=== PATIENT | female | born 1975 | race Caucasian/White ===

== ENCOUNTER 2021-12-07 18:21 | Inpatient (IN) | payer MEDICAID ==
[~2021-12-07] VITALS: Ht 160 cm; Wt 56.8 kg
[~2021-12-07 18:21] MED LIST: NAPR-56 PO; POLY119P2 PO
[2021-12-07] MEDS ORDERED: LORazepam 1 MG tablet PO ONE (18:40)
[2021-12-07 18:51] LABS: CLARITY,URINE CLEAR (Clear); COLOR,URINE YELLOW (Yellow); GLUCOSE, URINE NEGATIVE (Neg); KETONES,URINE TRACE mg/dl (Neg); LEUKOCYTE ESTERASE ,URINE NEGATIVE (Neg); NITRITES, URINE NEGATIVE (Neg); OCCULT BLOOD,URINE NEGATIVE (Neg); PROTEIN,URINE 30 mg/dl (Neg); UROBILINOGEN,URINE 0.2 E.U/dL (0.2-1.0)
[2021-12-07 18:55] LABS: URINE HCG NEGATIVE (NEG)
[2021-12-07 18:57] LABS: UA COLLECTION TYPE CLN CATCH MIDSTREAM
[2021-12-07 18:58] LABS: BACTERIA,URINE FEW /HPF (Neg); RBC,URINE NONE SEEN /HPF (0-2); SQUAMOUS EPITHELIAL CELL,UR FEW /LPF (FEW); WBC,URINE 0-4 /HPF (0-4)
[2021-12-07 18:59] LABS: BASOPHILS # (AUTO) 0.1 X10'3 (0-0.2); BASOPHILS % (AUTO) 0.9 % (0-1); EOSINOPHILS # (AUTO) 0.6 X10'3 (0-0.9); HEMATOCRIT 39.2 % (35.0-45.0); HEMOGLOBIN 13.2 g/dl (12.0-16.0); LYMPHOCYTES # (AUTO) 1.5 X10'3 (1.1-4.8); LYMPHOCYTES % (AUTO) 20.4 % (21-51); MEAN CORPUSCULAR HEMOGLOBIN 31.5 PG (27.0-31.0); MEAN CORPUSCULAR HGB CONC 33.7 g/dL (33.0-36.5); MEAN CORPUSCULAR VOLUME 93.3 FL (78-98); MEAN PLATELET VOLUME 7.1 FL (7.4-10.4); MONOCYTES # (AUTO) 0.5 X10'3 (0-0.9); MONOCYTES % (AUTO) 6.6 % (2-12); NEUTROPHILS # (AUTO) 4.6 X10'3 (1.8-7.7); NEUTROPHILS % (AUTO) 64.1 % (42-75); PLATELET COUNT 334 X10'3 (140-440); RED CELL DISTRIBUTION WIDTH 14.8 % (11.5-14.5); WHITE BLOOD COUNT 7.1 X10'3 (4.5-11.0)
[2021-12-07 19:06] LABS: URINE AMPHETAMINE SCREEN NEGATIVE (Neg); URINE BARBITUATE SCREEN NEGATIVE (Neg); URINE BENZODIAZEPINES SCREEN NEGATIVE (Neg); URINE CANNABINOID SCREEN POSITIVE (Neg); URINE COCAINE SCREEN NEGATIVE (Neg); URINE METHADONE SCREEN NEGATIVE (Neg); URINE OPIATE SCREEN NEGATIVE (Neg); URINE PHENCYCLIDINE SCREEN NEGATIVE (Neg)
[2021-12-07 19:10] LABS: ALANINE AMINOTRANSFERASE 24 U/L (12-78); ALBUMIN 3.7 G/DL (3.4-5.0); ALBUMIN/GLOBULIN RATIO 1.1 (1.1-1.5); ALKALINE PHOSPHATASE 70 IU/L (46-116); ANION GAP 7 (8-16); ASPARTATE AMINO TRANSFERASE 20 U/L (10-37); BILIRUBIN,TOTAL 0.3 MG/DL (0.1-1.0); BLOOD UREA NITROGEN 11 MG/DL (7-18); BUN/CREATININE RATIO 14.9 (6.6-38.0); CALCIUM 8.3 MG/DL (8.5-10.1); CHLORIDE 110 MMOL/L (99-107); CREATININE 0.74 MG/DL (0.40-0.90); GLUCOSE 86 MG/DL (70-104); POTASSIUM 3.7 MMOL/L (3.5-5.1); SODIUM 143 MMOL/L (135-145); TOTAL CARBON DIOXIDE 25.6 MMOL/L (24-32); eGFR 85 ML/MIN
[2021-12-07 19:19] LABS: ETHANOL 0.094 GM/DL (0.0-0.010)
[2021-12-07] MEDS ORDERED: levoTHYROXINE 75mcg tablet PO ONE (19:40)
--- NOTE | 2021-12-07 23:57 | NUR ---
Patients brother (Edward) called to explain patients extensive history. Instructed him to call back tomorrow and speak with Mental Health to ensure they get a thorough idea of patients condition. His phone number is [phone].
--- NOTE | 2021-12-08 07:15 | NUR ---
Patient transferred from [facility]. Ambulatory, steady gait. No distress observed. Continue to monitor.
[2021-12-08] MEDS: levoTHYROXINE 75mcg tablet PO SCH (07:50)
--- NOTE | 2021-12-08 08:20 | NUR ---
Patient eating gluten free cereal, no distress observed. Allergy dairy, eggs, wheat, and chicken. RN ordered soy milk. Continue to monitor.
--- NOTE | 2021-12-08 08:50 | NUR ---
Patient got angry and states she never said she was suicidal and principal gifts officer made it up. Patient was at brother's house. She is very angry with her brother. Continue to monitor.
--- NOTE | 2021-12-08 09:18 | NUR ---
PACKET FAXED TO [facility]
--- NOTE | 2021-12-08 09:20 | NUR ---
[facility], evaluating patient. Patient is a little agitated. Continue to monitor.
--- NOTE | 2021-12-08 09:20 | NUR ---
Patient asked for something for anxiety. Continue to monitor.
[2021-12-08] MEDS ORDERED: LORazepam 1 MG tablet PO ONE (09:25)
[2021-12-08 09:56] LABS: BASOPHILS # (AUTO) 0.1 X10'3 (0-0.2); BASOPHILS % (AUTO) 1.1 % (0-1); EOSINOPHILS # (AUTO) 0.6 X10'3 (0-0.9); EOSINOPHILS % (AUTO) 9.5 % (0-6); HEMATOCRIT 41.6 % (35.0-45.0); HEMOGLOBIN 13.7 g/dl (12.0-16.0); LYMPHOCYTES # (AUTO) 1.4 X10'3 (1.1-4.8); LYMPHOCYTES % (AUTO) 20.4 % (21-51); MEAN CORPUSCULAR HGB CONC 32.9 g/dL (33.0-36.5); MEAN CORPUSCULAR VOLUME 94.2 FL (78-98); MEAN PLATELET VOLUME 7.2 FL (7.4-10.4); MONOCYTES # (AUTO) 0.4 X10'3 (0-0.9); NEUTROPHILS # (AUTO) 4.2 X10'3 (1.8-7.7); PLATELET COUNT 318 X10'3 (140-440); RED BLOOD COUNT 4.41 X10'6 (4.20-5.60); RED CELL DISTRIBUTION WIDTH 14.9 % (11.5-14.5); WHITE BLOOD COUNT 6.7 X10'3 (4.5-11.0)
--- NOTE | 2021-12-08 10:26 | NUR ---
Mom and DIVINE Gomez, speaking with patient. Patient got angry as mom confronted patient on help she needs. Mother walking out and states "I love you!" patient yells back "I don't love you!". Patient wants to leave and RN spoke to DIVINE Gomez, who is placing a 5150 hold on patient. Patient advised and patient is not happy. RN gave patient 2 mg Ativan PO. Continue to monitor.
[2021-12-08] MEDS ORDERED: NO HOME MEDS (11:16)
[2021-12-08] MEDS: NICOTINE POLACRILEX 2 MG LOZENGE BC PRN (11:34)
--- NOTE | 2021-12-08 12:29 | NUR ---
Pt is sleeping on her right side. Normal RR even and unlabored. Will continue to monitor.
--- NOTE | 2021-12-08 15:00 | NUR ---
ADMIT NOTE: Per 5149 pt. was threatening family and unable to benefit from family supports. Pt. unable to report a viable plan for food, clothing, and skilled nursing. Pt. sedated upon admission due to receiving Ativan 2mg po in ER OF. Pt. was cooperative with skin check but gives minimal answers to admission and physical assessment questions and must be awoken multiple times. Pt. denies SI/HI, A/V hallucinations. Addendum: 12/08/21 at 1820 by Phu Denney RN 5149 for GD
[2021-12-08 15:32] VITALS: BP 123/84
[2021-12-08] MEDS ORDERED: NICOTINE POLACRILEX 2 MG LOZENGE BC PRN (15:40)
[2021-12-08] MEDS ORDERED: mag hydrox/Alum hydrox/simeth 30ml oral suspension PO PRN (15:40)
[2021-12-08] MEDS ORDERED: loperamide 2mg capsule PO PRN (15:40)
[2021-12-08] MEDS ORDERED: acetaminophen 325mg tablet PO PRN (15:40)
[2021-12-08] MEDS: LORazepam 1 MG tablet PO PRN (17:57)
[2021-12-08 20:44] VITALS: BP 105/69
--- NOTE | 2021-12-09 01:24 | NUR ---
Nursing Progress Note: Deborah Legal hold: 5150 Client on voluntary/involuntary status for GD. Report received from nurse with use of SBAR: WISAM Blackmon. Why are they here: Client LIBRA munoz for S/I; she jumped out of 2nd floor window after drinking ETOH. Patient threatened family and unable to safety plan with family. Also unable to report a viable plan for food, clothing, and retirement. Hx of meth use, heavy ETOH. Assessment What has happened this shift: Patient was received laying in bed in position on her right side, in no apparent distress. Patient was not entirely cooperative, gave little to no answers to assessment questions and had to be awoken multiple times to get any response. Although patient verbalized "I want to be left alone," she denied any S/I, H/I, and A/V hallucinations. Patient got dinner late d/t late admission, she ate most of it and been asleep since. S/I, H/I: Denies A/VH: Denies Sleep: Will tally at the end of shift ADL's: Independent Group attendance: N/A Were meds taken: N/A Any med S/E: N/A Mental Status Exam Appearance: petite, blonde, slightly unkempt lady with sunburned skin and thick calluses to bilateral feet Eye contact: Avoidant Behavior: Uncooperative, agitated, isolative, guarded Speech: Mumbles Mood: irritable, withdrawn Affect: flat Thought process: linear Thought Content: wants to be left alone. Cognition: Alert and Oriented x4 Insight: Poor Judgment: Poor Interventions PRN's used: None Therapeutic interventions: establishment of rapport, therapeutic conversation, active listening, medication administration/education/monitoring, encouragement of personal hygiene, provided distraction, redirection, positive reinforcement, and Q15 minute safety checks. Restraints/seclusion/emergency medication:None Justification of Continued Inpatient Treatment: Patient in need of crisis interruption and stabilization with medication management and monitoring in a safe and therapeutic environment until stable.
[2021-12-09] MEDS: LORazepam 1 MG tablet PO PRN ×2 (06:29→17:00)
[2021-12-09] MEDS: NICOTINE POLACRILEX 2 MG LOZENGE BC PRN ×2 (06:30→12:08)
[2021-12-09] MEDS: levoTHYROXINE 75mcg tablet PO SCH (07:29)
[2021-12-09] MEDS: nicotine 21mg patch - 24 hr TD SCH (07:30)
[2021-12-09 07:41] VITALS: BP 127/83
[2021-12-09 08:04] VITALS: BP 109/77
--- NOTE | 2021-12-09 09:04 | NUR ---
Assessment Met w/pt & engaged her in completing psychosocial, pt signed MOOSE & #9. Pt is homeless & will need linkages to community based providers & resources upon d/c. DCP Needs: Skilled Nursing Services (outpatient MH & PMD, support to apply for public benefits). D/C resources: [facility] ([facility], [facility], Peer Support) [facility] Plan: Clinician will continue to monitor pt's progress & engage pt in dcp activities when appropriate. Denisse Watters LCSW Addendum: 12/11/21 at 0914 by Denisse Watters SS Amended: Links added.
[2021-12-09 10:27] LABS: CHOL/HDL RATIO 2.9 (0.00-4.99); CHOLESTEROL 189 MG/DL (0-200); HDL CHOLESTEROL 65 MG/DL (35-60); LDL CHOLESTEROL 109 MG/DL (50-100); TRIGLYCERIDES 99 MG/DL (20-135)
[2021-12-09 10:29] LABS: HEMOGLOBIN A1C 5.7 % (4.5-6.2)
[2021-12-09] MEDS ORDERED: NO HOME MEDS (11:09)
[2021-12-09] MEDS ORDERED: ibuprofen 200mg tablet PO PRN (11:10)
[2021-12-09] MEDS: ibuprofen 200mg tablet PO PRN ×2 (11:30→20:41)
--- NOTE | 2021-12-09 16:45 | NUR ---
Nursing Progress Note: Deborah Legal hold: 5150 Client on voluntary/involuntary status for GD. Report received from CRN with use of SBAR. Why are they here: Client LIBRA munoz for S/I; she jumped out of 2nd floor window after drinking ETOH. Patient threatened family and unable to safety plan with family. Also unable to report a viable plan for food, clothing, and mcfp. Hx of meth use, heavy ETOH. Assessment What has happened this shift: Patient was received pacing and elevated. She immediately reported Im fuing getting out of here, youre not keeping me here where the hell is the exit. Pt. struggled to maintain herself and presented with extreme agitation, and was given PRN Ativan . Received phone call from her father Ruy Stoddard (phone number in chart), he was not listed on release form, so pt. did give verbal permission to senior writer to speak to him. Pt. father requesting provider call re recent psych behavior including pending charge from [employer] d/t erratic behavior on a flight last week from [place]. Pt. denies SI, HI, reports she was admitted d/t its my brothers fault, he did all this. Pt. attends the main [facility] room for meals, but stays briefly. She reports inability to tolerate allot of foods and would only eat applesauce, peanut butter. Pt. spent most of her day in her room and isolates from other cohorts. She was observed on the phone intermittently resulting in loud yelling and cursing. Pt. was seen by provider and c/o rectal pain. N.O DSS 250 BID, Motrin 600mg Q6 PRN. Office Supervisor found bowel assessment WNL, and administered MOM. S/I, H/I: Denies A/VH: Denies Sleep: 9.7 hrs, intermittent naps ADL's: Independent Group attendance: NA Were meds taken: Yes Any med S/E: None seen or observed Mental Status Exam Appearance: Older disheveled female, thin, wearing unit scrub Eye contact: poor Behavior: Agitated, isolative Speech: Loud Mood: Irritable, withdrawn Affect: Flat Thought process: Linear Thought Content: Want out Cognition: A/0x4 Insight: Poor Judgment: Poor Interventions PRN's used: Ativan, Motrin, Tylenol, MOM, nicotine lozenge Therapeutic interventions: establishment of rapport, therapeutic conversation, active listening, medication administration/education/monitoring, encouragement of personal hygiene, provided distraction, redirection, positive reinforcement, and Q15 minute safety checks. Restraints/seclusion/emergency medication: None Justification of Continued Inpatient Treatment: Patient in need of crisis interruption and stabilization with medication management and monitoring in a safe and therapeutic environment until stable.
[2021-12-09 19:37] VITALS: BP 98/58
[2021-12-09] MEDS: docusate sod 250mg capsule PO SCH (20:41)
--- NOTE | 2021-12-10 01:48 | NUR ---
Nursing Progress Note: Legal hold: 5150 Client on involuntary status for GD. Report received from CRN with use of SBAR. Why are they here: Client LIBRA munoz for S/I; she jumped out of 2nd floor window after drinking ETOH. Patient threatened family and unable to safety plan with family. Also unable to report a viable plan for food, clothing, and nursing home. Hx of meth use, heavy ETOH. Assessment What has happened this shift: Pt up in laura at start of shift. Pt guarded not talkative. Took meds without hesitation. Pt became obsessed with another staff member who had she had very little interaction with her. Accused this staff member of shooting darts at her. "I don't trust her keep her out of my room." Explained that the staff member had to come in room to care for roommate. Pt reassured that she was safe. She went to sleep. S/I, H/I: Denies A/VH: Denies Sleep: asleep at this time ADL's: Independent Group attendance: NA Were meds taken: Yes Any med S/E: None seen or observed Mental Status Exam Appearance: Well groomed showered on dayshift. Eye contact: poor Behavior: Agitated, isolative Speech: Normal rate and volume Mood: Irritable, withdrawn Affect: Flat Thought process: Linear Thought Content: Staff member being dangerous Cognition: A/0x4 Insight: Poor Judgment: Poor Interventions PRN's Motrin Therapeutic interventions: establishment of rapport, therapeutic conversation, active listening, medication administration/education/monitoring, encouragement of personal hygiene, provided distraction, redirection, positive reinforcement, and Q15 minute safety checks. Restraints/seclusion/emergency medication: None Justification of Continued Inpatient Treatment: Patient in need of crisis interruption and stabilization with medication management and monitoring in a safe and ther
[2021-12-10] MEDS: NICOTINE POLACRILEX 2 MG LOZENGE BC PRN (02:09)
[2021-12-10] MEDS: LORazepam 1 MG tablet PO PRN (02:38)
--- NOTE | 2021-12-10 04:21 | NUR ---
Pt awake for about an hour. Up in laura yelling that she wanted to leave to have a cigarette. Yelling things like "No one owns me. I am not having surgery" Given nicotine lozenge, Ativan and hot tea. Sat in laura calmed down apologized to staff and went back to bed.
[2021-12-10 07:56] VITALS: BP 104/76
[2021-12-10] MEDS: docusate sod 250mg capsule PO SCH ×2 (08:14→20:00)
[2021-12-10] MEDS: lurasidone 20mg tablet PO SCH (08:14)
[2021-12-10] MEDS: levoTHYROXINE 75mcg tablet PO SCH (08:14)
[2021-12-10] MEDS: nicotine 21mg patch - 24 hr TD SCH (08:26)
[2021-12-10] MEDS ORDERED: LORazepam 1 MG tablet PO ONE (09:00)
[2021-12-10] MEDS ORDERED: diphenhydrAMINE 50 mg/ml inj ONE (09:12)
[2021-12-10] MEDS ORDERED: haloperidol lactate 5mg/ml inj IM ONE (09:13)
--- NOTE | 2021-12-10 16:50 | NUR ---
Nursing Progress Note Legal hold: 5150 Client on voluntary/involuntary status for GD Report received from RN with use of SBAR Why are they here: Client LIBRA munoz for S/I; she jumped out of 2nd floor window after drinking ETOH. Patient threatened family and unable to safety plan with family. Also unable to report a viable plan for food, clothing, and assisted. Hx of meth use, heavy ETOH. Assessment What has happened this shift: Received Pt sitting in hallway. Pt let me know she didnt want to be here and wanted to go outside and smoke. Im going out those doors cause I dont belong here and I need to smoke. Pt able to calm and cooperate with vitals and portions of AM assessments. Pt ate breakfast and sat talking with others afterwards and began to escalate verbally again. Pt able to take AM meds with some questions. After leaving community room, Pt began yelling, screaming and pushing on doors with alarm. Pt Pt given oral once Ativan 2mg per Jesus Alberto WESTON. Pt clam in room for a few minutes and repeated screaming Im getting the fuck out of here. Pt slammed door and banged on sorensen. Pt did not respond to verbal de-escalation and was given Haldol 10mg IM and Benadryl 50mg IM per Jesus Alberto WESTON, and placed in seclusion room where she continued to bang sorensen and scream profanity, until she fell asleep. Pt woke at approx. 1530 and went back to her room and was given sandwich and juice as she missed lunch. Pt sat in chair for a while then returned to sleeping in bed in her room after eating and drinking. S/I, H/I: Denies A/VH: Denies Sleep: Most of shift, due to PRN meds for agitation ADL's: Independent Group attendance: No Were meds taken: Yes Any med S/E: None seen or observed Mental Status Exam Appearance: Disheveled in green scrubs Eye contact: Fair Behavior: Agitated Speech: Loud Mood: Irritable Affect: Flat Thought process: Linear Thought Content: Wants to leave and smoke Cognition: A/0x4 Insight: Poor Judgment: Poor Interventions PRN's used: See below Therapeutic interventions: establishment of rapport, therapeutic conversation, active listening, medication administration/education/monitoring, encouragement of personal hygiene, provided distraction, redirection, positive reinforcement, and Q15 minute safety checks. Restraints/seclusion/emergency medication: Pt given Ativan 2 mg oral, Haldol 10mg IM and Benadryl 50mg IM. Pt put in seclusion room. Justification of Continued Inpatient Treatment: Patient in need of crisis interruption and stabilization with medication management and monitoring in a safe and therapeutic environment until stable.
[2021-12-10 19:38] VITALS: BP 104/64
--- NOTE | 2021-12-10 22:06 | NUR ---
Nursing Progress Note Legal hold: 5150 Client on voluntary/involuntary status for GD Report received from RN with use of SBAR Why are they here: Client LIBRA munoz for S/I; she jumped out of 2nd floor window after drinking ETOH. Patient threatened family and unable to safety plan with family. Also unable to report a viable plan for food, clothing, and prison. Hx of meth use, heavy ETOH. Assessment What has happened this shift: Pt was in bed sleeping at change of shift. She got up and walked around prior to HS med pass and returned to bed. Pt would not wake up at HS med pass but later woke requesting a snack. Pt seems irritable and sits on the hallway floor waiting for a snack. Pt took HS meds and returned to her room. S/I, H/I: Denies A/VH: Denies Sleep: Most of shift ADL's: Independent Group attendance: No Were meds taken: Yes Any med S/E: None seen or observed Mental Status Exam Appearance: Disheveled in green scrubs Eye contact: Fair Behavior: Agitated Speech: quiet Mood: Irritable Affect: Flat Thought process: Linear Thought Content: Wants to leave and smoke Cognition: A/0x4 Insight: Poor Judgment: Poor Interventions PRN's used: Therapeutic interventions: establishment of rapport, therapeutic conversation, active listening, medication administration/education/monitoring, encouragement of personal hygiene, provided distraction, redirection, positive reinforcement, and Q15 minute safety checks. Restraints/seclusion/emergency medication: none Justification of Continued Inpatient Treatment: Patient in need of crisis interruption and stabilization with medication management and monitoring in a safe and therapeutic environment until stable.
[2021-12-11 07:39] VITALS: BP 173/139
[2021-12-11] MEDS: lurasidone 20mg tablet PO SCH (07:51)
[2021-12-11] MEDS: levoTHYROXINE 75mcg tablet PO SCH (07:51)
[2021-12-11] MEDS: docusate sod 250mg capsule PO SCH ×2 (07:51→20:13)
[2021-12-11] MEDS: nicotine 21mg patch - 24 hr TD SCH (07:52)
[2021-12-11] MEDS: ibuprofen 200mg tablet PO PRN (10:19)
[2021-12-11] MEDS: traMADol 50MG tablet PO PRN (16:06)
--- NOTE | 2021-12-11 16:52 | NUR ---
Nursing Progress Note: Deborah Legal hold: 5150 Client on involuntary status for GD Report received from DINO Nunes with use of SBAR Why are they here: Client LIBRA munoz for S/I; she jumped out of 2nd floor window after drinking ETOH. Patient threatened family and unable to safety plan with family. Also unable to report a viable plan for food, clothing, and assisted. Hx of meth use, heavy ETOH. Assessment What has happened this shift: Patient received sleeping in her room at change of shift with no s/s of distress. She was awoken for breakfast and scheduled medication. Patient received medication with no hesitancy. Patient endorsed that she was pissed off yesterday when asked how she was feeling. She joined in the community room for breakfast with peers. She retreated back to her room shortly after breakfast. 1:1 assessment completed, lungs CTA. Patient denies SI/ HI, AH or VH. Does not appear to be responding to internal stimuli. Patient approached this chart writer endorsing that she wants to talk to the doctor so she can leave. She is noted to be intermittently irritated r/t perseveration on discharge throughout the day. Patient observed socializing with other peers in the community room while watching television. She was given PRN Ultram at 1606 for c/o abdominal pain. Patient observed napping intermittently in her room throughout the shift. She joined for all meal and snack times in the community room with peers. S/I, H/I: Denies A/VH: Denies. Does not appear to be responding to IS. Sleep: Pt slept 8.25 hours last night per NOC shift. Napped intermittently throughout this shift. ADL's: Independent Group attendance: No Were meds taken: Yes Any med S/E: None reported or observed Mental Status Exam Appearance: Disheveled looking woman wearing green unit scrubs Eye contact: Fair Behavior: Social at times with peers, irritable at times, cooperative Speech: Clear, WNL Mood: Irritable at times Affect: Flat Thought process: Linear Thought Content: Meeting needs. Wanting to discharge. Cognition: A&O x4 Insight: Poor Judgment: Poor Interventions PRN's used: Tramadol, Motrin Therapeutic interventions: Establishment of rapport, therapeutic conversation, active listening, medication administration/education/monitoring, encouragement of personal hygiene, provided distraction, redirection, positive reinforcement, encouraged participation on the unit, and Q15 minute safety checks. Restraints/seclusion/emergency medication: N/A Justification of Continued Inpatient Treatment: Patient in need of crisis interruption and stabilization with medication management and monitoring in a safe and therapeutic environment until stable.
[2021-12-11] MEDS: LORazepam 1 MG tablet PO PRN (18:12)
[2021-12-11 19:12] VITALS: BP 112/55
--- NOTE | 2021-12-11 21:10 | NUR ---
Nursing Progress Note: Deborah Legal hold: 5150 Client on involuntary status for GD Report received from DINO Blackmon with use of SBAR Why are they here: Client LIBRA munoz for S/I; she jumped out of 2nd floor window after drinking ETOH. Patient threatened family and unable to safety plan with family. Also unable to report a viable plan for food, clothing, and care home. Hx of meth use, heavy ETOH. Assessment What has happened this shift: Pt was up in the group room at change of shift, socializing w/peers. She states she is feeling "alright." Pt appears fatigued but continued to socialize and watch tv in group room. Pt requested PRN nicotine lozenge at HS med pass and requested to shower and did. Pt went to bed after showering. S/I, H/I: Denies A/VH: Denies. Does not appear to be responding to IS. Sleep: see sleep hours ADL's: Independent Group attendance: No Were meds taken: Yes Any med S/E: None reported or observed Mental Status Exam Appearance: clean neat wearing green scrubs, showered this evening Eye contact: Fair Behavior: Social at times with peers, cooperative Speech: Clear Mood: "alright" Affect: Flat Thought process: Linear Thought Content: Meeting needs. Wanting to discharge. Cognition: A&O x4 Insight: Poor Judgment: Poor Interventions PRN's used: nicotine lozenge Therapeutic interventions: Establishment of rapport, therapeutic conversation, active listening, medication administration/education/monitoring, encouragement of personal hygiene, provided distraction, redirection, positive reinforcement, encouraged participation on the unit, and Q15 minute safety checks. Restraints/seclusion/emergency medication: N/A Justification of Continued Inpatient Treatment: Patient in need of crisis interruption and stabilization with medication management and monitoring in a safe and therapeutic environment until stable.
[2021-12-12] MEDS: NICOTINE POLACRILEX 2 MG LOZENGE BC PRN ×6 (06:31→23:05)
--- NOTE | 2021-12-12 07:18 | NUR ---
Initial: Pt admitted w/ schizophrenia and suicidal ideations per EMR. Currently on Regular diet w/ 100% intake of meals and participates in snacks per nursing documentation. Currently meeting est nutrient needs. LBM 12/11 receiving routine colace. No nutrition intervention implemented at this time, will continue to monitor. Recs: 1. Continue Regular diet as tolerated 2. Bowel care per rx 3. Weekly wts Addendum: 12/12/21 at [address] Amended: Links added.
[2021-12-12] MEDS: levoTHYROXINE 75mcg tablet PO SCH (07:27)
[2021-12-12] MEDS: docusate sod 250mg capsule PO SCH ×2 (07:27→20:31)
[2021-12-12] MEDS: lurasidone 20mg tablet PO SCH (07:28)
[2021-12-12] MEDS: nicotine 21mg patch - 24 hr TD SCH (07:29)
[2021-12-12] MEDS: traMADol 50MG tablet PO PRN ×2 (07:39→19:01)
[2021-12-12 08:00] VITALS: BP 101/67
[2021-12-12] MEDS: LORazepam 1 MG tablet PO PRN (12:45)
--- NOTE | 2021-12-12 12:59 | NUR ---
Deborah's brother, Edward (ph# [phone]) called to request an LPS referral. He reported he spoke to Valencia Gacria at [facility] who suggested he call [facility] to request LPS. Edward reported the family was going to seek conservatorship but now realize that LPS may be more appropriate. Informed him of the barriers with [facility] and seeking LPS. Requested he give additional information and he stated, "I already gave all the information to Dr Granda". Investment Executive will discuss the LPS referral with ENRICO Granda. MALICK Gomez
--- NOTE | 2021-12-12 14:51 | NUR ---
Cole, Director, spoke to content writer regarding complaint from family that [facility] is not completing LPS referral. Explained the situation and informed him that content writer can complete a referral and send it to [facility] as they are the ones who will decide whether or not to investigate. Spoke to Micaela Bucio/Deborah rascon at [facility] (ph# [phone]) and explained the situation. Informed her content writer will send a referral with out a Dr's signature. Completed and sent the LPS referral to [facility]. MALICK Gomez
--- NOTE | 2021-12-12 15:54 | NUR ---
Pt. attend group this morning. We talked about Codependency and how to create "I messages". Pt. was very interested in the topic at hand. She was open and shared her thoughts easily with her peers. Her demeanor was calm, compliant and pleasant to work with. She was alert and oriented X 4. Her thought content and thought process were WNL. She shared a lot about how she feels she is an empath and what that is like for her. She also shared ways she angie with being very sensitive. She reported going into nature is very therapeutic for her. She also reported having alone time helps as well. This [employer] Pasture Farm Worker did observe some possible delusion content in her thinking. Her thought process was linear. Tomasa Lazaro LCSW
--- NOTE | 2021-12-12 16:37 | NUR ---
Nursing Progress Note: Deborah Legal hold: 5250 Client on involuntary status for GD Report received from DINO Nunes with use of SBAR Why are they here: Client LIBRA munoz for S/I; she jumped out of 2nd floor window after drinking ETOH. Patient threatened family and unable to safety plan with family. Also unable to report a viable plan for food, clothing, and senior care. Hx of meth use, heavy ETOH. Assessment What has happened this shift: Patient observed walking around the unit at shift change. She was receptive to scheduled medication and 1:1 assessment. Patient approached this policy writer sales endorsing 03/09 chronic abdominal pain r/t rectal prolapse sx x7 years ago. She was given PRN Tramadol for pain with effectiveness. She joined with peers in the community room for breakfast. She was noted to be active on the unit throughout the morning. Patient denies SI/ HI, AH or VH. Does not appear to be responding to internal stimuli. She took a shower on this shift, dressed in clean clothing with clean linens applied to bed. Patient approached this policy writer sales with c/o anxiety and was given PRN Ativan at 1245. She approached this policy writer sales later endorsing that she believes her hypothyroid issue was causing her to feel bad but she is better now on medication. Patient also endorsing that she cant stand to be here another day and doesnt deserve to be in a mental hospital. Patient noted to be animated, raising tone of voice, stating that she will get out of here one way or another. Patient had court hearing via zoom today. Shortly after hearing patient was noted pacing the hallway endorsing that she can take care of her festeban self and doesnt need to be here. She is noted to be intermittently irritated r/t perseveration on discharge throughout the day. She joined for all meal and snack times in the community room with peers. S/I, H/I: Denies A/VH: Denies. Does not appear to be responding to IS. Sleep: Refer to sleep hours. Patient napped for approximately one hour on this shift. ADL's: Independent Group attendance: No Were meds taken: Yes Any med S/E: None reported or observed Mental Status Exam Appearance: Clean, showered on this shift. Middle aged woman wearing green unit scrubs Eye contact: Fair Behavior: Social at times with peers, irritable at times, cooperative Speech: Clear, WNL Mood: Irritable at times Affect: Flat Thought process: Linear Thought Content: Meeting needs. Perseveration on discharge. Doesnt need to be here Cognition: A&O x4 Insight: Poor Judgment: Poor Interventions PRN's used: Tramadol, Ativan Therapeutic interventions: Therapeutic conversation, active listening, medication administration/education/monitoring, encouragement of personal hygiene, provided distraction, redirection, positive reinforcement, encouraged participation on the unit, and Q15 minute safety checks. Restraints/seclusion/emergency medication: N/A Justification of Continued Inpatient Treatment: Patient in need of crisis interruption and stabilization with medication management and monitoring in a safe and therapeutic environment until stable.
[2021-12-12 20:00] VITALS: BP 128/68
--- NOTE | 2021-12-12 20:47 | NUR ---
Nursing Progress Note Legal hold: 5250 Client on involuntary status for GD Report received from DINO Moore with use of SBAR Why are they here: Client LIBRA munoz for S/I; she jumped out of 2nd floor window after drinking ETOH. Patient threatened family and unable to safety plan with family. Also unable to report a viable plan for food, clothing, and chcf. Hx of meth use, heavy ETOH. Assessment What has happened this shift: Patient observed walking around the unit at shift change. Patient primarily isolated in her room following shift change. She did exit for snacks and to request medications. The patient is well oriented. 1:1 Interview at bedside. Patient denies S/I, H/I, or any hallucinations. She looks disheveled. She has an anxious looking face. The patient complains of anxiety, also her chronic abdominal pain. She expresses concerns about her children who have been taken away from her. She tells this assembly instructions writer, "I want to get out of here. Why can't we smoke here? The patient was given Tramadol for her ABD pain. It is too early for her Ativan. The patient also requests something for sleep. Jesus Alberto WESTON will be contacted he approved Trazadone 100 mg, MR X1. The patient is linear of thought. No internal stimuli noted. Patients speech is normal. The patient is focused on her discharge. Patient is independent on her ADL's. Mental Status Exam Appearance: Clean, showered on this shift. Middle aged woman wearing green unit scrubs Eye contact: Fair Interventions PRN's used: Tramadol Therapeutic interventions: Therapeutic conversation, active listening, medication administration/education/monitoring, encouragement of personal hygiene, provided distraction, redirection, positive reinforcement, encouraged participation on the unit, and Q15 minute safety checks. Restraints/seclusion/emergency medication: N/A Justification of Continued Inpatient Treatment: Patient in need of crisis interruption and stabilization with medication management and monitoring in a safe and therapeutic environment until stable.
[2021-12-12] MEDS ORDERED: traZODone 50mg tablet PO ONE ×2 (21:10→23:00)
--- NOTE | 2021-12-12 22:57 | NUR ---
Patient is awake again, she states she can't sleep. A second Trazadone 100 mg will be given.
[2021-12-13] MEDS: NICOTINE POLACRILEX 2 MG LOZENGE BC PRN ×4 (06:48→22:22)
[2021-12-13 07:28] VITALS: BP 109/71
[2021-12-13] MEDS: docusate sod 250mg capsule PO SCH ×2 (07:55→20:19)
[2021-12-13] MEDS: lurasidone 20mg tablet PO SCH (07:55)
[2021-12-13] MEDS: LORazepam 1 MG tablet PO PRN ×2 (07:55→17:26)
[2021-12-13] MEDS: levoTHYROXINE 75mcg tablet PO SCH (07:56)
[2021-12-13] MEDS: nicotine 21mg patch - 24 hr TD SCH (07:56)
--- NOTE | 2021-12-13 11:26 | NUR ---
[facility] submitted [facility] application. MALICK Gomez
[2021-12-13] MEDS: traMADol 50MG tablet PO PRN (12:35)
--- NOTE | 2021-12-13 16:37 | NUR ---
Nursing Progress Note: Deborah Legal hold: 5250 Client on involuntary status for GD Report received from Laurence Poole RN with use of SBAR Why are they here: Client LIBRA munoz for S/I; she jumped out of 2nd floor window after drinking ETOH. Patient threatened family and unable to safety plan with family. Also unable to report a viable plan for food, clothing, and detention. Hx of meth use, heavy ETOH. Assessment What has happened this shift: Patient observed sitting on the ground in the hallway upon change of shift. She presents as polite, reserved, and cooperative with care. Patient received her scheduled medication without hesitancy. She joined in the community room with peers for breakfast. Patient was given PRN Ativan this morning for c/o anxiety. She continues to deny SI/HI, AH or VH. Does not appear to be responding to internal stimuli. She was observed napping in her room after breakfast. Patient continues to endorse chronic abdominal pain r/t rectal prolapse sx x7 years ago. She was given PRN Tramadol for pain with effectiveness. Patient observed participating in group therapy with peers today. She was noted to be self-isolated to her room, observed napping intermittently throughout the shift. Patient took a shower on this shift and changed into clean clothing. Patient approached this ad copy writer later in the shift asking if she can just leave at any time. Patient reminded of 5250 hold status and encouraged to participate in constructive activities. She joined for all meal and snack times in the community room with peers. S/I, H/I: Denies A/VH: Denies. Does not appear to be responding to IS. Sleep: Pt slept 6.25 hours last night per NOC shift. Napped intermittently throughout ADL's: Independent Group attendance: No Were meds taken: Yes Any med S/E: None reported or observed Mental Status Exam Appearance: Clean, showered on this shift. Middle aged woman wearing green unit scrubs Eye contact: Fair Behavior: Social at times with peers, cooperative Speech: Clear, WNL Mood: Pleasant, slightly anxious Affect: Flat Thought process: Linear Thought Content: Meeting needs. Wanting to discharge. Cognition: A&O x4 Insight: Poor Judgment: Poor Interventions PRN's used: Tramadol, Ativan Therapeutic interventions: Therapeutic conversation, active listening, medication administration/education/monitoring, encouragement of personal hygiene, provided distraction, redirection, positive reinforcement, encouraged participation on the unit, and Q15 minute safety checks. Restraints/seclusion/emergency medication: N/A Justification of Continued Inpatient Treatment: Patient in need of crisis interruption and stabilization with medication management and monitoring in a safe and therapeutic environment until stable.
--- NOTE | 2021-12-13 19:30 | NUR ---
Patient has a new order for Ativan 1mg QHS scheduled. This is in addition to patients Ativan 1mg P0 BID. Per ENRICO Sumner.
[2021-12-13] MEDS: tizanidine 4mg tablet PO PRN (19:39)
[2021-12-13 20:00] VITALS: BP 101/65
[2021-12-13] MEDS ORDERED: traZODone 150mg tablet PO SCH (20:00)
[2021-12-13] MEDS ORDERED: LORazepam 1 MG tablet PO ONE (21:00)
--- NOTE | 2021-12-13 22:52 | NUR ---
Nursing Progress Note Legal hold: 5250 Client on involuntary status for GD Report received from DINO Moore with use of SBAR Why are they here: Client LIBRA munoz for S/I; she jumped out of 2nd floor window after drinking ETOH. Patient threatened family and unable to safety plan with family. Also unable to report a viable plan for food, clothing, and assisted. Hx of meth use, heavy ETOH. Assessment What has happened this shift: The patient is observes ambulating the unit following shift change. She exhibits light socializations with peers. The patient looks disheveled. At times friendly, the patient presents as somewhat anxious most of the time. The patient denies S/I, H/I, or any hallucinations. The patient did have a bowel movement today. The patient states she always has minimal bowel movements. Zanaflax was added to the patients MAR, also included was an additional Ativan QHS. The patient is well oriented, some depression resides. Patient minimizes her psychological state. She refuses her HS Trazadone "it makes me stay awake." The patient is otherwise medication compliant. Interventions PRN's used: Nicotine lozenges X2. Therapeutic interventions: Therapeutic conversation, active listening, medication administration/education/monitoring, encouragement of personal hygiene, provided distraction, redirection, positive reinforcement, encouraged participation on the unit, and Q15 minute safety checks. Restraints/seclusion/emergency medication: N/A Justification of Continued Inpatient Treatment: Patient in need of crisis interruption and stabilization with medication management and monitoring in a safe and therapeutic environment until stable.
[2021-12-14 07:36] VITALS: BP 98/66
[2021-12-14] MEDS: levoTHYROXINE 75mcg tablet PO SCH (07:46)
[2021-12-14] MEDS: docusate sod 250mg capsule PO SCH ×2 (08:00→19:20)
[2021-12-14] MEDS: nicotine 21mg patch - 24 hr TD SCH (08:12)
[2021-12-14] MEDS: tizanidine 4mg tablet PO PRN (10:19)
[2021-12-14] MEDS: magnesium hydroxide 30ml (MOM) UD suspension PO PRN (10:19)
[2021-12-14] MEDS: traMADol 50MG tablet PO PRN (10:19)
[2021-12-14] MEDS ORDERED: OLANZapine 5mg rapidly disint. tablet PO ONE (15:05)
[2021-12-14] MEDS ORDERED: OLANZAPINE 5 MG TABLET PO PRN (15:10)
[2021-12-14] MEDS: LORazepam 1 MG tablet PO PRN (15:33)
--- NOTE | 2021-12-14 17:20 | NUR ---
Nursing Progress Note Legal hold: 5150 Client on voluntary/involuntary status for GD Report received from RN with use of SBAR Why are they here: Client LIBRA munoz for S/I; she jumped out of 2nd floor window after drinking ETOH. Patient threatened family and unable to safety plan with family. Also unable to report a viable plan for food, clothing, and senior care. Hx of meth use, heavy ETOH. Assessment What has happened this shift: Received Pt in bed resting w/o distress at the beginning of this shift. Pt cooperated with vitals and got up and walked around the unit. Pt began to complain about not being able to smoke, but did not escalate behaviorally. She is wearing own clothes today. She attempted to befriend a new Pt but became disturbed by his words and escalation. Pt received Tramadol and Xanaflex for abdominal pain and discomfort, with good effect. Pts mood elevated a bit in afternoon with incongruent smiling and laughing. Pt mildly sexually provocative with other male Pts and staff, but redirected easily. Pt showered in afternoon and began to feel oppressed by things are happening to me, pt appeared to be responding to internal stimuli at times and received Zyprexa Sherry per Zulema WESTON. Pt taken to xray for abdominal and chest views. Pt received Ativan prn prior to xray. When she returned she spent next two hrs in community room doing artwork. S/I, H/I: Denies A/VH: Pt responding to delusions and internal stimuli Sleep: None this shift ADL's: Independent Group attendance: No Were meds taken: Yes Any med S/E: None seen or observed Mental Status Exam Appearance: Casual in own clothes, showered today Eye contact: Good Behavior: Scattered Speech: Coherent at times; disorganized at other times Mood: Labile Affect: Animated Thought process: Linear Thought Content: Wants to leave and smoke Cognition: A/0x4 Insight: Poor Judgment: Poor Interventions PRN's used: Xanaflex, Tramadol, Zyprexa, Ativan Therapeutic interventions: establishment of rapport, therapeutic conversation, active listening, medication administration/education/monitoring, encouragement of personal hygiene, provided distraction, redirection, positive reinforcement, and Q15 minute safety checks. Restraints/seclusion/emergency medication: Justification of Continued Inpatient Treatment: Patient in need of crisis interruption and stabilization with medication management and monitoring in a safe and therapeutic environment until stable.
[2021-12-14] MEDS: lurasidone 20mg tablet PO SCH (17:28)
[2021-12-14] MEDS: NICOTINE POLACRILEX 2 MG LOZENGE BC PRN (17:28)
[2021-12-14 19:00] VITALS: BP 112/68
--- NOTE | 2021-12-15 04:41 | NUR ---
Nursing Progress Note Legal hold: 5250 Client on involuntary status for GD Report received from DINO Moore with use of SBAR Why are they here: Client LIBRA munoz for S/I; she jumped out of 2nd floor window after drinking ETOH. Patient threatened family and unable to safety plan with family. Also unable to report a viable plan for food, clothing, and detention. Hx of meth use, heavy ETOH. Assessment What has happened this shift: Patient observed sitting in hallway by laundry room at shift change waiting for her clothes to be dry. Patient primarily isolated in her room following shift change. Pt cooperative with pm assessment and fell asleep early. Pt awoke to take her hs colace and returned to sleep. Pt stated she did have BM earlier in the day. Pt slept through snack. Pt did wake up around 0230 and requested juice and chocolate. Pt given juice and she returned to sleep. Mental Status Exam Appearance: Clean. Middle aged woman, wearing her own clothing Eye contact: Fair Interventions PRN's used: n/a Therapeutic interventions: Therapeutic conversation, active listening, medication administration/education/monitoring, encouragement of personal hygiene, provided distraction, redirection, positive reinforcement, encouraged participation on the unit, and Q15 minute safety checks. Restraints/seclusion/emergency medication: N/A Justification of Continued Inpatient Treatment: Patient in need of crisis interruption and stabilization with medication management and monitoring in a safe and therapeutic environment until stable.
[2021-12-15] MEDS: NICOTINE POLACRILEX 2 MG LOZENGE BC PRN ×2 (05:14→19:25)
[2021-12-15] MEDS: levoTHYROXINE 75mcg tablet PO SCH (07:05)
[2021-12-15] MEDS: traMADol 50MG tablet PO PRN (07:05)
[2021-12-15] MEDS: docusate sod 250mg capsule PO SCH ×2 (07:05→20:10)
[2021-12-15] MEDS: tizanidine 4mg tablet PO PRN (07:05)
[2021-12-15] MEDS: nicotine 21mg patch - 24 hr TD SCH (07:06)
[2021-12-15 07:58] VITALS: BP 111/68
[2021-12-15] MEDS: LORazepam 1 MG tablet PO PRN (09:07)
--- NOTE | 2021-12-15 15:17 | NUR ---
Nursing Progress Note: CY Legal hold: 5250 Expires 12/25 Client on voluntary/involuntary status for GD Report received from DINO Kent with use of SBAR Why are they here: Client LIBRA munoz for S/I; she jumped out of 2nd floor window after drinking ETOH. Patient threatened family and unable to safety plan with family. Also unable to report a viable plan for food, clothing, and custodial. Hx of meth use, heavy ETOH. Assessment What has happened this shift: Received patient sleeping at shift change, noted rise and fall of chest. Pt woke and requested her pain medication for abdominal pain. Pt asked for the results of the xrays from yesterday, both WNLs. Pt was compliant with care and medication. Pts mood began to elevated as she apologized I just cant get a hold of my kids. Its Easter, you know what I mean. PRN Ativan was administered with effect. Pt later had another elevated mood swing after getting off phone with mom That is bullshit! All she thinks I do is drugs, drugs, drugs! Pt took a warm shower to help calm her down, this was effective. Pt is social on the unit, especially with male peers. Pt presents linear at times then becomes tangential and disorganized in her thought process. S/I, H/I: Denies both. A/VH: Pt responding to delusions and internal stimuli Sleep: 7.25 hours per sleep assessment. No naps this shift. ADL's: Independent. Showered today. Group attendance: No scheduled group today. Were meds taken: Yes, without issue. Any med S/E: None seen or observed Mental Status Exam Appearance: Casual in own clothes, showered today Eye contact: Good Behavior: Cooperative, excitable, intrusive at times. Speech: Clear, loud, rapid, disorganized at other times Mood: Labile Affect: Animated Thought process: Linear Thought Content: Wants to talk to kids. Cognition: A/0x4 Insight: Poor Judgment: Poor Interventions PRN's used: Xanaflex, Tramadol, Ativan Therapeutic interventions: establishment of rapport, therapeutic conversation, active listening, medication administration/education/monitoring, encouragement of personal hygiene, provided distraction, redirection, positive reinforcement, and Q15 minute safety checks. Restraints/seclusion/emergency medication: Justification of Continued Inpatient Treatment: Patient in need of crisis interruption and stabilization with medication management and monitoring in a safe and therapeutic environment until stable. Addendum: 12/15/21 at 1655 by Jessy Infante RN Received order from Brandon Cunningham for Mag citrate. Pt's KUB shows large amount of stool. Administered without issue. Will continue to monitor.
[2021-12-15] MEDS ORDERED: magnesium citrate 296ml oral solution PO ONE (16:25)
[2021-12-15] MEDS: lurasidone 20mg tablet PO SCH (17:48)
[2021-12-15 19:46] VITALS: BP 123/83
[2021-12-15] MEDS: ibuprofen 200mg tablet PO PRN (20:14)
--- NOTE | 2021-12-16 03:44 | NUR ---
Nursing Progress Note: Legal hold: 5250 Expires 12/25 Client on involuntary status for GD Report received from DINO Moore with use of SBAR Why are they here: Client LIBRA munoz for S/I; she jumped out of 2nd floor window after drinking ETOH. Patient threatened family and unable to safety plan with family. Also unable to report a viable plan for food, clothing, and penitentiary. Hx of meth use, heavy ETOH. Assessment What has happened this shift: Patient was out on the floor at shift change. She is able to have a decent conversation, but is quite labile. She is on the verge of tears or an explosion. Words needed to be carefully thought out, as patient can take the wrong meaning. She continues to believe that she is being "messed with" by demons and people. She states they may have followed her here from [facility]. Patient is sociable with her peers, mostly males. Patient states that she will be having someone get her out of here tomorrow. She is unable to say with certainty where she will stay. She is compliant with medications. She has also showered today, and appears to be thinking more about her appearance. S/I, H/I: Denies. A/VH: Denies, but talks about seeing aliens. Sleep: See sleep assessment. ADL's: Independent. Showered today. Group attendance: N/A. Were meds taken: Yes. Any med S/E: None reported or observed Mental Status Exam Appearance: Casual in own clothes, showered today Eye contact: Good Behavior: Cooperative, excitable, intrusive at times. Speech: Clear, loud, rapid, disorganized at other times Mood: Labile Affect: Animated Thought process: Linear, disorganized at times. Thought Content: Wants to talk to her kids. Cognition: A/0x4 Insight: Poor Judgment: Poor Interventions PRN's used: Tramadol, Ativan Therapeutic interventions: establishment of rapport, therapeutic conversation, active listening, medication administration/education/monitoring, encouragement of personal hygiene, provided distraction, redirection, positive reinforcement, and Q15 minute safety checks. Restraints/seclusion/emergency medication: Justification of Continued Inpatient Treatment: Patient in need of crisis interruption and stabilization with medication management and monitoring in a safe and therapeutic environment until stable. Addendum: 12/15/21 at 1655 by Jessy Infante RN Received order from Brandon Cunningham for Mag citrate. Pt's KUB shows large amount of stool. Administered without issue. Will continue to monitor.
[2021-12-16] MEDS: LORazepam 1 MG tablet PO PRN ×2 (04:06→10:38)
[2021-12-16] MEDS: NICOTINE POLACRILEX 2 MG LOZENGE BC PRN (06:42)
--- NOTE | 2021-12-16 07:06 | NUR ---
FOLLOW UP ON LPS REFERRAL Per email from Rupinder at [facility], "[facility] will not be moving forward with the LPS referral for Deborah Stoddard because client has not received services from [facility]. If client is interested in Specialty Mental Health Services with [facility], client can go through [facility] as a walk-in, Thursday 8am-3pm, to initiate services. " Deborah Solano LMFT
[2021-12-16] MEDS: docusate sod 250mg capsule PO SCH ×2 (07:16→20:20)
[2021-12-16] MEDS: levoTHYROXINE 75mcg tablet PO SCH (07:16)
[2021-12-16] MEDS: nicotine 21mg patch - 24 hr TD SCH (07:17)
[2021-12-16 07:30] VITALS: BP 104/63
[2021-12-16 08:18] VITALS: BP 104/63
--- NOTE | 2021-12-16 09:51 | NUR ---
Pt. attended group today. Todays group was about the difference between Growth Mindset vs. Fixed Mindset. We learned about the differences and then discussed what aspect of developing a growth mindset they wanted to work on. Pt. came in half way through the group. She was very quiet and when asked if she wanted to shared she declined reporting that she wasn't doing well today due to hormones. She then went on the suggest that we get plants and play music to them to see how they grow. She believes this would be interesting to watch to see if the music helps the growth of the plant. Her demeanor was slightly agitated but she remained calm throughout the group. Her thought content suggested some possible loose associations as we were talking about the growth mindset and so she shared about plants growing. She was alert and oriented X 4. Tomasa Lazaro LCSW
--- NOTE | 2021-12-16 13:39 | NUR ---
CM Presenting Issues: VM from pt's father inquiring about LPS process. Interventions: T/C w/pt's father Ruy Stoddard [phone] and educated him on LPS process being a county's process. Pt's father was dissatisfied w/clinician's explanation (pt need to have Noreen Marr [employer] plan & is established w/[facility] for outpt services.). Father will contact Valencia at [facility] to advocate for pt to be conserved. Plan: Clinician will continue to monitor. MARIA ELENA PiersonW Addendum: 12/16/21 at 1342 by Denisse Watters SS Amended: Links added.
[2021-12-16] MEDS ORDERED: magnesium citrate 296ml oral solution PO ONE (14:05)
[2021-12-16] MEDS ORDERED: lactulose 20gm/30ml cup PO ONE (14:15)
[2021-12-16] MEDS ORDERED: OLANZapine 5mg rapidly disint. tablet PO ONE (16:25)
--- NOTE | 2021-12-16 17:05 | NUR ---
Nursing Progress Note: [place] Legal hold: 5250 Expires 12/25 Client on involuntary status for GD Report received from DINO [place] with use of SBAR Why are they here: Client LIBRA munoz for S/I; she jumped out of 2nd floor window after drinking ETOH. Patient threatened family and unable to safety plan with family. Also unable to report a viable plan for food, clothing, and prison. Hx of meth use, heavy ETOH. Assessment What has happened this shift: Received patient sleeping at shift change, noted rise and fall of chest. Noted patient with water down the front of her, when asked if she spilled pt stated No, I poured it on myself. You know just too much going on (pt gesturing with hands). PRN Ativan administered to help decrease anxiety. Noted intermittent episodes of pt talking to herself and random laughing. Pt was administered Mag Citrate yesterday as KUB indicated large amount of stool in colon. Pt reports having small bowl movements, reports some relief. Pt continues to deny all psychotic symptoms I just need out of this place. I wasnt even held this long in [facility]. This is fucking ridiculous. Pt had follow up KUB this morning, stool is moving down colon. Received order for another dose of Mag Citrate and lactulose. When pt woke up from her nap around 1500, pt was agitated looking at her side and saying what are these darts in my skin. The fucking darts from the aliens. Pt became tangential and loud. Pt asked CRN to place his radio on her hip it has a magnet, that will help loosen up the darts. Pt adamantly refused the Mag Citrate yelling that is what made me bloated like this! Rolling Mill Operator Helper was unable to reason with patient and educated the risks and benefits of taking the Mag. Endorsed refusal to R. Octavio. Pt was getting agitated in shower, yelling at her voices or the aliens. Pt stated on her way back to the room if I dont get out of this fucking place I will be pissed at everyone. Increased agitation and yelling pt had her personal belongings in hand and tried walking out front door. Received order for Zyprexa zydis 10mg, which patient refused. Oscar JOEL was eventually able to calm patient down, pt still refused Zyprexa, but drank bottle of Mag Citrate. 1700 Pt quietly sitting in rec room listening to head phones. Will continue to monitor. S/I, H/I: Denies both. A/VH: Pt denies, but appears at time to be responding to internal stimuli. Sleep: 5.5 hours per sleep assessment. Napped an hour after ADL's: Independent. Showered today. Group attendance: Pt declined. Were meds taken: Yes, without issue. Any med S/E: None seen or observed Mental Status Exam Appearance: Casual in own clothes, showered today Eye contact: Good Behavior: Cooperative, excitedable, intrusive at times. Speech: Clear, loud, rapid, disorganized at other times Mood: Labile Affect: Congruent with mood. Thought process: Linear Thought Content: wants out of here. Cognition: A/0x4 Insight: Poor Judgment: Poor Interventions PRN's used: Therapeutic interventions: establishment of rapport, therapeutic conversation, active listening, medication administration/education/monitoring, encouragement of personal hygiene, provided distraction, redirection, positive reinforcement, and Q15 minute safety checks. Restraints/seclusion/emergency medication: Justification of Continued Inpatient Treatment: Patient in need of crisis interruption and stabilization with medication management and monitoring in a safe and therapeutic environment until stable. Addendum: 12/16/21 at 1715 by Jessy Infante RN Pt requested her PRN Tramadol. Rolling Mill Operator Helper explained that this can cause constipation. Pt stated "It's a matter of balancing things out." "I will drink the other half of the Mag Citrate." Pt is apologetic of her behavior. Pt states "I will be in my room lying down." Addendum: 12/16/21 at 1757 by Jessy Infante RN Administered pt's 1800 Latuda without issue. Pt continues to apologize about her behavior. Pt c/o of abdominal pain and gassy, field underwriter explained the Mag was working. Pt eating dinner in group room acting appropriately.
[2021-12-16] MEDS: traMADol 50MG tablet PO PRN (17:16)
[2021-12-16] MEDS: lurasidone 20mg tablet PO SCH (17:48)
[2021-12-16] MEDS: simethicone 125mg capsule PO PRN (18:42)
[2021-12-16 19:57] VITALS: BP 109/75
--- NOTE | 2021-12-17 02:49 | NUR ---
Nursing Progress Note: Legal hold: 5250 Expires 12/25 Client on involuntary status for GD Report received from DINO Moore with use of SBAR Why are they here: Client LIBRA munoz for S/I; she jumped out of 2nd floor window after drinking ETOH. Patient threatened family and unable to safety plan with family. Also unable to report a viable plan for food, clothing, and group home. Hx of meth use, heavy ETOH. Assessment What has happened this shift: Patient seen at bedside for 1:1. She was having abdominal pain and crying. It wasn't really the pain, but the fact that has nowhere to go. Patient's family is fed up with her. She has burned all bridges. Patient continues to be labile, crying then laughing. Seeking attention by sitting on the floor all over the unit. She has had bowel movements tonight. She has soiled her clothes, her bedding, and her bathroom. She did clean it herself. early in the evening the patient c/o gassy bloating. Order received from ENRICO Cunningham for Simethicone, that had great results, as patient could be heard passing lots of gas. She finally had a bm that changed her outlook greatly. Her attitude definitely changed for the better. No delusional content expressed this shift. S/I, H/I: Denies. A/VH: Denies, but talks about seeing aliens. Sleep: See sleep assessment. ADL's: Independent. Showered today. Group attendance: N/A. Were meds taken: Yes. Any med S/E: None reported or observed Mental Status Exam Appearance: Casual in own clothes. Changed clothes multiple times tonight. Eye contact: Good Behavior: Cooperative, excitable, intrusive at times. Speech: Clear, loud, rapid, disorganized at other times Mood: Labile Affect: Animated Thought process: Linear, disorganized at times. Thought Content: Wants to talk to her kids. Cognition: A/0x4 Insight: Poor Judgment: Poor Interventions PRN's used: Therapeutic interventions: establishment of rapport, therapeutic conversation, active listening, medication administration/education/monitoring, encouragement of personal hygiene, provided distraction, redirection, positive reinforcement, and Q15 minute safety checks. Restraints/seclusion/emergency medication: Justification of Continued Inpatient Treatment: Patient in need of crisis interruption and stabilization with medication management and monitoring in a safe and therapeutic environment until stable.
[2021-12-17] MEDS: NICOTINE POLACRILEX 2 MG LOZENGE BC PRN ×2 (05:53→18:50)
[2021-12-17] MEDS: levoTHYROXINE 75mcg tablet PO SCH (07:28)
[2021-12-17] MEDS: hydrOXYzine 25 MG tablet PO PRN ×2 (07:29→19:03)
[2021-12-17] MEDS: nicotine 21mg patch - 24 hr TD SCH (07:30)
[2021-12-17] MEDS: docusate sod 250mg capsule PO SCH ×2 (07:30→20:00)
[2021-12-17 08:30] VITALS: BP 102/65
--- NOTE | 2021-12-17 09:37 | NUR ---
Pt. attended both groups that were offered today. In the first group we talked about talked about the Wellness and utilized the Self Care Wheel to help Patients determine the wellness/self-care activities they enjoy in each domain presented in the wheel. The four domains are the physical, spiritual, emotional and physical. Pt. engaged easily and quickly filled out her different wellness activities she engages in each domain. She came back for the second group and engaged in a visual representation of her Path to Wellness. Pts are asked to draw their path with the steps they feels they need to take to move forward to maintaining wellness. She appeared to enjoy the activity and was open to sharing it with the group. She hattie a scene with mountains and a forest with a log cabin. She showed how her children's names where written and explained that this would be her dream to have everyone together in this place. She didn't provide the steps like what was asked of her but instead hattie a safe places she enjoyed. She Her mood appeared a bit elevated with a labile affect. Her thought content appeared to contain some thoughts of that were delusional. She reported herself that she wasn't feeling that great today and stated, "it's my menstrual cycle, it makes me feel not so great". Tomasa Lazaro, WATERMELON INSPECTOR
[2021-12-17] MEDS: simethicone 125mg capsule PO PRN (09:55)
[2021-12-17] MEDS: tizanidine 4mg tablet PO PRN ×2 (09:55→19:03)
[2021-12-17] MEDS: traMADol 50MG tablet PO PRN (09:58)
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
--- NOTE | 2021-12-17 15:32 | NUR ---
Nursing Progress Note Legal hold: 5250 Client on voluntary/involuntary status for GD Report received from RN with use of SBAR Why are they here: Client LIBRA munoz for S/I; she jumped out of 2nd floor window after drinking ETOH. Patient threatened family and unable to safety plan with family. Also unable to report a viable plan for food, clothing, and jail. Hx of meth use, heavy ETOH. Assessment What has happened this shift: Received Pt in bed sleeping w/o distress at the beginning of this shift. Pt cooperated with vitals and got up for the day. Pt took AM meds except Colace, stating she had BM and loose stool yesterday. Pt ate meals well and attended both groups today with good participation. Pt c/o GI pain in AM and received PRN meds with good effect. She became angry and yelled in AM at staff and in room. She was able to do exercise in her room and calm. Pts speech disorganized at times and was easily irritated throughout the day. Pt showered in afternoon. Pt easily overwhelmed and thinking her abdomen is extended and her intestines are twisted. Pt appeared to be yelling at internal stimuli in her room at one point. S/I, H/I: Denies A/VH: Pt responding to delusions and internal stimuli Sleep: None this shift ADL's: Independent Group attendance: Yes, AM and PM Were meds taken: Yes Any med S/E: None seen or observed Mental Status Exam Appearance: In scrubs in AM, showered in afternoon Eye contact: Good Behavior: Labile, with outbursts Speech: Coherent at times; disorganized at other times Mood: Irritable Affect: Animated Thought process: Disorganized Thought Content: Meeting needs Cognition: A/0x4 Insight: Poor Judgment: Poor Interventions PRN's used: Xanaflex, Tramadol, Atarax Therapeutic interventions: establishment of rapport, therapeutic conversation, active listening, medication administration/education/monitoring, encouragement of personal hygiene, provided distraction, redirection, positive reinforcement, and Q15 minute safety checks. Restraints/seclusion/emergency medication: Justification of Continued Inpatient Treatment: Patient in need of crisis interruption and stabilization with medication management and monitoring in a safe and therapeutic environment until stable.
[2021-12-17] MEDS: OLANZapine 5mg rapidly disint. tablet PO PRN (17:11)
[2021-12-17] MEDS: lurasidone 20mg tablet PO SCH (17:12)
[2021-12-17] MEDS: ibuprofen 200mg tablet PO PRN (19:03)
[2021-12-17 20:00] VITALS: BP 112/75
[2021-12-17] MEDS ORDERED: divalproex sod 250mg ER (24-hour) tablet PO SCH (21:00)
--- NOTE | 2021-12-18 03:05 | NUR ---
Nursing Progress Note: Legal hold: 5250 Expires 12/25 Client on involuntary status for GD Report received from DINO Moore with use of SBAR Why are they here: Client LIBRA munoz for S/I; she jumped out of 2nd floor window after drinking ETOH. Patient threatened family and unable to safety plan with family. Also unable to report a viable plan for food, clothing, and mcc. Hx of meth use, heavy ETOH. Assessment What has happened this shift: Patient seen in the rec room for 1:1. She continues to be irritable and easily agitated. Her agitation is mostly centered around smoking. "I hate being here. I've never been in a hospital that doesn't let people go outside and smoke. I don't belong here, there is nothing wrong with me." She can be redirected, usually with candy. Patient continues to be labile, going from irritable to giddy in seconds. She comes to me before med pass, and asks for something to sedate her. "I just want to go to sleep for a long time." Nothing like that was ordered, so she was ok with Motrin, Flexeril, and Atarax. Educated her that she would not sleep unless she went and laid down. Patient went and slept for a while. She was compliant with HS meds, and finally went back to sleep, where she has been all night. S/I, H/I: Denies. A/VH: Denies, but talks about seeing aliens. Sleep: See sleep assessment. ADL's: Independent. Group attendance: N/A. Were meds taken: Yes. Any med S/E: None reported or observed Mental Status Exam Appearance: Casual in own clothes. Changed clothes multiple times tonight. Eye contact: Good Behavior: Cooperative, excitable, irritable, agitated, and intrusive at times. Speech: Clear, loud, rapid, disorganized at other times Mood: Labile Affect: Animated Thought process: Linear, disorganized at times. Thought Content: Wants to talk to her kids. Cognition: A/0x4 Insight: Poor Judgment: Poor Interventions PRN's used: Motrin, Atarax, Flexeril Therapeutic interventions: establishment of rapport, therapeutic conversation, active listening, medication administration/education/monitoring, encouragement of personal hygiene, provided distraction, redirection, positive reinforcement, and Q15 minute safety checks. Restraints/seclusion/emergency medication: Justification of Continued Inpatient Treatment: Patient in need of crisis interruption and stabilization with medication management and monitoring in a safe and therapeutic environment until stable.
[2021-12-18] MEDS: hydrOXYzine 25 MG tablet PO PRN (04:49)
[2021-12-18] MEDS: NICOTINE POLACRILEX 2 MG LOZENGE BC PRN (04:49)
[2021-12-18] MEDS: magnesium hydroxide 30ml (MOM) UD suspension PO PRN (04:52)
[2021-12-18] MEDS: OLANZapine 5mg rapidly disint. tablet PO PRN ×2 (06:30→16:44)
[2021-12-18] MEDS: docusate sod 250mg capsule PO SCH ×2 (06:30→20:29)
[2021-12-18] MEDS: levoTHYROXINE 75mcg tablet PO SCH (06:30)
--- NOTE | 2021-12-18 06:30 | NUR ---
Pt standing at the front door near the exit angry and agitated. Pt given Zyprexa Zydis with minimal decrease of agitation.
[2021-12-18] MEDS: nicotine 21mg patch - 24 hr TD SCH (06:31)
[2021-12-18] MEDS ORDERED: LORazepam 1 MG tablet PO ONE ×2 (06:50→07:30)
--- NOTE | 2021-12-18 07:00 | NUR ---
Pt continues to be angry and agitated. Ativan 1mg administered.
[2021-12-18] MEDS ORDERED: OLANZapine 5mg rapidly disint. tablet PO ONE (07:30)
[2021-12-18 07:40] VITALS: BP 131/75
--- NOTE | 2021-12-18 07:50 | NUR ---
Pt began yelling in her room, dunking her head in the sink and slamming things in her room. Unable to console pt. Received order from Dr. Bernabe for Zyprexa Zydis 5mg and Ativan 1mg PO.
--- NOTE | 2021-12-18 08:30 | NUR ---
Pt is resting on her bed. She states that she started her menses and apologized to staff for her behavior. Will consult with Jesus Alberto.
--- NOTE | 2021-12-18 09:32 | NUR ---
Reassessment: Currently on Regular diet w/ mostly 75- 100% intake of meals and participates in snacks per nursing documentation. Currently meeting est nutrient needs. LBM 12/16 receiving routine colace. No nutrition intervention implemented at this time, will continue to monitor. Recs: 1. Continue Regular diet as tolerated 2. Bowel care per rx 3. Weekly wts Addendum: 12/18/21 at [address] Amended: Links added.
[2021-12-18] MEDS: acetaminophen 325mg tablet PO PRN (10:19)
--- NOTE | 2021-12-18 11:43 | NUR ---
CM- Monitoring Presenting Issues: Pt recently started taking Depakote and is hoping to d/c soon. Interventions: Clinician met w/pt and engaged her in discussion to monitor her sxs. Per session, pt appears to endorse depressed & irritable mood with sad affect. Thought process appears to be less tangential and more coherent, thought contents- focused on d/c, and reuniting w/children, some paranoia-worries about people stealing her money. Pt was cooperative w/clinician and able to verbalize needs in the moment. Insight continues to be limited, and judgement continues to be impaired by her paranoid delusions. Because pt continues to endorse paranoid delusions she has declined support for her to communicate with [facility] to change her residency & mailing address and therefore, pt continues to experience insufficient resources to meet her basic needs for day-day survival outside of a structured setting. Pt even refused to accept her father's offer that she use his home address as her mailing address or allow him to act as her payee until she is able to manage her own $$. Plan: Clinician will continue to monitor. Denisse Watters LCSW Addendum: 12/18/21 at 1306 by Denisse Watters SS Amended: Links added.
--- NOTE | 2021-12-18 15:19 | NUR ---
Nursing Progress Note Legal hold: 5250 Client on voluntary/involuntary status for GD Report received from DINO Silva with use of SBAR Why are they here: Client LIBRA munoz for S/I; she jumped out of 2nd floor window after drinking ETOH. Patient threatened family and unable to safety plan with family. Also unable to report a viable plan for food, clothing, and detention. Hx of meth use, heavy ETOH. Assessment What has happened this shift: Pt up at the front door yelling at the start of the shift. She is holding on to all her belongings. She appears confused, angry and frustrated. She yells out about being here and tells this residential mortgage underwriter there is something in her abdomen and, "it is trying to roll out." she shared that her children are in [place] and she needs to get back there to find them. Pt willingly took PO medications of Zyprexa Zydis 10mg and Ativan 2mg over a period of 2.0 hours. Pt then calmed down and slept for a half hour from 0845 to 0915. Pt then was up sat through group and later slept another half hour from 1215 to 1245. Pt has been working on getting her clothes cleaned and folded and attempting to organize herself after lunch. S/I, H/I: Denies A/VH: Did not respond to question Sleep: Slept some ADL's: Independent Group attendance: Yes, AM and PM Were meds taken: Yes Any med S/E: None seen or observed Mental Status Exam Appearance: Pt is wearing clothes donated to her from the unit. She continues to ask for more sweatshirts. Eye contact: Fair Behavior: Labile, with loud outbursts Speech: Coherent at times; disorganized at other times Mood: Irritable Affect: Animated Thought process: Disorganized Thought Content: Meeting needs Cognition: A/0x4 Insight: Poor Judgment: Poor Interventions PRN's used: Zyprexa Zydis, Ativan and Atarax Therapeutic interventions: Provided 1:1 assessment with therapeutic communication and active listening, medication administration/education/monitoring, encouragement of personal hygiene, provided redirection, positive reinforcement, monitored Q15 minute safety checks. Restraints/seclusion/emergency medication: Justification of Continued Inpatient Treatment: Patient in need of crisis interruption and stabilization with medication management and monitoring in a safe and therapeutic environment until stable.
[2021-12-18] MEDS: tizanidine 4mg tablet PO PRN (16:44)
[2021-12-18] MEDS: ibuprofen 200mg tablet PO PRN (16:44)
[2021-12-18 20:18] VITALS: BP 110/73
[2021-12-18] MEDS: divalproex sod 250mg ER (24-hour) tablet PO SCH (20:28)
[2021-12-18] MEDS: prazosin 1mg capsule PO SCH (20:29)
[2021-12-18] MEDS ORDERED: OLANZapine 2.5MG tablet PO SCH (21:00)
[2021-12-19] MEDS: NICOTINE POLACRILEX 2 MG LOZENGE BC PRN ×2 (02:01→16:21)
--- NOTE | 2021-12-19 03:57 | NUR ---
Nursing Progress Note Legal hold: 5250 Client on voluntary/involuntary status for GD Report received from DINO Blackmon with use of SBAR Why are they here: Patient was found sitting in community room at beginning of shift. Patient kept going back and forth between pacing unit and talking to random patients. Patient continues to carry around a brown bag and ask if she cant switch rooms due roommate yelling earlier. Patient finally laid down in her own bed. Assessment What has happened this shift: Pt up at the front door yelling at the start of the shift. She is holding on to all her belongings. She appears confused, angry and frustrated. She yells out about being here and tells this automatic typewriter inspector there is something in her abdomen and, "it is trying to roll out." she shared that her children are in [place] and she needs to get back there to find them. Pt willingly took PO medications of Zyprexa Zydis 10mg and Ativan 2mg over a period of 2.0 hours. Pt then calmed down and slept for a half hour from 0845 to 0915. Pt then was up sat through group and later slept another half hour from 1215 to 1245. Pt has been working on getting her clothes cleaned and folded and attempting to organize herself after lunch. S/I, H/I: Denies A/VH:Denies Sleep: See sleep assessment ADL's: Independent Group attendance: Yes, AM and PM Were meds taken: Yes Any med S/E: None seen or observed Mental Status Exam Appearance: Dressed in personal clothing Eye contact: Fair Behavior: Labile, with loud outbursts Speech: Coherent at times; disorganized at other times Mood: Irritable Affect: Animated Thought process: Disorganized Thought Content: Meeting needs Cognition: A/0x4 Insight: Poor Judgment: Poor Interventions PRN's used: Therapeutic interventions: Provided 1:1 assessment with therapeutic communication and active listening, medication administration/education/monitoring, encouragement of personal hygiene, provided redirection, positive reinforcement, monitored Q15 minute safety checks. Restraints/seclusion/emergency medication: Justification of Continued Inpatient Treatment: Patient in need of crisis interruption and stabilization with medication management and monitoring in a safe and therapeutic environment until stable.
[2021-12-19] MEDS: nicotine 21mg patch - 24 hr TD SCH (07:06)
[2021-12-19] MEDS: levoTHYROXINE 75mcg tablet PO SCH (07:07)
[2021-12-19] MEDS: OLANZAPINE 5 MG TABLET PO SCH (07:28)
[2021-12-19] MEDS: docusate sod 250mg capsule PO SCH ×2 (07:29→20:28)
[2021-12-19] MEDS: ibuprofen 200mg tablet PO PRN (07:32)
[2021-12-19] MEDS: simethicone 125mg capsule PO PRN ×3 (07:36→14:52)
[2021-12-19 07:40] VITALS: BP 108/73
[2021-12-19] MEDS: tizanidine 4mg tablet PO PRN ×2 (08:51→14:52)
[2021-12-19] MEDS: traMADol 50MG tablet PO PRN ×2 (08:51→18:00)
[2021-12-19] MEDS: lactulose 20gm/30ml cup PO PRN (09:16)
[2021-12-19] MEDS: hydrOXYzine 25 MG tablet PO PRN (14:42)
--- NOTE | 2021-12-19 16:47 | NUR ---
Nursing Progress Note Legal hold: 5250 Client on voluntary/involuntary status for GD Report received from DINO Nunes with use of SBAR Why are they here: Client LIBRA munoz for S/I; she jumped out of 2nd floor window after drinking ETOH. Patient threatened family and unable to safety plan with family. Also unable to report a viable plan for food, clothing, and prison. Hx of meth use, heavy ETOH. Assessment What has happened this shift: RN received pt. asleep in bed at start of shift. Pt. awoke for breakfast and took all medication reluctantly. Pt. reports feeling angry and asks for DINO jacob informed pt. that Zyprexa will help her with those feelings. Pt. agreed to take it. Pt. c/o of colon pain rated 7/10 and received motrin 600mg po x1 with minimal effect. An hour later pt. still c/o pain and received Tramdol 50mg and Flexaril 4mg po x1 with good effect. During 1:1 pt. denies all psych symptoms and perseverates on wanting to be discharged. Pt. states, I dont need to be here, I just want to go. Pt. become upset after she realized her purse is not in her belongings, pt. yelling, Oh no, now I gotta get outta of here and find whos got my stuff!. Pt. offered Zyprexa Zydis 5mg po but refused. Pt. took Atarax 50mg with minimal effect. Pt. called her mother and found out her purse was with her. Pt. became more relaxed. Pt. stating, I just need a cigarette. Pt. c/o of muscle pain and received Zanaflex 4mg with good effect. S/I, H/I: Denies A/VH: Denies Sleep: Pt. slept 4 hrs on NOC shift and napped intermittently during the day. ADL's: Independent Group attendance: NA Were meds taken: Yes Any med S/E: None seen or observed Mental Status Exam Appearance: Disheveled but clean, wearing casual attire. Eye contact: WNL Behavior: Labile with some periods of agitation and one outburst. Speech: WNL Mood: Irritable, frustrated. Affect: Animated Thought process: Linear Thought Content: Wants to be discharged Cognition: A/0x4 Insight: Poor Judgment: Poor Interventions PRN's used: Motrin, Ultram x1, Zanaflex x2 Atarax x1 Therapeutic interventions: Provided 1:1 assessment with therapeutic communication and active listening, medication administration/education/monitoring, encouragement of personal hygiene, provided redirection, positive reinforcement, monitored Q15 minute safety checks. Restraints/seclusion/emergency medication: Justification of Continued Inpatient Treatment: Patient in need of crisis interruption and stabilization with medication management and monitoring in a safe and therapeutic environment until stable.
[2021-12-19 19:00] VITALS: BP 113/77
[2021-12-19] MEDS: divalproex sod 250mg ER (24-hour) tablet PO SCH (20:27)
[2021-12-19] MEDS: olanzapine 10mg tablet PO SCH (20:28)
[2021-12-19] MEDS: prazosin 1mg capsule PO SCH (20:29)
--- NOTE | 2021-12-20 02:34 | NUR ---
Nursing Progress Note Legal hold: 5250 Client on voluntary/involuntary status for GD Report received from DINO Blackmon with use of SBAR Admit Note: Patient was found sitting in community room at beginning of shift. Patient kept going back and forth between pacing unit and talking to random patients. Patient continues to carry around a brown bag and ask if she cant switch rooms due roommate yelling earlier. Patient finally laid down in her own bed. Assessment What happened this shift: Patient was received sitting in the community room at change of shift. Patient continued to pace around unit caring belongings. Patient was social and cooperative until patient begin to have delusions that someone was trying to poison her and put things in her food. Patient began to yell, scream and tell people to stay away from her and out of her room. Patient eventually calmed down and took night medications. Patient continues to state that her medications are wrong or that the mg needs to be increased. Patient participated in snack time before heading to bed.
[2021-12-20] MEDS: tizanidine 4mg tablet PO PRN (07:12)
[2021-12-20] MEDS: traMADol 50MG tablet PO PRN ×2 (07:13→20:14)
[2021-12-20] MEDS: docusate sod 250mg capsule PO SCH ×2 (07:15→20:13)
[2021-12-20] MEDS: levoTHYROXINE 75mcg tablet PO SCH (07:15)
[2021-12-20] MEDS: OLANZAPINE 5 MG TABLET PO SCH (07:15)
[2021-12-20] MEDS: lactulose 20gm/30ml cup PO PRN (07:20)
[2021-12-20] MEDS: nicotine 21mg patch - 24 hr TD SCH (07:20)
[2021-12-20] MEDS: simethicone 125mg capsule PO PRN (07:20)
[2021-12-20 08:00] VITALS: BP 109/71
[2021-12-20] MEDS: hydrOXYzine 25 MG tablet PO PRN (09:20)
[2021-12-20] MEDS ORDERED: gabapentin 400mg capsule PO ONE (16:30)
[2021-12-20] MEDS ORDERED: gabapentin 100mg capsule PO ONE (16:35)
[2021-12-20] MEDS: baclofen 10mg tablet PO PRN (16:35)
[2021-12-20] MEDS: OLANZapine 5mg rapidly disint. tablet PO PRN (17:01)
[2021-12-20] MEDS: NICOTINE POLACRILEX 2 MG LOZENGE BC PRN (17:40)
--- NOTE | 2021-12-20 17:58 | NUR ---
Nursing Progress Note Legal hold: 5250 Client on voluntary/involuntary status for GD Report received from DINO Nunes with use of SBAR Why are they here: Client LIBRA munoz for S/I; she jumped out of 2nd floor window after drinking ETOH. Patient threatened family and unable to safety plan with family. Also unable to report a viable plan for food, clothing, and assisted. Hx of meth and heavy heavy ETOH use. Assessment What has happened this shift: RN received pt. asleep in bed at start of shift. Pt. awoke shortly after and requesting her AM medications. Pt. also requesting pain medications for colon pain. Pt. received Ultram 50mg and Zanaflex 4mg po with good effect. Pt. also requesting lactulose and simethicone for constipation and gas symptoms. After breakfast pt. reporting that another agitated pt. was giving her anxiety and pt. requesting a PRN, pt. refused Zyprexa Zydis but took Atarax 50mg po with moderate effect. 1:1 done at bedside, pt. states, I just need to breath some fresh air Pt. observed pacing the unit with male and having a conversation. Pt.s Zanaflex discontinued and pt. started on Baclofen and received 10mg po with good effect. Pt. started on Gabapentin and received 100mg po. In the afternoon pt. c/o agitation and received Zyprexa Zydis with good effect. S/I, H/I: Denies A/VH: Denies Sleep: Pt. slept 6 hrs on NOC shift and napped intermittently during the day. ADL's: Independent Group attendance: NA Were meds taken: Yes Any med S/E: Denies. None observed. Mental Status Exam Appearance: Clean and neat, wearing casual attire. Eye contact: WNL Behavior: Labile with some periods of agitation, Speech: WNL Mood: Mostly euthymic with some moments of frustration and anxiety. Affect: Congruent with mood. Thought process: Linear Thought Content: Perseverates on GI symptoms. Cognition: A/0x4 Insight: Poor Judgment: Poor Interventions PRN's used: Ultram x1, Zanaflex x2 Atarax x1, Zyprexa Zydis x1, Baclofen x1 Therapeutic interventions: Provided 1:1 assessment with therapeutic communication and active listening, medication administration/education/monitoring, encouragement of personal hygiene, provided redirection, positive reinforcement, monitored Q15 minute safety checks. Restraints/seclusion/emergency medication: Justification of Continued Inpatient Treatment: Patient in need of crisis interruption and stabilization with medication management and monitoring in a safe and therapeutic environment until stable.
[2021-12-20 19:45] VITALS: BP 129/76
[2021-12-20] MEDS: gabapentin 100mg capsule PO SCH (20:12)
[2021-12-20] MEDS: divalproex sod 250mg ER (24-hour) tablet PO SCH (20:13)
[2021-12-20] MEDS: olanzapine 10mg tablet PO SCH (20:13)
[2021-12-20] MEDS: prazosin 1mg capsule PO SCH (20:13)
[2021-12-20] MEDS: magnesium hydroxide 30ml (MOM) UD suspension PO PRN (20:14)
--- NOTE | 2021-12-21 05:58 | NUR ---
Nursing Progress Note Legal hold: 5250 Why are they here: Client LIBRA munoz for S/I; she jumped out of 2nd floor window after drinking ETOH. Patient threatened family and unable to safety plan with family. Also unable to report a viable plan for food, clothing, and fci. Hx of meth and ETOH What happened this shift: Pt was visible on the unit at shift change. She is internally preoccupied at times, but is able to have conversation with staff. She is tangential at times and trails off mid sentence. She is showing some paranoia and asks to see the wrappers of the medications she is given. She does take her medications and uses PRN Ultram. She has one episode of urinary incontinence at night, and is given pads, underwear, and pajama pants. Discharge: Pt is in need of medication adjustments and monitoring in a safe and therapeutic environment to interrupt current crisis.
--- NOTE | 2021-12-21 05:59 | NUR ---
Nursing sleep note: PT went to sleep late after taking meds, because she wanted to fold her laundry and she had an episode of urinary incontinence. Pt was able to sleep well otherwise.
[2021-12-21] MEDS: NICOTINE POLACRILEX 2 MG LOZENGE BC PRN ×4 (06:21→22:33)
[2021-12-21] MEDS: lactulose 20gm/30ml cup PO PRN ×2 (07:22→18:58)
[2021-12-21] MEDS: nicotine 21mg patch - 24 hr TD SCH (07:22)
[2021-12-21] MEDS: OLANZAPINE 5 MG TABLET PO SCH (07:23)
[2021-12-21] MEDS: levoTHYROXINE 75mcg tablet PO SCH (07:23)
[2021-12-21] MEDS: docusate sod 250mg capsule PO SCH ×2 (07:23→20:15)
[2021-12-21] MEDS: gabapentin 100mg capsule PO SCH ×3 (07:23→20:15)
[2021-12-21 07:35] VITALS: BP 123/77
[2021-12-21] MEDS: traMADol 50MG tablet PO PRN (10:32)
[2021-12-21] MEDS: simethicone 125mg capsule PO PRN ×2 (15:13→18:58)
--- NOTE | 2021-12-21 16:41 | NUR ---
Nursing Progress Note: Deborah Legal hold: 5250 Client on voluntary/involuntary status for GD Report received from Laurence Tomlin RN with use of SBAR Why are they here: Client LIBRA munoz for S/I; she jumped out of 2nd floor window after drinking ETOH. Patient threatened family and unable to safety plan with family. Also unable to report a viable plan for food, clothing, and intermediate. Hx of meth and heavy ETOH use. Assessment What has happened this shift: Received pt. pacing in the laura with her personal items bundled up in her hands. Pt. compliant with PO medications and requesting lactulose d/t dry small stool PRN given. 1:1 assessment completed at the bedside; she denies SI, HI, and stated no comment in re to V/H also stating Iv been that way since I was a child She reports she was admitted d/t my brothers lies her discharge plan is to get my money and rent a motel for a few days and probably buy a car pt. presents as emotional labile and became tearful and needed to postpone further conversation. Pt. ate her meals in the MDR with cohorts often engaging with cohorts, but presents as easily agitated. She was often observed holding her personal belongings wrapped in clothing material knotted at the top. S/I, H/I: Denies A/VH: Denies A/H, refuses to comment on V/H Sleep: Pt. slept 5.75 hrs per NOC shift and napped X1. ADL's: Independent Group attendance: NA Were meds taken: Yes Any med S/E: Denies. None observed. Mental Status Exam Appearance: Disheveled hair, wearing casual attire. Eye contact: Good Behavior: Labile with some periods of agitation, Speech: Normal rate and rhythm Mood: Euthymic with episodes of frustration and anxiety. Affect: Congruent with mood. Thought process: Circumstantial Thought Content: Perseverates on GI symptoms. Cognition: A/0x4 Insight: Poor Judgment: Poor Interventions PRN's used: Lactulose, Tramadol, nicotine minnie, simethicone Therapeutic interventions: Provided 1:1 assessment with therapeutic communication and active listening, medication administration/education/monitoring, encouragement of personal hygiene, provided redirection, positive reinforcement, monitored Q15 minute safety checks. Restraints/seclusion/emergency medication: Justification of Continued Inpatient Treatment: Patient in need of crisis interruption and stabilization with medication management and monitoring in a safe and therapeutic environment until stable.
[2021-12-21] MEDS: hydrOXYzine 25 MG tablet PO PRN (18:58)
[2021-12-21] MEDS: baclofen 10mg tablet PO PRN (18:58)
[2021-12-21 20:00] VITALS: BP 122/80
[2021-12-21] MEDS: prazosin 1mg capsule PO SCH (20:15)
[2021-12-21] MEDS: divalproex sod 250mg ER (24-hour) tablet PO SCH (20:15)
[2021-12-21] MEDS: olanzapine 10mg tablet PO SCH (20:15)
[2021-12-21] MEDS: OLANZapine 5mg rapidly disint. tablet PO PRN (23:54)
--- NOTE | 2021-12-22 01:39 | NUR ---
Nursing Progress Note: Deborah Legal hold: 5250 Client on voluntary/involuntary status for GD Report received from Lucila SUN with use of SBAR Why are they here: Client LIBRA munoz for S/I; she jumped out of 2nd floor window after drinking ETOH. Patient threatened family and unable to safety plan with family. Also unable to report a viable plan for food, clothing, and mcfp. Hx of meth and heavy ETOH use. Assessment What has happened this shift: Received pt. up pacing the unit with her personal items bundled up in her hands. Pt. requesting lactulose and simethicone d/t feeling constipated PRN given. (Patients abdomen distended). Pt also requesting atarax for anxiety and Baclofen for muscle spasms. All PRNs given. Nicotine patch removed. Pt states she is depressed because she really needs to get outside and enjoy the fresh air. She is looking forward to seeing her children and really misses them. Pt up for snacks and took all medications without issue. Pt up at 2355 stating she has racing thoughts, 5MG of Zyprexa zydis given. Pt up constantly requesting different items, needs and wants. Pt finally resting as of this writing. S/I, H/I: Denies A/VH: Denies Sleep ADL's: Independent Group attendance: NA Were meds taken: Yes Any med S/E: Denies. None observed. Mental Status Exam Appearance: Disheveled hair, wearing casual attire. Eye contact: Good Behavior: Labile with some periods of agitation, Speech: Normal rate and rhythm Mood: Euthymic with episodes of frustration and anxiety. Affect: Congruent with mood. Thought process: Circumstantial Thought Content: Perseverates on GI symptoms. Cognition: A/0x4 Insight: Poor Judgment: Poor Interventions PRN's used: Lactulose, nicotine minnie, simethicone, baclofen, Zyprexa zydis Therapeutic interventions: Provided 1:1 assessment with therapeutic communication and active listening, medication administration/education/monitoring, encouragement of personal hygiene, provided redirection, positive reinforcement, monitored Q15 minute safety checks. Restraints/seclusion/emergency medication: Justification of Continued Inpatient Treatment: Patient in need of crisis interruption and stabilization with medication management and monitoring in a safe and therapeutic environment until stable.
[2021-12-22] MEDS: nicotine 21mg patch - 24 hr TD SCH (07:27)
[2021-12-22] MEDS: levoTHYROXINE 75mcg tablet PO SCH (07:28)
[2021-12-22] MEDS: docusate sod 250mg capsule PO SCH ×2 (07:28→19:32)
[2021-12-22] MEDS: gabapentin 100mg capsule PO SCH ×3 (07:28→19:33)
[2021-12-22] MEDS: OLANZAPINE 5 MG TABLET PO SCH ×2 (07:28→13:31)
[2021-12-22 07:49] VITALS: BP 110/66
[2021-12-22] MEDS: ibuprofen 200mg tablet PO PRN (12:05)
[2021-12-22] MEDS: OLANZapine 5mg rapidly disint. tablet PO PRN (12:05)
[2021-12-22] MEDS: traMADol 50MG tablet PO PRN ×2 (13:32→19:32)
[2021-12-22] MEDS: NICOTINE POLACRILEX 2 MG LOZENGE BC PRN (16:05)
--- NOTE | 2021-12-22 16:34 | NUR ---
Nursing Progress Note: Deborah Legal hold: 5250 Client on voluntary/involuntary status for GD Report received from Laurence Tomlin RN with use of SBAR Why are they here: Client LIBRA munoz for S/I; she jumped out of 2nd floor window after drinking ETOH. Patient threatened family and unable to safety plan with family. Also unable to report a viable plan for food, clothing, and fci. Hx of meth and heavy ETOH use. Assessment What has happened this shift: Received pt. pacing in the laura with items bundled up in her arms. 1:1 assessment completed at the bedside; she denies SI, HI, she continues to report her admit was d/t all my brothers bullshit and her discharges plans are to find my kids Casing Tier engaged pt. re the topic of her children and she reported I dont know where my children are! I want to talk to CPS in [facility] but I think my son is in [place], and I have no idea what state my 15y/o daughter is in she then reported I ran away from CPS in [place], thats how I ended up in [facility] I encouraged pt. to reach out to family for clarification of her childrens location. Pt. became emotional and presents as disorganized and delusional at times. Hospital Solar Manager to be notified as precaution. Pt. ate her meals in the dining room, and interacts socially with cohorts, but becomes easily agitated and retreats to her room. Pt. 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 distension noted, and states I get gassy with stress. PRN tramadol for chronic pain given. Pt. later became disorganized c/o I have never spoke to you before, how do you know about my medication; reassurances offered and were not helpful. PRN Zyprexa given. Pt. continues to pace the unit with bundled personal belongings wrapped in clothing and cradled in her arms. S/I, H/I: Denies A/VH: Denies Sleep: Pt. slept 7.75 hrs per NOC shift and napped X1. ADL's: Independent Group attendance: NA Were meds taken: Yes Any med S/E: Denies. None observed. Mental Status Exam Appearance: Disheveled hair, wearing casual attire. Eye contact: Good Behavior: Labile with some periods of agitation, Speech: Normal rate and rhythm Mood: Euthymic with episodes of frustration and anxiety. Affect: Congruent with mood. Thought process: Circumstantial Thought Content: Perseverates on GI symptoms. Cognition: A/0x4 Insight: Poor Judgment: Poor Interventions PRN's used: Tramadol, ibuprofen, simethicone, Zyprexa Therapeutic interventions: Provided 1:1 assessment with therapeutic communication and active listening, medication administration/education/monitoring, encouragement of personal hygiene, provided redirection, positive reinforcement, monitored Q15 minute safety checks. Restraints/seclusion/emergency medication: Justification of Continued Inpatient Treatment: Patient in need of crisis interruption and stabilization with medication management and monitoring in a safe and therapeutic environment until stable.
[2021-12-22] MEDS: olanzapine 10mg tablet PO SCH (19:32)
[2021-12-22] MEDS: prazosin 1mg capsule PO SCH (19:32)
[2021-12-22] MEDS: divalproex sod 250mg ER (24-hour) tablet PO SCH (19:33)
[2021-12-22 20:00] VITALS: BP 144/85
[2021-12-22] MEDS: hydrOXYzine 25 MG tablet PO PRN (21:19)
[2021-12-22] MEDS: baclofen 10mg tablet PO PRN (21:19)
[2021-12-22 21:38] VITALS: BP 144/85
--- NOTE | 2021-12-23 05:20 | NUR ---
Nursing Progress Note: Legal hold: 5250 Expires 12/25 Client on involuntary status for GD Report received from Lucila TREVIÑO with use of SBAR Why are they here: Client LIBRA munoz for S/I; she jumped out of 2nd floor window after drinking ETOH. Patient threatened family and unable to safety plan with family. Also unable to report a viable plan for food, clothing, and alf. Hx of meth use, heavy ETOH. Assessment What has happened this shift: Patient up and visible on the unit. Pt continues to carry her paperwork around in a makeshift satchel which she fashioned out of a shirt. Pt anxious and confused beginning part of shift sort of milling around, not knowing what to do. Pt did state she had a small bowel movement earlier in the day which provided some relief. Pt was cooperative with hs medications and assessment. Pt did request some feminine pads. Pt eventually did fall asleep at 2325 and remains sleeping without signs of distress. S/I, H/I: Denies. A/VH: Denies, but talks about seeing aliens. Sleep: See sleep assessment. ADL's: Independent. Group attendance: N/A. Were meds taken: Yes. Any med S/E: None reported or observed Mental Status Exam Appearance: Casual in own clothes. Changed clothes multiple times tonight. Eye contact: Good Behavior: Cooperative, excitable, irritable, agitated, and intrusive at times. Speech: Clear, loud, rapid, disorganized at other times Mood: Labile Affect: Animated Thought process: Linear, disorganized at times. Thought Content: Wants to talk to her kids. Cognition: A/0x4 Insight: Poor Judgment: Poor Interventions PRN's used: atarax and tramadol Therapeutic interventions: establishment of rapport, therapeutic conversation, active listening, medication administration/education/monitoring, encouragement of personal hygiene, provided distraction, redirection, positive reinforcement, and Q15 minute safety checks. Restraints/seclusion/emergency medication: Justification of Continued Inpatient Treatment: Patient in need of crisis interruption and stabilization with medication management and monitoring in a safe and therapeutic environment until stable.
[2021-12-23 07:30] VITALS: BP 110/71
[2021-12-23] MEDS: levoTHYROXINE 75mcg tablet PO SCH (07:46)
[2021-12-23] MEDS: gabapentin 100mg capsule PO SCH ×3 (07:46→20:03)
[2021-12-23] MEDS: OLANZAPINE 5 MG TABLET PO SCH ×3 (07:46→20:01)
[2021-12-23] MEDS: docusate sod 250mg capsule PO SCH ×2 (07:46→20:01)
[2021-12-23] MEDS: nicotine 21mg patch - 24 hr TD SCH (07:49)
[2021-12-23] MEDS: traMADol 50MG tablet PO PRN ×2 (07:56→20:02)
[2021-12-23] MEDS: OLANZapine 5mg rapidly disint. tablet PO PRN ×2 (08:33→17:46)
--- NOTE | 2021-12-23 09:06 | NUR ---
CM Pt has been granted [facility] Deinsse Watters, DIRECTOR OF NURSING Addendum: 12/23/21 at 0908 by Denisse Watters SS Amended: Links added.
[2021-12-23] MEDS: hydrOXYzine 25 MG tablet PO PRN ×2 (09:53→15:40)
[2021-12-23] MEDS: NICOTINE POLACRILEX 2 MG LOZENGE BC PRN ×2 (10:00→14:29)
--- NOTE | 2021-12-23 10:13 | NUR ---
Pt attended group today. We talked about Self Nurturing about how to curate spaces of nurture/self-care for themselves. We then did Vision board visualizing safe/nurture places and words. Pt. came into the group half way through and was interested in doing the art activity. This Contract Negotiation Manager explained to her personally what we were doing. She jumped in and started looking through the magazines. Her demeanor was calm and compliant. She was alert and oriented X 4. Her thought content and thought process were WNL. She seemed to enjoy the activity. She decline sharing at the end of the group reporting that she wasn't finished yet. Tomasa Lazaro, [employer] BUSINESS OBJECTS CONSULTANT
[2021-12-23] MEDS: magnesium hydroxide 30ml (MOM) UD suspension PO PRN (15:37)
--- NOTE | 2021-12-23 17:40 | NUR ---
Nursing Progress Note Legal hold: 5250 Client on voluntary/involuntary status for GD Report received from Laurence Poole RN with use of SBAR Why are they here: Client LIBRA munoz for S/I; she jumped out of 2nd floor window after drinking ETOH. Patient threatened family and unable to safety plan with family. Also unable to report a viable plan for food, clothing, and prison. Hx of meth and heavy heavy ETOH use. Assessment What has happened this shift: RN received pt. asleep in bed at start of shift. Pt. awoke for breakfast and took medications. Pt. requesting pain medication and took Ultram 50mg po with good effect. Pt. went back to sleep. 1:1 done at bedside, pt. denies all psych symptoms, stating, I just need to get out of here I need a cigarette. Pt. reports feeling cravings for ETOH and cannabis. Pt. states, I like to start my morning with putting vodka in my coffee Its really a health drink. Pt. requesting something for anxiety and received Atarax 50mg po in the AM and afternoon. Pt. c/o constipation and received milk of magnesia. S/I, H/I: Denies A/VH: Denies Sleep: Pt. slept 5.75 hrs on NOC shift and napped intermittently during the day. ADL's: Independent Group attendance: No Were meds taken: Yes Any med S/E: Denies. None observed. Mental Status Exam Appearance: Clean and neat, wearing casual attire. Eye contact: WNL Behavior: Labile with some periods irritability. Speech: WNL Mood: Anxiouis Affect: Congruent with mood. Thought process: Linear Thought Content: Perseverates on discharge. Cognition: A/0x4 Insight: Poor Judgment: Poor Interventions PRN's used: Ultram x1, Atarax x2 Therapeutic interventions: Provided 1:1 assessment with therapeutic communication and active listening, medication administration/education/monitoring, encouragement of personal hygiene, provided redirection, positive reinforcement, monitored Q15 minute safety checks. Restraints/seclusion/emergency medication: Justification of Continued Inpatient Treatment: Patient in need of crisis interruption and stabilization with medication management and monitoring in a safe and therapeutic environment until stable.
--- NOTE | 2021-12-23 18:14 | NUR ---
+VH. Pt. reports seeing ghosts, that "steal stuff". Pt. states, "I've seen them all my life". Pt. received Zyprexa Zydis 5mg po due to feelings of agitation. Medication had good effect.
[2021-12-23] MEDS: baclofen 10mg tablet PO PRN (18:59)
[2021-12-23] MEDS: divalproex sod 250mg ER (24-hour) tablet PO SCH (20:03)
[2021-12-23] MEDS: prazosin 1mg capsule PO SCH (20:03)
[2021-12-23 20:48] VITALS: BP 127/87
--- NOTE | 2021-12-24 01:50 | NUR ---
Nursing Progress Note Legal hold: 5250 Client on voluntary/involuntary status for GD Report received from DINO Blackmon with use of SBAR Why are they here: Client LIBRA munoz for S/I; she jumped out of 2nd floor window after drinking ETOH. Patient threatened family and unable to safety plan with family. Also unable to report a viable plan for food, clothing, and fpc. Hx of meth and heavy heavy ETOH use. Assessment What has happened this shift: Patient in hallway with bundle of wrapped up clothing at shift change. Pt is hyper-verbal with disorganized thoughts. Pt brought this flex o writer operator to her room where the pt has a collage on her bed of pictures cut out from an old calender. The pt pointed out various things on the pictures and told me what they represented to her. pt unable to keep on topic for long often becoming unintelligible. Pt asked for PRN baclofen for muscle spasms due to gastrointestinal issues. Patient then asked for tramadol for pain. Patient ate snack in community room but then stated she couldn't eat in there and moved all her snack things to her room. Pt then took evening meds w/o complaint. S/I, H/I: Denies A/VH: Denies Sleep: See sleep hours ADL's: Independent Group attendance: No Were meds taken: Yes Any med S/E: Denies. None observed. Mental Status Exam Appearance: Clean and neat, wearing casual attire. Eye contact: WNL Behavior: hyper active Speech: hyper-verbal Mood: Anxiouis Affect: Congruent with mood. Thought process: congruent Thought Content: Perseverates on bowel habits Cognition: A/0x4 Insight: Poor Judgment: Poor Interventions PRN's used: baclofen 10mg, Tramadol Therapeutic interventions: Provided 1:1 assessment with therapeutic communication and active listening, medication administration/education/monitoring, encouragement of personal hygiene, provided redirection, positive reinforcement, monitored Q15 minute safety checks. Restraints/seclusion/emergency medication: Justification of Continued Inpatient Treatment: Patient in need of crisis interruption and stabilization with medication management and monitoring in a safe and therapeutic environment until stable.
[2021-12-24] MEDS: levoTHYROXINE 75mcg tablet PO SCH (07:00)
[2021-12-24 08:00] VITALS: BP 100/64
[2021-12-24] MEDS: gabapentin 100mg capsule PO SCH ×3 (08:04→20:19)
[2021-12-24] MEDS: OLANZAPINE 5 MG TABLET PO SCH ×3 (08:04→20:18)
[2021-12-24] MEDS: docusate sod 250mg capsule PO SCH ×2 (08:04→20:17)
[2021-12-24] MEDS: traMADol 50MG tablet PO PRN ×2 (08:05→15:13)
[2021-12-24] MEDS: nicotine 21mg patch - 24 hr TD SCH (08:07)
--- NOTE | 2021-12-24 09:20 | NUR ---
CM-Linkages Presenting Issues: Pt is close to baseline and will d/c soon but continues to need support to access her SSI benefits, obtain safe usp, food, clothing and attend to her healthcare needs. Pt does not have a natural support sx locally. Interventions: Clinician f/u w/MYRA re [facility] referral for pt, per t/c, [facility] will schedule an interview for pt this afternoon. Plan: Pt to complete [facility] interview, if accepted pt will need negative COVID test & negative TB results and meds to be sent to [facility] 24hrs from d/c. Denisse Watters LCSW Addendum: 12/24/21 at 0924 by Denisse Watters SS Amended: Links added.
--- NOTE | 2021-12-24 09:38 | NUR ---
Pt. attended group today. At the beginning of group we talked about Core Beliefs and they each identified one negative. We worked toward finding evidence to contradict this belief. In the second half of the group we did an Art Expressions where they what was inside of their hearts. They were to visualize in colors and shapes and then color their heart in. Then they completed a Sentence Completion about what their heart thinks and feels. Pt. engaged well in the group. She seemed to enjoy the art expression part of the group. She was open and shared her thoughts and written words with the group. Her thought content appears to contain delusional content and paranoid thoughts at times. She shared appropriately about her picture and what was going on in her heart. MARIA ELENA SotoW
[2021-12-24] MEDS: baclofen 10mg tablet PO PRN ×2 (10:28→18:41)
[2021-12-24] MEDS: NICOTINE POLACRILEX 2 MG LOZENGE BC PRN ×2 (11:00→14:20)
[2021-12-24] MEDS: hydrOXYzine 25 MG tablet PO PRN (15:10)
[2021-12-24] MEDS: magnesium hydroxide 30ml (MOM) UD suspension PO PRN (15:13)
--- NOTE | 2021-12-24 15:25 | NUR ---
CM- Linkages Presenting Issues: Pt interviewed w/TAMIKO PM this afternoon and was accepted to [facility] upon d/c from [facility]. Interventions: Clinician met w/Matthew [facility]s PM, per consultation, pt is accepted for admission @ [facility] Plan: Clinician will complet 602 & preassessment and fax to [facility]. Clinician will coordinate dcp with [facility]. Denisse Watters LCSW Addendum: 12/25/21 at 8523 by Denisse Watters SS Amended: Links added.
--- NOTE | 2021-12-24 16:39 | NUR ---
Nursing Progress Note Legal hold: 5250 Client on involuntary status for GD Report received from DINO Nunes with use of SBAR Why are they here: Client LIBRA munoz for S/I; she jumped out of 2nd floor window after drinking ETOH. Patient threatened family and unable to safety plan with family. Also unable to report a viable plan for food, clothing, and mcc. Hx of meth and heavy heavy ETOH use. Assessment What has happened this shift: RN received pt. asleep in bed at start of shift. Pt. awoke for breakfast and took medications. Pt. requesting of rectal pain medication and took Ultram 100mg po with good effect. Pt. went back to sleep. 1:1 done at bedside, pt. denies all psych symptoms and continues to perseverate on discharge. Pt. also endorses ETOH cravings, stating, I just want a drink, Im not gonna give that up. Pt. went back took a nap. In the afternoon pt. again c/o rectal pain and received Ultram 100mg with good effect. Pt. also c/o anxiety and received Atarax 50mg with good effect. Pt. had interview with [facility]. Per social work, pt. also has opportunity to go to drug rehabilitation through [facility]. Pt. feels optimistic about that. Pt. c/o constipation and received milk of magnesia with good effect. S/I, H/I: Denies A/VH: Denies Sleep: Pt. slept 7 hrs on NOC shift and napped intermittently during the day. ADL's: Independent Group attendance: No Were meds taken: Yes Any med S/E: Denies. None observed. Mental Status Exam Appearance: Clean and neat, wearing casual attire. Eye contact: WNL Behavior: Cooperative, but labile and intrusive with some periods irritability. Pt. can also be explosive at times. Speech: WNL Mood: Anxious, frustrated. Affect: Congruent with mood. Thought process: Linear Thought Content: Perseverates on discharge. Cognition: A/Ox4 Insight: Poor Judgment: Poor Interventions PRN's used: Ultram x2, Atarax x1, milk of magnesia x1 Therapeutic interventions: Provided 1:1 assessment with therapeutic communication and active listening, medication administration/education/monitoring, encouragement of personal hygiene, provided redirection, positive reinforcement, monitored Q15 minute safety checks. Restraints/seclusion/emergency medication: Justification of Continued Inpatient Treatment: Patient in need of crisis interruption and stabilization with medication management and monitoring in a safe and therapeutic environment until stable.
[2021-12-24 20:00] VITALS: BP 127/80
[2021-12-24] MEDS: divalproex sod 250mg ER (24-hour) tablet PO SCH (20:17)
[2021-12-24] MEDS: prazosin 1mg capsule PO SCH (20:19)
--- NOTE | 2021-12-25 02:06 | NUR ---
Nursing Progress Note: Legal hold: 5250 Client on involuntary status for GD Report received from DINO Blackmon with use of SBAR Why are they here: Client LIBRA munoz for S/I; she jumped out of 2nd floor window after drinking ETOH. Patient threatened family and unable to safety plan with family. Also unable to report a viable plan for food, clothing, and mcfp. Hx of meth and heavy heavy ETOH use. Assessment What has happened this shift: Patient out on the unit at shift change. She starts demanding medication right away. She was provided baclofen which helped ease her spasms. She is having more somatic complaints the longer she is here. It seems as if she is trying to talk herself into being sick. At one point she claimed to have a fever. Her initial temperature was 97.9. She asked me to feel her forehead, and it was cool. Took her temperature again at 97.6. Even though I told her more than once she had no fever, the patient went around the unit telling her peers that she was sick and had a fever. She was cooperative with this nurse, and accepted HS meds. Patient wandered around for a while, before going to bed, where she remains sleeping. Patient denied all MH symptoms S/I, H/I: Denies A/VH: Denies Sleep: See sleep assessment ADL's: Independent Group attendance: No Were meds taken: Yes Any med S/E: None reported or observed. Mental Status Exam Appearance: Clean and neat, wearing casual attire. Eye contact: Good Behavior: hyper active Speech: hyper-verbal Mood: Anxious Affect: Congruent with mood. Thought process: congruent Thought Content: Perseverates on bowel habits Cognition: A/0x4 Insight: Poor Judgment: Poor Interventions PRN's used: Baclofen Therapeutic interventions: Provided 1:1 assessment with therapeutic communication and active listening, medication administration/education/monitoring, encouragement of personal hygiene, provided redirection, positive reinforcement, monitored Q15 minute safety checks. Restraints/seclusion/emergency medication: Justification of Continued Inpatient Treatment: Patient in need of crisis interruption and stabilization with medication management and monitoring in a safe and therapeutic environment until stable.
--- NOTE | 2021-12-25 07:14 | NUR ---
Reassessment: Currently on Regular diet w/ mostly 75- 100% intake of meals and participates in snacks per nursing documentation. Currently meeting est nutrient needs. LBM 12/24 receiving routine colace. No nutrition intervention implemented at this time, will continue to monitor. Recs: 1. Continue Regular diet as tolerated 2. Bowel care per rx 3. Weekly wts Addendum: 12/25/21 at [address] Amended: Links added.
[2021-12-25] MEDS: docusate sod 250mg capsule PO SCH ×2 (07:20→20:00)
[2021-12-25] MEDS: OLANZAPINE 5 MG TABLET PO SCH ×3 (07:20→20:01)
[2021-12-25] MEDS: levoTHYROXINE 75mcg tablet PO SCH (07:20)
[2021-12-25] MEDS: gabapentin 100mg capsule PO SCH ×3 (07:20→20:00)
[2021-12-25] MEDS: nicotine 21mg patch - 24 hr TD SCH (07:20)
[2021-12-25] MEDS: traMADol 50MG tablet PO PRN (07:21)
[2021-12-25] MEDS: magnesium hydroxide 30ml (MOM) UD suspension PO PRN (07:27)
[2021-12-25 07:28] VITALS: BP 107/67
[2021-12-25] MEDS ORDERED: OLAN5TAB75 PO (08:53)
[2021-12-25] MEDS ORDERED: OLAN15TA35 PO (08:53)
[2021-12-25] MEDS ORDERED: LEVO75TA7 PO ×2 (08:53)
[2021-12-25] MEDS ORDERED: PRAZ1CAP5 PO (08:53)
[2021-12-25] MEDS ORDERED: IBUP-1594 PO (08:53)
[2021-12-25] MEDS ORDERED: DIVA500T9 PO (08:53)
[2021-12-25] MEDS ORDERED: GABA-530 PO (08:53)
[2021-12-25] MEDS ORDERED: NICO-687 TD ×2 (08:53)
[2021-12-25] MEDS ORDERED: NICO-907 BC ×2 (08:53)
[2021-12-25] MEDS ORDERED: HYDR-3686 PO ×2 (08:53)
[2021-12-25] MEDS: NICOTINE POLACRILEX 2 MG LOZENGE BC PRN ×2 (11:30→22:13)
[2021-12-25] MEDS: hydrOXYzine 25 MG tablet PO PRN (11:37)
[2021-12-25] MEDS: acetaminophen 325mg tablet PO PRN (14:40)
--- NOTE | 2021-12-25 14:57 | NUR ---
DCP Presenting Issues: Pt's accepted to the [facility] and is planned to d/c from [facility] & transition to [facility] tomorrow. Attending physician request dcp support for pt. Interventions: Clinician had t/c with [facility] DCP, per t/c peer support case management assistant will pick pt up tomorrow at 12:00 PM (noon) and take her to [facility]. While at [facility] pt will attend [facility] clinic to establish outpatient mental health services. Pt will work w/her peer support & [facility] staff to access additional community support to safely maintain self in the community. [facility] will deliver pt's meds in the morning. Plan: Pt to d/c tomorrow. Denisse Watters LCSW Addendum: 12/25/21 at 1503 by Denisse Watters SS Amended: Links added.
[2021-12-25] MEDS: ibuprofen 200mg tablet PO PRN (14:59)
--- NOTE | 2021-12-25 16:48 | NUR ---
Nursing Progress Note: Deborah Legal hold: 5250 Client on involuntary status for GD Report received from WISAM Nunes with use of SBAR Why are they here: Client LIBRA munoz for S/I; she jumped out of 2nd floor window after drinking ETOH. Patient threatened family and unable to safety plan with family. Also unable to report a viable plan for food, clothing, and prison. Hx of meth and heavy heavy ETOH use. Assessment What has happened this shift: Patient is resting quietly in bed at the start of the shift. Awake prior to breakfast drinking coffee and socializing. Requests PRN MOM for constipation. Appears paranoid during 1:1 assessment. Mood is labile and she becomes easily agitated. Appears to be responding to internal stimuli. Fidgets with and wraps clothing items together and carries them around the unit bunched together. S/I, H/I: Denies A/VH: Denies but appears internally occupied and responds to internal stimuli Sleep: 1 hour in the morning. ADL's: Independent Group attendance: No Were meds taken: Yes Any med S/E: None observed or reported Mental Status Exam Appearance: Middle aged appearing woman, disheveled wearing casual personal attire which she frequently changes. Eye contact: Good Behavior: Cooperative, labile, intrusive. Changes clothes frequently. Speech: Clear, pressured Mood: Horrible. Affect: Congruent, animated at times Thought process: Disorganized, delusional, paranoid, Flight of ideas Thought Content: Looking forward to discharge. Frequently requests more clothes. Cognition: A/Ox3 Insight: Poor Judgment: Poor Interventions PRN's used: Milk of magnesia, Ultram, Atarax Therapeutic interventions: Provided 1:1 assessment with therapeutic communication and active listening, medication administration/education/monitoring, encouragement of personal hygiene, provided redirection, positive reinforcement, monitored Q15 minute safety checks. Restraints/seclusion/emergency medication: Justification of Continued Inpatient Treatment: Patient in need of crisis interruption and stabilization with medication management and monitoring in a safe and therapeutic environment until stable.
[2021-12-25 19:00] VITALS: BP 115/80
[2021-12-25] MEDS: simethicone 125mg capsule PO PRN (19:58)
[2021-12-25] MEDS: divalproex sod 250mg ER (24-hour) tablet PO SCH (19:59)
[2021-12-25] MEDS: prazosin 1mg capsule PO SCH (20:00)
[2021-12-25] MEDS: lactulose 20gm/30ml cup PO PRN (20:56)
--- NOTE | 2021-12-25 21:08 | NUR ---
Nursing Progress Note: Deborah Legal hold: Voluntary Client on voluntary status for GD Why are they here: Client LIBRA munoz for S/I; she jumped out of 2nd floor window after drinking ETOH. Patient threatened family and unable to safety plan with family. Also unable to report a viable plan for food, clothing, and long term. Hx of meth and heavy heavy ETOH use. Assessment What has happened this shift: Patient is awake eating dinner at the start of the shift. Cooperative with 1:1 assessment. Spends time in her room doing yoga. Socializes on the unit at times but appears irritable and somewhat paranoid of other patients and their behaviors. Isolates to her room most of the evening. Requests a mood stabilizer just prior to bed. States, Im sorry. I have these little things following me around they want to know what Im doing what Im taking. Theyre like little mes. Like little microscopic mes. Takes her evening medication without issue. PRN Lactulose is given per request for c/o constipation. Patient states she only had a small BM today. S/I, H/I: Denies A/VH: Denies but appears to be responding to internal stimuli Sleep: See sleep assessment ADL's: Independent Group attendance: N/A Were meds taken: Yes Any med S/E: None observed or reported Mental Status Exam Appearance: Middle aged appearing woman, disheveled wearing casual personal attire. Eye contact: Good Behavior: Cooperative, labile, irritable Speech: Clear, pressured Mood: Fine. Affect: Congruent, animated at times Thought process: Disorganized, delusional, paranoid, Flight of ideas Thought Content: Meeting needs Cognition: A/Ox3 Insight: Poor Judgment: Poor Interventions PRN's used: lactulose Therapeutic interventions: Provided 1:1 assessment with therapeutic communication and active listening, medication administration/education/monitoring, encouragement of personal hygiene, provided redirection, positive reinforcement, monitored Q15 minute safety checks. Restraints/seclusion/emergency medication: Justification of Continued Inpatient Treatment: Patient in need of crisis interruption and stabilization with medication management and monitoring in a safe and therapeutic environment until stable.
--- NOTE | 2021-12-26 05:00 | NUR ---
Progress Note: P: Client LIBRA munoz for S/I; she jumped out of 2nd floor window after drinking ETOH. Patient threatened family and unable to safety plan with family. Also unable to report a viable plan for food, clothing, and group home. Hx of meth use, heavy ETOH. I: establishment of rapport, therapeutic conversation, active listening, medication administration/education/monitoring, encouragement of personal hygiene, provided distraction, redirection, positive reinforcement, and Q15 minute safety checks. R: Received pt asleep pacing in hallway, quiet, without talking to others. Within a few minutes, pt went to bed. Pt got up x 1 and asked for a warm blanket. Pt then returned to sleep and remained so without signs of distress. P: Patient in need of crisis interruption and stabilization with medication management and monitoring in a safe and therapeutic environment until stable.
--- NOTE | 2021-12-26 07:00 | NUR ---
Pt. reported chronic pain upon awakening this morning and PRN Baclofen was administered along with PRN Atarax for reported anxiety. A short time later, pt. c/o left side jaw pain and reported swelling, however area was assessed by this television writer and no swelling or redness was noted, V/S remain WNL. PRN Tramadol was administered with effectiveness. Prior to leaving, pt. again requested PRN pain medication for bilateral leg pain, and PRN Motrin was administered with effectiveness. Pt. continues to present with a labile affect, but is able to be redirected and is looking forward to discharge.
[2021-12-26] MEDS: gabapentin 100mg capsule PO SCH ×2 (07:41→12:04)
[2021-12-26] MEDS: OLANZAPINE 5 MG TABLET PO SCH ×2 (07:41→12:04)
[2021-12-26] MEDS: baclofen 10mg tablet PO PRN (07:41)
[2021-12-26] MEDS: hydrOXYzine 25 MG tablet PO PRN (07:41)
[2021-12-26] MEDS: docusate sod 250mg capsule PO SCH (07:41)
[2021-12-26] MEDS: levoTHYROXINE 75mcg tablet PO SCH (07:41)
[2021-12-26] MEDS: nicotine 21mg patch - 24 hr TD SCH (07:42)
[2021-12-26 07:45] VITALS: BP 122/74
[2021-12-26] MEDS: NICOTINE POLACRILEX 2 MG LOZENGE BC PRN (07:50)
--- NOTE | 2021-12-26 07:51 | NUR ---
Discharge Presenting Issues: Pt's scheduled to d/c this morning and transitioning to [facility] for additional stabilization support. Interventions: Clinician had t/c with pt's father and answered his questions re LPS process and a locked facility for pt. Clinician requested that a rapid COVID test be administered so we can get results before transporter pick pt up. Met w/pt and reviewed dcp with her, pt continued to agreed to going to [facility], made aware of curfew, chores, groups and drug testing. Plan: Pt to d/c this afternoon and transition to [facility]. Denisse Watters LCSW Addendum: 12/26/21 at 0756 by Denisse Watters SS Amended: Links added.
[2021-12-26] MEDS: traMADol 50MG tablet PO PRN (08:26)
[2021-12-26] MEDS: ibuprofen 200mg tablet PO PRN (11:39)
--- NOTE | 2021-12-26 12:00 | NUR ---
Discharge Note: Pt. discharged off the unit at approximately 1200, accompanied by this telegraphic typewriter operator, [facility] staff, and her assigned peer support individual to the [facility] vehicle which will be transporting her to [facility]. Pt. was sent with all of her medications. This telegraphic typewriter operator reviewed discharge instructions and medications with pt., and she reported understanding. Pt. is encouraged to follow-up with [facility] Access services. Tech inventoried pt's belongings and they were returned to her. Covid nasopharyngeal swab was completed yesterday and was negative. Pt. is able to contract for safety.
== END 2021-12-26 11:55 | DRG 750 ==
LOC: ER 18:22 → ED HOLD 12-08 14:20 → ADULT MH 12-08 15:20
PROVIDERS: ADMIT Psychiatry & Neurology Psychiatry; ATTEND Psychiatry & Neurology Psychiatry
DX: F25.0 Schizoaffective disorder, bipolar type (principal); R45.851 Suicidal ideations; E03.9 Hypothyroidism, unspecified; K59.00 Constipation, unspecified; F15.10 Other stimulant abuse, uncomplicated; F17.210 Nicotine dependence, cigarettes, uncomplicated; I10 Essential (primary) hypertension; G89.29 Other chronic pain; F12.10 Cannabis abuse, uncomplicated; F10.129 Alcohol abuse with intoxication, unspecified; R25.2 Cramp and spasm; K59.4 Anal spasm; G83.30 Monoplegia, unspecified affecting unspecified side; R10.9 Unspecified abdominal pain; Y90.4 Blood alcohol level of 80-99 mg/100 ml; Z20.822 Contact with and (suspected) exposure to COVID-19; F32.A Depression, unspecified; F41.9 Anxiety disorder, unspecified; Z56.0 Unemployment, unspecified; Z79.899 Other long term (current) drug therapy; Z88.9 Allergy status to unspecified drugs, medicaments and biological substances; Z91.012 Allergy to eggs; Z91.018 Allergy to other foods; Z71.6 Tobacco abuse counseling
CPT/HCPCS: 36415; 71045; 71046; 74018; 80053; 80061; 80305; 80320; 81001; 81025; 83036; 84443; 85025; 87081; 87635; 99285; C9803; J1200; J1630; Q0177

== ENCOUNTER 2022-01-02 11:19 | Emergency (ER) | payer MEDICAID ==
[~2022-01-02] VITALS: Ht 160 cm; Wt 52.3 kg
[~2022-01-02 11:19] MED LIST changes: +DIVA500T9 PO; +GABA-530 PO; +HYDR-3686 PO; +IBUP-1594 PO; +LEVO75TA7 PO; -NAPR-56 PO; +NICO-687 TD; +NICO-907 BC; +OLAN15TA35 PO; +OLAN5TAB75 PO; -POLY119P2 PO; +PRAZ1CAP5 PO
--- NOTE | 2022-01-02 12:28 | NUR ---
PT REPORTS ALL OF HER MEDICATION WAS STOLEN ON THE 3RD.
[2022-01-02] MEDS ORDERED: LEVO75TA7 PO (12:58)
[2022-01-02] MEDS ORDERED: HYDR-3686 PO (12:58)
[2022-01-02 13:07] VITALS: BP 112/80
== END 2022-01-02 13:09 | disposition home or self-care (01) ==
LOC: ER 11:28
DX: E03.9 Hypothyroidism, unspecified (principal); F41.9 Anxiety disorder, unspecified; F32.A Depression, unspecified; F15.10 Other stimulant abuse, uncomplicated; Z56.0 Unemployment, unspecified; Z88.8 Allergy status to other drugs, medicaments and biological substances; Z91.012 Allergy to eggs; Z91.018 Allergy to other foods; Z76.0 Encounter for issue of repeat prescription
CPT/HCPCS: 93005; 99283

== ENCOUNTER 2024-12-30 22:27 | Inpatient (IN) | payer MEDICAID ==
[~2024-12-30] VITALS: Ht 160 cm; Wt 63.1 kg
[~2024-12-30 22:27] MED LIST changes: -NICO-687 TD; -NICO-907 BC; -OLAN15TA35 PO; +OLAN15TA97 PO
[2024-12-30] MEDS: ondansetron 4mg rapidly disintigrating tab PO ONE (23:01)
[2024-12-30 23:31] LABS: BASOPHILS % (AUTO) 0.2 % (0-1); EOSINOPHILS # (AUTO) 0.2 X10'3 (0-0.9); EOSINOPHILS % (AUTO) 1.2 % (0-6); HEMATOCRIT 28.5 % (35.0-45.0); HEMOGLOBIN 9.1 g/dl (12.0-16.0); LYMPHOCYTES % (AUTO) 13.8 % (21-51); MEAN CORPUSCULAR VOLUME 65.8 FL (78-98); MEAN PLATELET VOLUME 6.5 FL (7.4-10.4); MONOCYTES # (AUTO) 1.7 X10'3 (0-0.9); MONOCYTES % (AUTO) 11.6 % (2-12); NEUTROPHILS # (AUTO) 10.6 X10'3 (1.8-7.7); NEUTROPHILS % (AUTO) 73.2 % (42-75); PLATELET COUNT 688 X10'3 (140-440); RED BLOOD COUNT 4.34 X10'6 (4.20-5.60); WHITE BLOOD COUNT 14.5 X10'3 (4.5-11.0)
[2024-12-30 23:31] LABS: BILIRUBIN,URINE NEGATIVE (Neg); CLARITY,URINE CLEAR (Clear); COLOR,URINE YELLOW (Yellow); GLUCOSE, URINE NEGATIVE (Neg); KETONES,URINE TRACE mg/dl (Neg); LEUKOCYTE ESTERASE ,URINE TRACE (Neg); NITRITES, URINE NEGATIVE (Neg); OCCULT BLOOD,URINE NEGATIVE (Neg); PROTEIN,URINE NEGATIVE (Neg); URINE HCG NEGATIVE (NEG); UROBILINOGEN,URINE 0.2 E.U/dL (0.2-1.0)
[2024-12-30 23:32] LABS: UA COLLECTION TYPE CLN CATCH MIDSTREAM
[2024-12-30 23:37] LABS: BACTERIA,URINE FEW /HPF (Neg); RBC,URINE NONE SEEN /HPF (0-2); SQUAMOUS EPITHELIAL CELL,UR FEW /LPF (FEW); WBC,URINE 0-4 /HPF (0-4)
[2024-12-30 23:42] LABS: ALANINE AMINOTRANSFERASE 12 U/L (12-78); ALBUMIN 2.2 G/DL (3.4-5.0); ALBUMIN/GLOBULIN RATIO 0.7 (1.1-1.5); ALKALINE PHOSPHATASE 107 IU/L (46-116); ANION GAP 6 (8-16); ASPARTATE AMINO TRANSFERASE 11 U/L (10-37); BILIRUBIN,TOTAL 0.2 MG/DL (0.1-1.0); BLOOD UREA NITROGEN 15 MG/DL (7-18); CALCIUM 7.7 MG/DL (8.5-10.1); CHLORIDE 108 MMOL/L (99-107); CREATININE 0.75 MG/DL (0.40-0.90); GLUCOSE 114 MG/DL (70-104); LIPASE 17 U/L (16-77); POTASSIUM 3.7 MMOL/L (3.5-5.1); SODIUM 139 MMOL/L (135-145); TOTAL CARBON DIOXIDE 25.5 MMOL/L (24-32); TOTAL PROTEIN 5.3 G/DL (6.4-8.2); eCRCL 76 ML/MIN; eGFR 82 ML/MIN
[2024-12-31 00:02] LABS: ANISOCYTOSIS 3+; MICROCYTOSIS 2+; PLATELET ESTIMATE INCREASED
--- NOTE | 2024-12-31 01:23 | Physician Documentation ---
History of Present Illness Chief Complaint: Abdominal Pain Stated Complaint: VOMITING,ABDOM PAIN Time Seen by MD: 01:07 OK to notify your PCP?: Yes Primary Medical Doctor: Lady at [facility] Source: patient, family, RN/, RN notes reviewed, old records Mode of Arrival: POV Exam Limitations: no limitations HPI 49-year-old female, with history of alcoholism and drug abuse but clean for the last two months, presents complaining of abdominal swelling and pain for the last two months, progressively worsening over this time. Pain is rated 9/10. She also describes mild shortness of breath, generalized weakness, and fatigue recently. For the last few days she has had nausea, vomiting, and diarrhea, with some blood in the diarrhea. Patient last drank alcohol two days ago. Patient recently returned to the area, after being homeless for quite some time. Apparently she has previously been told she might have liver failure at other hospitals, but states she has not had a CT of her abdomen/pelvis. Mother is now helping take care of her and she has a primary care provider at [facility]. Medication Reconciliation Allergies: Coded Allergies: lithium (Verified Allergy, Intermediate, "beyong angry", 12/30/24) egg yolk (Verified Allergy, Unknown, 12/30/24) wheat (Verified Adverse Reaction, Unknown, VOMITING/CRAMPING, 12/30/24) Uncoded Allergies: DAIRY (Adverse Reaction, Unknown, VOMITING/CRAMPING, 06/27/15) Scheduled Aripiprazole (Aripiprazole), 1 TAB PO DAILY, (Reported) Hydroxyzine Hcl* (Atarax*), 1 TAB PO TID, (Reported) Prazosin Hcl (Prazosin Hcl), 1 CAP PO HS, (Reported) Discontinued Medications Aripiprazole* (Abilify*), 2 TAB PO DAILY, (Reported) Discontinued Reason: patient no longer taking Divalproex Sodium (Divalproex Sodium ER), 2 TABLET PO HS Discontinued Reason: patient no longer taking Gabapentin (Gabapentin), 100 MG PO TID Discontinued Reason: patient no longer taking Hydroxyzine Hcl* (Atarax*), 50 MG PO TID PRN for anxiety Discontinued Reason: patient no longer taking Ibuprofen (Motrin Ib), 600 MG PO Q6H PRN for pain Discontinued Reason: patient no longer taking Levothyroxine Sodium (Levothyroxine Sodium), 75 MCG PO Q24H@07 Discontinued Reason: patient no longer taking Olanzapine (Olanzapine), 1 TAB PO HS Discontinued Reason: patient no longer taking Olanzapine (Olanzapine), 5 MG PO BID@0800,1300 Discontinued Reason: patient no longer taking Prazosin Hcl (Prazosin Hcl), 1 MG PO HS Discontinued Reason: patient no longer taking Past Medical History Past Medical History: *GI/HEPATOBILIARY*, Hemorrhoids, Anxiety, Depression Past Surgical History: other Other Past Surgical History: Rectal Prolapse Repair Alcohol Use: Abuse Drug Use: methamphetamine, other (fentanyl) Lives with: Family Lives In: Home Occupation: unemployed Review of Systems All Other Systems at this time: Reviewed and Negative ROS As stated above in the HPI, otherwise all systems are reviewed and negative. Physical Exam Vital Signs: RN Vital Signs have been reviewed: Yes, Temperature: 97.5, Source: Temporal, Heart Rate: 85, Respiratory Rate: 16, BP: 102/66, Pulse Oximetry: 96, Weight: 64.000 Oxygen Flow Rate: 0 Pulse Oximetry Reflects: adequate oxygenation Physical Exam General: The patient is well developed, well nourished, nontoxic appearing and is in mild distress. Skin: [place], warm and dry with no rashes. HEENT: Head was normocephalic and atraumatic. Chest: Clear to auscultation bilaterally without wheezes, rales or rhonchi. No accessory muscle use. No dullness to percussion. Heart: Rate regular and rhythmic. 2/6 systolic murmur. S1, S2. Palpation of the chest wall was normal. No rubs or thrills. Abdomen: Soft, nontender and nondistended. Positive bowel sounds. No guarding or rebound. 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 Extremities: No cyanosis, clubbing or edema. The patient moves all extremities. Pulses were equal and symmetric. Neurologic: Motor and sensation grossly intact. Cranial nerves II-XII grossly intact. A & O x4. Psychologic: Normal mood and affect. No agitation. Progress Progress Note 0224: Case discussed with internal medicine resident, who agrees to evaluate the patient for admission. Results/Orders Reviewed/noted all lab results: Yes Results/Orders Orders - ALONSO GURROLA MD Cult Urine + [address] (12/30/24 23:38) Ethanol (12/31/24 01:09) MG (12/31/24 01:09) Pt Inr (12/31/24 01:09) PTT (12/31/24 01:09) Ammonia (12/31/24 01:09) Hemocult Set Up (12/31/24 01:10) Completed Orders - ALONSO GURROLA MD Ondansetron Disint. Tablet (Zofran Odt T (12/30/24 23:00) Hcg, Ur Ql (12/30/24 23:02) Cbc/Diff (12/30/24 23:02) BMP (12/30/24 23:02) Lipase (12/30/24 23:02) CMP (12/30/24 23:02) Ua W/Microscopic, Cult If Ind (12/30/24 23:09) Medications Received in ER Medications (Trade) Dose Ordered Sig/Norma Route PRN Reason Start Time Stop Time Status Last Admin Dose Admin (Zofran ODT tablet) 4 mg ONCE ONCE PO 12/30/24 23:00 12/30/24 23:01 DC 12/30/24 23:01 4 MG Vital Signs 12/30/24 12/30/24 12/30/24 12/31/24 22:32 22:47 22:50 00:46 Temp 97.5 Pulse 96 93 85 Resp 20 16 16 B/P (MAP) 103/66 103/61 (75) 102/66 (78) Pulse Ox 98 97 96 O2 Flow Rate 0 0 0 Laboratory Tests Test 12/30/24 23:09 12/30/24 23:20 Urine Specimen Description Cln catch midstream Urine Color Yellow Urine Clarity Clear Urine pH 6.0 Urine Specific [place] 1.020 Urine Protein Negative Urine Glucose (UA) Negative Urine Ketones Trace H Urine Occult Blood Negative Urine Nitrite Negative Urine Bilirubin Negative Urine Urobilinogen 0.2 Urine Leukocyte Esterase Trace H Urine RBC None seen Urine WBC 0-4 Urine Squamous Epithelial Cells Few Urine Bacteria Few Urine Culture Indicated Indicated Volume Urine Centrifuged 10 ml Urine HCG, Qualitative Negative Urine Comment White Blood Count 14.5 H Red Blood Count 4.34 Hemoglobin 9.1 L Hematocrit 28.5 L Mean Corpuscular Volume 65.8 L Mean Corpuscular Hemoglobin 21.0 L Mean Corpuscular Hemoglobin Concent 32.0 L Red Cell Distribution Width 21.0 H Platelet Count 688 H Mean Platelet Volume 6.5 L Neutrophils (%) (Auto) 73.2 Lymphocytes (%) (Auto) 13.8 L Monocytes (%) (Auto) 11.6 Eosinophils (%) (Auto) 1.2 Basophils (%) (Auto) 0.2 Neutrophils # (Auto) 10.6 H Lymphocytes # (Auto) 2.0 Monocytes # (Auto) 1.7 H Eosinophils # (Auto) 0.2 Basophils # (Auto) 0.0 CBC Comment Platelet Estimate Increased Red Blood Cell Morphology Perf Basophilic Stippling Anisocytosis 3+ Microcytosis 2+ Sodium Level 139 Potassium Level 3.7 Chloride Level 108 H Carbon Dioxide Level 25.5 Anion Gap 6 L Blood Urea Nitrogen 15 Creatinine 0.75 Estimated GFR/1.73 m2 82 BUN/Creatinine Ratio 20.0 Glucose Level 114 H Calcium Level 7.7 L Total Bilirubin 0.2 Aspartate Amino Transf (AST/SGOT) 11 Alanine Aminotransferase (ALT/SGPT) 12 Alkaline Phosphatase 107 Total Protein 5.3 L Albumin 2.2 L Globulin 3.1 Albumin/Globulin Ratio 0.7 L Lipase 17 Chemistry Comments Microbiology Date/Time Source Procedure Growth Status 12/30/24 23:38 Urine Clean Catch Midstream Urine Culture - Preliminary Culture received. Resulted Re-Evaluation Re-Evaluation : Re-Evaluation: Improved Progress Patient was complaining of abdominal pain cat scan was obtained no surgical emergency was found however patient had fair amount of ascites and other pathology. Laboratory work was obtained white count is elevated 14.5 hemoglobin 9.1, hematocrit 28.5 platelets 688. Coagulation within normal limits. Urinalysis showed some trace ketones trace leukocyte esterase with 0-4 WBCs hCG is negative we will not treat the patient for that does not appear to be a UTI she does not have any symptoms. Alcohol level is negative. Chemistry shows a normal chemistry slight increase in glucose of 114. Magnesium 1.9 LFTs within normal limits albumin is low at 2.2. Lactic acid negative at 0.4 ammonia negative at 12. Patient received Zofran and then later a CT scan because of the amount of pain. Patient did receive fluid bolus Zosyn and physical Lido was ordered and an NG-tube was placed for possible toxic megacolon. NG tube did not produce any material and ultimately was pulled out by the patient but not replaced because it did not seem to be achieving any goal of suctioning since the gastric area is dilated but without volume. I contacted the surgeon as well as the hospitalist and admitted the patient for further workup and care. Continuous cardiac cath tech interpretation shows normal sinus rhythm heart rate 90s, no ectopy, normal, my interpretation. Pulse oximetry monitor interpretation shows normal oxygenation at 98% room air, normal, my interpretation. EKG/XRAY/CT/US/VASC/MRI Chest X-Ray : Additional Comments CHEST RADIOGRAPH Indication: NG TUBE PLACEMENT Technique: Single frontal view of the chest was obtained COMPARISON: CHEST,SINGLE VIEW on DOS: 12/25/21 FINDINGS: Lines and Tubes: Enteric catheter courses below the level of the diaphragm and terminates within the left upper quadrant, presumably within the gastric lumen. Lungs: Clear Pleura: No effusion. No pneumothorax. Cardiomediastinal contours: Unremarkable Bones: Unremarkable IMPRESSION: 1. No acute disease. 2. Enteric catheter placement. Reviewed by me, Dr. Gurrola. CT : Interpreted By: radiologist CT: abdomen/pelvis With Contrast?: No Impression Exam: CT CT ABDOMEN PELVIS W/WO IV CONTRAST History: ABD PAIN COMPARISON: None Technique: Multidetector spiral CT of the abdomen and pelvis was performed from lung bases to pubic symphysis. Intravenous contrast was administered during this examination. Portal venous imaging was obtained. Axial, coronal and sagittal multiplanar reformats were performed by the technologist on a separate workstation. Radiation Dose : 1. Abdomen/Pelvis: CTDIvol 23.64 mGy, DLP 1124.09 mGy*cm. CONTRAST: Type of contrast: Omniscan 300 Contrast injected: 100 ml Contrast ingested: None Findings: Lung Bases: No acute or significant lung base finding. Normal heart size. No pleural or pericardial effusion. Liver: The liver is normal in size. No focal lesions. Normal hepatic vascular enhancement. Gallbladder and Biliary Tree: Unremarkable Spleen: Unremarkable Pancreas: The pancreas is normal in appearance without focal lesions or abnormal enhancement. Adrenal Glands: Unremarkable Kidneys: No hydronephrosis. Bladder: Unremarkable Bowel: The stomach is grossly normal in appearance. Markedly dilated segments of colon extend from the level of the proximal ascending colon through the proximal rectum and measure up to approximately 9.8 cm in diameter and are stool impacted. Moderate diffuse wall thickening of the colon is noted throughout its extent. The appendix is not visualized; however, no secondary findings of acute appendicitis identified. There is no definite evidence of perforation of the hollow viscus. Ascites: Small volume abdominopelvic ascites. Lymphadenopathy: No mesenteric, retroperitoneal or periportal lymphadenopathy. Abdominal Wall and Mesentery: Unremarkable. Vasculature: The visualized abdominal aorta is normal in size and caliber. Abdominal and pelvic vessels demonstrate normal enhancement. 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 IMPRESSION: 1. Markedly dilated stool impacted colon extending from the proximal ascending colon through the proximal rectum, consistent with acute fecal impaction with or without toxic megacolon. 2. Abdominopelvic ascites. 3. 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 Radiation optimization: All CT scans at this facility use at least one of these dose optimization techniques: automated exposure control mA and/or kV adjustment per patient size (includes targeted exams where dose is matched to clinical indication) or iterative reconstruction. Reviewed by nhDr. Gurrola. Medical Decision Making Differential Dx:Considerations: Include: Abruptio placentae, Angina/GA, Aortic dissection, Appendicitis, Bowel obstruction, Cholangitis, Cholelithasis, Constipation, Diverticular disease, Esophageal rupture, Esophagitis, Gastritis/PUD, Gastroenteritis, GI hemorrhage, Hernia, Hepatitis, Inflammatory BD, Ischemic bowel, Pancreatitis, PID, Urinary obstruction, Urinary tract infection, Urolithiasis, Other Departure Time of Disposition: 02:25 Disposition: 09 ADMITTED INPATIENT Admitted to Inpatient Unit: yes, to hospitalist Admission Level of Care: Med/Surg with Tele Impression: Primary Impression: Abdominal pain Qualified Codes: R10.9 - Unspecified abdominal pain Additional Impressions: Protein malnutrition Ascites Qualified Codes: R18.8 - Other ascites Vomiting Qualified Codes: R11.10 - Vomiting, unspecified Alcohol abuse Condition: Guarded Referrals: NO PRIMARY CARE PROVIDER (PCP) Education Educated: Patient Educated regarding: diagnosis, need for follow up Signature Scribe Signature: Scribed for Alonso Gurrola MD by Charlie Goode . 12/31/24 02:05 Attestation: The note accurately reflects work and decisions made by me.Alonso Gurrola MD 12/31/24 01:23 ALONSO GURROLA MD December 31, 2024 01:23 CHARLIE FLORES December 31, 2024 02:09
[2024-12-31] MEDS ORDERED: iohexol 300mg/ml 100ml inj. ONE (01:33)
[2024-12-31] MEDS: ondansetron/PF 4mg/2ml inj IV ONE (01:40)
[2024-12-31] MEDS: morphine 4 MG/ML inj SYRINge IV ONE (01:41)
[2024-12-31 01:55] LABS: MAGNESIUM 1.9 MG/DL (1.5-2.4)
[2024-12-31 01:58] LABS: ETHANOL < 10 MG/DL (<10)
[2024-12-31 02:21] LABS: APTT 25 SECONDS (22-32); INR 1.1 INR; PROTHROMBIN TIME 10.9 SECONDS (9.0-12.0)
[2024-12-31] MEDS ORDERED: LIDOcaine 1% W/epiNEPHrine 1:100,000 20ml vial IJ ONE (02:45)
--- NOTE | 2024-12-31 02:45 | RADIOLOGY REPORT ---
Exam: CT CT ABDOMEN PELVIS W/WO IV CONTRAST History: ABD PAIN COMPARISON: None Technique: Multidetector spiral CT of the abdomen and pelvis was performed from lung bases to pubic s ymphysis. Intravenous contrast was administered during this examination. Portal venous imaging was o btained. Axial, coronal and sagittal multiplanar reformats were performed by the technologist on a [employer] workstation. Radiation Dose : 1. Abdomen/Pelvis: CTDIvol 23.64 mGy, DLP 1124.09 mGy*cm. CONTRAST: Type of contrast: Omniscan 300 Contrast injected: 100 ml Contrast ingested: None Findings: Lung Bases: No acute or significant lung base finding. Normal heart size. No pleural or pericardial effusion. Liver: The liver is normal in size. No focal lesions. Normal hepatic vascular enhancement. Gallbladder and Biliary Tree: Unremarkable Spleen: Unremarkable Pancreas: The pancreas is normal in appearance without focal lesions or abnormal enhancement. Adrenal Glands: Unremarkable Kidneys: No hydronephrosis. Bladder: Unremarkable Bowel: The stomach is grossly normal in appearance. Markedly dilated segments of colon extend from th e level of the proximal ascending colon through the proximal rectum and measure up to approximately 9 .8 cm in diameter and are stool impacted. Moderate diffuse wall thickening of the colon is noted thro ughout its extent. The appendix is not visualized; however, no secondary findings of acute appendicit is identified. There is no definite evidence of perforation of the hollow viscus. Ascites: Small volume abdominopelvic ascites. Lymphadenopathy: No mesenteric, retroperitoneal or periportal lymphadenopathy. Abdominal Wall and Mesentery: Unremarkable. Vasculature: The visualized abdominal aorta is normal in size and caliber. Abdominal and pelvic vess els demonstrate normal enhancement. Pelvic Organs: Unremarkable Musculoskeletal: Advanced erosive arthritic changes of the left hip involve cortical destruction of t he femoral head and acetabulum. IMPRESSION: 1. Markedly dilated stool impacted colon extending from the proximal ascending colon through the prox imal rectum, consistent with acute fecal impaction with or without toxic megacolon. 2. Abdominopelvic ascites. 3. 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 Radiation optimization: All CT scans at this facility use at least one of these dose optimization sachi hniques: automated exposure control mA and/or kV adjustment per patient size (includes targeted exam s where dose is matched to clinical indication) or iterative reconstruction.
[2024-12-31] MEDS: LidoCAINE 2% Topical Jelly 11mL syringe (UROJET) MM ONE (02:57)
[2024-12-31] MEDS: HYDROmorphone 1 mg/ml syringe IV ONE (03:10)
[2024-12-31] MEDS: normal saline 1000ml 1,000 ML IV ONE (03:24)
[2024-12-31] MEDS: piperacillin/tazo 3.375gm/50ml 50 ML IV ONE (03:24)
[2024-12-31] MEDS: normal saline 1000ML IV soln IVB ONE (03:24)
[2024-12-31] MEDS ORDERED: ARIP5TAB12 PO (03:29)
--- NOTE | 2024-12-31 03:40 | RADIOLOGY REPORT ---
CHEST RADIOGRAPH Indication: NG TUBE PLACEMENT Technique: Single frontal view of the chest was obtained COMPARISON: CHEST,SINGLE VIEW on DOS: 12/25/21 FINDINGS: Lines and Tubes: Enteric catheter courses below the level of the diaphragm and terminates within the left upper quadrant, presumably within the gastric lumen. Lungs: Clear Pleura: No effusion. No pneumothorax. Cardiomediastinal contours: Unremarkable Bones: Unremarkable IMPRESSION: 1. No acute disease. 2. Enteric catheter placement.
[2024-12-31 03:49] LABS: C-REACTIVE PROTEIN 1.35 MG/DL (0.0-0.5)
[2024-12-31] MEDS ORDERED: magnesium Cl slow-release 64mg tablet PO PRN (04:20)
[2024-12-31] MEDS ORDERED: magnesium hydroxide 30ml (MOM) UD suspension PO PRN (04:20)
[2024-12-31] MEDS ORDERED: magnesium sulf-water 4G/100mL 100 ML IV PRN (04:20)
[2024-12-31] MEDS ORDERED: acetaminophen 325mg tablet PO PRN (04:20)
[2024-12-31] MEDS ORDERED: potassium Cl 20 mEq SR tablet PO PRN (04:20)
[2024-12-31] MEDS ORDERED: magnesium sulf-water 2g/50mL 50 ML IV PRN (04:20)
[2024-12-31] MEDS ORDERED: mag hydrox/Alum hydrox/simeth 30ml oral suspension PO PRN (04:20)
--- NOTE | 2024-12-31 04:47 | HISTORY AND PHYSICAL-Residence ---
History & Physical Providers to CC Resident Creating Document: THEO DOUGLASS, RES ~ History of Present Illness Primary Medical Doctor: Lady at [facility] Reason for Admit\\Complaint: Acute large bowel obstruction, megacolon History of Present Illness 49-year-old female past medical history of anxiety, alcohol use disorder, polysubstance use(has not used any drugs since the past two and half months) presents to the ED with chief complaint of nausea, vomiting and fecal incontinence since the last two days. She reports that these symptoms started spontaneously but has also been suffering from worsening abdominal distention and lower abdominal pain/discomfort over the past couple of months. She reports that her abdominal distention and lower abdominal pain significantly worsened over the last one week. She rates the lower abdominal pain eight on a scale of 10, is on and off and denies any associated exacerbating or relieving factors. Patient denies any recent fever or chills. She states that the abdominal discomfort increases and decreases severity with no triggers, exacerbating or relieving factors. She currently states that the abdominal pain is controlled. The patient stated that she is usually constipated but over the last 1-2 weeks he has been having at least two loose stools every day. Later during the day yesterday. She mentioned that in the past he has a heavy methamphetamine use, alcohol use disorder. He also consumed fentanyl occasionally but has been sober from recreational drugs since the past 2-1/2 months. She reports that she continues to drink alcohol but drinks only two beers every day. Allergies: Coded Allergies: lithium (Verified Allergy, Intermediate, "beyong angry", 12/30/24) egg yolk (Verified Allergy, Unknown, 12/30/24) wheat (Verified Adverse Reaction, Unknown, VOMITING/CRAMPING, 12/30/24) Uncoded Allergies: DAIRY (Adverse Reaction, Unknown, VOMITING/CRAMPING, 06/27/15) Home Medications Home Medications Active Atarax* (Hydroxyzine HCl) 25 Mg Tablet 50 Mg PO TID PRN 30 Days Gabapentin 100 Mg Capsule 100 Mg PO TID 30 Days Motrin Ib (Ibuprofen) 200 Mg Tablet 600 Mg PO Q6H PRN 30 Days Reported Abilify* (Aripiprazole) 5 Mg Tablet 2 Tab PO DAILY 30 Days Past Medical History Past Medical History Anxiety, depression, polysubstance use, alcohol use disorder Past Surgical History Surgical History Comment Patient reports that she had partial colectomy done in 2013. She is not sure why she had the surgery. Past Social History Social History Comment Quit recreational drugs meth and fentanyl two and half months ago. Used to drink heavy alcohol. Now drinks two beers every day. Smokes about seven cigarettes every day. Smoking: Cigarettes Alcohol Use: Abuse Drug Use: Methamphetamine, Other (fentanyl) Lives with: Family Lives In: Home Occupation: unemployed ROS All Other Systems: Reviewed and Negative ROS As stated above in the HPI, otherwise all systems are reviewed and negative. Exam Vitals: Vital Signs Date Time Temp Pulse Resp B/P (MAP) Pulse Ox O2 Delivery O2 Flow Rate FiO2 12/31/24 04:20 16 12/31/24 03:37 79 111/78 (89) 95 0 12/30/24 22:32 97.5 General: General: Awake and Alert, no acute distress. HEENT: Conjunctiva pink, Sclera clear, Mucus Membranes moist. Neck: Supple without masses and tenderness. Resp: Unlabored. Lungs clear to auscultation bilaterally. Heart: Regular Rate and rhythm, normal S1 and S2 without murmur, rub or gallop. Abdomen: Significantly distended abdomen, tympanic. There is tenderness on palpation in the lower mid and left iliac regions. Extremities: No cyanosis,clubbing or edema. Skin: Warm and Dry. Neurology: Cranial nerves 2-12 intact. No focal motor or sensory deficits. Diagnostic Data Last Recorded Lab Results: 12/30/24 2320 12/30/24 2320 Diagnostic Data: Laboratory Tests Test 12/31/24 01:38 Prothrombin Time 10.9 SECONDS (9.0-12.0) INR International Normalized Ratio 1.1 INR Activated Partial Thromboplast Time 25 SECONDS (22-32) Coagulation Comments Advance Care Planning Advanced Care planning: Add on additional 30 min Additional Plan Acute abdominal pain Large bowel obstruction versus Treva's syndrome versus toxic megacolon CT scan of the abdomen/pelvis: IMPRESSION: 1. Markedly dilated stool impacted colon extending from the proximal ascending colon through the proximal rectum, consistent with acute fecal impaction with or without toxic megacolon. 2. Small volume abdominopelvic ascites. 3. 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 Patient has a elevated WBC count of 14.5, protocol-negative, lactic acid 0.4. Started on conservative management with the NG tube for bowel decompression. NPO for bowel rest. IV fluids for hydration and maintenance. Pain management with IV Dilaudid. IV Ondansetron as needed for nausea and vomiting. Continue to monitor closely. Check for any development of peritoneal signs or worsening condition. Consult surgery if the patient has no improvement. She received one dose of IV Zosyn in the ER. Urinary tract infection Patient's urine analysis is positive for leukocyte esterase, few bacteria and 0- 4 WBCs. Follow up with the urine analysis. We will start the patient on IV Rocephin 1 g daily. Anxiety/depression Restart home medications once med reconciliation is done. History of polysubstance use Patient reports that she has been sober of drugs last and half months. Follow up with the urine tox screen. Also reports that she only drinks two beers per day currently. CODE STATUS: Full code DVT prophylaxis: SCDs GI prophylaxis: None Diet: NPO Theo Douglass MD Internal Medicine Resident, PGY-2 Attending Physician Attestation Evaluation via HIPAA compliant AV device. I discussed the case with the resident and I agree with the resident's documentation. 49-year-old woman with a history of polysubstance abuse and prior colon resection, for reasons that are unclear, who presents with nausea, emesis, generalized abdominal and abdominal distention. Imaging is consistent with stercoral colitis. The treatment plan includes: Fecal disimpaction followed by enemas to ensure stool clearance. Hydration with isotonic crystalloid. Multimodal pain control with minimization of narcotic analgesia. Surgery evaluation. Time spent 50 minutes. Date of Service: December 31, 2024 Billing Provider: CHERIE CEBALLOS MD, SURYA PRATIK, RES December 31, 2024 04:47 CHERIE CEBALLOS MD December 31, 2024 06:24
[2024-12-31] MEDS: normal saline 1000ml 1,000 ML IV SCH (05:02)
[2024-12-31 05:08] LABS: POTASSIUM 3.5 MMOL/L (3.5-5.1)
[2024-12-31 05:09] LABS: HEMOGLOBIN A1C 5.4 % (4.5-6.2)
[2024-12-31] MEDS: K and/or MAG REPLACEMENT MC SCH (07:27)
[2024-12-31] MEDS: docusate sod 100mg capsule PO SCH (07:27)
[2024-12-31] MEDS: CefTRIAXone/D5W-Rocephin 1gm 50 ML IV SCH (07:37)
[2024-12-31] MEDS: HYDROmorphone inj. 0.5 MG/0.5 ML DISP.SYRIN IV PRN (07:47)
[2024-12-31] MEDS ORDERED: PRAZ1CAP5 PO (13:04)
[2024-12-31] MEDS ORDERED: HYDR-3717 PO (13:04)
[2024-12-31] MEDS ORDERED: ARIP10TA87 PO (13:04)
[2024-12-31 13:45] VITALS: BP 115/76; PULSE 86; RESP 16; TEMP 98.2; O2SAT 97
[2024-12-31] MEDS: lactulose 20gm/30ml cup PO SCH (14:00)
--- NOTE | 2024-12-31 15:31 | PROGRESS NOTE ---
Daily Progress Note Providers to CC Complaint, abdominal distention ~ Central Line/PICC still needed: No Hilliard-Non Protocol Hilliard Indications Met/Not Met: F/C Indications Not Met Antibiotic Timeout Antibiotic Ordered?: Yes MRSA Education MRSA Education Provided to pt: Yes Subjective As above Objective Vital Signs Date Time Temp Pulse Resp B/P (MAP) Pulse Ox O2 Delivery O2 Flow Rate FiO2 12/31/24 11:00 78 16 103/65 (78) 99 0 12/30/24 22:32 97.5 Vital signs, stable ,afebrile. Pulse Oximetry reflects adequate oxygenation. BMI is twenty-five, weight 64 kg General: well developed, well nourished. Awake , alert, and oriented x4, resting comfortably in the bed, in no acute distress . Skin: Warm, dry, no pallor, no rash or petechiae. HEENT: Atraumatic, normocephalic, EOMI, anicteric sclera B; pink conjunctiva; PERRLA, normal oropharynx, moist oral and nasal mucosa. Tympanic membrane , nose , throat clear. Neck: Trachea midline. Supple, full range of motion, no JVD, bruit , hepatojugular reflex , lymphadenopathy or masses, or other lesions Cardiac: Regular rhythm, regular rate no murmurs, rubs, or gallops. Normal S1 and S2, no S3 noticed. PMI is normal. Respiratory: Equal breath sounds bilaterally, no tachypnea; lungs clear to auscultation bilaterally, no wheezing ,rub or rales, or crackles. Chest wall is symmetric and without deformity. No signs of trauma. Chest wall is nontender. No signs of respiratory distress. Resonance is normal upon percussion bilaterally. Gastrointestinal: Abdomen symmetric, distended, soft, mild tender to palpation diffusely, normal bowel sounds x4 quadrant, normoactive, no hepatosplenomegaly , no masses , no bruit, no flank pain bilaterally. No voluntary guarding, rebound, or rigidity. No tenderness to percussion. No pulsatile masses. Equal femoral pulses. No Cruz's sign or McBurney point tenderness. Back; no CVA tenderness bilaterally, no deformities. Neck and back are without deformity as well. No tenderness noted on palpation of the spinous processes. Spinous processes are midline. Cervical, thoracic, and lumbar paraspinal muscles are not tender and are without spasm. : normal external genitalia, without lesions, swelling, masses or tenderness. Musculoskeletal: Extremities, normal range of motion, non-tender, muscle strength 5/5 x 4. Negative Homans signs bilaterally on lower extremity. Distal pulses full symmetrical, no clubbing, cyanosis , edema. Neurological: Speech is clear, alert, and oriented x 4. No motor or sensory deficit, deep tendon reflexes normal, cerebellar intact. Cranial nerves II-XII intact. Psych: Alert and or appropriate, normal affect. Vascular: Good distal pulses, which are equal x4; capillary refill less than 2 seconds. Lymphatic, no lymphadenopathy. Result Diagram: 12/30/24 2320 12/31/24 0310 Coagulation Studies Laboratory Tests Test 12/31/24 01:38 Prothrombin Time 10.9 SECONDS (9.0-12.0) INR International Normalized Ratio 1.1 INR Activated Partial Thromboplast Time 25 SECONDS (22-32) Coagulation Comments Problem\Assessment\Plan Assessment/Plan Acute abdominal pain Large bowel obstruction versus Treva's syndrome versus toxic megacolon CT scan of the abdomen/pelvis: IMPRESSION: 1. Markedly dilated stool impacted colon extending from the proximal ascending colon through the proximal rectum, consistent with acute fecal impaction with or without toxic megacolon. 2. Small volume abdominopelvic ascites. 3. 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 Patient has a elevated WBC count of 14.5, protocol-negative, lactic acid 0.4. Started on conservative management with the NG tube for bowel decompression. NPO for bowel rest. IV fluids for hydration and maintenance. Pain management with IV Dilaudid. Laxatives on board IV Ondansetron as needed for nausea and vomiting. Continue to monitor closely. Check for any development of peritoneal signs or worsening condition. Consult of surgery, and GI doctor, pending She received one dose of IV Zosyn in the ER. Urinary tract infection Patient's urine analysis is positive for leukocyte esterase, few bacteria and 0- 4 WBCs. Follow up with the urine analysis. We will start the patient on IV Rocephin 1 g daily. Anxiety/depression Restart home medications once med reconciliation is done. History of polysubstance use Patient reports that she has been sober of drugs last and half months. Follow up with the urine tox screen. Also reports that she only drinks two beers per day currently. CODE STATUS: Full code DVT prophylaxis: SCDs Sepsis Screening Reassessment Date: December 31, 2024 Date of Service: December 31, 2024 Billing Provider: JOVANNA POSADAS MD Common Visit Codes: [id number] INP/OBS CARE(HIGH) JOVANNA POSADAS MD December 31, 2024 15:30
[2024-12-31] MEDS ORDERED: diatr meglu/diatrizoate 30ml oral sol.-(3 dose) bottle ONE (16:08)
[2024-12-31] MEDS: magnesium citrate 296ml oral solution PO ONE (17:20)
[2024-12-31 18:30] VITALS: BP 121/86; PULSE 93; RESP 18; TEMP 98.3; O2SAT 99
[2024-12-31] MEDS: mineral oil 133ml enema RC PRN (18:45)
[2024-12-31] MEDS: diatr meglu/diatrizoate 30ml oral sol.-(3 dose) bottle PO SCH ×2 (21:00→22:39)
[2024-12-31] MEDS: polyethylene glycol 3350 17gm powd pack PO SCH (21:00)
[2024-12-31 22:00] VITALS: BP 112/78; PULSE 94; RESP 18; TEMP 98.6; O2SAT 96
--- NOTE | 2024-12-31 22:21 | PROGRESS NOTE ---
Progress Note ID Providers to CC ~ Progress Note Progress Note: pt seen-needs ct with oral contrast-at risk for rectal stricture given previous rectal prolapse repair DELPHINE RAZO MD December 31, 2024 22:21
[2025-01-01 05:40] LABS: BASOPHILS % (AUTO) 0.2 % (0-1); EOSINOPHILS % (AUTO) 0.4 % (0-6); HEMOGLOBIN 9.3 g/dl (12.0-16.0); MEAN CORPUSCULAR VOLUME 66.5 FL (78-98); NEUTROPHILS # (AUTO) 8.8 X10'3 (1.8-7.7)
[2025-01-01 05:43] LABS: HEMATOCRIT 29.6 % (35.0-45.0); LYMPHOCYTES % (AUTO) 9.8 % (21-51); MEAN CORPUSCULAR HGB CONC 31.5 g/dL (33.0-36.5); MEAN PLATELET VOLUME 6.6 FL (7.4-10.4); MONOCYTES # (AUTO) 0.7 X10'3 (0-0.9); MONOCYTES % (AUTO) 6.7 % (2-12); NEUTROPHILS % (AUTO) 82.9 % (42-75); PLATELET COUNT 727 X10'3 (140-440); RED BLOOD COUNT 4.46 X10'6 (4.20-5.60); RED CELL DISTRIBUTION WIDTH 21.2 % (11.5-14.5); WHITE BLOOD COUNT 10.7 X10'3 (4.5-11.0)
[2025-01-01 06:03] LABS: ALANINE AMINOTRANSFERASE 15 U/L (12-78); ALBUMIN 2.1 G/DL (3.4-5.0); ALBUMIN/GLOBULIN RATIO 0.7 (1.1-1.5); ALKALINE PHOSPHATASE 115 IU/L (46-116); ANION GAP 8 (8-16); ASPARTATE AMINO TRANSFERASE 14 U/L (10-37); BILIRUBIN,TOTAL 0.2 MG/DL (0.1-1.0); BLOOD UREA NITROGEN 18 MG/DL (7-18); CALCIUM 7.8 MG/DL (8.5-10.1); CHLORIDE 108 MMOL/L (99-107); CREATININE 0.58 MG/DL (0.40-0.90); GLUCOSE 110 MG/DL (70-104); POTASSIUM 3.2 MMOL/L (3.5-5.1); SODIUM 141 MMOL/L (135-145); TOTAL CARBON DIOXIDE 25.5 MMOL/L (24-32); eCRCL 98 ML/MIN; eGFR > 90 ML/MIN
[2025-01-01 06:55] VITALS: BP 117/76; PULSE 87; RESP 14; TEMP 97.6; O2SAT 93
[2025-01-01 08:00] VITALS: RESP 18
[2025-01-01] MEDS: potassium Cl 20 mEq SR tablet PO PRN (08:16)
[2025-01-01] MEDS: ondansetron/PF 4mg/2ml inj IV PRN (08:23)
[2025-01-01] MEDS: acetaminophen 1,000mg/100ml IV 100 ML IV ONE (10:43)
[2025-01-01] MEDS: nicotine 21mg patch - 24 hr TD SCH (11:58)
--- NOTE | 2025-01-01 13:10 | PROGRESS NOTE ---
Progress Note ID Providers to CC ~ Progress Note Progress Note: passing stool/vss/abd distended/ct reviewed a/p 1. probable rectal stricture/will need diverting colostomy if abd remains di stended DELPHINE RAZO MD January 01, 2025 13:10
--- NOTE | 2025-01-01 15:27 | RADIOLOGY REPORT ---
CLINICAL HISTORY: EVAL FOR POSSIBLE NARROWING IN COLON TECHNIQUE: CT of the abdomen and pelvis was performed without intravenous contrast. This exam was per formed according to our departmental dose optimization program. Up-to-date CT equipment and radiation dose reduction techniques are utilized as appropriate. CTDI: 14.41+ 0.14 DLP: 748.62 WID: COMPARISON: CT CT ABDOMEN PELVIS W/WO IV CONTRAST on DOS: 12/31/24 FINDINGS: Lower Thorax: Slight hypodensity of the blood pool relative to the myocardium indicative of anemia. Normal-sized heart. Linear bibasilar scarring or atelectasis. Liver and Biliary system: There is intermediate density within the gallbladder likely vicarious excre tion of contrast. Otherwise unremarkable. Spleen: Unremarkable. Adrenal Glands and Kidneys: Unremarkable Pancreas and Retroperitoneum: Unremarkable. Aorta and Major Vessels: Unremarkable. Bowel, Mesentery and Peritoneal space: Normal caliber small bowel. There is contrast within the stoma ch and normal caliber small bowel. There is some contrast entering into the cecum. There is marked di ffuse distention of the colon. There is wall thickening of the rectosigmoid colon. The haustral patte rn of the colon is not as apparent with the mucosa and submucosa having more of a nodular or pseudo n odular contour, for example when comparing the right and left colon on series 2, image 39 this patter n can be better appreciated on the left. The large bowel becomes more normal caliber distally in the rectum. There is [id number] ascites. There is no free intraperitoneal air. There are fluid leve ls in the colon. No discrete fluid collection. Pelvis: Unremarkable. Abdominal wall and Osseous Structures: Severe left hip osteoarthritis with bony remodeling of the lef t femoral head and a left hip joint effusion. Multilevel lower thoracic and lumbar spondylosis. IMPRESSION: Marked distention of the colon. The haustral pattern of the colon is not as apparent more distally in the colon and there is more wall thickening in the distal colon. Findings could reflect toxic megaco veronique versus colonic ileus. The colon does become normal caliber in the rectum which is thickened. The possibility of a mass causing a large bowel obstruction is a less likely consideration given normal c aliber small bowel. Correlate with colonoscopy when acute symptoms subside
--- NOTE | 2025-01-01 17:50 | PROGRESS NOTE ---
Daily Progress Note Providers to CC Chief complaint, abdominal distention ~, had stool passing gas Central Line/PICC still needed: No Hilliard-Non Protocol Hilliard Indications Met/Not Met: F/C Indications Not Met Antibiotic Timeout Antibiotic Ordered?: Yes MRSA Education MRSA Education Provided to pt: Yes Subjective As above Objective Vital Signs Date Time Temp Pulse Resp B/P (MAP) Pulse Ox O2 Delivery O2 Flow Rate FiO2 01/01/25 16:00 16 01/01/25 08:00 Room Air 0.0 01/01/25 06:55 97.6 87 117/76 (90) 93 Vital signs, stable ,afebrile. Pulse Oximetry reflects adequate oxygenation. General: well developed, well nourished. Awake , alert, and oriented x4, resting comfortably in the bed, in no acute distress . Skin: Warm, dry, no pallor, no rash or petechiae. HEENT: Atraumatic, normocephalic, EOMI, anicteric sclera B; pink conjunctiva; PERRLA, normal oropharynx, moist oral and nasal mucosa. Tympanic membrane , nose , throat clear. Neck: Trachea midline. Supple, full range of motion, no JVD, bruit , hepatojugular reflex , lymphadenopathy or masses, or other lesions Cardiac: Regular rhythm, regular rate no murmurs, rubs, or gallops. Normal S1 and S2, no S3 noticed. PMI is normal. Respiratory: Equal breath sounds bilaterally, no tachypnea; lungs clear to auscultation bilaterally, no wheezing ,rub or rales, or crackles. Chest wall is symmetric and without deformity. No signs of trauma. Chest wall is nontender. No signs of respiratory distress. Resonance is normal upon percussion bilaterally. Gastrointestinal: Abdomen symmetric, markedly distended, decreased bowel sounds x4 quadrant, hypoactive, no hepatosplenomegaly , no masses , no bruit, no flank pain bilaterally. No voluntary guarding, rebound, or rigidity. No tenderness to percussion. No pulsatile masses. Equal femoral pulses. No Cruz's sign or McBurney point tenderness. Back; no CVA tenderness bilaterally, no deformities. Neck and back are without deformity as well. No tenderness noted on palpation of the spinous processes. Spinous processes are midline. Cervical, thoracic, and lumbar paraspinal muscles are not tender and are without spasm. Musculoskeletal: Extremities, normal range of motion, non-tender, muscle strength 5/5 x 4. Negative Homans signs bilaterally on lower extremity. Distal pulses full symmetrical, no clubbing, cyanosis , edema. Neurological: Speech is clear, alert, and oriented x 4. No motor or sensory deficit, deep tendon reflexes normal, cerebellar intact. Cranial nerves II-XII intact. Psych: Alert and or appropriate, normal affect. Vascular: Good distal pulses, which are equal x4; capillary refill less than 2 seconds. Lymphatic, no lymphadenopathy. Result Diagram: 01/01/25 0512 01/01/2512 Coagulation Studies Laboratory Tests Test 12/31/24 01:38 Prothrombin Time 10.9 SECONDS (9.0-12.0) INR International Normalized Ratio 1.1 INR Activated Partial Thromboplast Time 25 SECONDS (22-32) Coagulation Comments Problem\Assessment\Plan Assessment/Plan Acute abdominal pain Large bowel obstruction versus Treva's syndrome versus toxic megacolon CT scan of the abdomen/pelvis: IMPRESSION: 1. Markedly dilated stool impacted colon extending from the proximal ascending colon through the proximal rectum, consistent with acute fecal impaction with or without toxic megacolon. Data may be related to rectal stricture, 2. Small volume abdominopelvic ascites. 3. 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 Patient has a elevated WBC count of 14.5, protocol-negative, lactic acid 0.4. Started on conservative management with the NG tube for bowel decompression. NPO for bowel rest. IV fluids for hydration and maintenance. Pain management with IV Dilaudid. Laxatives on board IV Ondansetron as needed for nausea and vomiting. Continue to monitor closely. Check for any development of peritoneal signs or worsening condition. Dr. Peres expertise and assistance, GI doctor consult, pending She received one dose of IV Zosyn in the ER. Urinary tract infection Patient's urine analysis is positive for leukocyte esterase, few bacteria and 0- 4 WBCs. Follow up with the urine analysis. We will start the patient on IV Rocephin 1 g daily. Anxiety/depression Restart home medications once med reconciliation is done. History of polysubstance use Patient reports that she has been sober of drugs last and half months. Follow up with the urine tox screen. Also reports that she only drinks two beers per day currently. CODE STATUS: Full code DVT prophylaxis: SCDs Sepsis Screening Reassessment Date: January 01, 2025 Date of Service: January 01, 2025 Billing Provider: JOVANNA POSADAS MD Common Visit Codes: [id number] INP/OBS CARE(HIGH) JOVANNA POSADAS MD January 01, 2025 17:50
[2025-01-01 18:00] VITALS: BP 112/86; PULSE 81; RESP 14; TEMP 98.2; O2SAT 96
[2025-01-01 20:00] VITALS: RESP 18; O2SAT 96
[2025-01-01] MEDS: magnesium hydroxide 30ml (MOM) UD suspension PO SCH (20:10)
[2025-01-01] MEDS: potassium Cl 40MEQ/1/2NS 520ml 520 ML IV PRN (21:38)
[2025-01-01 22:00] VITALS: BP 106/65; PULSE 85; RESP 20; TEMP 97.8; O2SAT 95
[2025-01-02] VITALS (25 sets, daily range): BP systolic 105–128; BP diastolic 69–94; PULSE 70–87; RESP 11–20; TEMP 95.7–97.7; O2SAT 94–100
[2025-01-02 06:11] LABS: HEMOGLOBIN 8.3 g/dl (12.0-16.0); LYMPHOCYTES # (AUTO) 0.9 X10'3 (1.1-4.8); MEAN PLATELET VOLUME 6.7 FL (7.4-10.4); MONOCYTES # (AUTO) 0.5 X10'3 (0-0.9); NEUTROPHILS # (AUTO) 5.5 X10'3 (1.8-7.7)
[2025-01-02 06:13] LABS: BASOPHILS % (AUTO) 0.3 % (0-1); EOSINOPHILS % (AUTO) 0.6 % (0-6); HEMATOCRIT 27.1 % (35.0-45.0); MEAN CORPUSCULAR HEMOGLOBIN 20.6 PG (27.0-31.0); MEAN CORPUSCULAR HGB CONC 30.8 g/dL (33.0-36.5); MEAN CORPUSCULAR VOLUME 66.9 FL (78-98); MONOCYTES % (AUTO) 7.3 % (2-12); NEUTROPHILS % (AUTO) 78.8 % (42-75); PLATELET COUNT 627 X10'3 (140-440); RED BLOOD COUNT 4.05 X10'6 (4.20-5.60); RED CELL DISTRIBUTION WIDTH 21.4 % (11.5-14.5)
[2025-01-02 06:22] LABS: ALANINE AMINOTRANSFERASE 11 U/L (12-78); ALBUMIN 1.7 G/DL (3.4-5.0); ALBUMIN/GLOBULIN RATIO 0.6 (1.1-1.5); ALKALINE PHOSPHATASE 103 IU/L (46-116); ANION GAP 4 (8-16); ASPARTATE AMINO TRANSFERASE 15 U/L (10-37); BILIRUBIN,TOTAL 0.3 MG/DL (0.1-1.0); BLOOD UREA NITROGEN 15 MG/DL (7-18); BUN/CREATININE RATIO 27.8 (10.0-20.0); CALCIUM 7.4 MG/DL (8.5-10.1); CHLORIDE 111 MMOL/L (99-107); CREATININE 0.54 MG/DL (0.40-0.90); GLUCOSE 87 MG/DL (70-104); PHOSPHORUS 2.8 MG/DL (2.3-4.5); POTASSIUM 3.7 MMOL/L (3.5-5.1); SODIUM 141 MMOL/L (135-145); TOTAL CARBON DIOXIDE 26.4 MMOL/L (24-32); TOTAL PROTEIN 4.4 G/DL (6.4-8.2); eCRCL 105 ML/MIN; eGFR > 90 ML/MIN
[2025-01-02] MEDS ORDERED: BUPIVAcaine 2.5mg/ml inj 50ml vial (contains preservative) ONE (10:39)
--- NOTE | 2025-01-02 13:02 | PROGRESS NOTE ---
Progress Note ID Providers to CC ~ Progress Note Progress Note: persistent abd distension-pt needs diverting colostomy-discussed procedure including risks/benefits/alternatives DELPHINE RAZO MD January 02, 2025 13:02
[2025-01-02] MEDS ORDERED: sevoflurane 250ml liquid IH ONE (13:10)
[2025-01-02] MEDS ORDERED: midazolam 1 mg/ML 2ml injection ONE (13:20)
[2025-01-02] MEDS ORDERED: ceFOXitin 1 GM/D5W 50mL IVPB 50 ML IV SCH ×2 (13:24→16:00)
[2025-01-02] MEDS: ceFOXitin 1 GM/D5W 50mL IVPB 50 ML IV ONE (13:26)
[2025-01-02] MEDS ORDERED: propofol inj 20 ML IV ONE (14:27)
[2025-01-02] MEDS ORDERED: rocuronium 10mg/ml inj IV ONE (14:27)
[2025-01-02] MEDS ORDERED: ceFOXitin 1000 MG inj ONE (14:27)
[2025-01-02] MEDS ORDERED: fentaNYL /PF 50mcg/ml 5ml ampule ONE (14:27)
[2025-01-02] MEDS ORDERED: dexamethasone sod phosphate 4mg/ml inj. ONE (14:27)
[2025-01-02] MEDS ORDERED: LIDOcaine 2% (20mg/ml) 5ml vial ONE (14:27)
[2025-01-02] MEDS ORDERED: ondansetron/PF 4mg/2ml inj ONE (14:28)
[2025-01-02] MEDS ORDERED: glycopyrrolate 0.2mg/ml inj ONE (14:50)
[2025-01-02] MEDS ORDERED: neostigmine methylsulfate 1 MG/ML 10ml vial ONE (14:50)
[2025-01-02] MEDS: BUPIVAcaine/PF 2.5 mg/ml (0.25%) 30ml vial IJ ONE (14:57)
--- NOTE | 2025-01-02 15:06 | OPERATIVE REPORT ---
Operative Report Providers to CC ~ Date of Procedure: January 02, 2025 Pre-Operative Diagnosis: LBO Post-Operative Diagnosis SAME as PRE-Op Procedure Performed diverting transverse loop colostomy Surgeon: madiha Technology Support Analyst none Anesthesiologist: Zacarias Marqeuz Type of Anesthesia: General Findings: dilated colon Estimated Blood Loss: min Specimen Removed: peritoneal culture DELPHINE RAZO MD January 02, 2025 15:06
[2025-01-02] MEDS ORDERED: labetalol 20mg/4ml (5mg/ml) syringe IV PRN (15:15)
[2025-01-02] MEDS ORDERED: hydrALAZINE 20mg/ml inj. IV PRN (15:15)
[2025-01-02] MEDS: ringers solution, lacted 1,000 ML IV SCH (15:15)
[2025-01-02] MEDS ORDERED: proCHLORperazine 10 MG/2 ml inj IV PRN (15:15)
[2025-01-02] MEDS ORDERED: naloxone 0.4 mg/ml inj IV PRN (15:15)
[2025-01-02] MEDS ORDERED: morphine 2 MG/ML inj. syringe IV PRN (15:15)
[2025-01-02] MEDS: HYDROmorphone/PF 0.2 MG/ML SYRINGE IV PRN ×2 (15:23→15:42)
[2025-01-02] MEDS: acetaminophen 1,000mg/100ml IV 100 ML IV PRN (15:23)
--- NOTE | 2025-01-02 15:38 | OPERATIVE REPORT ---
DATE OF SURGERY: 01/02/2025 DICTATING PHYSICIAN: Giuliano Choi MD PREOPERATIVE DIAGNOSIS: Large bowel obstruction secondary to rectal stricture. POSTOPERATIVE DIAGNOSIS: Large bowel obstruction secondary to rectal stricture. PROCEDURE PERFORMED: Laparoscopic diverting transverse loop colostomy. SURGEON: Giuliano Choi MD DOOR CLAMPER: None. ANESTHESIA: General/Dr. Marquez. DRAINS: None. INDICATIONS FOR OPERATION: A 49-year-old female with previous repair of a rectal prolapse who developed evidence of a large bowel obstruction. Taken to Surgery for a diverting transverse loop colostomy. INTRAOPERATIVE FINDINGS: Dilated colon. DESCRIPTION OF PROCEDURE: The patient was placed supine on the operating table. After induction of general anesthesia and placement of endotracheal tube, the abdomen was prepped and draped. A midline incision was subsequently made and abdominal cavity entered. Transverse colon was identified. Pursestring suture placed and colon decompressed. The transverse colon was subsequently isolated. Some additional tissue was made more cephalad. tape was used to withdraw the transverse colon up into the new incision. was subsequently passed. The rectal fascia was closed with running suture looped PDS, skin was closed with clips. Colostomy was then matured using sutures of 2-0 Vicryl. Appliance was then placed, bag placed, and dressing applied. The patient was transferred to recovery in stable condition. Giuliano Choi MD TID: [id number] RECEIPT: [id number] KB/YOK
[2025-01-02] MEDS: ondansetron/PF 4mg/2ml inj IV PRN (15:41)
[2025-01-02] MEDS: morphine 4 MG/ML inj SYRINge IV PRN (16:30)
--- NOTE | 2025-01-02 16:51 | CONSULTATION ---
DATE OF CONSULTATION: 01/01/2025 DICTATING PHYSICIAN: Giuliano Choi MD REASON FOR CONSULTATION: Evaluation of abdominal distention. HISTORY: The patient is a 49-year-old female with a history of polysubstance abuse and history of rectal prolapse for which she underwent a repair per Dr. Porras in 2013, who presented to the ER with complaints of abdominal distention, nausea and vomiting, as well as incontinence. She has had abdominal distention for a number of months. Also has abdominal pain. It has worsened over the course of the past week. She is passing some gas. She large bowel obstruction. Surgical evaluation now requested. On further questioning, she complains of some mild pain at the present time. Did have a history of rectal prolapse for which she underwent resection per Dr. Porras in 2013. PAST MEDICAL HISTORY: Significant for Anxiety, depression, polysubstance abuse, alcohol use. PAST SURGICAL HISTORY: Partial colectomy as outlined above for rectal prolapse. HOME MEDICATIONS: Include Atarax, gabapentin, and Motrin. ALLERGIES: INCLUDE LITHIUM. SOCIAL HISTORY: Polysubstance abuse, tobacco use, alcohol use. REVIEW OF SYSTEMS: See H and P. PHYSICAL EXAMINATION: GENERAL: A well-nourished female in minimal distress. VITAL SIGNS: Unremarkable. HEART: Regular rate and rhythm. LUNGS: Clear to auscultation. ABDOMEN: Shows a distended abdomen. Some mild tenderness. No shi peritonitis. EXTREMITIES: Unremarkable. NEUROLOGIC: Nonfocal. LABORATORY DATA: Include WBC of 10, hematocrit of 29, platelet count is 727. Chemistries: BUN and creatinine of 18 and 0.58, CO2 is 25. IMAGING STUDIES: CT abdomen and pelvis reveals distended colon. IMPRESSION: * Question large bowel obstruction, likely secondary to a rectal stricture from previous rectal prolapse repair. * Polysubstance abuse. * Depression. * Anxiety. RECOMMENDATIONS: CT of abdomen and pelvis with rectal contrast to better define the rectal process. Giuliano Choi MD TID: [id number] RECEIPT: [id number] KB/YOK
--- NOTE | 2025-01-02 19:57 | PROGRESS NOTE ---
Daily Progress Note Providers to CC ~ chief complaint, abdominal distention Central Line/PICC still needed: No Hilliard-Non Protocol Hilliard Indications Met/Not Met: F/C Indications Not Met Antibiotic Timeout Antibiotic Ordered?: Yes MRSA Education MRSA Education Provided to pt: Yes Subjective As above Objective Vital Signs Date Time Temp Pulse Resp B/P (MAP) Pulse Ox O2 Delivery O2 Flow Rate FiO2 01/02/25 16:58 97.7 79 16 120/76 (91) 99 Nasal Cannula 2.0 Vital signs, stable ,afebrile. Pulse Oximetry reflects adequate oxygenation. We will L oxygen nasal cannula General: well developed, well nourished. Awake , alert, and oriented x4, resting comfortably in the bed, in no acute distress . Skin: Warm, dry, no pallor, no rash or petechiae. HEENT: Atraumatic, normocephalic, EOMI, anicteric sclera B; pink conjunctiva; PERRLA, normal oropharynx, moist oral and nasal mucosa. Tympanic membrane , nose , throat clear. Neck: Trachea midline. Supple, full range of motion, no JVD, bruit , hepatojugular reflex , lymphadenopathy or masses, or other lesions Cardiac: Regular rhythm, regular rate no murmurs, rubs, or gallops. Normal S1 and S2, no S3 noticed. PMI is normal. Respiratory: Equal breath sounds bilaterally, no tachypnea; lungs clear to auscultation bilaterally, no wheezing ,rub or rales, or crackles. Chest wall is symmetric and without deformity. No signs of trauma. Chest wall is nontender. No signs of respiratory distress. Resonance is normal upon percussion bilaterally. Gastrointestinal: Abdomen symmetric, distended, mild tender to palpation diffusely, decreased bowel sounds x4 quadrant, hypoactive, no hepatosplenomegaly , no masses , no bruit, no flank pain bilaterally. No voluntary guarding, rebound, or rigidity. No tenderness to percussion. No pulsatile masses. Equal femoral pulses. No Cruz's sign or McBurney point tenderness. Back; no CVA tenderness bilaterally, no deformities. Neck and back are without deformity as well. No tenderness noted on palpation of the spinous processes. Spinous processes are midline. Cervical, thoracic, and lumbar paraspinal muscles are not tender and are without spasm. Musculoskeletal: Extremities, normal range of motion, non-tender, muscle strength 5/5 x 4. Negative Homans signs bilaterally on lower extremity. Distal pulses full symmetrical, no clubbing, cyanosis , edema. Neurological: Speech is clear, alert, and oriented x 4. No motor or sensory deficit, deep tendon reflexes normal, cerebellar intact. Cranial nerves II-XII intact. Psych: Alert and or appropriate, normal affect. Vascular: Good distal pulses, which are equal x4; capillary refill less than 2 seconds. Lymphatic, no lymphadenopathy. Result Diagram: 01/02/2553201/02/25532 Coagulation Studies Laboratory Tests Test 12/31/24 01:38 Prothrombin Time 10.9 SECONDS (9.0-12.0) INR International Normalized Ratio 1.1 INR Activated Partial Thromboplast Time 25 SECONDS (22-32) Coagulation Comments Problem\Assessment\Plan Assessment/Plan Acute abdominal pain Large bowel obstruction versus Bevier's syndrome versus toxic megacolon, awaiting to go to OR today CT scan of the abdomen/pelvis: IMPRESSION: 1. Markedly dilated stool impacted colon extending from the proximal ascending colon through the proximal rectum, consistent with acute fecal impaction with or without toxic megacolon. Data may be related to rectal stricture, 2. Small volume abdominopelvic ascites. 3. 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 Patient has a elevated WBC count of 14.5, protocol-negative, lactic acid 0.4. Started on conservative management with the NG tube for bowel decompression. NPO for bowel rest. IV fluids for hydration and maintenance. Pain management with IV Dilaudid. Laxatives on board IV Ondansetron as needed for nausea and vomiting. Continue to monitor closely. Check for any development of peritoneal signs or worsening condition. Dr. Peres expertise and assistance, She received one dose of IV Zosyn in the ER. Urinary tract infection Patient's urine analysis is positive for leukocyte esterase, few bacteria and 0- 4 WBCs. Follow up with the urine analysis. We will start the patient on IV Rocephin 1 g daily. Anxiety/depression Restart home medications once med reconciliation is done. History of polysubstance use Patient reports that she has been sober of drugs last and half months. Follow up with the urine tox screen. Also reports that she only drinks two beers per day currently. CODE STATUS: Full code DVT prophylaxis: SCDs Sepsis Screening Reassessment Date: January 02, 2025 Date of Service: January 02, 2025 Billing Provider: JOVANNA POSADAS MD Common Visit Codes: [id number] INP/OBS CARE(HIGH) JOVANNA POSADAS MD January 02, 2025 19:57
[2025-01-02] MEDS: ceFOXitin 1 GM/D5W 50mL IVPB 50 ML IV SCH (21:17)
[2025-01-02] MEDS: HYDROmorphone inj. 0.5 MG/0.5 ML DISP.SYRIN IV PRN (21:35)
[2025-01-03] VITALS (9 sets, daily range): BP systolic 101–115; BP diastolic 62–86; PULSE 74–84; RESP 12–20; TEMP 97.5–98.4; O2SAT 96–100
[2025-01-03] MEDS: HYDROcodone/acetaminophen 10/325mg tab PO PRN (00:25)
[2025-01-03 04:46] LABS: BASOPHILS % (AUTO) 0.1 % (0-1); EOSINOPHILS % (AUTO) 0 % (0-6); HEMATOCRIT 26.1 % (35.0-45.0); MEAN PLATELET VOLUME 6.5 FL (7.4-10.4); RED BLOOD COUNT 3.89 X10'6 (4.20-5.60)
[2025-01-03 04:49] LABS: LYMPHOCYTES % (AUTO) 8.7 % (21-51); MEAN CORPUSCULAR HEMOGLOBIN 20.6 PG (27.0-31.0); MEAN CORPUSCULAR HGB CONC 30.6 g/dL (33.0-36.5); MEAN CORPUSCULAR VOLUME 67.1 FL (78-98); MONOCYTES # (AUTO) 0.9 X10'3 (0-0.9); MONOCYTES % (AUTO) 7.5 % (2-12); NEUTROPHILS # (AUTO) 9.9 X10'3 (1.8-7.7); NEUTROPHILS % (AUTO) 83.7 % (42-75); PLATELET COUNT 615 X10'3 (140-440); RED CELL DISTRIBUTION WIDTH 21.4 % (11.5-14.5); WHITE BLOOD COUNT 11.8 X10'3 (4.5-11.0)
[2025-01-03 05:02] LABS: ALANINE AMINOTRANSFERASE 8 U/L (12-78); ALBUMIN 1.5 G/DL (3.4-5.0); ALBUMIN/GLOBULIN RATIO 0.6 (1.1-1.5); ALKALINE PHOSPHATASE 97 IU/L (46-116); ANION GAP 3 (8-16); ASPARTATE AMINO TRANSFERASE 15 U/L (10-37); BILIRUBIN,TOTAL 0.2 MG/DL (0.1-1.0); BLOOD UREA NITROGEN 13 MG/DL (7-18); BUN/CREATININE RATIO 24.5 (10.0-20.0); CALCIUM 7.2 MG/DL (8.5-10.1); CHLORIDE 109 MMOL/L (99-107); CREATININE 0.53 MG/DL (0.40-0.90); GLUCOSE 98 MG/DL (70-104); POTASSIUM 4.4 MMOL/L (3.5-5.1); SODIUM 139 MMOL/L (135-145); TOTAL PROTEIN 4.2 G/DL (6.4-8.2); eCRCL 107 ML/MIN; eGFR > 90 ML/MIN
[2025-01-03 05:04] LABS: ANISOCYTOSIS 3+; HYPOCHROMASIA 2+; MICROCYTOSIS 2+; PLATELET ESTIMATE INCREASED
--- NOTE | 2025-01-03 14:10 | PROGRESS NOTE ---
Progress Note ID Providers to CC ~ Progress Note Progress Note: complains of pain/vss/abd-distended/labs noted a/p 1. s/p colostomy-slow progress/add DELPHINE Perez MD January 03, 2025 14:09
[2025-01-03] MEDS: metoclopramide 5 mg/ml inj IV SCH (19:24)
--- NOTE | 2025-01-03 20:48 | PROGRESS NOTE ---
Daily Progress Note Providers to CC Chief complaint, abdominal pain, mild ~ Central Line/PICC still needed: No Hilliard-Non Protocol Hilliard Indications Met/Not Met: F/C Indications Not Met Antibiotic Timeout Antibiotic Ordered?: No MRSA Education MRSA Education Provided to pt: No Subjective As above Objective Vital Signs Date Time Temp Pulse Resp B/P (MAP) Pulse Ox O2 Delivery O2 Flow Rate FiO2 01/03/25 19:24 16 01/03/25 10:00 98.4 82 114/86 (95) 99 Room Air 01/03/25 07:00 2.0 01/03/25 05:45 96 Vital signs, stable ,afebrile. Pulse Oximetry reflects adequate oxygenation 2 L oxygen nasal cannula General: well developed, well nourished. Awake , alert, and oriented x4, resting comfortably in the bed, in no acute distress . Skin: Warm, dry, no pallor, no rash or petechiae. HEENT: Atraumatic, normocephalic, EOMI, anicteric sclera B; pink conjunctiva; PERRLA, normal oropharynx, moist oral and nasal mucosa. Tympanic membrane , nose , throat clear. Neck: Trachea midline. Supple, full range of motion, no JVD, bruit , hepatojugular reflex , lymphadenopathy or masses, or other lesions Cardiac: Regular rhythm, regular rate no murmurs, rubs, or gallops. Normal S1 and S2, no S3 noticed. PMI is normal. Respiratory: Equal breath sounds bilaterally, no tachypnea; lungs clear to auscultation bilaterally, no wheezing ,rub or rales, or crackles. Chest wall is symmetric and without deformity. No signs of trauma. Chest wall is nontender. No signs of respiratory distress. Resonance is normal upon percussion bilaterally. Gastrointestinal: Abdomen symmetric, mildly distended, mild tender to palpation periumbilically, normal bowel sounds x4 quadrant, normoactive, no hepatosplenomegaly , no masses , no bruit, no flank pain bilaterally. No voluntary guarding, rebound, or rigidity. No tenderness to percussion. No pulsatile masses. Equal femoral pulses. No Cruz's sign or McBurney point tenderness. Back; no CVA tenderness bilaterally, no deformities. Neck and back are without deformity as well. No tenderness noted on palpation of the spinous processes. Spinous processes are midline. Cervical, thoracic, and lumbar paraspinal muscles are not tender and are without spasm. Locally, colostomy in place functional Musculoskeletal: Extremities, normal range of motion, non-tender, muscle strength 5/5 x 4. Negative Homans signs bilaterally on lower extremity. Distal pulses full symmetrical, no clubbing, cyanosis , edema. Neurological: Speech is clear, alert, and oriented x 4. No motor or sensory deficit, deep tendon reflexes normal, cerebellar intact. Cranial nerves II-XII intact. Psych: Alert and or appropriate, normal affect. Vascular: Good distal pulses, which are equal x4; capillary refill less than 2 seconds. Lymphatic, no lymphadenopathy. Result Diagram: 01/03/258 01/03/258 Coagulation Studies Laboratory Tests Test 12/31/24 01:38 Prothrombin Time 10.9 SECONDS (9.0-12.0) INR International Normalized Ratio 1.1 INR Activated Partial Thromboplast Time 25 SECONDS (22-32) Coagulation Comments Problem\Assessment\Plan Assessment/Plan Acute abdominal pain Large bowel obstruction versus Treva's syndrome versus toxic megacolon, status post colostomy, postoperative day 1., good recovery CT scan of the abdomen/pelvis: IMPRESSION: 1. Markedly dilated stool impacted colon extending from the proximal ascending colon through the proximal rectum, consistent with acute fecal impaction with or without toxic megacolon. Data may be related to rectal stricture, 2. Small volume abdominopelvic ascites. 3. 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 Patient has a elevated WBC count of 14.5, protocol-negative, lactic acid 0.4. Started on conservative management with the NG tube for bowel decompression. NPO for bowel rest. IV fluids for hydration and maintenance. Pain management with IV Dilaudid. Laxatives on board IV Ondansetron as needed for nausea and vomiting. Continue to monitor closely. Check for any development of peritoneal signs or worsening condition. Dr. Peres expertise and assistance, She received one dose of IV Zosyn in the ER. Urinary tract infection Patient's urine analysis is positive for leukocyte esterase, few bacteria and 0- 4 WBCs. Follow up with the urine analysis. We will start the patient on IV Rocephin 1 g daily. Anxiety/depression Restart home medications once med reconciliation is done. History of polysubstance use Patient reports that she has been sober of drugs last and half months. Follow up with the urine tox screen. Also reports that she only drinks two beers per day currently. CODE STATUS: Full code DVT prophylaxis: SCDs Sepsis Screening Reassessment Date: January 03, 2025 Date of Service: January 03, 2025 Billing Provider: JOVANNA POSADAS MD Common Visit Codes: [id number] INP/OBS CARE(HIGH) JOVANNA POSADAS MD January 03, 2025 20:48
[2025-01-03] MEDS: prazosin 1mg capsule PO SCH (21:34)
[2025-01-03] MEDS: hydrOXYzine 10 MG tablet PO SCH (21:34)
[2025-01-04 04:56] LABS: BASOPHILS % (AUTO) 0.1 % (0-1); EOSINOPHILS # (AUTO) 0.1 X10'3 (0-0.9); HEMATOCRIT 24.3 % (35.0-45.0); HEMOGLOBIN 7.7 g/dl (12.0-16.0); LYMPHOCYTES # (AUTO) 0.9 X10'3 (1.1-4.8); LYMPHOCYTES % (AUTO) 9.2 % (21-51); MEAN CORPUSCULAR HEMOGLOBIN 21.2 PG (27.0-31.0); MEAN CORPUSCULAR HGB CONC 31.8 g/dL (33.0-36.5); MEAN CORPUSCULAR VOLUME 66.6 FL (78-98); MEAN PLATELET VOLUME 6.5 FL (7.4-10.4); MONOCYTES # (AUTO) 0.9 X10'3 (0-0.9); MONOCYTES % (AUTO) 9.3 % (2-12); NEUTROPHILS # (AUTO) 7.8 X10'3 (1.8-7.7); NEUTROPHILS % (AUTO) 80.4 % (42-75); PLATELET COUNT 545 X10'3 (140-440); RED BLOOD COUNT 3.64 X10'6 (4.20-5.60); RED CELL DISTRIBUTION WIDTH 21.2 % (11.5-14.5); WHITE BLOOD COUNT 9.7 X10'3 (4.5-11.0)
[2025-01-04 05:13] LABS: PLATELET ESTIMATE INCREASED
[2025-01-04 05:14] LABS: ANISOCYTOSIS 3+; HYPOCHROMASIA 1+; MICROCYTOSIS 2+; TARGET CELLS FEW
[2025-01-04 05:28] LABS: ALANINE AMINOTRANSFERASE 10 U/L (12-78); ALBUMIN 1.2 G/DL (3.4-5.0); ALBUMIN/GLOBULIN RATIO 0.5 (1.1-1.5); ALKALINE PHOSPHATASE 95 IU/L (46-116); ANION GAP 6 (8-16); ASPARTATE AMINO TRANSFERASE 7 U/L (10-37); BILIRUBIN,TOTAL 0.1 MG/DL (0.1-1.0); BLOOD UREA NITROGEN 8 MG/DL (7-18); BUN/CREATININE RATIO 15.7 (10.0-20.0); CHLORIDE 110 MMOL/L (99-107); CREATININE 0.51 MG/DL (0.40-0.90); GLUCOSE 97 MG/DL (70-104); POTASSIUM 3.4 MMOL/L (3.5-5.1); SODIUM 140 MMOL/L (135-145); TOTAL PROTEIN 3.7 G/DL (6.4-8.2); eCRCL 53 ML/MIN; eGFR > 90 ML/MIN
[2025-01-04 06:00] VITALS: BP 88/52; PULSE 78; RESP 16; TEMP 98.3; O2SAT 96
[2025-01-04] MEDS ORDERED: potassium Cl 40MEQ/1/2NS 520ml 520 ML IV PRN (06:40)
[2025-01-04] MEDS ORDERED: potassium Cl 20 mEq SR tablet PO PRN (06:40)
[2025-01-04] MEDS: aripiprazole 5mg tablet PO SCH (07:37)
[2025-01-04] MEDS: potassium Cl 20 mEq SR tablet PO PRN (07:37)
[2025-01-04 10:00] VITALS: BP 96/61; PULSE 82; RESP 16; TEMP 98.9; O2SAT 96
[2025-01-04 18:00] VITALS: BP 105/74; PULSE 82; RESP 16; TEMP 97.9; O2SAT 99
--- NOTE | 2025-01-04 19:26 | PROGRESS NOTE ---
Progress Note ID Providers to CC ~ Progress Note Progress Note: min stomal output/needs repeat ct DELPHINE RAZO MD January 04, 2025 19:26
[2025-01-04 20:30] VITALS: BP 116/83; PULSE 84
[2025-01-04] MEDS: diatr meglu/diatrizoate 30ml oral sol.-(3 dose) bottle PO SCH (20:40)
--- NOTE | 2025-01-04 20:41 | PROGRESS NOTE ---
Daily Progress Note Providers to CC Feels better today, pain well controlled able to drink fluids ~ Central Line/PICC still needed: No Hilliard-Non Protocol Hilliard Indications Met/Not Met: F/C Indications Not Met Antibiotic Timeout Antibiotic Ordered?: Yes MRSA Education MRSA Education Provided to pt: Yes Subjective As above Objective Vital Signs Date Time Temp Pulse Resp B/P (MAP) Pulse Ox O2 Delivery O2 Flow Rate FiO2 01/04/25 19:52 16 01/04/25 18:00 97.9 82 105/74 (84) 99 Room Air 01/04/25 08:00 2.0 01/04/25 01:24 96 Vital signs, stable ,afebrile. Pulse Oximetry reflects adequate oxygenation on 2 L oxygen nasal cannula General: well developed, well nourished. Awake , alert, and oriented x4, resting comfortably in the bed, in no acute distress . Skin: Warm, dry, no pallor, no rash or petechiae. HEENT: Atraumatic, normocephalic, EOMI, anicteric sclera B; pink conjunctiva; PERRLA, normal oropharynx, moist oral and nasal mucosa. Tympanic membrane , nose , throat clear. Neck: Trachea midline. Supple, full range of motion, no JVD, bruit , hepatojugular reflex , lymphadenopathy or masses, or other lesions Cardiac: Regular rhythm, regular rate no murmurs, rubs, or gallops. Normal S1 and S2, no S3 noticed. PMI is normal. Respiratory: Equal breath sounds bilaterally, no tachypnea; lungs clear to auscultation bilaterally, no wheezing ,rub or rales, or crackles. Chest wall is symmetric and without deformity. No signs of trauma. Chest wall is nontender. No signs of respiratory distress. Resonance is normal upon percussion bilaterally. Gastrointestinal: Abdomen symmetric, mildly distended, colostomy minimal output, soft, non-tender, normal bowel sounds x4 quadrant, normoactive, no hepatosplenomegaly , no masses , no bruit, no flank pain bilaterally. No voluntary guarding, rebound, or rigidity. No tenderness to percussion. No pulsatile masses. Equal femoral pulses. No Cruz's sign or McBurney point tenderness. Back; no CVA tenderness bilaterally, no deformities. Neck and back are without deformity as well. No tenderness noted on palpation of the spinous processes. Spinous processes are midline. Cervical, thoracic, and lumbar paraspinal muscles are not tender and are without spasm. Musculoskeletal: Extremities, normal range of motion, non-tender, muscle strength 5/5 x 4. Negative Homans signs bilaterally on lower extremity. Distal pulses full symmetrical, no clubbing, cyanosis , edema. Neurological: Speech is clear, alert, and oriented x 4. No motor or sensory deficit, deep tendon reflexes normal, cerebellar intact. Cranial nerves II-XII intact. Psych: Alert and or appropriate, normal affect. Vascular: Good distal pulses, which are equal x4; capillary refill less than 2 seconds. Lymphatic, no lymphadenopathy. Result Diagram: 01/04/254 01/04/25 0434 Coagulation Studies Laboratory Tests Test 12/31/24 01:38 Prothrombin Time 10.9 SECONDS (9.0-12.0) INR International Normalized Ratio 1.1 INR Activated Partial Thromboplast Time 25 SECONDS (22-32) Coagulation Comments Problem\Assessment\Plan Assessment/Plan Acute abdominal pain Large bowel obstruction versus Treva's syndrome versus toxic megacolon, status post colostomy, postoperative day 2., good recovery , management per surgeon CT scan of the abdomen/pelvis: IMPRESSION: 1. Markedly dilated stool impacted colon extending from the proximal ascending colon through the proximal rectum, consistent with acute fecal impaction with or without toxic megacolon. Data may be related to rectal stricture, 2. Small volume abdominopelvic ascites. 3. 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 Patient has a elevated WBC count of 14.5, protocol-negative, lactic acid 0.4. Started on conservative management with the NG tube for bowel decompression. NPO for bowel rest. IV fluids for hydration and maintenance. Pain management with IV Dilaudid. Laxatives on board IV Ondansetron as needed for nausea and vomiting. Continue to monitor closely. Check for any development of peritoneal signs or worsening condition. Dr. Peres expertise and assistance, She received one dose of IV Zosyn in the ER. Urinary tract infection Patient's urine analysis is positive for leukocyte esterase, few bacteria and 0- 4 WBCs. Follow up with the urine analysis. We will start the patient on IV Rocephin 1 g daily. Anxiety/depression Restart home medications once med reconciliation is done. History of polysubstance use Patient reports that she has been sober of drugs last and half months. Follow up with the urine tox screen. Also reports that she only drinks two beers per day currently. CODE STATUS: Full code DVT prophylaxis: SCDs Sepsis Screening Reassessment Date: January 04, 2025 Date of Service: January 04, 2025 Billing Provider: JOVANNA POSADAS MD Common Visit Codes: [id number] INP/OBS CARE(HIGH) JOVANNA POSADAS MD January 04, 2025 20:41
[2025-01-04 22:00] VITALS: BP 102/61; PULSE 88; RESP 16; TEMP 97.8; O2SAT 98
[2025-01-05] VITALS (7 sets, daily range): BP systolic 106–118; BP diastolic 62–75; PULSE 79–88; RESP 16–20; TEMP 98.2–98.9; O2SAT 94–97
[2025-01-05 04:55] LABS: BASOPHILS % (AUTO) 0.1 % (0-1); EOSINOPHILS # (AUTO) 0.2 X10'3 (0-0.9); EOSINOPHILS % (AUTO) 2.1 % (0-6); HEMATOCRIT 24.6 % (35.0-45.0); HEMOGLOBIN 7.7 g/dl (12.0-16.0); LYMPHOCYTES # (AUTO) 0.9 X10'3 (1.1-4.8); LYMPHOCYTES % (AUTO) 10.1 % (21-51); MEAN CORPUSCULAR HEMOGLOBIN 20.9 PG (27.0-31.0); MEAN CORPUSCULAR HGB CONC 31.3 g/dL (33.0-36.5); MEAN CORPUSCULAR VOLUME 66.9 FL (78-98); MEAN PLATELET VOLUME 6.3 FL (7.4-10.4); MONOCYTES # (AUTO) 0.8 X10'3 (0-0.9); MONOCYTES % (AUTO) 9.1 % (2-12); NEUTROPHILS # (AUTO) 7.3 X10'3 (1.8-7.7); NEUTROPHILS % (AUTO) 78.6 % (42-75); PLATELET COUNT 562 X10'3 (140-440); RED BLOOD COUNT 3.68 X10'6 (4.20-5.60); RED CELL DISTRIBUTION WIDTH 21.7 % (11.5-14.5); WHITE BLOOD COUNT 9.2 X10'3 (4.5-11.0)
[2025-01-05 05:24] LABS: ALANINE AMINOTRANSFERASE 11 U/L (12-78); ALBUMIN 1.1 G/DL (3.4-5.0); ALBUMIN/GLOBULIN RATIO 0.4 (1.1-1.5); ALKALINE PHOSPHATASE 95 IU/L (46-116); ANION GAP 7 (8-16); ASPARTATE AMINO TRANSFERASE 7 U/L (10-37); BILIRUBIN,TOTAL 0.1 MG/DL (0.1-1.0); BLOOD UREA NITROGEN 5 MG/DL (7-18); BUN/CREATININE RATIO 11.6 (10.0-20.0); CALCIUM 7.1 MG/DL (8.5-10.1); CHLORIDE 110 MMOL/L (99-107); CREATININE 0.43 MG/DL (0.40-0.90); GLUCOSE 87 MG/DL (70-104); POTASSIUM 3.9 MMOL/L (3.5-5.1); SODIUM 141 MMOL/L (135-145); TOTAL CARBON DIOXIDE 24.3 MMOL/L (24-32); TOTAL PROTEIN 3.6 G/DL (6.4-8.2); eCRCL 63 ML/MIN; eGFR > 90 ML/MIN
--- NOTE | 2025-01-05 14:16 | RADIOLOGY REPORT ---
Indication: sbo Technique: CT axial images of the abdomen and pelvis are obtained without contrast. Coronal and sagit peggy reformats were obtained. Radiation Dose Information: CTDI volume is 25 mGy. Dose-length product is 1258 mGy*cm Comparison: 01/01/2025 adrenal glands, spleen FINDINGS: There is limited interpretation of the abdomen and pelvis without administration of intravenous contr ast. There are moderate bilateral pleural effusions. Bibasilar airspace consolidation, atelectasis. The adrenal glands, spleen and pancreas are unremarkable in shape. Hydropic /distended gallbladder. Liver unremarkable in shape. No hydronephrosis, nephrolithiasis. Stomach is moderately distended. Small bowel loops demonstrate dilatation up to approximately 4 cm w ith air-fluid levels. Contrast reaches the ascending/transverse colon. There is interval diverting co lostomy of the transverse colon region. There is extensive edema and stranding in the ostomy. There is narrowing of the : Of the ostomy which could be resulting in obstruction. Large volume stool in t he ascending and proximal transverse colon, more proximal to the diverting ostomy The mid to distal transverse colon, descending and rectosigmoid colon demonstrate wall thickening and edema. There is also a large volume of stool within this region of the colon as well. Soft tissue edema / anasarca. Erosive and sclerotic changes of the left hip joint with left hip joint effusion measuring 5.9 x 5.2 cm. [id number] thoracolumbar degenerative disc disease. Mesenteric edema. Small to moderate volume of ascites fluid. IMPRESSION: 1. Interval diverting colostomy and the region of the transverse colon. There is extensive edema and stranding within the colostomy. 2. Narrowing of the output at the colostomy. Large volume stool within the ascending and proximal tra nsverse colon. Diffuse distention of small-bowel loops up to 4 cm. This could represent obstruction at the ostomy output site, severe ileus. Correlate clinically 3. Extensive bowel wall thickening of the transverse, descending and rectosigmoid colon with associat ed bowel wall edema. Correlate for ischemic/inflammatory / infectious colitis, inflammatory disease, toxic megacolon. 4. Small to moderate volume of ascites fluid. Mesenteric edema.Bilateral pleural effusions 5. . Bibasilar airspace consolidation. 6. Erosive/sclerotic changes of the left hip joint with left hip joint effusion as described. Correl ate for osteomyelitis and other etiologies. 7. Soft tissue edema/ anasarca.
--- NOTE | 2025-01-05 20:05 | PROGRESS NOTE ---
Daily Progress Note Providers to CC Chief complaint, mild abdominal distention ~ Central Line/PICC still needed: No Hilliard-Non Protocol Hilliard Indications Met/Not Met: F/C Indications Not Met Antibiotic Timeout Antibiotic Ordered?: No MRSA Education MRSA Education Provided to pt: No Subjective As above Objective Vital Signs Date Time Temp Pulse Resp B/P (MAP) Pulse Ox O2 Delivery O2 Flow Rate FiO2 01/05/25 19:15 18 01/05/25 10:22 97 Room Air 01/05/25 10:00 98.9 79 118/75 (89) 01/04/25 20:00 2.0 01/04/25 01:24 96 Vital signs, stable ,afebrile. Pulse Oximetry reflects adequate oxygenation. On 2 L oxygen nasal cannula General: well developed, well nourished. Awake , alert, and oriented x4, resting comfortably in the bed, in no acute distress . Skin: Warm, dry, no pallor, no rash or petechiae. HEENT: Atraumatic, normocephalic, EOMI, anicteric sclera B; pink conjunctiva; PERRLA, normal oropharynx, moist oral and nasal mucosa. Tympanic membrane , nose , throat clear. Neck: Trachea midline. Supple, full range of motion, no JVD, bruit , hepatojugular reflex , lymphadenopathy or masses, or other lesions Cardiac: Regular rhythm, regular rate no murmurs, rubs, or gallops. Normal S1 and S2, no S3 noticed. PMI is normal. Respiratory: Equal breath sounds bilaterally, no tachypnea; lungs clear to auscultation bilaterally, no wheezing ,rub or rales, or crackles. Chest wall is symmetric and without deformity. No signs of trauma. Chest wall is nontender. No signs of respiratory distress. Resonance is normal upon percussion bilaterally. Gastrointestinal: Abdomen symmetric, mildly distended, colostomy in place functional minimal output, soft, normal bowel sounds x4 quadrant, normoactive, no hepatosplenomegaly , no masses , no bruit, no flank pain bilaterally. No voluntary guarding, rebound, or rigidity. No tenderness to percussion. No pulsatile masses. Equal femoral pulses. No Cruz's sign or McBurney point tenderness. Back; no CVA tenderness bilaterally, no deformities. Neck and back are without deformity as well. No tenderness noted on palpation of the spinous processes. Spinous processes are midline. Cervical, thoracic, and lumbar paraspinal muscles are not tender and are without spasm. Musculoskeletal: Extremities, normal range of motion, non-tender, muscle strength 5/5 x 4. Negative Homans signs bilaterally on lower extremity. Distal pulses full symmetrical, no clubbing, cyanosis , edema. Neurological: Speech is clear, alert, and oriented x 4. No motor or sensory deficit, deep tendon reflexes normal, cerebellar intact. Cranial nerves II-XII intact. Psych: Alert and or appropriate, normal affect. Vascular: Good distal pulses, which are equal x4; capillary refill less than 2 seconds. Lymphatic, no lymphadenopathy. Result Diagram: 01/05/250 01/05/25 0440 Coagulation Studies Laboratory Tests Test 12/31/24 01:38 Prothrombin Time 10.9 SECONDS (9.0-12.0) INR International Normalized Ratio 1.1 INR Activated Partial Thromboplast Time 25 SECONDS (22-32) Coagulation Comments Problem\Assessment\Plan Assessment/Plan Acute abdominal pain Large bowel obstruction versus Treva's syndrome versus toxic megacolon, status post colostomy, postoperative day 2., good recovery , management per surgeon CT scan of the abdomen/pelvis: IMPRESSION: Possible colostomy stricture, Dr. Peres is managing 1. Markedly dilated stool impacted colon extending from the proximal ascending colon through the proximal rectum, consistent with acute fecal impaction with or without toxic megacolon. Data may be related to rectal stricture, 2. Small volume abdominopelvic ascites. 3. 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 Patient has a elevated WBC count of 14.5, protocol-negative, lactic acid 0.4. Anasarca, discontinue IV fluids Urinary tract infection Patient's urine analysis is positive for leukocyte esterase, few bacteria and 0- 4 WBCs. Follow up with the urine analysis. We will start the patient on IV Rocephin 1 g daily. Anxiety/depression Restart home medications once med reconciliation is done. History of polysubstance use Patient reports that she has been sober of drugs last and half months. Follow up with the urine tox screen. Also reports that she only drinks two beers per day currently. CODE STATUS: Full code DVT prophylaxis: SCDs Sepsis Screening Reassessment Date: January 05, 2025 Date of Service: January 05, 2025 Billing Provider: JOVANNA POSADAS MD Common Visit Codes: [id number] INP/OBS CARE(HIGH) JOVANNA POSADAS MD January 05, 2025 20:04
[2025-01-06 06:00] VITALS: BP 97/66; PULSE 83; RESP 15; TEMP 98.5; O2SAT 95
[2025-01-06 11:00] VITALS: BP 104/68; PULSE 79; RESP 16; TEMP 97.7; O2SAT 97
--- NOTE | 2025-01-06 16:11 | VASCULAR REPORT ---
EXAM: VASC VL VENOUS Clinical History: Bilateral lower extremity edema Comparison: None Technique: Duplex Doppler evaluation of the deep venous systems of both lower extremities from the common femora l veins to the popliteal veins including color Doppler and spectral/pulsed waveform analysis was perf ormed. Findings: No visible intraluminal venous thrombus. No evidence of incompressibility or abnormal color or spectr al Doppler flow visualized in the deep bilateral lower extremity veins. Proximal greater saphenous ve ins are grossly unremarkable. Hypoechoic, nonvascular structure in the left groin measuring 4.1 x 1.6 cm. Impression: 1. No sonographic evidence of deep venous thrombosis throughout the bilateral lower extremities from the popliteal veins to the common femoral veins. 2. 4.1 x 1.6 cm fluid collection in the left groin. Correlate for history of trauma.
[2025-01-06 17:13] VITALS: RESP 16; O2SAT 97
[2025-01-06 18:00] VITALS: BP 115/76; PULSE 76; RESP 18; TEMP 97.6; O2SAT 98
--- NOTE | 2025-01-06 18:44 | PROGRESS NOTE ---
Progress Note ID Providers to CC ~ Progress Note Progress Note: doing well/no need for stoma revision/home 1-2 days DELPHINE RAZO MD January 06, 2025 18:44
--- NOTE | 2025-01-06 18:52 | PROGRESS NOTE ---
Daily Progress Note Providers to CC ~ no new complaint today, resting comfortably in the bed Central Line/PICC still needed: No Hilliard-Non Protocol Hilliard Indications Met/Not Met: F/C Indications Not Met Antibiotic Timeout Antibiotic Ordered?: No MRSA Education MRSA Education Provided to pt: No Subjective Above Objective Vital Signs Date Time Temp Pulse Resp B/P (MAP) Pulse Ox O2 Delivery O2 Flow Rate FiO2 01/06/25 17:35 18 01/06/25 17:13 97 Nasal Cannula 01/06/25 06:00 98.5 83 97/66 (76) 01/05/25 20:00 2.0 01/04/25 01:24 96 Vital signs, stable ,afebrile. Pulse Oximetry reflects adequate oxygenation on 2 L oxygen nasal cannula General: well developed, well nourished. Awake , alert, and oriented x4, resting comfortably in the bed, in no acute distress . Skin: Warm, dry, no pallor, no rash or petechiae. HEENT: Atraumatic, normocephalic, EOMI, anicteric sclera B; pink conjunctiva; PERRLA, normal oropharynx, moist oral and nasal mucosa. Tympanic membrane , nose , throat clear. Neck: Trachea midline. Supple, full range of motion, no JVD, bruit , hepatojugular reflex , lymphadenopathy or masses, or other lesions Cardiac: Regular rhythm, regular rate no murmurs, rubs, or gallops. Normal S1 and S2, no S3 noticed. PMI is normal. Respiratory: Equal breath sounds bilaterally, no tachypnea; lungs clear to auscultation bilaterally, no wheezing ,rub or rales, or crackles. Chest wall is symmetric and without deformity. No signs of trauma. Chest wall is nontender. No signs of respiratory distress. Resonance is normal upon percussion bilaterally. Gastrointestinal: Abdomen symmetric, non-distended, soft, non-tender, normal bowel sounds x4 quadrant, normoactive, no hepatosplenomegaly , no masses , no bruit, no flank pain bilaterally. No voluntary guarding, rebound, or rigidity. No tenderness to percussion. No pulsatile masses. Equal femoral pulses. No Cruz's sign or McBurney point tenderness. Back; no CVA tenderness bilaterally, no deformities. Neck and back are without deformity as well. No tenderness noted on palpation of the spinous processes. Spinous processes are midline. Cervical, thoracic, and lumbar paraspinal muscles are not tender and are without spasm. Locally, colostomy function good output Musculoskeletal: Extremities, normal range of motion, non-tender, muscle strength 5/5 x 4. Negative Homans signs bilaterally on lower extremity. Distal pulses full symmetrical, no clubbing, cyanosis , edema. Neurological: Speech is clear, alert, and oriented x 4. No motor or sensory deficit, deep tendon reflexes normal, cerebellar intact. Cranial nerves II-XII intact. Psych: Alert and or appropriate, normal affect. Vascular: Good distal pulses, which are equal x4; capillary refill less than 2 seconds. Lymphatic, no lymphadenopathy. Result Diagram: 01/05/25 0440 01/05/25 0440 Coagulation Studies Laboratory Tests Test 12/31/24 01:38 Prothrombin Time 10.9 SECONDS (9.0-12.0) INR International Normalized Ratio 1.1 INR Activated Partial Thromboplast Time 25 SECONDS (22-32) Coagulation Comments Problem\Assessment\Plan Assessment/Plan Acute abdominal pain Large bowel obstruction versus Treva's syndrome versus toxic megacolon, status post colostomy, postoperative day 2., good recovery , management per surgeon Anasarca, discontinue IV fluids Urinary tract infection Patient's urine analysis is positive for leukocyte esterase, few bacteria and 0- 4 WBCs. Follow up with the urine analysis. We will start the patient on IV Rocephin 1 g daily. Anxiety/depression Restart home medications once med reconciliation is done. History of polysubstance use Patient reports that she has been sober of drugs last and half months. Follow up with the urine tox screen. Also reports that she only drinks two beers per day currently. CODE STATUS: Full code DVT prophylaxis: SCDs Anticipate discharge in two days Sepsis Screening Reassessment Date: January 06, 2025 Date of Service: January 06, 2025 Billing Provider: JOVANNA POSADAS MD Common Visit Codes: [id number] INP/OBS CARE(HIGH) JOVANNA POSADAS MD January 06, 2025 18:52
[2025-01-06 20:00] VITALS: RESP 18; O2SAT 96
[2025-01-06] MEDS: lactose-reduced food (Ensure Enlive) - 237ml bottle PO SCH (20:19)
[2025-01-06 22:00] VITALS: BP 92/45; PULSE 94; RESP 20; TEMP 98.2; O2SAT 96
[2025-01-07 06:00] VITALS: BP 86/59; PULSE 77; RESP 20; TEMP 97.5; O2SAT 93
[2025-01-07 08:00] VITALS: RESP 18; O2SAT 97
[2025-01-07] MEDS ORDERED: ONDA-243 PO (09:47)
[2025-01-07] MEDS ORDERED: DOCU-171 PO (09:47)
[2025-01-07 10:01] VITALS: BP 95/56; PULSE 84; RESP 16; TEMP 97.9; O2SAT 98
[2025-01-07] MEDS: normal saline 500ml IV soln 500 ML IV ONE (10:18)
--- NOTE | 2025-01-07 14:48 | DISCHARGE SUMMARY ---
Discharge Summary Providers to No new complaint today ready to be discharged home, was cleared by surgeon to be discharged home ~ Discharge Summary Assessment Large bowel obstruction Megacolon Status post colostomy placement Urinary tract infection Anxiety , depression History of polysubstance abuse Alcohol use disorder Admission Diagnosis: LBO Admission Diagnosis Comment: Large bowel obstruction Megacolon Status post colostomy placement Urinary tract infection Anxiety depression History of polysubstance abuse Alcohol use disorder Hospital Course DATE OF ADMISSION: December 31, 2024 DATE OF DISCHARGE: January 08, 2020 Discharge Diagnosis\Comment: Large bowel obstruction Megacolon Status post colostomy placement Urinary tract infection Anxiety depression History of polysubstance abuse Alcohol use disorder Operations\Procedures: Colostomy placement Consultants: General surgeon Dr. Harris Complications: None Condition on DC: Stable Discharge Summary: 49-year-old female past medical history of anxiety, alcohol use disorder, polysubstance use(has not used any drugs since the past two and half months) presents to the ED with chief complaint of nausea, vomiting and fecal incontinence since the last two days. She reports that these symptoms started spontaneously but has also been suffering from worsening abdominal distention and lower abdominal pain/discomfort over the past couple of months. She reports that her abdominal distention and lower abdominal pain significantly worsened over the last one week. She rates the lower abdominal pain eight on a scale of 10, is on and off and denies any associated exacerbating or relieving factors. Patient denies any recent fever or chills. She states that the abdominal discomfort increases and decreases severity with no triggers, exacerbating or relieving factors. She currently states that the abdominal pain is controlled.The patient stated that she is usually constipated but over the last 1-2 weeks he has been having at least two loose stools every day. Later during the day yesterday.She mentioned that in the past he has a heavy methamphetamine use, alcohol use disorder. He also consumed fentanyl occasionally but has been sober from recreational drugs since the past 2-1/2 months. She reports that she continues to drink alcohol but drinks only two beers every day. After admission patient was extensively evaluated and treated including colostomy placement, today she is feeling fine ready to be discharged in stable condition home cleared by surgeon. Follow-up PCP and surgeon in one week, return to emergency department if condition worsens, medication reconciled, today on physical exam, Vital signs, stable ,afebrile. Pulse Oximetry reflects adequate oxygenation. General: well developed, well nourished. Awake , alert, and oriented x4, resting comfortably in the bed, in no acute distress . Skin: Warm, dry, no pallor, no rash or petechiae. HEENT: Atraumatic, normocephalic, EOMI, anicteric sclera B; pink conjunctiva; PERRLA, normal oropharynx, moist oral and nasal mucosa. Tympanic membrane , nose , throat clear. Neck: Trachea midline. Supple, full range of motion, no JVD, bruit , hepatoju gular reflex , lymphadenopathy or masses, or other lesions Cardiac: Regular rhythm, regular rate no murmurs, rubs, or gallops. Normal S1 and S2, no S3 noticed. PMI is normal. Respiratory: Equal breath sounds bilaterally, no tachypnea; lungs clear to a uscultation bilaterally, no wheezing ,rub or rales, or crackles. Chest wall is symmetric and without deformity. No signs of trauma. Chest wall is nontender. No signs of respiratory distress. Resonance is normal upon percussion bilaterally. Gastrointestinal: Abdomen symmetric, non-distended, soft, non-tender, normal bowel sounds x4 quadrant, normoactive, no hepatosplenomegaly , no masses , no bruit, no flank pain bilaterally. No voluntary guarding, rebound, or rigidity. No tenderness to percussion. No pulsatile masses. Equal femoral pulses. No Cruz's sign or McBurney point tenderness. Back; no CVA tenderness bilaterally, no deformities. Neck and back are without deformity as well. No tenderness noted on palpation of the spinous processes. Spinous processes are midline. Cervical, thoracic, and lumbar paraspinal muscles are not tender and are without spasm. : normal external genitalia, without lesions, swelling, masses or tenderness. Musculoskeletal: Extremities, normal range of motion, non-tender, muscle strength 5/5 x 4. Negative Homans signs bilaterally on lower extremity. Distal pulses full symmetrical, no clubbing, cyanosis , edema. Neurological: Speech is clear, alert, and oriented x 4. No motor or sensory deficit, deep tendon reflexes normal, cerebellar intact. Cranial nerves II-XII intact. Psych: Alert and or appropriate, normal affect. Vascular: Good distal pulses, which are equal x4; capillary refill less than 2 seconds. Lymphatic, no lymphadenopathy. *Problems/Diagnosis: (1) Alcohol abuse Status: Acute (2) Depression Status: Acute (3) Anxiety disorder Status: Acute Total Time Spent on D/C: > 30 Minutes Date of Service: January 07, 2025 Billing Provider: JOVANNA POSADAS MD Common Visit Codes: 94405-DGU/OBS DISCH DAY >30min JOVANNA POSADAS MD January 07, 2025 14:48
== END 2025-01-07 11:05 | disposition home health service (06) | DRG 231 ==
LOC: ER 22:28 → ED HOLD 12-31 04:26 → SUR 3N 12-31 13:55 → PACU 01-02 15:08 → SUR 3N 01-02 17:35 → ORTHO 4S 01-03 16:44 → SUR 3N 01-06 09:22
PROVIDERS: ADMIT Internal Medicine Critical Care Medicine; ATTEND Family Medicine
PROC: 0D9670Z Drainage of Stomach with Drainage Device, Via Natural or Artificial Opening (ICD-10-PCS; principal; 2024-12-31)
PROC: BW211ZZ Computerized Tomography (CT Scan) of Abdomen and Pelvis using Low Osmolar Contrast (ICD-10-PCS; 2024-12-31)
PROC: 0D1L0Z4 Bypass Transverse Colon to Cutaneous, Open Approach (ICD-10-PCS; 2025-01-02)
DX: K56.699 Other intestinal obstruction unspecified as to partial versus complete obstruction (principal); K59.31 Toxic megacolon; E46 Unspecified protein-calorie malnutrition; R18.8 Other ascites; K62.4 Stenosis of anus and rectum; F10.20 Alcohol dependence, uncomplicated; F41.9 Anxiety disorder, unspecified; F32.A Depression, unspecified; N39.0 Urinary tract infection, site not specified; F19.10 Other psychoactive substance abuse, uncomplicated; K56.41 Fecal impaction; Z88.8 Allergy status to other drugs, medicaments and biological substances; Z91.012 Allergy to eggs; Z91.018 Allergy to other foods; Z79.899 Other long term (current) drug therapy; Z68.24 Body mass index [BMI] 24.0-24.9, adult
CPT/HCPCS: 36415; 71045; 74176; 74178; 80053; 80320; 81001; 81025; 82140; 82948; 83036; 83605; 83690; 83735; 83880; 84100; 84132; 84145; 85008; 85025; 85610; 85730; 86140; 86885; 86900; 86901; 87040; 87070; 87075; 87077; 87081; 87088; 87186; 93970; 99285; A4421; A4615; A4618; A6253; A6258; A6449; A7000; C1758; G0378; J0131; J0694; J0696; J1100; J1171; J2003; J2250; J2270; J2405; J2543; J2704; J2710; J2765; J3010; J3480; J3490; J7030; J7040; J7120; Q9963; Q9967

== ENCOUNTER 2025-01-13 08:52 | Inpatient (IN) | payer MEDICAID ==
[2025-01-13] VITALS (10 sets, daily range): BP systolic 84–115; BP diastolic 38–70; PULSE 69–85; RESP 9–21; TEMP 97–97.4; O2SAT 97–100
[~2025-01-13] VITALS: Ht 160 cm; Wt 71.2 kg
[~2025-01-13 08:52] MED LIST changes: +ARIP10TA87 PO; -DIVA500T9 PO; +DOCU-171 PO; -GABA-530 PO; -HYDR-3686 PO; +HYDR-3717 PO; -IBUP-1594 PO; -LEVO75TA7 PO; -OLAN15TA97 PO; -OLAN5TAB75 PO; +ONDA-243 PO
--- NOTE | 2025-01-13 09:13 | Physician Documentation ---
History of Present Illness Chief Complaint: See Chief Complaint Stated Complaint: DOC REFERRED FOR REVISION Time Seen by MD: 09:13 Primary Medical Doctor: Lady at [facility] HPI 49-year-old female, recent colostomy surgery, who presents with problems with the ostomy site. She tells me that she followed up with her surgeon, Dr. Peres yesterday in clinic. He reportedly said that she needed to come in today and have surgery to repair the ostomy site. She tells me that the ostomy is bulging out, and bleeding. It is painful. No vomiting or other associated symptoms. Medication Reconciliation Allergies: Coded Allergies: lithium (Verified Allergy, Intermediate, "beyong angry", 12/30/24) egg yolk (Verified Allergy, Unknown, 12/30/24) wheat (Verified Adverse Reaction, Unknown, VOMITING/CRAMPING, 12/30/24) Uncoded Allergies: DAIRY (Adverse Reaction, Unknown, VOMITING/CRAMPING, 06/27/15) Scheduled Aripiprazole (Aripiprazole), 1 TAB PO DAILY, (Reported) Docusate Sodium (Dulcolax Stool Softener), 1 CAP PO DAILY Prazosin Hcl (Prazosin Hcl), 1 CAP PO HS, (Reported) Scheduled PRN Hydrocodone Bit/Acetaminophen 5/325 MG (Charlotte 5/325 MG), 1 TAB PO Q6H PRN for pain, (Reported) Hydroxyzine Hcl* (Atarax*), 1 TAB PO Q8H PRN for ITCHING, (Reported) ONDANSETRON ODT 4mg tablet (Ondansetron Odt), 1 TAB PO Q6H PRN PRN for nausea/vomiting Discontinued Medications Hydroxyzine Hcl* (Atarax*), 1 TAB PO TID, (Reported) Discontinued Reason: patient no longer taking Past Medical History Past Medical History: *GI/HEPATOBILIARY*, Hemorrhoids, Anxiety, Depression Past Surgical History: other Other Past Surgical History: Rectal Prolapse Repair Alcohol Use: Abuse Drug Use: methamphetamine, other Lives with: Family Lives In: Home Occupation: unemployed Review of Systems Gastrointestinal: Reports: abdominal pain, other (Ostomy problem) Physical Exam Vital Signs: Temperature: 97.9, Source: Temporal, Heart Rate: 79, Respiratory Rate: 15, BP: 102/52, Pulse Oximetry: 96, Weight: 59.550 Physical Exam General: This is a pleasant middle-aged female, mother at bedside Heart: Regular rate and rhythm, normal-appearing peripheral perfusion Lungs: normal work of breathing, normal oxygen saturation on room air Abdomen: Soft, nondistended. The patient has an ostomy, with significant protrusion of bowel, and red blood in the bag. She is mildly tender surrounding the site. Psychiatric: Calm and cooperative with exam Progress Results/Orders Results/Orders Vital Signs 01/13/25 08:56 Temp 97.9 Pulse 79 Resp 15 B/P (MAP) 102/52 Pulse Ox 96 Consults/PCP Consults/PCP : Additional Comment Consult: 9:30 a.m.: The patient's surgeon was consulted for recommendations. He plans for admission and surgical revision Consult: I spoke to the internal medicine service, for admission in the hospital Medical Decision Making Additional Comments The patient presents with complications from her recent ostomy surgery. Labs will be obtained and she will be admitted for surgical revision. Departure Impression: Primary Impression: Surgical complication Referrals: NO PRIMARY CARE PROVIDER (PCP) Signature Scribe Signature: na Attestation: MELO Bermudez MD January 13, 2025 09:13
[2025-01-13 09:43] LABS: EOSINOPHILS # (AUTO) 0.2 X10'3 (0-0.9); HEMOGLOBIN 8.4 g/dl (12.0-16.0); MEAN PLATELET VOLUME 6.5 FL (7.4-10.4)
[2025-01-13 09:44] LABS: BASOPHILS % (AUTO) 0.5 % (0-1); EOSINOPHILS % (AUTO) 2.3 % (0-6); HEMATOCRIT 26.8 % (35.0-45.0); LYMPHOCYTES # (AUTO) 1.2 X10'3 (1.1-4.8); LYMPHOCYTES % (AUTO) 13.1 % (21-51); MEAN CORPUSCULAR HEMOGLOBIN 20.5 PG (27.0-31.0); MEAN CORPUSCULAR HGB CONC 31.3 g/dL (33.0-36.5); MEAN CORPUSCULAR VOLUME 65.7 FL (78-98); MONOCYTES # (AUTO) 0.6 X10'3 (0-0.9); MONOCYTES % (AUTO) 6.7 % (2-12); NEUTROPHILS # (AUTO) 7.4 X10'3 (1.8-7.7); NEUTROPHILS % (AUTO) 77.4 % (42-75); PLATELET COUNT 849 X10'3 (140-440); RED BLOOD COUNT 4.08 X10'6 (4.20-5.60); RED CELL DISTRIBUTION WIDTH 20.3 % (11.5-14.5); WHITE BLOOD COUNT 9.5 X10'3 (4.5-11.0)
[2025-01-13 09:54] LABS: INR 1.1 INR; PROTHROMBIN TIME 10.9 SECONDS (9.0-12.0)
[2025-01-13] MEDS: morphine 4 MG/ML inj SYRINge IV ONE (09:54)
[2025-01-13] MEDS: ondansetron/PF 4mg/2ml inj IV ONE (09:54)
[2025-01-13 09:56] LABS: ALANINE AMINOTRANSFERASE 14 U/L (12-78); ALBUMIN 2.1 G/DL (3.4-5.0); ALBUMIN/GLOBULIN RATIO 0.5 (1.1-1.5); ALKALINE PHOSPHATASE 109 IU/L (46-116); ANION GAP 7 (8-16); ASPARTATE AMINO TRANSFERASE 9 U/L (10-37); BILIRUBIN,TOTAL 0.2 MG/DL (0.1-1.0); BLOOD UREA NITROGEN 7 MG/DL (7-18); BUN/CREATININE RATIO 11.1 (10.0-20.0); CALCIUM 8.1 MG/DL (8.5-10.1); CHLORIDE 105 MMOL/L (99-107); CREATININE 0.63 MG/DL (0.40-0.90); GLUCOSE 84 MG/DL (70-104); POTASSIUM 3.9 MMOL/L (3.5-5.1); SODIUM 138 MMOL/L (135-145); TOTAL CARBON DIOXIDE 25.7 MMOL/L (24-32); TOTAL PROTEIN 6.2 G/DL (6.4-8.2); eCRCL 90 ML/MIN; eGFR > 90 ML/MIN
[2025-01-13 10:15] LABS: TOTAL CELLS COUNTED 100
[2025-01-13 10:16] LABS: ANISOCYTOSIS 3+; ELLIPTOCYTES FEW; HYPOCHROMASIA 2+; MICROCYTOSIS 2+; PLATELET ESTIMATE INCREASED; STOMATOCYTES 1+; TARGET CELLS FEW
--- NOTE | 2025-01-13 10:18 | HISTORY AND PHYSICAL-Residence ---
History & Physical Providers to CC Resident Creating Document: WINSTONKIMMARY ANN GAIL ~ History of Present Illness Primary Medical Doctor: Lady at [facility] Reason for Admit\\Complaint: Colostomy issues History of Present Illness This is a 49 year old female with a history of 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 Choi on January 02. She followed up with his surgeon in clinic yesterday, where she was advised to return today for surgical repair of the colostomy site. She now presents with complaints of increasing bulging, pain, and bleeding at the colostomy site. She denies any fever, chills, nausea, vomiting or diarrhea. She has been tolerating oral intake without any issues. She is currently NPO in preparation for surgery later this afternoon. She has a history of fentanyl and methamphetamine use, last reported three months ago, and is a chronic smoker 2-3 cigarettes daily for many years. She lives with her mother after experiencing homelessness for awhile. PCP is [facility]. I have discussed advance care planning with the patient. The patient has decided on a full code status. Allergies: Coded Allergies: lithium (Verified Allergy, Intermediate, "beyong angry", 12/30/24) egg yolk (Verified Allergy, Unknown, 12/30/24) wheat (Verified Adverse Reaction, Unknown, VOMITING/CRAMPING, 12/30/24) Uncoded Allergies: DAIRY (Adverse Reaction, Unknown, VOMITING/CRAMPING, 06/27/15) Home Medications Home Medications Active Dulcolax Stool Softener (Docusate Sodium) 100 Mg Capsule 1 Cap PO DAILY 30 Days Ondansetron Odt (Ondansetron HCl) 4 Mg Tab.rapdis 1 Tab PO Q6H PRN PRN 4 Days Reported Prazosin Hcl 1 Mg Capsule 1 Cap PO HS Aripiprazole 10 Mg Tablet 1 Tab PO DAILY Atarax* (Hydroxyzine HCl) 10 Mg Tablet 1 Tab PO TID Past Medical History Past Medical History Megacolon, large bowel obstruction Past Surgical History Surgical History Comment Colostomy on January 02 Past Social History Social History Comment She has a history of fentanyl and methamphetamine use, last reported three months ago, and is a chronic smoker to three cigarettes daily for many years. She lives with her mother. Smoking: Cigarettes Alcohol Use: Abuse Drug Use: Methamphetamine, Other Lives with: Family Lives In: Home Occupation: unemployed ROS All Other Systems: Reviewed and Negative ROS As stated above in the HPI, otherwise all systems are reviewed and negative. Gastrointestinal: Reports: abdominal pain, other (Ostomy problem) Exam Vitals: Vital Signs Date Time Temp Pulse Resp B/P (MAP) Pulse Ox O2 Delivery O2 Flow Rate FiO2 01/13/25 09:54 16 01/13/25 09:19 01/13/25 08:56 97.9 79 96 General Appearance: Awake, alert and oriented x4, resting comfortably in bed, in no acute distress. HEENT: Atraumatic, normocephalic, TAMARA, EOMI. Normal oropharynx, moist oral mucosa. Lost her frontal teeth Neck: Trachea midline. Supple, normal ROM. No JVD, bruit, lymphadenopathy or masses, or other lesions. Respiratory: Chest wall is symmetric and without deformity. No signs of respiratory distress. Equal breath sounds bilaterally. No wheeze, rub, Rales or crackles. Cardiac: RRR, no murmur, rub or gallop. Normal S1 and S2. GI: No tenderness. Abdomen symmetric, nondistended, soft, normal bowel sounds x4 quadrant normoactive. No guarding, no rebound or rigidity. No hepatosplenomegaly. No masses, no bruit, no flank pain bilaterally. Extremities: Visible periumbilical colostomy with evidence of parastomal herniation. With mild tenderness to palpation. Bleeding noted from the colostomy site. No signs of peritonitis. Stoma is protruding with bulging suggestive a parastomal hernia. Moist and pink. Skin: Intact, dry, warm, no rashes or petechia. Neuro: Speech is clear, alert and oriented x4. No sensory or motor deficit, DTRs normal. Cranial nerves II to XII intact. Psych: Normal affect, good eye contact, no apparent hallucination, normal speech. Diagnostic Data Last Recorded Lab Results: 01/13/25 0932 01/13/25 0932 Diagnostic Data: Laboratory Tests Test 01/13/25 09:32 Prothrombin Time 10.9 SECONDS (9.0-12.0) INR International Normalized Ratio 1.1 INR Coagulation Comments Advance Care Planning Advanced Care plannin - 30 Minutes Additional Plan Assessment and plan: This is a 49 year old female with a history of 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 Choi on January 02. She followed up with his surgeon in clinic yesterday, where she was advised to return today for surgical repair of the colostomy site. She now presents with complaints of increasing bulging, pain, and bleeding at the colostomy site. Sign and symptoms are concerning for parastomal hernia. Parastomal hernia; associated with bulging pain and bleeding S/P colostomy on January 02 Recent h/o of large bowel obstructions Admitted to the surgical floor Keep NPO, Dr. Choi is consulted Pain management; morphine 1 g IV q.6h (opiates use with caution, given history of substance use) IVF; NS 100 mL/hours Empiric antibiotic, Rocephin 1 g IV daily Colostomy site care; monitor for worsening bleeding, signs of ischemia, or obstruction Local wound care as needed Substance use disorder: Last time Malachi three months ago creative services specialist consult Substance use navigator to screen for current cravings or risk of relapse Tobacco use disorder: Counseled patient on smoking cessation Nicotine patch DVT prophylaxis: Lovenox Code status: Full code Disposition: Admitted to surgical services. Awaiting surgical plan and timing of repair. Mary Ann Ovalles Internal Medicine Resident Date of Service: January 13, 2025 Billing Provider: ANA REA MD Common Visit Codes: [id number] INP/OBS CARE (HIGH) MARY ANN OVALLES, RES January 13, 2025 10:18 ANA REA MD Feb 09, 2025 22:26
[2025-01-13] MEDS ORDERED: HYDR-3686 PO (10:37)
[2025-01-13] MEDS ORDERED: HYDR-3965 PO (10:37)
[2025-01-13] MEDS ORDERED: magnesium sulf-water 4G/100mL 100 ML IV PRN (11:10)
[2025-01-13] MEDS ORDERED: magnesium Cl slow-release 64mg tablet PO PRN (11:10)
[2025-01-13] MEDS ORDERED: magnesium sulf-water 2g/50mL 50 ML IV PRN (11:10)
[2025-01-13] MEDS ORDERED: potassium Cl 40MEQ/1/2NS 520ml 520 ML IV PRN (11:10)
[2025-01-13] MEDS ORDERED: potassium Cl 20 mEq SR tablet PO PRN ×2 (11:10)
[2025-01-13] MEDS: CefTRIAXone/D5W-Rocephin 1gm 50 ML IV SCH (12:02)
[2025-01-13] MEDS: normal saline 1000ml 1,000 ML IV SCH (12:02)
[2025-01-13] MEDS: nicotine 14mg patch - 24hr TD ONE (12:21)
[2025-01-13] MEDS: metroNIDAZOLE-Flagyl 500mg/NS 100 ML IV SCH (15:46)
[2025-01-13] MEDS: morphine 2 MG/ML inj. syringe IV PRN (16:25)
[2025-01-13] MEDS ORDERED: sevoflurane 250ml liquid IH ONE (18:10)
--- NOTE | 2025-01-13 18:11 | PROGRESS NOTE ---
Progress Note ID Providers to CC ~ Progress Note Progress Note: discussed procedure including risks/benefits/alternatives DELPHINE RAZO MD January 13, 2025 18:11
[2025-01-13] MEDS ORDERED: fentaNYL /PF 50mcg/ml 5ml ampule ONE (18:44)
[2025-01-13] MEDS ORDERED: midazolam 1 mg/ML 2ml injection ONE (18:44)
[2025-01-13] MEDS ORDERED: propofol inj 20 ML IV ONE (18:46)
[2025-01-13] MEDS ORDERED: enalaprilat 1.25mg/ml 2ml vial IV PRN (18:55)
[2025-01-13] MEDS: ringers solution, lacted 1,000 ML IV SCH (18:55)
[2025-01-13] MEDS ORDERED: meperidine/PF 25mg/ml syringe IV PRN ×3 (18:55)
[2025-01-13] MEDS ORDERED: labetalol 20mg/4ml (5mg/ml) syringe IV PRN (18:55)
[2025-01-13] MEDS ORDERED: proCHLORperazine 10 MG/2 ml inj IV PRN (18:55)
[2025-01-13] MEDS ORDERED: morphine 2 MG/ML inj. syringe IV PRN (18:55)
[2025-01-13] MEDS ORDERED: morphine 4 MG/ML inj SYRINge IV PRN (18:55)
[2025-01-13] MEDS ORDERED: ondansetron/PF 4mg/2ml inj IV PRN (18:55)
[2025-01-13] MEDS ORDERED: rocuronium 10mg/ml inj IV ONE (19:09)
[2025-01-13] MEDS ORDERED: dexamethasone sod phosphate 4mg/ml inj. ONE (19:10)
[2025-01-13] MEDS: K and/or MAG REPLACEMENT MC SCH (20:00)
[2025-01-13] MEDS: enoxaparin 40mg/0.4ml syringe SQ SCH (20:00)
[2025-01-13] MEDS ORDERED: albumin (Human) 5% 250ml 250 ML IV ONE (20:29)
[2025-01-13] MEDS ORDERED: HYDROmorphone 1 mg/ml syringe ONE (22:01)
--- NOTE | 2025-01-13 22:39 | OPERATIVE REPORT ---
Operative Report Providers to CC ~ Date of Procedure: January 13, 2025 Pre-Operative Diagnosis: prolapsing colostomy Post-Operative Diagnosis SAME as PRE-Op Procedure Performed repeat lap/partial colectomy with colostomy of transverse colon/sigmoid colon mucous fistula/small bowel resection Surgeon: madiha arciniega Anesthesiologist: Pepito Tang Type of Anesthesia: General Findings: dilated sigmoid colon/adhesions Estimated Blood Loss: 200 ml Specimen Removed: transverse colon/small bowel DELPHINE RAZO MD January 13, 2025 22:39
[2025-01-13] MEDS ORDERED: naloxone 0.4 mg/ml inj IV PRN (22:50)
[2025-01-13] MEDS: HYDROmorphone inj. 0.5 MG/0.5 ML DISP.SYRIN IV PRN (22:58)
[2025-01-14] VITALS (16 sets, daily range): BP systolic 89–119; BP diastolic 49–77; PULSE 83–100; RESP 12–18; TEMP 96.8–98.7; O2SAT 95–100
[2025-01-14] MEDS: ketorolac trometh 15mg/ml vial 15 MG/ML ML IV PRN (01:02)
[2025-01-14 05:53] LABS: EOSINOPHILS % (AUTO) 0 % (0-6); MEAN PLATELET VOLUME 6.5 FL (7.4-10.4)
[2025-01-14 05:55] LABS: BASOPHILS % (AUTO) 0.1 % (0-1); HEMATOCRIT 25.4 % (35.0-45.0); HEMOGLOBIN 7.8 g/dl (12.0-16.0); LYMPHOCYTES # (AUTO) 0.4 X10'3 (1.1-4.8); MEAN CORPUSCULAR HEMOGLOBIN 20.4 PG (27.0-31.0); MEAN CORPUSCULAR HGB CONC 30.9 g/dL (33.0-36.5); MEAN CORPUSCULAR VOLUME 65.9 FL (78-98); MONOCYTES # (AUTO) 0.9 X10'3 (0-0.9); MONOCYTES % (AUTO) 4.9 % (2-12); NEUTROPHILS # (AUTO) 16.8 X10'3 (1.8-7.7); PLATELET COUNT 800 X10'3 (140-440); RED BLOOD COUNT 3.85 X10'6 (4.20-5.60); RED CELL DISTRIBUTION WIDTH 20.7 % (11.5-14.5)
[2025-01-14 06:25] LABS: ALANINE AMINOTRANSFERASE 11 U/L (12-78); ALBUMIN 1.9 G/DL (3.4-5.0); ALBUMIN/GLOBULIN RATIO 0.6 (1.1-1.5); ALKALINE PHOSPHATASE 78 IU/L (46-116); ANION GAP 12 (8-16); ASPARTATE AMINO TRANSFERASE 12 U/L (10-37); BILIRUBIN,TOTAL 0.3 MG/DL (0.1-1.0); BLOOD UREA NITROGEN 10 MG/DL (7-18); BUN/CREATININE RATIO 17.5 (10.0-20.0); CALCIUM 7.7 MG/DL (8.5-10.1); CHLORIDE 106 MMOL/L (99-107); CREATININE 0.57 MG/DL (0.40-0.90); GLUCOSE 103 MG/DL (70-104); POTASSIUM 4.4 MMOL/L (3.5-5.1); SODIUM 140 MMOL/L (135-145); TOTAL CARBON DIOXIDE 22.5 MMOL/L (24-32); TOTAL PROTEIN 5.1 G/DL (6.4-8.2); eCRCL 100 ML/MIN; eGFR > 90 ML/MIN
[2025-01-14] MEDS: HYDROmorphone inj. 0.5 MG/0.5 ML DISP.SYRIN IV ONE (10:20)
--- NOTE | 2025-01-14 11:23 | PROGRESS NOTE- Residence ---
Progress Note - Resident Providers to CC Resident Creating Document: PATRICIA VIDAL RES ~ Antibiotic Timeout Antibiotic Ordered?: Yes Subjective Patient was seen and examined at bedside. She reported pain at the surgical site. She is still NPO, NG tube in place. Objective Vital Signs Date Time Temp Pulse Resp B/P (MAP) Pulse Ox O2 Delivery O2 Flow Rate FiO2 01/14/25 10:20 18 01/14/25 07:34 97 Nasal Cannula 01/14/25 06:07 96.8 96 106/70 (82) 1.0 General: Awake and Alert, c/o pain at surgical site HEENT: Conjunctiva pink, Sclera clear, Mucus Membranes moist. Neck: Supple without masses and tenderness. Resp: Unlabored. Lungs clear to auscultation bilaterally. Heart: Regular Rate and rhythm, normal S1 and S2 without murmur, rub or gallop. Abdomen: Tenderness around surgical site, bowel sounds sluggish. Dressing applied; dry and clean Extremities: No cyanosis,clubbing or edema. Skin: Warm and Dry. Result Diagram: 01/14/25 0538 01/14/25 0538 Coagulation Studies Laboratory Tests Test 01/13/25 09:32 Prothrombin Time 10.9 SECONDS (9.0-12.0) INR International Normalized Ratio 1.1 INR Coagulation Comments Advance Care Planning Advanced Care plannin - 30 Minutes Assessment Assessment This is a 49 year old female with a history of 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 Choi on January 02. She followed up with his surgeon in clinic yesterday, where she was advised to return today for surgical repair of the colostomy site. She now presents with complaints of increasing bulging, pain, and bleeding at the colostomy site. Sign and symptoms are concerning for parastomal hernia. Plan Plan Parastomal hernia; associated with bulging pain and bleeding S/P colostomy on January 02 Recent h/o of large bowel obstructions S/P repeat lap/partial colectomy with colostomy of transverse colon/sigmoid colon mucous fistula/small bowel resection; POD#1 Pain management; IV Dilaudid on board N/V; Zofran on board IVF; NS 100 mL/hours Empiric antibiotic: Cont. Rocephin 1 g IV daily and Flagyl 500 mg IV 3 times daily Still NPO, NG tube in place Local wound care as needed Dr. Choi primarily manage the patient, we will follow along Microcytic hypochromic anemia: H&H 8.4/26.8 - monitor H&H closely, transfuse if indicated Follow iron studies Substance use disorder: Last time Meth. use, three months ago horticultural services supervisor consult Substance use navigator to screen for current cravings or risk of relapse Tobacco use disorder: Counseled patient on smoking cessation Nicotine patch Psychiatric issues/anxiety/Depression: Home medications i.e. Abilify and Atarax resumed DVT prophylaxis: Lovenox Code status: Full code Disposition: Undergone repeat lap/partial colectomy with colostomy. Management per Dr. Choi. Patricia Vidal Internal Medicine Resident Date of Service: January 14, 2025 Billing Provider: ANA REA MD Common Visit Codes: [id number] INP/OBS CARE(HIGH) PATRICIA VIDAL, RES January 14, 2025 11:22 ANA REA MD Feb 09, 2025 22:30
[2025-01-14] MEDS: HYDROmorphone 1 mg/ml syringe IV PRN (13:07)
--- NOTE | 2025-01-14 15:59 | CONSULTATION ---
DATE OF CONSULTATION: 01/13/2025 DICTATING PHYSICIAN: Giuliano Choi MD REASON FOR CONSULTATION: Evaluation of colostomy prolapse. HISTORY OF PRESENT ILLNESS: A 49-year-old female with history of large bowel obstruction secondary to procedure after having rectal prolapse. The patient had diverting colostomy at that time until referred to a colorectal surgeon for repair of her anal/rectal stricture. The patient developed evidence of colostomy prolapse, who presents to the ER for evaluation. Surgical evaluation is now requested. On further questioning, the patient complains of abdominal discomfort gas in the rectum. PAST MEDICAL HISTORY: Notable for history of large bowel obstruction. PAST SURGICAL HISTROY: Previous multiple procedure for repair of rectal prolapse, has had recent diverting colostomy. HOME MEDICATIONS: Dulcolax, Zosyn, omeprazole, and Atarax. ALLERGIES: LITHIUM. SOCIAL HISTORY: History of fentanyl use. PHYSICAL EXAMINATION: GENERAL: Well-nourished female, in minimal distress. VITAL SIGNS: Unremarkable. HEART: Regular rate and rhythm. LUNGS: Clear to auscultation. ABDOMEN: Shows chronic prolapse. IMPRESSION: Diverting loop colostomy prolapse. mangement of a distal rectal stricture. RECOMMENDATIONS: Colostomy revision. Giuliano Choi MD TID: [id number] RECEIPT: [id number] LESA/DAX/SARA
--- NOTE | 2025-01-14 16:19 | OPERATIVE REPORT ---
DATE OF SURGERY: 01/13/2025 DICTATING PHYSICIAN: Giuliano Choi MD PREOPERATIVE DIAGNOSIS: Prolapsing loop colostomy. POSTOPERATIVE DIAGNOSIS: Prolapsing loop colostomy. PROCEDURES PERFORMED: * Repeat laparotomy. * Partial transverse colectomy. * End-colostomy involving the proximal transverse colon. * involving the distal sigmoid colon. * Small bowel resection. * Lysis of adhesions. SURGEON: Giuliano Choi MD SOCIAL WORK JOB TITLES: None. ANESTHESIA: General. DRAINS: Maynor x 1. INDICATIONS FOR OPERATION: The patient is a 49-year-old female with history of repair for rectal prolapse a number of years ago. She has large bowel obstruction and then a diverting loop colostomy earlier this month in anticipation of being referred to a colorectal surgeon in [place] for repair of a presumed rectal stricture. The patient had evidence of stomal prolapse and seen by Surgery for revision. INTRAOPERATIVE FINDINGS: The patient had a large amount of prolapse involving the transverse colon. The patient has extensive adhesions involving the small bowel and the pelvis. Small bowel dissection was performed. Given the large amount of stool load in the sigmoid colon, decision was made to proceed with a mucous fistula involving the distal sigmoid colon. The stapler was used on the distal colonic staple line, misfired and so, the distal colon was oversewn using sutures of 0 Vicryl. DESCRIPTION OF PROCEDURE: The patient was placed supine on the operating table. After induction of general anesthesia and placement of endotracheal tube, the abdomen was prepped and draped. Abdomen was re-entered through the midline incision. The patient had a severely prolapsed portion of the transverse colon. Transverse colon was isolated proximally and distally and divided using LETY-75 staplers. Colonic was sent to pathology for evaluation. The tissue. Small bowel was then run from the ligament of Treitz distally and there were extensive adhesions in the pelvis, which required mobilization. An enterotomy was made as part of mobilizing the small bowel to the pelvis. Subsequently, the small bowel was then resected with fired with LETY-75 stapler. Egzy-jw-oemd anastomosis was constructed with a #75 and TA-60 was used to close the enterotomy. On further inspection of the sigmoid colon, there was a large amount of stool load with extreme chronic dilatation. Given the concerns about the ability to decompress the colon, the distal sigmoid colon was isolated and divided. The staple was misfired and so, the sutures of #1 Vicryl. Sigmoid colon was then mobilized through the lateral attachment. was made in the left lower abdomen and sigmoid colon brought out as a mucous fistula. incision was then made on the right side and proximal transverse colon brought out to the diverting end-colostomy. Abdomen was irrigated copiously with large amount of antibiotic-containing solution. Maynor drain was placed in the pelvis. A large amount of irrigation was used to irrigate the abdominal cavity. Rectal fascia was closed with running suture of looped PDS. Skin was closed with clipped. Jaguar placed. Both the mucous fistula and diverting end-colostomy was then matured using sutures of 3-0 Vicryl. Appliance was then placed. Dressing applied and the patient was transferred to recovery in stable condition after general anesthesia. Giuliano Choi MD TID: [id number] RECEIPT: [id number] LESA/TANESHA/MILI
[2025-01-14] MEDS: nicotine 14mg patch - 24hr TD SCH (16:33)
[2025-01-14] MEDS: normal saline 500ml IV soln 500 ML IV ONE (17:40)
[2025-01-14] MEDS: HYDROcodone/acetaminophen 5mg/325mg tablet PO PRN (17:40)
[2025-01-14] MEDS: hydrOXYzine 25 MG tablet PO PRN (18:41)
--- NOTE | 2025-01-14 19:05 | PROGRESS NOTE ---
Progress Note ID Providers to CC ~ Progress Note Progress Note: complains of pain/vss/abd-mild distention/labs noted a/p 1. s/p colostomy revision-clears/cont supportive care DEPLHINE RAZO MD January 14, 2025 19:05
[2025-01-14] MEDS: aripiprazole 10MG tablet PO SCH (21:08)
[2025-01-15] VITALS (9 sets, daily range): BP systolic 101–137; BP diastolic 57–81; PULSE 68–94; RESP 14–22; TEMP 97.5–100; O2SAT 94–97
[2025-01-15] MEDS: ondansetron/PF 4mg/2ml inj IV PRN (00:56)
[2025-01-15 06:09] LABS: BASOPHILS % (AUTO) 0.1 % (0-1); MEAN PLATELET VOLUME 6.6 FL (7.4-10.4)
[2025-01-15 06:11] LABS: EOSINOPHILS % (AUTO) 0.1 % (0-6); LYMPHOCYTES # (AUTO) 0.7 X10'3 (1.1-4.8); LYMPHOCYTES % (AUTO) 3.1 % (21-51); MEAN CORPUSCULAR HEMOGLOBIN 20.6 PG (27.0-31.0); MEAN CORPUSCULAR HGB CONC 31.6 g/dL (33.0-36.5); MONOCYTES # (AUTO) 0.9 X10'3 (0-0.9); MONOCYTES % (AUTO) 4.4 % (2-12); NEUTROPHILS # (AUTO) 19.6 X10'3 (1.8-7.7); NEUTROPHILS % (AUTO) 92.3 % (42-75); PLATELET COUNT 888 X10'3 (140-440); RED BLOOD COUNT 3.37 X10'6 (4.20-5.60); RED CELL DISTRIBUTION WIDTH 20.4 % (11.5-14.5); WHITE BLOOD COUNT 21.2 X10'3 (4.5-11.0)
[2025-01-15 06:16] LABS: HEMOGLOBIN 6.9 g/dl (12.0-16.0)
[2025-01-15 06:17] LABS: HEMATOCRIT 21.9 % (35.0-45.0)
[2025-01-15 06:56] LABS: ALANINE AMINOTRANSFERASE 15 U/L (12-78); ALBUMIN 1.5 G/DL (3.4-5.0); ALBUMIN/GLOBULIN RATIO 0.4 (1.1-1.5); ALKALINE PHOSPHATASE 97 IU/L (46-116); ANION GAP 8 (8-16); ASPARTATE AMINO TRANSFERASE 20 U/L (10-37); BILIRUBIN,TOTAL 0.3 MG/DL (0.1-1.0); BLOOD UREA NITROGEN 12 MG/DL (7-18); BUN/CREATININE RATIO 16.9 (10.0-20.0); CALCIUM 7.5 MG/DL (8.5-10.1); CHLORIDE 105 MMOL/L (99-107); CREATININE 0.71 MG/DL (0.40-0.90); GLUCOSE 127 MG/DL (70-104); POTASSIUM 3.5 MMOL/L (3.5-5.1); SODIUM 139 MMOL/L (135-145); TOTAL CARBON DIOXIDE 26.5 MMOL/L (24-32); TOTAL PROTEIN 5.2 G/DL (6.4-8.2); eCRCL 80 ML/MIN; eGFR 88 ML/MIN
[2025-01-15] MEDS ORDERED: nicotine 14mg patch - 24hr TD SCH (08:00)
[2025-01-15] MEDS: ferrous sulfate 325mg tablet PO SCH (08:21)
[2025-01-15 09:09] LABS: FERRITIN 73 NG/ML (8-252)
[2025-01-15 09:10] LABS: % IRON SATURATION 3 % (11-46); IRON 5 UG/DL (49-151); TOTAL IRON BINDING CAPACITY 194 UG/DL (259-388)
--- NOTE | 2025-01-15 10:39 | PROGRESS NOTE- Residence ---
Progress Note - Resident Providers to CC Resident Creating Document: PATRICIA VIDAL RES ~ Antibiotic Timeout Antibiotic Ordered?: Yes Subjective Patient was seen and examined at bedside. She reported pain at the surgical site. Hemoglobin dropped to 6.9, ordered a unit of PRBC. Objective Vital Signs Date Time Temp Pulse Resp B/P (MAP) Pulse Ox O2 Delivery O2 Flow Rate FiO2 01/15/25 09:03 16 01/15/25 06:35 97.6 94 137/80 (99) 97 Room Air 01/15/25 04:29 0.0 96 General: Awake and Alert, c/o pain at surgical site HEENT: Conjunctiva pink, Sclera clear, Mucus Membranes moist. Neck: Supple without masses and tenderness. Resp: Unlabored. Lungs clear to auscultation bilaterally. Heart: Regular Rate and rhythm, normal S1 and S2 without murmur, rub or gallop. Abdomen: Tenderness around surgical site, bowel sounds sluggish. Dressing applied; dry and clean Extremities: No cyanosis,clubbing or edema. Skin: Warm and Dry. 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 Choi on January 02. She followed up with his surgeon in clinic yesterday, where she was advised to return today for surgical repair of the colostomy site. She now presents with complaints of increasing bulging, pain, and bleeding at the colostomy site. Sign and symptoms are concerning for parastomal hernia. Plan Plan Parastomal hernia; associated with bulging pain and bleeding S/P colostomy on January 02 Recent h/o of large bowel obstructions S/P repeat lap/partial colectomy with colostomy of transverse colon/sigmoid colon mucous fistula/small bowel resection; POD#2 Pain management; IV Dilaudid on board N/V; Zofran on board IVF; NS 100 mL/hours Cont. Rocephin 1 g IV daily and Flagyl 500 mg IV 3 times daily Local wound care as needed Dr. Choi on board, we will follow his recommendations Microcytic hypochromic anemia: More likely ID H&H 8.4/26.8 - hemoglobin 6.9, consent taken, 1 PRBC transfusion ordered Ferrous sulfate initiated Substance use disorder: Last time Meth. use, three months ago social services coordinator consult Substance use navigator to screen for current cravings or risk of relapse Tobacco use disorder: Counseled patient on smoking cessation Nicotine patch Psychiatric issues/anxiety/Depression: Home medications i.e. Abilify and Atarax resumed DVT prophylaxis: Lovenox Code status: Full code Disposition: Undergone repeat lap/partial colectomy with colostomy (Colostomy revision) on 01/14. Management per Dr. Choi. Monitor HH. Patricia Vidal Internal Medicine Resident Date of Service: January 15, 2025 Billing Provider: ANA REA MD Common Visit Codes: [id number] INP/OBS CARE(HIGH) PATRICIA VIDAL, RES January 15, 2025 10:39 ANA REA MD Feb 09, 2025 22:31
[2025-01-15] MEDS ORDERED: metoclopramide 5 mg/ml inj IV PRN (15:15)
--- NOTE | 2025-01-15 15:24 | PROGRESS NOTE ---
Progress Note ID Providers to CC ~ Progress Note Progress Note: awake/vss/abd-stoma viable/labs noted a/p 1. s/p stoma revision-slow progress/add DELPHINE Perez MD January 15, 2025 15:24
[2025-01-15] MEDS: metoclopramide 5 mg/ml inj IV SCH (19:09)
[2025-01-15 19:23] LABS: HEMATOCRIT 25.1 % (35.0-45.0); HEMOGLOBIN 8.1 g/dl (12.0-16.0); MEAN CORPUSCULAR HGB CONC 32.1 g/dL (33.0-36.5); MEAN CORPUSCULAR VOLUME 68.3 FL (78-98); MEAN PLATELET VOLUME 6.6 FL (7.4-10.4); PLATELET COUNT 795 X10'3 (140-440); RED BLOOD COUNT 3.68 X10'6 (4.20-5.60); RED CELL DISTRIBUTION WIDTH 23.1 % (11.5-14.5); WHITE BLOOD COUNT 22.6 X10'3 (4.5-11.0)
[2025-01-15] MEDS: normal saline 500ml IV soln 500 ML IV ONE (21:09)
[2025-01-16 01:27] LABS: BASOPHILS % (AUTO) 0.2 % (0-1); EOSINOPHILS # (AUTO) 0.1 X10'3 (0-0.9); EOSINOPHILS % (AUTO) 0.3 % (0-6); HEMOGLOBIN 7.6 g/dl (12.0-16.0); LYMPHOCYTES # (AUTO) 0.9 X10'3 (1.1-4.8); MEAN CORPUSCULAR HEMOGLOBIN 22.2 PG (27.0-31.0); MEAN PLATELET VOLUME 6.3 FL (7.4-10.4); RED CELL DISTRIBUTION WIDTH 22.6 % (11.5-14.5)
[2025-01-16 01:28] LABS: HEMATOCRIT 23.6 % (35.0-45.0); LYMPHOCYTES % (AUTO) 4.6 % (21-51); MEAN CORPUSCULAR HGB CONC 32.2 g/dL (33.0-36.5); MONOCYTES # (AUTO) 0.9 X10'3 (0-0.9); MONOCYTES % (AUTO) 4.4 % (2-12); NEUTROPHILS # (AUTO) 18.2 X10'3 (1.8-7.7); NEUTROPHILS % (AUTO) 90.5 % (42-75); PLATELET COUNT 729 X10'3 (140-440); RED BLOOD COUNT 3.42 X10'6 (4.20-5.60); WHITE BLOOD COUNT 20.1 X10'3 (4.5-11.0)
[2025-01-16 01:42] LABS: ALANINE AMINOTRANSFERASE 18 U/L (12-78); ALBUMIN 1.3 G/DL (3.4-5.0); ALBUMIN/GLOBULIN RATIO 0.4 (1.1-1.5); ALKALINE PHOSPHATASE 90 IU/L (46-116); ANION GAP 7 (8-16); ASPARTATE AMINO TRANSFERASE 12 U/L (10-37); BILIRUBIN,TOTAL 0.4 MG/DL (0.1-1.0); BLOOD UREA NITROGEN 17 MG/DL (7-18); BUN/CREATININE RATIO 36.2 (10.0-20.0); CALCIUM 7.5 MG/DL (8.5-10.1); CHLORIDE 108 MMOL/L (99-107); CREATININE 0.47 MG/DL (0.40-0.90); GLUCOSE 115 MG/DL (70-104); POTASSIUM 3.5 MMOL/L (3.5-5.1); SODIUM 139 MMOL/L (135-145); TOTAL CARBON DIOXIDE 24.5 MMOL/L (24-32); TOTAL PROTEIN 4.7 G/DL (6.4-8.2); eCRCL 121 ML/MIN; eGFR > 90 ML/MIN
[2025-01-16 06:31] VITALS: BP 113/71; PULSE 97; RESP 14; TEMP 96.6; O2SAT 95
[2025-01-16 08:00] VITALS: RESP 16
[2025-01-16 08:10] VITALS: TEMP 98.3
[2025-01-16 10:00] VITALS: BP 111/70; PULSE 94; RESP 16; TEMP 98.3; O2SAT 94
--- NOTE | 2025-01-16 16:47 | PROGRESS NOTE- Residence ---
Progress Note - Resident Providers to CC Resident Creating Document: VISHAL MARTINEZ RES ~ Antibiotic Timeout Antibiotic Ordered?: Yes Subjective Patient was seen and examined at bedside. Output noticed in the colostomy bag. recommended to DC the surgical drain. Hilliard's has been DC'ed. Physical therapy tomorrow morning for evaluation. Possible discharge to rehab, Objective Vital Signs Date Time Temp Pulse Resp B/P (MAP) Pulse Ox O2 Delivery O2 Flow Rate FiO2 01/16/25 14:24 16 01/16/25 08:10 98.3 01/16/25 08:00 Room Air 01/16/25 06:31 97 113/71 (85) 95 01/15/25 20:00 0.0 01/15/25 04:29 96 Result Diagram: 01/16/25 0120 01/16/25 0113 General: Awake and Alert, c/o pain at surgical site HEENT: Conjunctiva pink, Sclera clear, Mucus Membranes moist. Neck: Supple without masses and tenderness. Resp: Unlabored. Lungs clear to auscultation bilaterally. Heart: Regular Rate and rhythm, normal S1 and S2 without murmur, rub or gallop. Abdomen: Tenderness around surgical site, bowel sounds sluggish. Dressing applied; dry and clean Extremities: No cyanosis,clubbing or edema. Skin: Warm and Dry. Colostomy site appears clean. Surgical drain removed. 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 Choi on January 02. She followed up with his surgeon in clinic yesterday, where she was advised to return today for surgical repair of the colostomy site. She now presents with complaints of increasing bulging, pain, and bleeding at the colostomy site. Sign and symptoms are concerning for parastomal hernia. Plan Plan Parastomal hernia; associated with bulging pain and bleeding S/P colostomy on January 02 Recent h/o of large bowel obstructions S/P repeat lap/partial colectomy with colostomy of transverse colon/sigmoid colon mucous fistula/small bowel resection; POD#3 Pain management; IV Dilaudid on board N/V; Zofran on board IVF; NS 100 mL/hours Cont. Rocephin 1 g IV daily and Flagyl 500 mg IV 3 times daily Local wound care as needed Dr. Choi on board, we will follow his recommendations Surgical drain removed Hilliard's has been removed Output noticed in the colostomy bag. Microcytic hypochromic anemia: More likely ID H&H 8.4/26.8 - hemoglobin 6.9, consent taken, 1 PRBC transfused, hemoglobin improved. Ferrous sulfate initiated Substance use disorder: Last time Meth. use, three months ago student financial services counselor consult Substance use navigator to screen for current cravings or risk of relapse Tobacco use disorder: Counseled patient on smoking cessation Nicotine patch Psychiatric issues/anxiety/Depression: Home medications i.e. Abilify and Atarax resumed DVT prophylaxis: Lovenox Code status: Full code Disposition: Undergone repeat lap/partial colectomy with colostomy (Colostomy revision) on 01/14. Management per Dr. Choi. Monitor HH. Hilliard's and surgical drainage removed. Physical therapy to evaluate. Possible discharge to rehab. Vishal Martinez M.D PGY1 Date of Service: January 16, 2025 Billing Provider: ANA REA MD Common Visit Codes: [id number] INP/OBS CARE(HIGH) VISHAL MARTINEZ, RES January 16, 2025 16:47 ANA REA MD Feb 09, 2025 22:31
[2025-01-16 18:30] VITALS: BP 111/79; PULSE 90; RESP 15; TEMP 98.5; O2SAT 96
--- NOTE | 2025-01-16 20:45 | PROGRESS NOTE ---
Progress Note Dictate Providers to CC CC: ANNALISE RAMIRES MD ~ Progress Note: Subsequent surgical care on a 49-year-old woman who is postoperative day 3. Status post revision of colostomy requiring small bowel resection and creation of a mucous fistula. Covering for Dr. Giuliano Choi until morning Tolerating full liquid diet Good ostomy output Complaining of significant pain since IV pain medication stopped Adjusted pain medicine Adjusted IV fluids I will continue to follow Antibiotic Ordered?: N/A Objective Vitals Vital Signs Date Time Temp Pulse Resp B/P (MAP) Pulse Ox O2 Delivery O2 Flow Rate FiO2 01/16/25 20:39 18 01/16/25 18:30 98.5 90 111/79 (90) 96 Room Air 01/15/25 20:00 0.0 01/15/25 04:29 96 Lab Results: 01/16/25 0120 01/16/25 0113 Coagulation Studies Laboratory Tests Test 01/13/25 09:32 Prothrombin Time 10.9 SECONDS (9.0-12.0) INR International Normalized Ratio 1.1 INR Coagulation Comments ANNALISE RAMIRES MD January 16, 2025 20:45
[2025-01-16] MEDS: ringers solution, lacted 1,000 ML IV SCH (21:16)
[2025-01-16] MEDS: oxyCODONE/APAP 5-325mg tablet PO PRN (21:31)
[2025-01-16 22:00] VITALS: BP 117/80; PULSE 85; RESP 16; TEMP 98.4; O2SAT 97
[2025-01-17] VITALS (8 sets, daily range): BP systolic 99–112; BP diastolic 61–66; PULSE 80–108; RESP 14–18; TEMP 97.3–98.8; O2SAT 93–96
[2025-01-17 04:22] LABS: EOSINOPHILS # (AUTO) 0.1 X10'3 (0-0.9); EOSINOPHILS % (AUTO) 0.5 % (0-6); LYMPHOCYTES # (AUTO) 0.5 X10'3 (1.1-4.8); MEAN CORPUSCULAR HEMOGLOBIN 22.1 PG (27.0-31.0); MEAN CORPUSCULAR VOLUME 69.2 FL (78-98); MEAN PLATELET VOLUME 6.6 FL (7.4-10.4)
[2025-01-17 04:24] LABS: BASOPHILS % (AUTO) 0.2 % (0-1); LYMPHOCYTES % (AUTO) 2.9 % (21-51); MONOCYTES # (AUTO) 0.6 X10'3 (0-0.9); MONOCYTES % (AUTO) 3.7 % (2-12); NEUTROPHILS # (AUTO) 15.8 X10'3 (1.8-7.7); NEUTROPHILS % (AUTO) 92.7 % (42-75); PLATELET COUNT 768 X10'3 (140-440); RED BLOOD COUNT 3.15 X10'6 (4.20-5.60)
[2025-01-17 04:29] LABS: HEMATOCRIT 21.8 % (35.0-45.0)
[2025-01-17 04:40] LABS: ALANINE AMINOTRANSFERASE 13 U/L (12-78); ALBUMIN 1.2 G/DL (3.4-5.0); ALBUMIN/GLOBULIN RATIO 0.3 (1.1-1.5); ALKALINE PHOSPHATASE 89 IU/L (46-116); ANION GAP 9 (8-16); ASPARTATE AMINO TRANSFERASE 13 U/L (10-37); BILIRUBIN,TOTAL 0.3 MG/DL (0.1-1.0); BLOOD UREA NITROGEN 12 MG/DL (7-18); BUN/CREATININE RATIO 21.4 (10.0-20.0); CALCIUM 7.4 MG/DL (8.5-10.1); CHLORIDE 105 MMOL/L (99-107); CREATININE 0.56 MG/DL (0.40-0.90); GLUCOSE 119 MG/DL (70-104); SODIUM 136 MMOL/L (135-145); TOTAL CARBON DIOXIDE 22.1 MMOL/L (24-32); TOTAL PROTEIN 4.7 G/DL (6.4-8.2); eCRCL 102 ML/MIN; eGFR > 90 ML/MIN
[2025-01-17 04:42] LABS: POTASSIUM 2.8 MMOL/L (3.5-5.1)
[2025-01-17 04:46] LABS: ANISOCYTOSIS 3+; HYPOCHROMASIA 1+; MICROCYTOSIS 2+; PLATELET ESTIMATE INCREASED
[2025-01-17] MEDS ORDERED: potassium Cl 40MEQ/1/2NS 520ml 520 ML IV PRN (04:50)
[2025-01-17] MEDS ORDERED: magnesium sulf-water 4G/100mL 100 ML IV PRN (04:50)
[2025-01-17] MEDS ORDERED: magnesium sulf-water 2g/50mL 50 ML IV PRN (04:50)
[2025-01-17] MEDS ORDERED: magnesium Cl slow-release 64mg tablet PO PRN (04:50)
[2025-01-17] MEDS ORDERED: potassium Cl 20 mEq SR tablet PO PRN (04:50)
[2025-01-17] MEDS: potassium Cl 20 mEq SR tablet PO PRN (05:26)
[2025-01-17] MEDS: K and/or MAG REPLACEMENT MC SCH (08:00)
[2025-01-17] MEDS: pantoprazole 40 MG vial IV SCH (10:13)
[2025-01-17] MEDS: calcium carbonate 500mg chew tablet PO ONE (10:13)
[2025-01-17 10:58] LABS: HEMATOCRIT 24.4 % (35.0-45.0); MEAN CORPUSCULAR HEMOGLOBIN 23.6 PG (27.0-31.0); MEAN CORPUSCULAR HGB CONC 32.6 g/dL (33.0-36.5); MEAN CORPUSCULAR VOLUME 72.4 FL (78-98); MEAN PLATELET VOLUME 6.7 FL (7.4-10.4); PLATELET COUNT 687 X10'3 (140-440); RED BLOOD COUNT 3.36 X10'6 (4.20-5.60); RED CELL DISTRIBUTION WIDTH 23.6 % (11.5-14.5); WHITE BLOOD COUNT 19.3 X10'3 (4.5-11.0)
[2025-01-17] MEDS: lactose-reduced food (Ensure Enlive) - 237ml bottle PO SCH (13:00)
[2025-01-17] MEDS ORDERED: sodium ferric gluc complex inj 250 MG in normal saline 100ml IV soln 100 ML IV ONE (13:05)
[2025-01-17] MEDS: oxyCODONE/APAP 5-325mg tablet PO PRN (13:45)
[2025-01-17] MEDS: sodium ferric gluc complex 125 MG/NS IV soln 110 ML BAG IV ONE (14:14)
--- NOTE | 2025-01-17 17:09 | PROGRESS NOTE- Residence ---
Progress Note - Resident Providers to CC Resident Creating Document: PATRICIA VIDAL RES ~ Antibiotic Timeout Antibiotic Ordered?: Yes Subjective Patient was seen and examined at bedside. S/P colostomy revision POD [address] performed on [address] Dr. Delgado is following the patient, covering for Dr Choi unitl . Colostomy output continues to show liquid stool, dark in appearance. Patient is on oral iron supplementation, which may contribute to the discoloration. Hemoglobin has dropped again, and she is currently receiving a PRBC transfusion. An order has been placed for Ferrlecit 125 mg/10 mL IV. We will continue to monitor H&H closely and transfuse as indicated. Objective Vital Signs Date Time Temp Pulse Resp B/P (MAP) Pulse Ox O2 Delivery O2 Flow Rate FiO2 01/17/25 13:45 15 01/17/25 12:38 97.6 85 100/61 (74) 96 Room Air 01/16/25 20:00 0.0 01/15/25 04:29 96 General: Awake and Alert, appears extremely pale HEENT: Conjunctiva pale, Sclera clear, Mucus Membranes moist. Neck: Supple without masses and tenderness. Resp: Unlabored. Lungs clear to auscultation bilaterally. Heart: Regular Rate and rhythm, normal S1 and S2 without murmur, rub or gallop. Abdomen: Tenderness around surgical site, bowel sounds sluggish. Dressing applied; dry and clean. Colostomy output liquid and appears dark. Extremities: No cyanosis,clubbing or edema. Skin: Warm and Dry. Colostomy site appears clean. Surgical drain removed. 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 Choi on January 02. She followed up with his surgeon in clinic yesterday, where she was advised to return today for surgical repair of the colostomy site. She now presents with complaints of increasing bulging, pain, and bleeding at the colostomy site. Sign and symptoms are concerning for parastomal hernia. Plan Plan Parastomal hernia; associated with bulging pain and bleeding S/P colostomy on January 02 Recent h/o of large bowel obstructions S/P repeat lap/partial colectomy with colostomy of transverse colon/sigmoid colon mucous fistula/small bowel resection; POD#3 Pain management; IV Dilaudid on board N/V; Zofran on board IVF; NS 100 mL/hours Cont. Rocephin 1 g IV daily and Flagyl 500 mg IV 3 times daily Local wound care as needed Dr. Choi on board, we will follow his recommendations Surgical drain removed Hilliard's has been removed Output noticed in the colostomy bag. Microcytic hypochromic anemia: More likely ID H&H 8.4/26.8 - hemoglobin 7.0, another PRBC transfused - monitor H&H closely On Ferrous sulfate Ferrlecit 125 mg IV given Severe protein calorie malnutrition: Albumin 1.2, pre albumin pending Ensure ordered Nutrition consult requested Substance use disorder: Last time Meth. use, three months ago care services manager consult Substance use navigator to screen for current cravings or risk of relapse Tobacco use disorder: Counseled patient on smoking cessation Nicotine patch Psychiatric issues/anxiety/Depression: Home medications i.e. Abilify and Atarax resumed DVT prophylaxis: Lovenox Code status: Full code Disposition: Undergone repeat lap/partial colectomy with colostomy (Colostomy revision) on 01/14. Management per Dr. Choi. Monitor HH. Hilliard's and surgical drainage removed. Physical therapy to evaluate. Possible discharge to SNF. Patricia Vidal Internal Medicine Resident Date of Service: January 17, 2025 Billing Provider: ANA REA MD Common Visit Codes: [id number] INP/OBS CARE(HIGH) PATRICIA VIDAL, RES January 17, 2025 17:09 ANA REA MD Feb 09, 2025 22:32
[2025-01-17 17:57] LABS: PREALBUMIN 8.6 MG/DL (19-36)
--- NOTE | 2025-01-17 23:23 | PROGRESS NOTE ---
Progress Note Dictate Providers to CC CC: ANNALISE RAMIRES MD ~ Progress Note: Subsequent surgical care on a 49-year-old woman who is postoperative day 4, Status post revision of colostomy requiring small bowel resection and creation of a mucous fistula. Covering for Dr. Giuliano Choi until morning Tolerating diet Good ostomy output Hemoglobin dropped Transfusion today Continue current management If concerned about GI bleed, patient will need EGD and colonoscopy Antibiotic Ordered?: Yes Objective Vitals Vital Signs Date Time Temp Pulse Resp B/P (MAP) Pulse Ox O2 Delivery O2 Flow Rate FiO2 01/17/25 20:56 16 01/17/25 19:55 97 101/64 (76) 96 Room Air 01/17/25 18:30 97.3 01/16/25 20:00 0.0 01/15/25 04:29 96 Lab Results: 01/17/25 1014 01/17/25 1935 Coagulation Studies Laboratory Tests Test 01/13/25 09:32 Prothrombin Time 10.9 SECONDS (9.0-12.0) INR International Normalized Ratio 1.1 INR Coagulation Comments ANNALISE RAMIRES MD January 17, 2025 23:23
[2025-01-18] VITALS (7 sets, daily range): BP systolic 102–125; BP diastolic 60–71; PULSE 94–101; RESP 12–18; TEMP 97.9–100.3; O2SAT 96–100
[2025-01-18] MEDS: prazosin 1mg capsule PO STA (02:53)
[2025-01-18 04:24] LABS: BASOPHILS % (AUTO) 0.1 % (0-1); EOSINOPHILS # (AUTO) 0.2 X10'3 (0-0.9); EOSINOPHILS % (AUTO) 1.1 % (0-6); HEMATOCRIT 22.4 % (35.0-45.0); HEMOGLOBIN 7.3 g/dl (12.0-16.0); LYMPHOCYTES # (AUTO) 0.9 X10'3 (1.1-4.8); LYMPHOCYTES % (AUTO) 4.1 % (21-51); MEAN CORPUSCULAR HEMOGLOBIN 23.6 PG (27.0-31.0); MEAN CORPUSCULAR HGB CONC 32.4 g/dL (33.0-36.5); MEAN CORPUSCULAR VOLUME 72.8 FL (78-98); MEAN PLATELET VOLUME 6.8 FL (7.4-10.4); MONOCYTES # (AUTO) 0.8 X10'3 (0-0.9); MONOCYTES % (AUTO) 3.5 % (2-12); NEUTROPHILS # (AUTO) 19.5 X10'3 (1.8-7.7); NEUTROPHILS % (AUTO) 91.2 % (42-75); PLATELET COUNT 746 X10'3 (140-440); RED BLOOD COUNT 3.08 X10'6 (4.20-5.60); RED CELL DISTRIBUTION WIDTH 23.1 % (11.5-14.5); WHITE BLOOD COUNT 21.3 X10'3 (4.5-11.0)
[2025-01-18 04:35] LABS: ALANINE AMINOTRANSFERASE 12 U/L (12-78); ALBUMIN/GLOBULIN RATIO 0.3 (1.1-1.5); ALKALINE PHOSPHATASE 94 IU/L (46-116); ANION GAP 8 (8-16); ASPARTATE AMINO TRANSFERASE 14 U/L (10-37); BILIRUBIN,TOTAL 0.3 MG/DL (0.1-1.0); BLOOD UREA NITROGEN 9 MG/DL (7-18); BUN/CREATININE RATIO 14.5 (10.0-20.0); CALCIUM 7.5 MG/DL (8.5-10.1); CHLORIDE 106 MMOL/L (99-107); CREATININE 0.62 MG/DL (0.40-0.90); GLUCOSE 122 MG/DL (70-104); POTASSIUM 4.1 MMOL/L (3.5-5.1); SODIUM 136 MMOL/L (135-145); TOTAL CARBON DIOXIDE 22.5 MMOL/L (24-32); TOTAL PROTEIN 4.2 G/DL (6.4-8.2); eCRCL 92 ML/MIN; eGFR > 90 ML/MIN
[2025-01-18 14:07] LABS: OCCULT BLOOD STOOL POSITIVE (Neg)
--- NOTE | 2025-01-18 16:03 | PROGRESS NOTE- Residence ---
Progress Note - Resident Providers to CC Resident Creating Document: PATRICIA VIDAL RES ~ Antibiotic Timeout Antibiotic Ordered?: Yes Subjective Patient was seen and examined at bedside. S/P colostomy revision POD 6 performed on January 14. Dr. Delgado is following the patient, covering for Dr Choi unitl . Colostomy output continues to show liquid stool, dark in appearance. Her hemoglobin dropped from 8.0-7.3 today. Shewas evaluated at the bedside and reported feeling tired, though she is tolerating a regular diet. Stool occult blood was positive, Dr. Hogan consulted, will EGD tomorrow. WBC is elevated at 21.3 she had previously been on ceftriaxone and Flagyl, which were discontinued by the surgical team 2 days ago. We plan to repeat inflammatory markers i.e. lactic acid, procalcitonin, and CRP. If these markers are elevated, we will resume antibiotic therapy. Objective Vital Signs Date Time Temp Pulse Resp B/P (MAP) Pulse Ox O2 Delivery O2 Flow Rate FiO2 01/18/25 15:44 18 01/18/25 11:00 97.9 94 108/68 (81) 96 Room Air 01/18/25 07:20 0.0 01/18/25 03:33 93 General: Awake and Alert, appears extremely pale HEENT: Conjunctiva pale, Sclera clear, Mucus Membranes moist. Neck: Supple without masses and tenderness. Resp: Unlabored. Lungs clear to auscultation bilaterally. Heart: Regular Rate and rhythm, normal S1 and S2 without murmur, rub or gallop. Abdomen: Tenderness around surgical site, bowel sounds sluggish. Dressing applied; dry and clean. 2 stoma with stoma appliances, Colostomy output brownish Extremities: No cyanosis,clubbing or edema. Skin: Warm and Dry. Colostomy site appears clean. Surgical drain removed. 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 Choi on January 02. She followed up with his surgeon in clinic yesterday, where she was advised to return today for surgical repair of the colostomy site. She now presents with complaints of increasing bulging, pain, and bleeding at the colostomy site. Sign and symptoms are concerning for parastomal hernia. Plan Plan Parastomal hernia; associated with bulging pain and bleeding S/P colostomy on January 02 Recent h/o of large bowel obstructions S/P repeat lap/partial colectomy with colostomy of transverse colon/sigmoid colon mucous fistula/small bowel resection; POD#3 Pain management; IV Dilaudid on board N/V; Zofran on board IVF; NS 100 mL/hours Cont. Rocephin 1 g IV daily and Flagyl 500 mg IV 3 times daily Local wound care as needed Dr. Choi on board, we will follow his recommendations Surgical drain removed Hilliard's has been removed Output noticed in the colostomy bag. Microcytic hypochromic anemia: More likely ID Hemoglobin dropped from 8.0 to 7.6 - monitor H&H closely Stool occult came positive, GI consulted, NPO after midnight, EGD tomorrow. On Ferrous sulfate Received Ferrlecit 125 mg IV given Severe protein calorie malnutrition: Albumin 1.2, pre albumin pending Ensure ordered Nutrition consult requested Substance use disorder: Last time Meth. use, three months ago reference services head consult Substance use navigator to screen for current cravings or risk of relapse Tobacco use disorder: Counseled patient on smoking cessation Nicotine patch Psychiatric issues/anxiety/Depression: Home medications i.e. Abilify and Atarax resumed DVT prophylaxis: Lovenox Code status: Full code Disposition: Undergone repeat lap/partial colectomy with colostomy (Colostomy revision) on 01/14. Management per Dr. Choi. Monitor HH. Hilliard's and surgical drainage removed. Physical therapy to evaluate. Possible discharge to SNF. Inflammatory markers elevated, antibiotics resumed. Patricia Vidal Internal Medicine Resident Date of Service: January 18, 2025 Billing Provider: ANA REA MD Common Visit Codes: [id number] INP/OBS CARE(HIGH) PATRICIA VIDAL, RES January 18, 2025 16:03 ANA REA MD Feb 09, 2025 22:32
[2025-01-18] MEDS: metroNIDAZOLE-Flagyl 500mg/NS 100 ML IV SCH (16:15)
[2025-01-18] MEDS: pantoprazole 40 MG vial IV SCH (16:20)
[2025-01-18] MEDS: CefTRIAXone/D5W-Rocephin 1gm 50 ML IV SCH (17:21)
[2025-01-18] MEDS: prazosin 1mg capsule PO SCH ×2 (20:51→21:00)
--- NOTE | 2025-01-18 21:00 | PROGRESS NOTE ---
Progress Note Dictate Providers to CC CC: ANNALISE RAMIRES MD ~ Progress Note: Subsequent surgical care on a 49-year-old woman who is postoperative day 5, Status post revision of colostomy requiring small bowel resection and creation of a mucous fistula. Covering for Dr. Giuliano Choi until morning Tolerating diet Good ostomy output Her white blood cell count continues to rise and there is intermittent brownish drainage from her [place] drain CT scan ordered for tomorrow morning Dr. Giuliano Choi returns tomorrow I will inform him of the pending CT scan. Antibiotic Ordered?: Yes Objective Vitals Vital Signs Date Time Temp Pulse Resp B/P (MAP) Pulse Ox O2 Delivery O2 Flow Rate FiO2 01/18/25 15:44 18 01/18/25 11:00 97.9 94 108/68 (81) 96 Room Air 01/18/25 07:20 0.0 01/18/25 03:33 93 Lab Results: 01/18/25 0347 01/18/25 0347 Coagulation Studies Laboratory Tests Test 01/13/25 09:32 Prothrombin Time 10.9 SECONDS (9.0-12.0) INR International Normalized Ratio 1.1 INR Coagulation Comments ANNALISE RAMIRES MD January 18, 2025 21:00
[2025-01-18] MEDS: diatr meglu/diatrizoate 30ml oral sol.-(3 dose) bottle PO SCH (23:24)
[2025-01-19] VITALS (20 sets, daily range): BP systolic 86–123; BP diastolic 34–79; PULSE 88–104; RESP 9–26; TEMP 98–99.3; O2SAT 93–100
[2025-01-19] MEDS: diatr meglu/diatrizoate 30ml oral sol.-(3 dose) bottle PO ONE (07:09)
[2025-01-19] MEDS ORDERED: iohexol 300mg/ml 100ml inj. ONE (07:44)
[2025-01-19 12:44] LABS: EOSINOPHILS # (AUTO) 0.3 X10'3 (0-0.9); HEMOGLOBIN 7.1 g/dl (12.0-16.0); RED CELL DISTRIBUTION WIDTH 24.3 % (11.5-14.5)
[2025-01-19 12:46] LABS: BASOPHILS % (AUTO) 0.2 % (0-1); EOSINOPHILS % (AUTO) 1.4 % (0-6); LYMPHOCYTES # (AUTO) 0.9 X10'3 (1.1-4.8); LYMPHOCYTES % (AUTO) 5.1 % (21-51); MEAN CORPUSCULAR HEMOGLOBIN 23.6 PG (27.0-31.0); MEAN CORPUSCULAR HGB CONC 32.5 g/dL (33.0-36.5); MEAN CORPUSCULAR VOLUME 72.6 FL (78-98); MEAN PLATELET VOLUME 6.5 FL (7.4-10.4); MONOCYTES % (AUTO) 5.3 % (2-12); NEUTROPHILS # (AUTO) 15.9 X10'3 (1.8-7.7); PLATELET COUNT 775 X10'3 (140-440); RED BLOOD COUNT 3.02 X10'6 (4.20-5.60); WHITE BLOOD COUNT 18.1 X10'3 (4.5-11.0)
[2025-01-19 12:48] LABS: HEMATOCRIT 21.9 % (35.0-45.0)
[2025-01-19 12:58] LABS: BLOOD UREA NITROGEN 6 MG/DL (7-18); BUN/CREATININE RATIO 12.8 (10.0-20.0); CALCIUM 7.5 MG/DL (8.5-10.1); CREATININE 0.47 MG/DL (0.40-0.90); GLUCOSE 98 MG/DL (70-104); TOTAL CARBON DIOXIDE 26.5 MMOL/L (24-32); eCRCL 121 ML/MIN; eGFR > 90 ML/MIN
[2025-01-19 13:05] LABS: ANION GAP 4 (8-16); CHLORIDE 107 MMOL/L (99-107); POTASSIUM 3.8 MMOL/L (3.5-5.1); SODIUM 137 MMOL/L (135-145)
[2025-01-19] MEDS ORDERED: LIDOcaine 2% Viscous 15ml cup ONE (13:17)
[2025-01-19 13:20] LABS: ANISOCYTOSIS 3+; ELLIPTOCYTES FEW; MICROCYTOSIS 1+; PLATELET ESTIMATE INCREASED; TOTAL CELLS COUNTED 100
[2025-01-19 13:21] LABS: HYPOCHROMASIA 1+
--- NOTE | 2025-01-19 15:03 | RADIOLOGY REPORT ---
CLINICAL INFORMATION: 49 years old, Female; abdominal pain, ostomy status. TECHNIQUE: Axial CT images of the abdomen and pelvis were obtained after the uneventful administrati on of 100 mL Omnipaque 300 IV contrast. Coronal and sagittal reformatted images were obtained, review ed, and stored. The patient ingested oral contrast prior to the examination. All CT scans at this [facility] facility are performed using dose modulation techniques as appropriate to a performed exam inclu ding the following: Automated exposure control was utilized; adjustment of the MA and/or KV according to patient size; and use of iterative reconstruction technique. CTDIvol = 19.17 mGy DLP = 971.98 mGy-cm COMPARISON: CT CT ABDOMEN PELVIS W/ ORAL CONTRAST on DOS: 01/05/25, CT CT ABDOMEN PELVIS W/ ORAL CONTRA ST on DOS: 01/01/25, CT CT ABDOMEN PELVIS W/WO IV CONTRAST on DOS: 12/31/24 FINDINGS: Lung bases: Partially visualized small to moderate bilateral pleural effusions with overlying atelect asis. Liver: Mild hepatomegaly with the liver measuring up to 17 cm in craniocaudal dimension of the midcl avicular line. Biliary: Gallbladder wall appears thickened and edematous. No calcified gallstones visualized. Spleen: Unremarkable. Pancreas: Unremarkable. No inflammatory changes, ductal dilatation, or mass identified. Adrenal glands: Unremarkable. No mass. Kidneys: No hydronephrosis or mass. Aorta/Vascular: No aneurysm or significant calcification. Retroperitoneum: Nonspecific small subcentimeter lymph nodes in the para-aortic and interaortocaval s tations. Bowel/mesentery: Interval postsurgical changes, with new colostomies in the right ventral abdominal w all and left ventral abdominal wall closure of the previous ostomy of the midline ventral abdominal w all. There are cutaneous edda at the midline ventral abdominal wall. There is no small bowel obstr uction. Contrast reaches the colon at the time of imaging. There are fluid-filled small bowel loops i n the central aspect of the abdomen with adjacent surgical anastomosis. There is a large amount of de nse stool in the colon, particularly in the left colon. There is a surgical drain in place coursing i nto the posterior pelvis, adjacent to and partially within a collection of fluid and gas, which may b e contiguous with the rectum. There is a small volume of pneumoperitoneum with scattered small locule s of gas throughout the abdomen and pelvis, likely sequela of recent postsurgical changes. Small amou nt of free fluid in the abdomen and pelvis also noted. There is also gas along the left iliacus muscl e, new compared to the prior exam, may be sequela of postsurgical changes. There is wall thickening i n the right colon, which is nonspecific. Pelvic organs: Grossly unremarkable. Bladder: Small volume gas within the bladder, likely due to recent rodriges catheter placement, although no Rodriges catheter is in place at this time. Abdominal wall: Diffuse body wall edema / anasarca. Bones: No acute fracture or focal intraosseous lesion. IMPRESSION: 1. Interval postsurgical changes as described above. Correlate with surgical history as portions of t he bowel and associated postsurgical changes are difficult to delineate, despite the administration o f GI contrast. 2. Surgical drain in place coursing into the posterior pelvis, appears to be partially within a struc ture containing fluid and gas in the posterior pelvis. The structure appears to be contiguous with t he rectum. Correlate with clinical findings and surgical history. 3. Small volume pneumoperitoneum and small amount of free fluid in the abdomen and pelvis, likely at least partially due to recent postsurgical changes. 4. Colostomies in the right and left ventral abdominal sorensen as described above. 5. Prominent locules of gas adjacent to and within the left iliacus muscle, may be sequela of postsur gical changes, new compared to the prior exam. Correlate with clinical findings and surgical history . 6. No small bowel obstruction. Fluid-filled small bowel loops in the central aspect of the abdomen wi th adjacent surgical anastomosis, likely ileus. 7. Gallbladder wall appears thickened and edematous. May be due to 3rd spacing of fluid. Correlate c linically. If clinically indicated, ultrasound could be obtained to further evaluate.
[2025-01-19] MEDS ORDERED: MIDAZolam 1 MG/ML 5ML VIAL ONE ×2 (16:37)
[2025-01-19] MEDS ORDERED: fentaNYL/PF 50MCG/1 ML 2ML syringe ONE (16:39)
[2025-01-19 19:07] LABS: HEMOGLOBIN 7.1 g/dl (12.0-16.0); MEAN CORPUSCULAR HEMOGLOBIN 23.4 PG (27.0-31.0); MEAN CORPUSCULAR HGB CONC 32.4 g/dL (33.0-36.5)
[2025-01-19 19:09] LABS: MEAN CORPUSCULAR VOLUME 72.2 FL (78-98); MEAN PLATELET VOLUME 6.5 FL (7.4-10.4); PLATELET COUNT 824 X10'3 (140-440); RED BLOOD COUNT 3.03 X10'6 (4.20-5.60); RED CELL DISTRIBUTION WIDTH 24.6 % (11.5-14.5); WHITE BLOOD COUNT 15.9 X10'3 (4.5-11.0)
[2025-01-19 19:18] LABS: HEMATOCRIT 21.9 % (35.0-45.0)
[2025-01-19] MEDS: fluconazole 100mg tablet PO ONE (20:03)
[2025-01-19] MEDS: normal saline 1000ml 1,000 ML IV SCH (20:06)
--- NOTE | 2025-01-19 20:23 | GI LAB REPORT ---
DATE OF PROCEDURE: 01/19/2025 DICTATING PHYSICIAN: Alec Hogan MD PROCEDURE: Esophagogastroduodenoscopy with biopsy. REFERRING PHYSICIAN: Hospitalist and Giuliano Choi MD. HISTORY: The patient is a 49-year-old female with a history of toxic megacolon, status post colectomy of some variation. She has 2 stoma with stoma appliances. She has been experiencing melenic stool from the right one. She has chronic iron deficiency anemia, but her hemoglobin made a sudden drop from the 10 range to the 8 range and now the 6 range. She has significant anorexia, nausea, intermittent vomiting with severe heartburn and odynophagia. Upper endoscopy is being done to evaluate. She was informed of the procedure, risks, complications, expected results, and alternative measures. PREMEDICATIONS: Versed 3 mg, fentanyl 50 mcg given IV push. INSTRUMENT: [employer] video 190 series adult endoscope. DESCRIPTION OF PROCEDURE: The patient was placed in the left lateral decubitus position and the scope was inserted into the esophagus under direct visualization. ESOPHAGUS: Esophageal mucosa in the upper and middle one-thirds were notable for white exudative material consistent with bo. Biopsy was taken for further assessment. The distal one-third had erosions coalescing to circumferential ulcerated mucosa at the distal-most esophagus for about a 1-2 cm circumferential area of involvement. This was located just proximal to the GE junction. No stigmata of bleeding or active bleeding was seen. STOMACH: A 2-3 cm sliding hiatal hernia was seen. No Jake ulcers were noted. Retroflexed view of the cardia and fundus was normal. Moderate amount of retained gastric contents was noted in the gravity-dependent portions of the stomach. This did obscure the body of the stomach from full view. The antrum and prepyloric area had scattered ulcerations ranging in size from 4 to 6 mm. These were oval udxuffr-kzjlb-jvqdv lesions. Biopsies were taken of this area for further assessment. DUODENUM: The pyloric channel was patent and symmetrical. The duodenal bulb was notable for a large ulcer in the proximal duodenal bulb extending to the distal duodenal bulb. It had a yellowish white base with a dark spot at the proximal end. No protuberant lesions, active bleeding, or adherent clots were seen. The ulcer was approximately 1.2 x 3-4 cm. It was located at the apex of the duodenal bulb. The second portion of the duodenum appeared normal. She tolerated the exam well without complication. ASSESSMENT: * Large duodenal ulcer with stigmata of bleeding, but no active bleeding, visible vessel, or adherent clot. * Scattered gastric ulcers in the distal stomach, biopsies taken to evaluate for Helicobacter pylori. * Severe reflux esophagitis, LA grade D. * White exudate of the proximal and middle esophagus consistent with bo. Biopsies were taken for further assessment. * Retained gastric contents obscuring a full view of the gastric mucosa. This is primarily in the body of the stomach. This is likely due to poor gastric performance due to severe active peptic disease. RECOMMENDATIONS: * High-dose IV PPI therapy using Pantop 80 mg IV bolus followed by 8 mg per hour continuous drip for the next 3 days or so. * Fluconazole 100 mg daily x 14 days. * Clear liquid diet, advance slowly as tolerated. * Anti-reflux diet and measures. * Avoid NSAID medications and aspirin. * Follow up biopsy results with further recommendations pending this data. Alec Hogan MD TID: [id number] RECEIPT: [id number] AGAPITO/GUILLERMINA
[2025-01-19] MEDS: pantoprazole 40MG/NS 100ML BAG 100 ML IV SCH (20:31)
[2025-01-20 01:29] LABS: HEMOGLOBIN 7.4 g/dl (12.0-16.0)
[2025-01-20 01:31] LABS: HEMATOCRIT 22.8 % (35.0-45.0); MEAN CORPUSCULAR HEMOGLOBIN 23.1 PG (27.0-31.0); MEAN CORPUSCULAR HGB CONC 32.3 g/dL (33.0-36.5); MEAN CORPUSCULAR VOLUME 71.7 FL (78-98); MEAN PLATELET VOLUME 6.6 FL (7.4-10.4); PLATELET COUNT 857 X10'3 (140-440); RED BLOOD COUNT 3.18 X10'6 (4.20-5.60); RED CELL DISTRIBUTION WIDTH 24.9 % (11.5-14.5); WHITE BLOOD COUNT 16.6 X10'3 (4.5-11.0)
[2025-01-20 06:00] VITALS: BP 105/66; PULSE 90; RESP 20; TEMP 97.3; O2SAT 95
[2025-01-20 08:00] VITALS: RESP 14
--- NOTE | 2025-01-20 08:08 | PROGRESS NOTE- Residence ---
Progress Note - Resident Providers to CC Resident Creating Document: MARY ANN VIDAL RES ~ Antibiotic Timeout Antibiotic Ordered?: Yes Subjective Progress Note for January 19, 2025: Patient was seen and examined at bedside. S/P colostomy revision POD [address] performed on [address] Dr. Delgado is following the patient, covering for Dr Choi unitl . Colostomy output continues to show liquid stool, brown in appearance. Underwent EGD by Dr. Hogan with following findings: Large duodenal ulcer, no active bleeding Scattered gastric ulcers, biopsy taken Severe reflux esophagitis, LA grade D White exudate proximal and middle esophagus, consistent with Maria L Objective Vital Signs Date Time Temp Pulse Resp B/P (MAP) Pulse Ox O2 Delivery O2 Flow Rate FiO2 01/20/25 06:00 97.3 90 20 105/66 (79) 95 Room Air 01/19/25 16:58 0.0 01/18/25 03:33 93 General: Awake and Alert, appears extremely pale HEENT: Conjunctiva pale, Sclera clear, Mucus Membranes moist. Neck: Supple without masses and tenderness. Resp: Unlabored. Lungs clear to auscultation bilaterally. Heart: Regular Rate and rhythm, normal S1 and S2 without murmur, rub or gallop. Abdomen: Tenderness around surgical site, bowel sounds sluggish. Dressing applied; dry and clean. 2 stoma with stoma appliances, Colostomy output brownish Extremities: No cyanosis,clubbing or edema. Skin: Warm and Dry. Colostomy site appears clean. Surgical drain removed. Result Diagram: 01/20/25 0030 01/19/25 1210 Coagulation Studies Laboratory Tests Test 01/13/25 09:32 Prothrombin Time 10.9 SECONDS (9.0-12.0) INR International Normalized Ratio 1.1 INR Coagulation Comments Advance Care Planning Advanced Care plannin - 30 Minutes Assessment Assessment This is a 49 year old female with a history of 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 Choi on January 02. She followed up with his surgeon in clinic yesterday, where she was advised to return today for surgical repair of the colostomy site. She now presents with complaints of increasing bulging, pain, and bleeding at the colostomy site. Sign and symptoms are concerning for parastomal hernia. Plan Plan Parastomal hernia; associated with bulging pain and bleeding S/P colostomy on January 02 Recent h/o of large bowel obstructions S/P repeat lap/partial colectomy with colostomy of transverse colon/sigmoid colon mucous fistula/small bowel resection; POD#3 Pain management; IV Dilaudid on board N/V; Zofran on board IVF; NS 100 mL/hours Cont. Rocephin 1 g IV daily and Flagyl 500 mg IV 3 times daily Local wound care as needed Dr. Choi on board, we will follow his recommendations Surgical drain removed Hilliard's has been removed Brownish Output noticed in the colostomy bag, repeat CT ordered by Dr. Delgado. Microcytic hypochromic anemia: More likely ID Hemoglobin dropped from 8.0 to 7.6 - monitor H&H closely S/P EGD, findings mentioned above. Appreciate recommendations. On Ferrous sulfate Received Ferrlecit 125 mg IV given Severe protein calorie malnutrition: Albumin 1.2, pre albumin pending Ensure ordered Nutrition consult requested Substance use disorder: Last time Meth. use, three months ago director of student services consult Substance use navigator to screen for current cravings or risk of relapse Tobacco use disorder: Counseled patient on smoking cessation Nicotine patch Psychiatric issues/anxiety/Depression: Home medications i.e. Abilify and Atarax resumed DVT prophylaxis: Lovenox Code status: Full code Disposition: Undergone repeat lap/partial colectomy with colostomy (Colostomy revision) on 01/14. Management per Dr. Choi. Monitor HH. Hilliard's and surgical drainage removed. Physical therapy to evaluate. Possible discharge to SNF. Inflammatory markers elevated, antibiotics resumed. [facility] Resident Date of Service: January 19, 2025 Billing Provider: ANA REA MD Common Visit Codes: [id number] INP/OBS CARE(HIGH) MARY ANN VIDAL, GAIL January 20, 2025 08:08 ANA REA MD Feb 09, 2025 22:32
[2025-01-20 09:29] LABS: HIV ANTIBODY 1&2 RAPID NON-REACTIVE (Neg)
[2025-01-20 10:00] VITALS: BP 117/79; PULSE 89; RESP 16; TEMP 98.5; O2SAT 97
--- NOTE | 2025-01-20 13:18 | VASCULAR REPORT ---
VASC VL VENOUS HISTORY: pain COMPARISON: VASC VL VENOUS on DOS: 01/06/25 TECHNIQUE: Duplex Doppler evaluation of the deep venous system of the lower extremity from the common femoral veins, superficial femoral vein, great saphenous vein, deep femoral vein, popliteal vein, an d calf veins, including color Doppler and spectral/pulsed waveform analysis, was performed. FINDINGS: Right: - Common femoral vein: Compressible - Deep femoral vein: Compressible - Femoral vein: Compressible - Popliteal vein: Compressible - Posterior tibial vein: Waveforms present - Other: Nothing Left: - Common femoral vein: Compressible - Deep femoral vein: Compressible - Femoral vein: Compressible - Popliteal vein: Compressible - Posterior tibial vein: Waveforms present - Other: Nothing IMPRESSION: No right or left lower extremity deep venous thrombosis.
[2025-01-20] MEDS: hydrOXYzine 25 MG tablet PO PRN (13:20)
[2025-01-20] MEDS: traMADol 50MG tablet PO PRN (13:20)
--- NOTE | 2025-01-20 14:13 | PROGRESS NOTE ---
Progress Note ID Providers to CC ~ Progress Note Progress Note: complains of pain/vss/abd-stoma patent/labs noted a/p 1. s/p stoma revision-slow progress/cont antibx DELPHINE RAZO MD January 20, 2025 14:13
--- NOTE | 2025-01-20 15:19 | PROGRESS NOTE- Residence ---
Progress Note - Resident Providers to CC Resident Creating Document: PATRICIA VIDAL RES ~ Antibiotic Timeout Antibiotic Ordered?: Yes Subjective Patient was seen and examined at bedside. She reports abdominal pain, however, able to tolerate oral intake. She also had BM and able to pass gas. Undergone EGD yesterday with duodenal, gastric ulcers and reflux esophagitis consistent with Maria L. She is started on Protonix drip for three days, and fluconazole. Patient is not on anticoagulation in view of GI bleeding, SCD ordered. Objective Vital Signs Date Time Temp Pulse Resp B/P (MAP) Pulse Ox O2 Delivery O2 Flow Rate FiO2 01/20/25 06:00 97.3 90 20 105/66 (79) 95 Room Air 01/19/25 16:58 0.0 01/18/25 03:33 93 General: Awake and Alert, appears extremely pale HEENT: Conjunctiva pale, Sclera clear, Mucus Membranes moist. Neck: Supple without masses and tenderness. Resp: Unlabored. Lungs clear to auscultation bilaterally. Heart: Regular Rate and rhythm, normal S1 and S2 without murmur, rub or gallop. Abdomen: Tenderness around surgical site, bowel sounds sluggish. Dressing applied; dry and clean. 2 stoma with stoma appliances, Colostomy output brownish Extremities: No cyanosis,clubbing or edema. Skin: Warm and Dry. Colostomy site appears clean. Surgical drain removed. Result Diagram: 01/20/25 0030 01/19/25 1210 Coagulation Studies Laboratory Tests Test 01/13/25 09:32 Prothrombin Time 10.9 SECONDS (9.0-12.0) INR International Normalized Ratio 1.1 INR Coagulation Comments Advance Care Planning Advanced Care plannin - 30 Minutes Assessment Assessment This is a 49 year old female with a history of 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 Choi on January 02. She followed up with his surgeon in clinic yesterday, where she was advised to return today for surgical repair of the colostomy site. She now presents with complaints of increasing bulging, pain, and bleeding at the colostomy site. Sign and symptoms are concerning for parastomal hernia. Plan Plan Parastomal hernia; associated with bulging pain and bleeding S/P colostomy on January 02 Recent h/o of large bowel obstructions S/P repeat lap/partial colectomy with colostomy of transverse colon/sigmoid colon mucous fistula/small bowel resection; POD#6 Pain management; IV Dilaudid on board N/V; Zofran on board IVF; NS 100 mL/hours Cont. Rocephin 1 g IV daily and Flagyl 500 mg IV 3 times daily Local wound care as needed Repeat CT shows Fluid-filled small bowel loops in the central aspect of the abdomen with adjacent surgical anastomosis, likely ileus. Dr. Choi on board. Lower extremity US, no DVT. Microcytic hypochromic anemia: More likely ID Hemoglobin dropped from 8.0 to 7.6 - monitor H&H closely S/P EGD, findings mentioned above. Appreciate recommendations. On Ferrous sulfate Received Ferrlecit 125 mg IV given Severe protein calorie malnutrition: Albumin 1.2, pre albumin pending Ensure ordered Nutrition consult requested Substance use disorder: Last time Meth. use, three months ago hospitality services manager consult Substance use navigator to screen for current cravings or risk of relapse Tobacco use disorder: Counseled patient on smoking cessation Nicotine patch Psychiatric issues/anxiety/Depression: Home medications i.e. Abilify and Atarax resumed Chronic pain issues: Gabapentin and tramadol DVT prophylaxis: Lovenox Code status: Full code Disposition: Undergone repeat lap/partial colectomy with colostomy (Colostomy revision) on 01/14. Management per Dr. Choi. Monitor HH. Patricia Vidal Internal Medicine Resident Date of Service: January 20, 2025 Billing Provider: ANA REA MD Common Visit Codes: [id number] INP/OBS CARE(HIGH) PATRICIA VIDAL, RES January 20, 2025 15:19 ANA REA MD Feb 09, 2025 22:33
[2025-01-20] MEDS: gabapentin 300mg capsule PO SCH (16:25)
[2025-01-20 18:00] VITALS: BP 144/78; PULSE 95; RESP 18; TEMP 99.8; O2SAT 96
[2025-01-20 20:00] VITALS: RESP 16; O2SAT 96
[2025-01-20] MEDS: fluconazole 100mg tablet PO SCH (20:48)
[2025-01-20 22:00] VITALS: BP 110/68; PULSE 103; RESP 22; TEMP 99.9; O2SAT 96
[2025-01-21] VITALS (8 sets, daily range): BP systolic 111–144; BP diastolic 70–91; PULSE 95–112; RESP 14–20; TEMP 98.6–100.2; O2SAT 96–99
[2025-01-21] MEDS: pantoprazole 40 MG vial IV SCH (07:24)
[2025-01-21] MEDS ORDERED: sevoflurane 250ml liquid IH ONE ×2 (09:15→20:15)
--- NOTE | 2025-01-21 10:59 | PROGRESS NOTE ---
Progress Note ID Providers to CC ~ Progress Note Progress Note: pt now with stool in drain-needs repeat lap-discussed procedure including risks/benefits/alternatives DELPHINE RAZO MD January 21, 2025 10:59
--- NOTE | 2025-01-21 14:35 | PROGRESS NOTE- Residence ---
Progress Note - Resident Providers to CC Resident Creating Document: MARY ANN VIDAL RES ~ Antibiotic Timeout Antibiotic Ordered?: Yes Subjective Patient was seen and examined at bedside. She reports abdominal pain, however, able to tolerate oral intake. She also had BM and able to pass gas. She is NPO for another surgical intervention. Undergone EGD yesterday with duodenal, gastric ulcers and reflux esophagitis consistent with Maria L. She is started on Protonix drip for three days, and fluconazole. Patient is not on anticoagulation in view of GI bleeding, SCD ordered. Objective Vital Signs Date Time Temp Pulse Resp B/P (MAP) Pulse Ox O2 Delivery O2 Flow Rate FiO2 01/21/25 14:28 16 01/21/25 06:26 98.9 97 111/75 (87) 96 Room Air 01/19/25 16:58 0.0 01/18/25 03:33 93 General: Awake and Alert, appears extremely pale HEENT: Conjunctiva pale, Sclera clear, Mucus Membranes moist. Neck: Supple without masses and tenderness. Resp: Unlabored. Lungs clear to auscultation bilaterally. Heart: Regular Rate and rhythm, normal S1 and S2 without murmur, rub or gallop. Abdomen: Tenderness around surgical site, bowel sounds sluggish. Dressing applied; dry and clean. 2 stoma with stoma appliances, Colostomy output brownish Extremities: No cyanosis,clubbing or edema. Skin: Warm and Dry. Colostomy site appears clean. Surgical drain removed. Result Diagram: 01/20/25 0030 01/19/25 1210 Coagulation Studies Laboratory Tests Test 01/13/25 09:32 Prothrombin Time 10.9 SECONDS (9.0-12.0) INR International Normalized Ratio 1.1 INR Coagulation Comments Advance Care Planning Advanced Care plannin - 30 Minutes Assessment Assessment This is a 49 year old female with a history of 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 Choi on January 02. She followed up with his surgeon in clinic yesterday, where she was advised to return today for surgical repair of the colostomy site. She now presents with complaints of increasing bulging, pain, and bleeding at the colostomy site. Sign and symptoms are concerning for parastomal hernia. Plan Plan Parastomal hernia; associated with bulging pain and bleeding S/P colostomy on January 02 Recent h/o of large bowel obstructions S/P repeat lap/partial colectomy with colostomy of transverse colon/sigmoid colon mucous fistula/small bowel resection; POD#6 Pain management; IV Dilaudid on board N/V; Zofran on board IVF; NS 100 mL/hours Cont. Rocephin 1 g IV daily and Flagyl 500 mg IV 3 times daily Local wound care as needed Repeat CT shows Fluid-filled small bowel loops in the central aspect of the abdomen with adjacent surgical anastomosis, likely ileus. Dr. Choi on board. Lower extremity US, no DVT. Microcytic hypochromic anemia: More likely KAYLEE Hemoglobin dropped from 8.0 to 7.6 - monitor H&H closely S/P EGD, findings mentioned above. Appreciate recommendations. On Ferrous sulfate Received Ferrlecit 125 mg IV given Severe protein calorie malnutrition: Albumin 1.2, pre albumin pending Ensure ordered Dietitian on board Substance use disorder: Last time Meth. use, three months ago public services assistant consult Substance use navigator to screen for current cravings or risk of relapse Tobacco use disorder: Counseled patient on smoking cessation Nicotine patch Psychiatric issues/anxiety/Depression: Home medications i.e. Abilify and Atarax resumed Chronic pain issues: Gabapentin and tramadol DVT prophylaxis: Lovenox Code status: Full code Disposition: Undergone repeat lap/partial colectomy with colostomy (Colostomy revision) on 01/14. Monitor HH. Managed primarily by Dr. Choi. [facility] Resident Date of Service: January 21, 2025 Billing Provider: TANIKA VOSS MD Common Visit Codes: [id number] INP/OBS CARE(HIGH) MARY ANN VIDAL, RES January 21, 2025 14:35 TANIKA VOSS MD January 21, 2025 19:02
[2025-01-21] MEDS ORDERED: dextrose 50%-water 50ml dispensing syringe IV PRN ×2 (18:55)
[2025-01-21] MEDS ORDERED: glucagon, human recombinant 1mg kit SUBCUT PRN (18:55)
[2025-01-21] MEDS ORDERED: DEXTROSE 15 GM of carb/4 tabs (each vial/BOTTLE has 4 tablets) PO PRN ×2 (18:55)
[2025-01-21] MEDS: dextrose 50%-water 50ml dispensing syringe IV ONE (18:55)
[2025-01-21] MEDS ORDERED: fentaNYL /PF 50mcg/ml 5ml ampule ONE (20:14)
[2025-01-21] MEDS ORDERED: midazolam 1 mg/ML 2ml injection ONE (20:14)
[2025-01-21] MEDS ORDERED: propofol inj 20 ML IV ONE (20:15)
[2025-01-21] MEDS ORDERED: rocuronium 10mg/ml inj IV ONE (20:15)
[2025-01-21] MEDS ORDERED: albumin (Human) 5% 250ml 250 ML IV ONE ×2 (21:25)
[2025-01-21] MEDS ORDERED: dexamethasone sod phosphate 4mg/ml inj. ONE (21:25)
[2025-01-21] MEDS ORDERED: HYDROmorphone/PF 0.2 MG/ML SYRINGE IV PRN ×2 (21:40)
[2025-01-21] MEDS ORDERED: ondansetron/PF 4mg/2ml inj IV PRN ×2 (21:40→22:55)
[2025-01-21] MEDS ORDERED: morphine 4 MG/ML inj SYRINge IV PRN (21:40)
[2025-01-21] MEDS ORDERED: morphine 2 MG/ML inj. syringe IV PRN (21:40)
--- NOTE | 2025-01-21 22:53 | OPERATIVE REPORT ---
Operative Report Providers to CC ~ Date of Procedure: January 21, 2025 Pre-Operative Diagnosis: FECULENT DRAINAGE Post-Operative Diagnosis SAME as PRE-Op Procedure Performed REPEAT LAP/LEFT COLECTOMY/RECTAL RESECTION Surgeon: DANNI Settlement Technician NONE Anesthesiologist: Austin Haynes Type of Anesthesia: General Findings: ISCHEMIC RECTUM WITH LEAK Estimated Blood Loss: 250 ML Specimen Removed: LEFT COLON/RECTUM DELPHINE RAZO MD January 21, 2025 22:53
[2025-01-21] MEDS ORDERED: PCA WASTE DOCUMENTATION 1 MG ML MC SCH (22:55)
[2025-01-21] MEDS ORDERED: naloxone 0.4 mg/ml inj IV PRN (22:55)
[2025-01-21] MEDS: FENTANYL-0.9 % NACL/PF 100 ML IV SCH (23:54)
[2025-01-21] MEDS: propofol 1000mg/100ml bottle 100 ML IV SCH (23:54)
[2025-01-22] VITALS (42 sets, daily range): BP systolic 81–116; BP diastolic 5–76; PULSE 58–111; RESP 8–20; O2SAT 92–99
--- NOTE | 2025-01-22 00:10 | RADIOLOGY REPORT ---
CHEST RADIOGRAPH Indication: POST OP Technique: Single frontal view of the chest was obtained COMPARISON: DI CHEST,SINGLE VIEW on DOS: 12/31/24, CHEST,SINGLE VIEW on DOS: 12/25/21 FINDINGS / IMPRESSION: Lines and Tubes: Tip of the ETT is approximately 5 cm above the kwame. Right IJ central venous cynthia ter noted with its tip projecting over SVC. NG tube extends below the diaphragm with its tip projecti ng over gastric fundus. Lungs / Pleura: Evidence of mild pulmonary edema. Bibasilar atelectasis/consolidation and small bila teral pleural effusions greater on the left side. Cardiomediastinal contours: Unremarkable.
[2025-01-22] MEDS: ringers solution, lacted 1,000 ML IV SCH ×2 (00:40→14:21)
[2025-01-22] MEDS: potassium CL 20mEq in D5-1/2NS 1,000 ML IV SCH (00:45)
[2025-01-22] MEDS: potassium CL 20mEq in D5-1/2NS 1,000 ML IV ONE (00:52)
[2025-01-22 00:54] LABS: EOSINOPHILS % (AUTO) 0.3 % (0-6); HEMOGLOBIN 9.2 g/dl (12.0-16.0); LYMPHOCYTES # (AUTO) 0.5 X10'3 (1.1-4.8); MEAN PLATELET VOLUME 6.5 FL (7.4-10.4)
[2025-01-22 00:56] LABS: BASOPHILS % (AUTO) 0.3 % (0-1); HEMATOCRIT 28.1 % (35.0-45.0); LYMPHOCYTES % (AUTO) 3.7 % (21-51); MEAN CORPUSCULAR HEMOGLOBIN 24.9 PG (27.0-31.0); MEAN CORPUSCULAR HGB CONC 32.8 g/dL (33.0-36.5); MEAN CORPUSCULAR VOLUME 75.9 FL (78-98); MONOCYTES # (AUTO) 0.6 X10'3 (0-0.9); MONOCYTES % (AUTO) 4.2 % (2-12); NEUTROPHILS # (AUTO) 13.2 X10'3 (1.8-7.7); NEUTROPHILS % (AUTO) 91.5 % (42-75); PLATELET COUNT 916 X10'3 (140-440); RED CELL DISTRIBUTION WIDTH 25.3 % (11.5-14.5); WHITE BLOOD COUNT 14.5 X10'3 (4.5-11.0)
[2025-01-22 01:09] LABS: ALANINE AMINOTRANSFERASE 7 U/L (12-78); ALBUMIN 1.5 G/DL (3.4-5.0); ALBUMIN/GLOBULIN RATIO 0.5 (1.1-1.5); ALKALINE PHOSPHATASE 110 IU/L (46-116); ANION GAP 9 (8-16); ASPARTATE AMINO TRANSFERASE 13 U/L (10-37); BLOOD UREA NITROGEN 4 MG/DL (7-18); CALCIUM 7.1 MG/DL (8.5-10.1); CHLORIDE 105 MMOL/L (99-107); CREATININE 0.57 MG/DL (0.40-0.90); GLUCOSE 133 MG/DL (70-104); MAGNESIUM 1.4 MG/DL (1.5-2.4); PHOSPHORUS 3.9 MG/DL (2.3-4.5); POTASSIUM 3.6 MMOL/L (3.5-5.1); SODIUM 138 MMOL/L (135-145); TOTAL PROTEIN 4.6 G/DL (6.4-8.2); TRIGLYCERIDES 106 MG/DL (20-135); eCRCL 100 ML/MIN; eGFR > 90 ML/MIN
[2025-01-22 01:32] LABS: ABG BASE EXCESS -3.4 mmol/L (-2.0-3.0); ABG HCO3 20.7 mmol/L (21.0-28.0); ABG PCO2 (T) 33.4 mmHg (32.0-45.0); ABG PO2 (T) 136.4 mmHg (83.0-108.0); ALLEN'S TEST Modified; FCOHb 1.9 % (0.5-1.5); FMetHb 0.3 % (0.0-1.5); FO2Hb 96.8 % (94.0-98.0); MODE VENT- SIMV VC; PATIENT TEMPERATURE 37.1; PEEP 5 cm H2O; RESPIRATORY RATE 12 b/min; TIDAL VOLUME 500 mL; TOTAL HEMOGLOBIN 9.5 G/dl (12.0-16.0)
[2025-01-22 01:38] LABS: ANISOCYTOSIS 3+; MICROCYTOSIS 1+; PLATELET ESTIMATE INCREASED; TOTAL CELLS COUNTED 100
[2025-01-22] MEDS: piperacillin/tazo 3.375gm/50ml 50 ML IV SCH (01:43)
[2025-01-22] MEDS: piperacillin/tazo 3.375gm/50ml 50 ML IV ONE (01:44)
[2025-01-22] MEDS ORDERED: magnesium Cl slow-release 64mg tablet PO PRN (02:55)
[2025-01-22] MEDS ORDERED: potassium Cl 40MEQ/1/2NS 520ml 520 ML IV PRN (02:55)
[2025-01-22] MEDS ORDERED: potassium Cl 20 mEq SR tablet PO PRN (02:55)
[2025-01-22] MEDS: magnesium sulf-water 2g/50mL 50 ML IV PRN (03:23)
[2025-01-22] MEDS: magnesium sulf-water 4G/100mL 100 ML IV PRN (05:30)
--- NOTE | 2025-01-22 08:19 | RADIOLOGY REPORT ---
CHEST RADIOGRAPH Indication: Intubated Technique: Single frontal view of the chest was obtained COMPARISON: DI CHEST,SINGLE VIEW on DOS: 01/21/25, DI CHEST,SINGLE VIEW on DOS: 12/31/24, CHEST,SINGLE V IEW on DOS: 12/25/21 FINDINGS: Lines and Tubes: Endotracheal tube, enteric catheter and right central venous catheter in satisfactor y position. Lungs: Congestion Pleura: Small left pleural effusion No pneumothorax. Cardiomediastinal contours: Unremarkable Bones: Unremarkable IMPRESSION: Lines and tubes in satisfactory position. No significant interval change.
[2025-01-22] MEDS: albumin (Human) 5% 250ml 250 ML IV ONE ×2 (08:46→10:09)
--- NOTE | 2025-01-22 09:02 | PROGRESS NOTE ---
Progress Note ID Providers to CC ~ Progress Note Progress Note: sedated/vss/abd-distended/drain output noted/labs noted a/p 1. s/p repeat lap with partial colectomy/back to or thursday DELPHINE RAZO MD January 22, 2025 09:02
[2025-01-22] MEDS: VASOPRESSIN 20 UNITS/NS 100mL 100 ML IV SCH (11:20)
[2025-01-22] MEDS: NORepinephrine 8mg/ 250ml NS 250 ML IV SCH (12:15)
--- NOTE | 2025-01-22 14:53 | CONSULTATION REPORT ---
Consult Providers to CC ~ History of Present Illness Reason for Admit\\Complaint: Abdominal pain History of Present Illness S/P Jadon-colectomy + Colostomy + SB resection. Re-laparotomy with Rectum resection due to Rectum Ischemia. Currently on Mechanical Ventilation. Schedule for OR in next 24-48h. Allergies: Coded Allergies: lithium (Verified Allergy, Intermediate, "beyong angry", 12/30/24) egg yolk (Verified Allergy, Unknown, 12/30/24) wheat (Verified Adverse Reaction, Unknown, VOMITING/CRAMPING, 12/30/24) Uncoded Allergies: DAIRY (Adverse Reaction, Unknown, VOMITING/CRAMPING, 06/27/15) Home Medications Home Medications Active Dulcolax Stool Softener (Docusate Sodium) 100 Mg Capsule 1 Cap PO DAILY 30 Days Reported [place] 5/325 MG (Acetaminophen/Hydrocodone Bitart) 5 Mg/325 Mg Tablet 1 Tab PO Q6H PRN Atarax* (Hydroxyzine HCl) 25 Mg Tablet 1 Tab PO Q8H PRN Prazosin Hcl 1 Mg Capsule 1 Cap PO HS Aripiprazole 10 Mg Tablet 1 Tab PO DAILY Past Medical History Past Medical History See H&P JEFFREY ROS Unable to obtain, Intubated Exam Vitals: Vital Signs Date Time Temp Pulse Resp B/P (MAP) Pulse Ox O2 Delivery O2 Flow Rate FiO2 01/22/25 14:20 98/64 01/22/25 14:00 99.3 65 12 98 Mechanical Ventilator 40 01/22/25 08:00 0.0 General: Critically ill HEENT: TAMARA Neck: Supple, No JVD Chest: Decrease BS at bases Cardiovascular: S1-2 reg Abdomen: BS (-) Extremities: No edema Central Nervous System: Sedated Diagnostic Data Last Recorded Lab Results: 01/22/25 0040 01/22/25 0040 Diagnostic Data: Laboratory Tests Test 01/13/25 09:32 Prothrombin Time 10.9 SECONDS (9.0-12.0) INR International Normalized Ratio 1.1 INR Coagulation Comments Additional Plan 1-Post-op Resp Failure NOT related to Surgical procedure -F/U ABG, CXR -Weaning trials once done with all surgical interventions -Supportive Jaime Mata CC time 35min Sepsis Screening Reassessment Date: January 22, 2025 LISBETH MATA MD January 22, 2025 14:53
--- NOTE | 2025-01-22 17:47 | PROGRESS NOTE- Residence ---
Progress Note - Resident Providers to CC Resident Creating Document: RAMON SHAH, RES ~ Antibiotic Timeout Antibiotic Ordered?: Yes Subjective Patient was seen and examined at bedside. Sedated and intubated. Abdomen is distended with minimal urine output. Lap with partial colectomy Surgery tomorrow morning by Dr. Castro. NPO after midnight Objective Vital Signs Date Time Temp Pulse Resp B/P (MAP) Pulse Ox O2 Delivery O2 Flow Rate FiO2 01/22/25 17:24 85/54 01/22/25 17:05 60 12 97 40 01/22/25 17:00 98.8 Mechanical Ventilator 01/22/25 08:00 0.0 Result Diagram: 01/22/250 01/22/25 0040 General: Awake and Alert, appears extremely pale HEENT: Conjunctiva pale, Sclera clear, Mucus Membranes moist. Neck: Supple without masses and tenderness. Resp: Unlabored. Lungs clear to auscultation bilaterally. Heart: Regular Rate and rhythm, normal S1 and S2 without murmur, rub or gallop. Abdomen: Tenderness around surgical site, bowel sounds sluggish. Dressing applied; dry and clean. 2 stoma with stoma appliances, Colostomy output brownish Extremities: No cyanosis,clubbing or edema. Skin: Warm and Dry. Colostomy site appears clean. 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 Choi on January 02. She followed up with his surgeon in clinic yesterday, where she was advised to return today for surgical repair of the colostomy site. She now presents with complaints of increasing bulging, pain, and bleeding at the colostomy site. Sign and symptoms are concerning for parastomal hernia. Plan Plan Parastomal hernia; associated with bulging pain and bleeding S/P colostomy on January 02 Recent h/o of large bowel obstructions S/P repeat lap/partial colectomy with colostomy of transverse colon/sigmoid colon mucous fistula/small bowel resection; POD#6 Pain management; IV Dilaudid on board N/V; Zofran on board IVF; NS 100 mL/hours Cont. Rocephin 1 g IV daily and Flagyl 500 mg IV 3 times daily Local wound care as needed Repeat CT shows Fluid-filled small bowel loops in the central aspect of the abdomen with adjacent surgical anastomosis, likely ileus. Dr. Choi on board. Lower extremity US, no DVT. 01/22/2025: Scheduled for exploratory laparotomy tomorrow Microcytic hypochromic anemia: More likely KAYLEE Hemoglobin dropped from 8.0 to 7.6 - monitor H&H closely S/P EGD, findings mentioned above. Appreciate recommendations. On Ferrous sulfate Received Ferrlecit 125 mg IV given Severe protein calorie malnutrition: Albumin 1.2, pre albumin pending Ensure ordered Dietitian on board Substance use disorder: Last time Meth. use, three months ago assessment services manager consult Substance use navigator to screen for current cravings or risk of relapse Tobacco use disorder: Counseled patient on smoking cessation Nicotine patch Psychiatric issues/anxiety/Depression: Home medications i.e. Abilify and Atarax resumed Chronic pain issues: Gabapentin and tramadol DVT prophylaxis: Lovenox Code status: Full code Disposition: Surgery tomorrow. Managed primarily by Dr. Choi. Ramon Mccauley Internal Medicine Resident Date of Service: January 22, 2025 Billing Provider: TANIKA VOSS MD Common Visit Codes: [id number] INP/OBS CARE(MOD) RAMON SHAH, RES January 22, 2025 17:47 TANIKA VOSS MD January 22, 2025 18:42
[2025-01-23] VITALS (34 sets, daily range): BP systolic 89–119; BP diastolic 55–81; PULSE 56–77; RESP 8–28; O2SAT 91–100
[2025-01-23 02:13] LABS: BASOPHILS % (AUTO) 0 % (0-1); EOSINOPHILS % (AUTO) 0 % (0-6); LYMPHOCYTES # (AUTO) 0.8 X10'3 (1.1-4.8); MEAN PLATELET VOLUME 6.9 FL (7.4-10.4)
[2025-01-23 02:15] LABS: HEMATOCRIT 23.9 % (35.0-45.0); HEMOGLOBIN 7.7 g/dl (12.0-16.0); LYMPHOCYTES % (AUTO) 3.6 % (21-51); MEAN CORPUSCULAR HEMOGLOBIN 24.5 PG (27.0-31.0); MEAN CORPUSCULAR HGB CONC 32.1 g/dL (33.0-36.5); MEAN CORPUSCULAR VOLUME 76.5 FL (78-98); MONOCYTES # (AUTO) 1.3 X10'3 (0-0.9); MONOCYTES % (AUTO) 6.1 % (2-12); NEUTROPHILS % (AUTO) 90.3 % (42-75); PLATELET COUNT 892 X10'3 (140-440); RED BLOOD COUNT 3.13 X10'6 (4.20-5.60); RED CELL DISTRIBUTION WIDTH 25.3 % (11.5-14.5); WHITE BLOOD COUNT 22.2 X10'3 (4.5-11.0)
[2025-01-23 02:32] LABS: ALANINE AMINOTRANSFERASE 7 U/L (12-78); ALBUMIN 1.7 G/DL (3.4-5.0); ALBUMIN/GLOBULIN RATIO 0.6 (1.1-1.5); ALKALINE PHOSPHATASE 103 IU/L (46-116); ANION GAP 7 (8-16); ASPARTATE AMINO TRANSFERASE 8 U/L (10-37); BILIRUBIN,TOTAL 0.3 MG/DL (0.1-1.0); BLOOD UREA NITROGEN 5 MG/DL (7-18); BUN/CREATININE RATIO 12.5 (10.0-20.0); CALCIUM 7.1 MG/DL (8.5-10.1); CHLORIDE 105 MMOL/L (99-107); GLUCOSE 128 MG/DL (70-104); MAGNESIUM 2.4 MG/DL (1.5-2.4); PHOSPHORUS 3.8 MG/DL (2.3-4.5); POTASSIUM 4.6 MMOL/L (3.5-5.1); SODIUM 138 MMOL/L (135-145); TOTAL PROTEIN 4.6 G/DL (6.4-8.2); eCRCL 142 ML/MIN; eGFR > 90 ML/MIN
[2025-01-23 03:01] LABS: TOTAL CELLS COUNTED 100
[2025-01-23 03:02] LABS: ANISOCYTOSIS 3+; MICROCYTOSIS 1+; PLATELET ESTIMATE INCREASED
[2025-01-23 03:03] LABS: ABG HCO3 23.3 mmol/L (21.0-28.0); ABG OXYGEN SATURATION 98.8 % (94.0-98.0); ABG PH (T) 7.417 (7.350-7.450); ABG PO2 (T) 116.6 mmHg (83.0-108.0); FCOHb 2.2 % (0.5-1.5); FHHb 1.2 % (0.0-5.0); FMetHb 0.3 % (0.0-1.5); FO2Hb 96.3 % (94.0-98.0); MODE VENT - SIMV; PATIENT TEMPERATURE 37.2; PEEP 5 cm H2O; RESPIRATORY RATE 8 b/min; TIDAL VOLUME 500 mL; TOTAL HEMOGLOBIN 8.1 G/dl (12.0-16.0)
--- NOTE | 2025-01-23 06:10 | RADIOLOGY REPORT ---
Procedure: DI CHEST,SINGLE VIEW 01/23/2025 05:35 AM Indication: ett Comparison: DI CHEST,SINGLE VIEW on DOS: 01/22/25, DI CHEST,SINGLE VIEW on DOS: 01/21/25, DI CHEST,SING LE VIEW on DOS: 12/31/24, CHEST,SINGLE VIEW on DOS: 12/25/21, DI CHEST,SINGLE VIEW on DOS: 01/22/25 TECHNIQUE: Single frontal view of the chest was obtained FINDINGS: Lines and Tubes: Endotracheal tube, enteric catheter and right central venous catheter in satisfactor y position. Lungs: Congestion Pleura: Small left pleural effusion No pneumothorax. Cardiomediastinal contours: Unremarkable Bones: Unremarkable IMPRESSION: Lines and tubes in satisfactory position. No significant interval change.
--- NOTE | 2025-01-23 07:00 | OPERATIVE REPORT ---
DATE OF SURGERY: 01/21/2025 DICTATING PHYSICIAN: Giuliano Choi MD PREOPERATIVE DIAGNOSIS: Feculent drainage, status post laparotomy. POSTOPERATIVE DIAGNOSIS: Feculent drainage, status post laparotomy. PROCEDURES PERFORMED: * Repeat laparotomy. * Left colectomy. * Rectal resection. SURGEON: Giuliano Choi MD SOAP WORKER: None. ANESTHESIA: General/Dr. Haynes. DRAINS: Maynor x 1. INDICATIONS FOR OPERATION: A 49-year-old female developed a rectal stricture after surgical procedure for repair of a prolapsed rectum a number of years ago. The patient initially underwent a diverting colostomy, which was ineffective, underwent revision of the colostomy to an end-colostomy and mucous fistula with oversewing the rectal stump. The patient developed feculent drainage from the drain and was taken back to surgery for repeat laparotomy and exploration. INTRAOPERATIVE FINDINGS: The patient had ischemic rectum, which was leaking stool. The left colon appeared to be full of stool, could not be emptied adequately. There was a large amount of contamination present in the peritoneal cavity. DESCRIPTION OF PROCEDURE: The patient was placed supine on the operating room table after the induction of general anesthesia with endotracheal tube. The patient underwent attempted disimpaction of the mucous fistula. A fairly large amount of stool was removed. The colostomy was then closed. The abdomen was then prepped and draped. Abdomen was reopened. The patient's cultures were obtained of the wound and abdominal cavity. The patient had a large amount of contamination in the pelvis. Adhesions were then taken down. The distal transverse colon and left colon were quite thickened and full of stool. Given concerns about colitis, splenic flexure was taken down and the distal transverse and proximal left colon were resected. Mesentery was divided using LigaSure device. The small bowel was then run from ligament of Treitz to ileocecal valve. Extensive adhesions were taken down. the pelvis. Attention was then turned to the pelvis and the rectal stump. The rectal stump appeared to be ischemic and stool emanating from the previously placed suture line. Suture line was taken down. The patient had a large amount of stool in the rectum, which was evacuated. The rectum was found to be ischemic. Rectum was subsequently resected down to the level of the stricture identified stricture. Hemostasis was found to be adequate. The abdominal cavity was copiously irrigated with large amount of antibiotic-containing solution. There was still some contamination. So, a decision was made to just close the skin and bring her back in 20 to 36 hours for a repeat washout prior to maturing the colostomy. Dressing was applied. The patient was transferred to the ICU in critical condition. Giuliano Choi MD TID: [id number] RECEIPT: [id number] LESA/JOSÉ ANTONIO/MILI
--- NOTE | 2025-01-23 09:27 | PROGRESS NOTE- Residence ---
Progress Note - Resident Providers to CC Resident Creating Document: PATRICIA VIDAL RES ~ Antibiotic Timeout Antibiotic Ordered?: Yes Subjective Patient was seen and examined and CICU. She underwent an explorative laparotomy; with abdominal washout and partial colectomy on 01/21/25. Intraoperative findings revealed ischemic rectum with stool leakage in the left colon distended with stool that could not be adequately decompressed. There was significant contamination in the peritoneal cavity. Surgical intervention including a repeat laparotomy left colostomy creation, and rectal resection - POD#2. She is planned to undergo repeat exploratory laparotomy with abdominal washout today. she remained intubated and mechanically ventilated in the ICU with a FiO2 of 30%. Objective Vital Signs Date Time Temp Pulse Resp B/P (MAP) Pulse Ox O2 Delivery O2 Flow Rate FiO2 01/23/25 08:14 101/66 01/23/25 08:00 99.1 62 12 99 Mechanical Ventilator 30 01/23/25 08:00 0.0 General: Sedated, intubated, and mechanically ventilated; FiO2 30% HEENT: Conjunctiva pale, Sclera clear, Mucus Membranes moist. Neck: Supple without masses and tenderness. Resp: Unlabored. Lungs clear to auscultation bilaterally. Heart: Perfusing well, on dual pressors Abdomen: Colostomy bag, status post exploratory laparotomy; dressing applied; no leakage or drainage Extremities: No cyanosis,clubbing or edema. Skin: Warm and Dry. Colostomy site appears clean. Surgical drain removed. Result Diagram: 01/23/25 0120 01/23/25 0120 Coagulation Studies Laboratory Tests Test 01/13/25 09:32 Prothrombin Time 10.9 SECONDS (9.0-12.0) INR International Normalized Ratio 1.1 INR Coagulation Comments Advance Care Planning Advanced Care plannin - 30 Minutes Assessment Assessment Patient has a history of rectal stricture following a prolapsed rectum repair two years ago. She initially underwent a diverting colostomy , which was ineffective, leading to revision with creation of an end colostomy and mucous fistula, along with over-sewing of the rectal stump. Subsequently, she developed fecal drainage from her surgical drain and underwent an explorative laparotomy yesterday. Intraoperative findings revealed ischemic rectum with stool leakage in the left colon distended with stool that could not be adequately decompressed. There was significant contamination in the peritoneal cavity. Surgical intervention including a repeat laparotomy left colostomy creation, and rectal resection. As of post operative day two, she remained intubated and mechanically ventilated in the ICU with a FiO2 of 30%. Plan Plan Parastomal hernia; associated with bulging pain and bleeding S/P colostomy on January 02, 2025 Colostomy revision, January 14, 2025 Acute Peritonitis, s/p exploratory Laparatomy (wash out) on January 21, 2025 Scheduled for another wash out today. Septic Shock, 2/2 to above. Sedated, intubated, and mechanically ventilated with a FiO2 30% On dual pressors i.e. norepinephrine and vasopressin N/V; Zofran on board IVF; LR 125 ml/hr Abx; on Zosyn Managed by Dr. Choi Microcytic hypochromic anemia: More likely KAYLEE Hemoglobin dropped from 8.0 to 7.6 - monitor H&H closely S/P EGD, findings mentioned above. Appreciate recommendations. On Ferrous sulfate Received Ferrlecit 125 mg IV given Severe protein calorie malnutrition: Albumin 1.2, pre albumin pending Ensure ordered Dietitian on board Substance use disorder: Last time Meth. use, three months ago information services consultant consult Substance use navigator to screen for current cravings or risk of relapse Tobacco use disorder: Counseled patient on smoking cessation Nicotine patch Psychiatric issues/anxiety/Depression: Home medications i.e. Abilify and Atarax resumed Chronic pain issues: Gabapentin and tramadol DVT prophylaxis: Lovenox Code status: Full code Disposition: Patricia Vidal Internal Medicine Resident Date of Service: January 23, 2025 Billing Provider: TANIKA VOSS MD Common Visit Codes: [id number] INP/OBS CARE(HIGH) PATRICIA VIDAL, RES January 23, 2025 09:27 TANIKA VOSS MD January 23, 2025 18:41
[2025-01-23] MEDS ORDERED: iohexol 300mg/ml 100ml inj. ONE (11:03)
--- NOTE | 2025-01-23 11:46 | PROGRESS NOTE- Residence ---
Progress Note - Resident Providers to CC Resident Creating Document: THEO DOUGLASSGAIL ~ Antibiotic Timeout Antibiotic Ordered?: Yes Subjective Patient is seen and examined at the bedside today. She continues to be intubated and mechanically ventilated with a FiO2 of 30%. The patient underwent repeat exploratory laparotomy with abdominal washout and partial colectomy on the , POD day 2 today. She is planned to undergo repeat exploratory laparotomy with abdominal washout today. Objective Vital Signs Date Time Temp Pulse Resp B/P (MAP) Pulse Ox O2 Delivery O2 Flow Rate FiO2 01/23/25 11:06 63 12 98 35 01/23/25 10:38 98/64 01/23/25 10:00 98.8 Mechanical Ventilator 01/23/25 08:00 0.0 Result Diagram: 01/23/2511901/23/25119 General: Sedated, intubated and on mechanical ventilation with a FiO2 of 30%. HEENT: Conjunctiva pink, Sclera clear, Mucus Membranes moist. Neck: Supple without masses and tenderness. Resp: Unlabored. Lungs clear to auscultation bilaterally. Heart: Regular Rate and rhythm, normal S1 and S2 without murmur, rub or gallop. Abdomen: Soft, mildly distended. Extremities: No cyanosis,clubbing or edema. Skin: Warm and Dry. Coagulation Studies Laboratory Tests Test 01/13/25 09:32 Prothrombin Time 10.9 SECONDS (9.0-12.0) INR International Normalized Ratio 1.1 INR Coagulation Comments Assessment Assessment 49-year-old female admitted in the hospital for prolapsing loop colostomy. He underwent laparotomy with partial colectomy on the and later had a repeat exploratory laparotomy with the abdominal washout and partial colectomy on the by Dr. Choi. The patient is planned to undergo a repeat surgery today for abdominal washout and maturing the colostomy. She is intubated and mechanically ventilated with a FiO2 of 30%. Plan Plan Prolapsing loop colostomy Status post colostomy on 01/02/2025, exploratory laparotomy with partial colectomy 0n 01/13/2025, repeat exploratory laparotomy with abdominal washout and partial colectomy on 01/22/2025 Septic shock secondary to peritonitis Postop respiratory failure not related to the surgery The patient is intubated and on mechanical ventilation with a FiO2 of 30%. She is started on IV vasopressin 0.03 units/minute and norepinephrine 0.04 mics per kg per minute. We will wean the patient off pressors as tolerated. Started the patient on IV metronidazole and Zosyn. Abdominal wound culture growing Gram-positive cocci in pairs. Perineal wound growing Gram-positive cocci in pairs and Gram-negative rods. We will follow up with the cultures and change antibiotics accordingly. The patient is planned to undergo a repeat exploratory laparotomy with abdominal washout and colostomy maturing today. We will plan to wean the patient off of mechanical ventilation once he is cleared surgically. Microcytic hypochromic anemia Most likely iron deficiency anemia. Patient on iron supplementation. Continue to monitor H&H closely. We will plan to transfuse PRBC if the hemoglobin falls below seven. Protein calorie malnutrition Certified Drug Counselor are on board. Start TPN in his tube feeds as per surgeon's recommendation. NPO today for surgery. CODE STATUS: Full code DVT prophylaxis: Lovenox GI prophylaxis: IV Protonix Diet: NPO Disposition: Patient is planned to undergo a repeat exploratory laparotomy with abdominal washout surgery today. Management per the surgeon. Theo Douglass MD Internal Medicine Resident, PGY-2 Date of Service: January 23, 2025 Billing Provider: ETIENNE REINOSO MD, SURYA PRATIK, RES January 23, 2025 11:46
--- NOTE | 2025-01-23 12:28 | RADIOLOGY REPORT ---
Procedure: CT CT CHEST W/ IV CONTRAST 01/23/2025 11:25 AM History: effusion Comparison: None Technique: After the uneventful administration of contrast intravenously, CT imaging was performed th rough the chest. Coronal and sagittal reformations were performed by the technologist. 3D image postprocessing was performed on a dedicated workstation and images were used for interpretat ion and reporting. Radiation Dose : CT Dose: CTDI volume is 17.3 mGy. Dose-length product is 746 mGy*cm CONTRAST: Type of contrast: Omni 300 Contrast injected: 100 ml Findings: Pulmonary arteries: Acute pulmonary emboli involving the right lower lobe segmental / subsegmental pu lmonary artery branches. Lower neck: Normal thyroid. Lungs: Bibasilar consolidations may reflect pneumonia or aspiration Heart/Vascular Structures: Normal heart size. No pericardial effusion. Lymph Nodes: No adenopathy Pleura: Moderate to large bilateral pleural effusions. Musculoskeletal: No acute osseous abnormality. Soft tissues: Normal. Upper abdomen: Ascites is seen in the upper abdomen IMPRESSION: 1. Bibasilar consolidations may reflect pneumonia or aspiration. 2. Moderate to large bilateral pleural effusions. 3. Acute pulmonary emboli involving the right lower lobe segmental / subsegmental pulmonary artery amelia dye.
[2025-01-23] MEDS: propofol 1000mg/100ml bottle 100 ML IV SCH (12:55)
--- NOTE | 2025-01-23 14:20 | PROGRESS NOTE ---
Progress Note ID Providers to CC ~ Progress Note Progress Note: discussed procedure with mother including need for repeat laparotomy/colostomy DELPHINE RAZO MD January 23, 2025 14:20
[2025-01-23] MEDS ORDERED: rocuronium 10mg/ml inj IV ONE ×2 (15:12→15:15)
[2025-01-23] MEDS ORDERED: Neutra Phos packet PO PRN (16:30)
[2025-01-23] MEDS ORDERED: sodium phosphate inj. 15 MMOL in dextrose 5%-water 250 ML IV PRN (16:30)
[2025-01-23] MEDS ORDERED: Dextrose 10%-water IV solution 1,000 ML IV PRN (16:30)
[2025-01-23] MEDS ORDERED: sodium phosphate inj. 30 MMOL in dextrose 5%-water 250 ML IV PRN (16:30)
--- NOTE | 2025-01-23 16:48 | OPERATIVE REPORT ---
Operative Report Providers to CC ~ Date of Procedure: January 23, 2025 Pre-Operative Diagnosis: s/p lap with partial colectomy Post-Operative Diagnosis SAME as PRE-Op Procedure Performed repeat lap/washout/colostomy Surgeon: madiha Pigskin Trimmer none Anesthesiologist: Austin Haynes Findings: no leak-minimal contamination Estimated Blood Loss: 100 ml Specimen Removed: culture DELPHINE RAZO MD January 23, 2025 16:48
[2025-01-23] MEDS: ZINC/COPPER/MANGANESE/SELENIUM 1 ML, chromic chloride inj. 10 MCG in AA 5%/CALCIUM/LYTE... IV SCH (19:22)
[2025-01-23] MEDS: ringers solution, lacted 1,000 ML IV SCH (19:23)
[2025-01-24] VITALS (36 sets, daily range): BP systolic 88–126; BP diastolic 43–76; PULSE 65–104; RESP 11–21; O2SAT 91–99
[2025-01-24] MEDS: acetaminophen 1,000mg/100ml IV 100 ML IV ONE (00:09)
[2025-01-24] MEDS: piperacillin/tazo 3.375gm/50ml 50 ML IV ONE (00:26)
--- NOTE | 2025-01-24 01:31 | OPERATIVE REPORT ---
DATE OF SURGERY: 01/23/2025 DICTATING PHYSICIAN: Giuliano Choi MD PREOPERATIVE DIAGNOSES: Status post laparotomy, partial colectomy and extensive contamination. POSTOPERATIVE DIAGNOSES: Status post laparotomy, partial colectomy and extensive contamination. PROCEDURES PERFORMED: * Repeat laparotomy. * Abdominal washout. * Transverse colostomy. SURGEON: Giuliano Choi MD STONE SPREADER OPERATOR: None. ANESTHESIA: General/Dr. Haynes. DRAINS: A #19 Maynor drain. INDICATIONS FOR OPERATION: A 49-year-old female, history of a rectal stricture after procedure for rectal prolapse. The patient underwent a loop colostomy, which failed to relieve her symptoms, conversion to an end-colostomy. Had persistent difficulty emptying the mucous fistula, taken back to surgery where she underwent a partial colectomy of the distal transverse in the left colon. The patient had extensive contamination from the rectal stump, which had necrosed. The patient was taken back to surgery for abdominal washout and maturation of the proximal transverse colostomy. INTRAOPERATIVE FINDINGS: contamination cultures were obtained. Transverse colon reached the left upper quadrant without significant tension. There was minimal contamination in the pelvis. DESCRIPTION OF PROCEDURE: The patient was placed supine on the operating room. After induction of general anesthesia, abdomen was prepped and draped. Abdomen reopened. Abdomen was then explored. Cultures were obtained. the left gutter and diaphragm with no concern to the pelvis. Minimal contamination of the rectal stump despite it being opened. Attention was then turned to the right where there was contamination. Irrigation was then performed. Right colon was then mobilized for a short distance to further facilitate construction of the colostomy in the left upper quadrant. Previously placed right upper quadrant ostomy site was closed. Posterior rectus sheath was closed with running suture of 0 Vicryl. The anterior rectus sheath was closed with suture of 0 Vicryl as well. Left upper quadrant incision from the previous mucous was used for the end colostomy. Colon was then brought out. A #19 Maynor drain was placed through a separate stab incision directed in the left gutter and underneath the left diaphragm. Skin flaps were then raised. Rectal fascia was closed with running suture of looped PDS. Skin was closed with clips. Jaguar placed. Colostomy was then matured using sutures of 3-[address] Dressing in place, appliance in place, and the patient was transferred back to the ICU in critical condition. Giuliano Choi MD TID: [id number] RECEIPT: [id number] LESA/MARISEL/SARA
[2025-01-24 01:51] LABS: BASOPHILS % (AUTO) 0.1 % (0-1); EOSINOPHILS % (AUTO) 0.3 % (0-6); HEMOGLOBIN 7.9 g/dl (12.0-16.0); MONOCYTES # (AUTO) 0.9 X10'3 (0-0.9); RED BLOOD COUNT 3.22 X10'6 (4.20-5.60)
[2025-01-24 01:52] LABS: EOSINOPHILS # (AUTO) 0.1 X10'3 (0-0.9); HEMATOCRIT 24.4 % (35.0-45.0); LYMPHOCYTES # (AUTO) 0.6 X10'3 (1.1-4.8); LYMPHOCYTES % (AUTO) 3.5 % (21-51); MEAN CORPUSCULAR HEMOGLOBIN 24.5 PG (27.0-31.0); MEAN CORPUSCULAR HGB CONC 32.4 g/dL (33.0-36.5); MEAN CORPUSCULAR VOLUME 75.7 FL (78-98); MEAN PLATELET VOLUME 6.8 FL (7.4-10.4); MONOCYTES % (AUTO) 5.2 % (2-12); NEUTROPHILS # (AUTO) 16.5 X10'3 (1.8-7.7); NEUTROPHILS % (AUTO) 90.9 % (42-75); PLATELET COUNT 958 X10'3 (140-440); RED CELL DISTRIBUTION WIDTH 25.6 % (11.5-14.5); WHITE BLOOD COUNT 18.1 X10'3 (4.5-11.0)
[2025-01-24 02:06] LABS: ALANINE AMINOTRANSFERASE 8 U/L (12-78); ALBUMIN 1.2 G/DL (3.4-5.0); ALBUMIN/GLOBULIN RATIO 0.4 (1.1-1.5); ALKALINE PHOSPHATASE 72 IU/L (46-116); ANION GAP 5 (8-16); ASPARTATE AMINO TRANSFERASE 7 U/L (10-37); BILIRUBIN,TOTAL 0.3 MG/DL (0.1-1.0); BLOOD UREA NITROGEN 7 MG/DL (7-18); BUN/CREATININE RATIO 14.9 (10.0-20.0); CALCIUM 6.8 MG/DL (8.5-10.1); CHLORIDE 102 MMOL/L (99-107); CREATININE 0.47 MG/DL (0.40-0.90); GLUCOSE 126 MG/DL (70-104); MAGNESIUM 1.9 MG/DL (1.5-2.4); PHOSPHORUS 2.9 MG/DL (2.3-4.5); SODIUM 134 MMOL/L (135-145); TOTAL CARBON DIOXIDE 26.7 MMOL/L (24-32); TOTAL PROTEIN 4.1 G/DL (6.4-8.2); eCRCL 121 ML/MIN; eGFR > 90 ML/MIN
[2025-01-24 02:30] LABS: PLATELET ESTIMATE INCREASED; TOTAL CELLS COUNTED 100
[2025-01-24 02:31] LABS: ANISOCYTOSIS 3+; MICROCYTOSIS 1+
[2025-01-24 03:24] LABS: ABG BASE EXCESS -1.7 mmol/L (-2.0-3.0); ABG HCO3 22.2 mmol/L (21.0-28.0); ABG PCO2 (T) 34.7 mmHg (32.0-45.0); ABG PH (T) 7.427 (7.350-7.450); ABG PO2 (T) 75.7 mmHg (83.0-108.0); ALLEN'S TEST Modified; FCOHb 2.4 % (0.5-1.5); FHHb 5.8 % (0.0-5.0); FMetHb 0.3 % (0.0-1.5); FO2Hb 91.5 % (94.0-98.0); MODE VENT - SIMV; PATIENT TEMPERATURE 37.7; PEEP 5 cm H2O; RESPIRATORY RATE 12 b/min; TIDAL VOLUME 500 mL; TOTAL HEMOGLOBIN 7.7 G/dl (12.0-16.0)
--- NOTE | 2025-01-24 05:36 | RADIOLOGY REPORT ---
CHEST RADIOGRAPH Indication: ett Technique: Single frontal view of the chest was obtained COMPARISON: DI CHEST,SINGLE VIEW on DOS: 01/23/25, DI CHEST,SINGLE VIEW on DOS: 01/22/25, DI CHEST,SING LE VIEW on DOS: 01/21/25, DI CHEST,SINGLE VIEW on DOS: 12/31/24, CHEST,SINGLE VIEW on DOS: 12/25/21 FINDINGS: Lines and Tubes: Endotracheal tube, enteric catheter, and right central venous catheter in satisfacto ry position. Lungs: Patchy bilateral airspace disease. Pleura: Small bilateral pleural effusions. Cardiomediastinal contours: Unremarkable Bones: Unremarkable IMPRESSION: Lines and tubes in satisfactory position. No significant interval change.
[2025-01-24] MEDS: MVI, adult No.4 with vit. K 10 ML in dextrose 5% water 500ml 500 ML IV SCH (08:41)
[2025-01-24] MEDS ORDERED: HYDROmorphone 1 mg/ml syringe IV PRN (08:50)
[2025-01-24] MEDS: HYDROmorphone 1 mg/ml syringe IV PRN (09:06)
[2025-01-24] MEDS: HEPARIN DRIP DVT/PE -**PHARMACIST TO DOSE IV ONE (10:15)
[2025-01-24] MEDS: acetaminophen 1,000mg/100ml IV 100 ML IV PRN ×2 (10:44→19:19)
[2025-01-24] MEDS: MESSAGE TO NURSING IV ONE ×2 (10:50→20:39)
--- NOTE | 2025-01-24 11:52 | RADIOLOGY REPORT ---
CHEST RADIOGRAPH Indication: s/p thoracentesis, rule out pneumo. Technique: Single frontal view of the chest was obtained COMPARISON: DI CHEST,SINGLE VIEW on DOS: 01/24/25, DI CHEST,SINGLE VIEW on DOS: 01/23/25, DI CHEST,SING LE VIEW on DOS: 01/22/25, DI CHEST,SINGLE VIEW on DOS: 01/21/25, DI CHEST,SINGLE VIEW on DOS: 12/31/24 FINDINGS: Lines and Tubes: Endotracheal tube, enteric catheter and right central venous catheter in satisfactor y position. Lungs: Multifocal airspace disease Pleura: No effusion. No pneumothorax. Cardiomediastinal contours: Unremarkable Bones: Unremarkable IMPRESSION: No appreciable pneumothorax
[2025-01-24] MEDS: heparin 25,000 UNIT/250ml bag 250 ML IV PRN (12:45)
[2025-01-24] MEDS: heparin 10,000 units/1 ML INJ IV ONE (12:48)
[2025-01-24] MEDS: normal saline 1000ml 1,000 ML IV SCH (14:25)
[2025-01-24] MEDS ORDERED: naloxone 0.4 mg/ml inj IV PRN (14:25)
--- NOTE | 2025-01-24 15:12 | VASCULAR REPORT ---
Bilateral lower extremity venous duplex Clinical History: edema Comparison: VASC VL VENOUS on DOS: 01/20/25, VASC VL VENOUS on DOS: 01/06/25 Technique: Duplex Doppler evaluation of the deep venous systems of both lower extremities from the common femora l veins to the popliteal veins including color Doppler and spectral/pulsed waveform analysis was perf ormed. Findings: RIGHT SIDE: The common femoral vein demonstrates appropriate compressibility and waveform variability . There is compressibility/patency of the great saphenous vein at the proximal thigh . The femoral vein demonstrates appropriate compressibility and waveform variability . The deep femoral vein demonstrates appropriate compressibility and waveform variability . The popliteal vein demonstrates appropriate compressibility and waveform variability . There is normal compressibility at the tibioperoneal trunk. LEFT SIDE: The common femoral vein demonstrates appropriate compressibility and waveform variability . There is compressibility/patency of the great saphenous vein at the proximal thigh . The femoral vein demonstrates appropriate compressibility and waveform variability . The deep femoral vein demonstrates appropriate compressibility and waveform variability . The popliteal vein demonstrates appropriate compressibility and waveform variability . There is normal compressibility at the tibioperoneal trunk. Impression: No right or left femoropopliteal venous thrombosis.
--- NOTE | 2025-01-24 15:24 | PROGRESS NOTE- Residence ---
Progress Note - Resident Providers to CC Resident Creating Document: PATRICIA VIDAL RES ~ Antibiotic Timeout Antibiotic Ordered?: Yes Subjective Patient was seen and examined and CICU. Undergone repeat washout/colostomy yesterday. Sedated, on mechanical ventilation; FiO2 40% ABGs; Ph 7.43, pO2 75, pCO2 34 Perineal fluid grows E. Gallinarum and Stenotrophomonas Maltophilia Abdominal wound grows E. Gallinarum resistent to Vanco, sensitive to ampicillin and Gentamicin On Zosyn - Managed by Dr Choi Objective Vital Signs Date Time Temp Pulse Resp B/P (MAP) Pulse Ox O2 Delivery O2 Flow Rate FiO2 01/24/25 15:00 69 12 92/60 (71) 98 Mechanical Ventilator 01/24/25 14:25 40 01/24/25 12:00 100.9 01/23/25 08:00 0.0 General: Sedated, intubated and on mechanical ventilation with a FiO2 of 30%. HEENT: Conjunctiva pink, Sclera clear, Mucus Membranes moist. Neck: Supple without masses and tenderness. Resp: Unlabored. Lungs clear to auscultation bilaterally. Heart: Regular Rate and rhythm, normal S1 and S2 without murmur, rub or gallop. Abdomen: Soft, mildly distended. Extremities: No cyanosis,clubbing or edema. Skin: Warm and Dry. Result Diagram: 01/24/25 0130 01/24/25 0130 Coagulation Studies Laboratory Tests Test 01/13/25 09:32 Prothrombin Time 10.9 SECONDS (9.0-12.0) INR International Normalized Ratio 1.1 INR Coagulation Comments Advance Care Planning Advanced Care plannin - 30 Minutes Assessment Assessment Patient has a history of rectal stricture following a prolapsed rectum repair two years ago. She initially underwent a diverting colostomy , which was ineffective, leading to revision with creation of an end colostomy and mucous fistula, along with over-sewing of the rectal stump. Subsequently, she developed fecal drainage from her surgical drain and underwent an explorative laparotomy yesterday. Intraoperative findings revealed ischemic rectum with stool leakage in the left colon distended with stool that could not be adequately decompressed. There was significant contamination in the peritoneal cavity. Surgical intervention including a repeat laparotomy left colostomy creation, and rectal resection. As of post operative day two, she remained intubated and mechanically ventilated in the ICU with a FiO2 of 30%. Plan Plan Parastomal hernia; associated with bulging pain and bleeding S/P colostomy on January 02, 2025 Colostomy revision, January 14, 2025 Acute Peritonitis, s/p exploratory Laparatomy (wash out) on January 21, 2025 Scheduled for another wash out today. Septic Shock, 2/2 to above. Sedated, intubated, and mechanically ventilated with a FiO2 30% On dual pressors i.e. norepinephrine and vasopressin N/V; Zofran on board IVF; LR 125 ml/hr Abx; on Zosyn Managed by Dr. Choi January 24, 2025: Undergone repeat washout/colostomy yesterday. Sedated, on mechanical ventilation; FiO2 40% ABGs; Ph 7.43, pO2 75, pCO2 34 Perineal fluid grows E. Gallinarum and Stenotrophomonas Maltophilia Abdominal wound grows E. Gallinarum resistent to Vanco, sensitive to ampicillin and Gentamicin On Zosyn - Continue Microcytic hypochromic anemia: More likely KAYLEE Hemoglobin dropped from 8.0 to 7.6 - monitor H&H closely S/P EGD, findings mentioned above. Appreciate recommendations. On Ferrous sulfate Received Ferrlecit 125 mg IV given Severe protein calorie malnutrition: Albumin 1.2, pre albumin pending Ensure ordered Dietitian on board Substance use disorder: Last time Meth. use, three months ago client services manager consult Substance use navigator to screen for current cravings or risk of relapse Tobacco use disorder: Counseled patient on smoking cessation Nicotine patch Psychiatric issues/anxiety/Depression: Home medications i.e. Abilify and Atarax resumed Chronic pain issues: Gabapentin and tramadol DVT prophylaxis: Lovenox Code status: Full code Disposition: Patricia Vidal Internal Medicine Resident Date of Service: January 24, 2025 Billing Provider: ANA REA MD Common Visit Codes: [id number] INP/OBS CARE(HIGH) PATRICIA VIDAL, RES January 24, 2025 15:24 ANA REA MD Feb 09, 2025 22:33
--- NOTE | 2025-01-24 15:40 | PROGRESS NOTE ---
Progress Note ID Providers to CC ~ Progress Note Progress Note: intubated/sedated/vss/[id number] viable/labs noted/ct noted a/p 1. s/p repeat lap/colostomy-slow progress/cont supportive care DELPHINE RAZO MD January 24, 2025 15:40
--- NOTE | 2025-01-24 15:51 | RADIOLOGY REPORT ---
PROCEDURE: ULTRASOUND GUIDED THORACENTESIS USING TEMPORARY CATHETER HISTORY: 49 Female with sob requiring thoracentesis. DOCUMENTATION: Informed consent was obtained and a procedural time out was performed. TECHNIQUE: Ultrasound was used to locate the left pleural fluid collection with an image archived in the PACS. The skin over the left posterior hemithorax was sterilely prepped, draped, and infiltrate d with 1% lidocaine. Under real time ultrasound guidance, the left pleural space was accessed with a 19-gauge Yueh needle and connected to Vacutainers. The Yueh catheter was advanced, the needle was re moved and the temporary catheter was advanced and connected to the Vacutainer. Approximately 0.6 lite rs of straw colored fluid was removed. The temporary catheter was removed and sterile dressings were applied. FINDINGS: Ultrasound demonstrates a moderate left pleural effusion. Imaging confirms the needle tip within the fluid. IMPRESSION: SUCCESSFUL ULTRASOUND GUIDED THORACENTESIS. Procedure by Dr. Holt
[2025-01-24] MEDS: HYDROmorph/NS 0.2 mg/ml PCA 100 ML IV SCH (17:00)
--- NOTE | 2025-01-24 18:07 | CARDIOLOGY REPORT ---
APPROVED REPORT EXAM: Comprehensive 2D, Doppler, and color-flow Echocardiogram. Patient Location: 2014A Blood Pressure: 92 / 86 mmHg Heart Rate: 68 bpm Rhythm: SINUS Indications PULMONARY EMBOLISM ON CT - EVALUATE RIGHT HEART 0.03 Levophed 0.03 Vasopressin RECENT POST-OP (CHOLECTOMY 01/23/25) INTUBATED / SUPINE Program Paraprofessional: NONE Previous echo: NONE 2D Dimensions RVDd 3.5 cm LVOT Diameter 2.05 (1.8-2.4cm) M-Mode Dimensions Left Atrium(MM) 2.86 (2.5-4.0cm) Aortic Root 3.33 (2.2-3.7cm) Aortic Cusp Exc 1.87 (1.5-2.0cm) Aortic Valve AoV Peak Abhishek. 168.1 cm/s AoV VTI 31.9 cm AO Peak GR. 11.3 mmHg AO Mean GR. 6 mmHg LVOT VTI 29.32 cm LVOT Peak Abhishek. 157.3 cm/s VIC(VTI)/BSA 3.04 cm2/m2 VIC (VTI) 3.04 cm2 Mitral Valve MV E Velocity 102.3 cm/s MV Peak Gr. 4 mmHg MV DECEL TIME 156 ms MV A Velocity 47.8 cm/s MV PHT 76 ms E/A Ratio 2.1 MVA (PHT) 2.89 cm2 MV VMax93.6 cm/s Tricuspid Valve TR P. Velocity 263 cm/s RAP ESTIMATE 10 mmHg TR Peak Gr. 28 mmHg RVSP 38 mmHg LEFT VENTRICLE Normal LV size and wall thickness. Overall systolic function is normal. LVEF is 65%. Pt on 0.03mcg/kg /min Levophed and 0.03mcg/kg/min Vasopressin RIGHT VENTRICLE RV is mildly increased in size with low normal function. Elevated right heart pressures as noted abov e. ATRIA The left atrium size is normal. AORTIC VALVE Trileaflet AV appears minimally sclerosed without stenosis or insufficiency. MITRAL VALVE Moderate MV annular calcification without stenosis. Trace regurgitation. TRICUSPID VALVE TV appears structurally normal with moderate (2+) regurgitation. GREAT VESSELS Aortic root is normal in size. Ascending aorta is normal in size. PERICARDIUM Normal pericardium. No effusion. Other Information Study Quality: Adequate, off axis apicals, no subcostals due to abdominal dressing/recent Colectomy, intubated and supine positioning Conclusion Normal LV size and wall thickness. Overall systolic function is normal. LVEF is 65%. Pt on 0.03mcg/kg /min Levophed and 0.03mcg/kg/min Vasopressin RV is mildly increased in size with low normal function. Elevated right heart pressures with an RVSP of 38 mmHg. The left atrium size is normal. Trileaflet AV appears minimally sclerosed without stenosis or insufficiency. Moderate MV annular calcification without stenosis. Trace regurgitation. TV appears structurally normal with moderate (2+) regurgitation. Normal pericardium. No effusion.
--- NOTE | 2025-01-24 18:10 | PATHOLOGY REPORT ---
[facility] [address] [place] [address] SURGICAL PATHOLOGY REPORT CaseNumber: [id number] Surgeon:Aristeo Hogan M.D. CLINICAL INFORMATION CLINICAL INFORMATION: Not provided. DIAGNOSIS DIAGNOSIS: A.STOMACH; BIOPSY - MILD ACUTE AND CHRONIC INFLAMMATION. - CHANGES CONSISTENT WITH NEARBY ULCERATION. - NEGATIVE FOR INTESTINAL METAPLASIA. - NEGATIVE FOR H. PYLORI BY IMMUNOPEROXIDASE STUDY. - NEGATIVE FOR DYSPLASIA/NEOPLASIA. DIAGNOSIS: B.ESOPHAGUS; BIOPSY - SQUAMOUS MUCOSA WITH MODERATE ACUTE AND CHRONIC INFLAMMATION. - POSITIVE FOR FUNGAL FORMS BY ALCIAN BLUE/PAS STAIN. - NEGATIVE FOR INTESTINAL METAPLASIA. - NEGATIVE FOR DYSPLASIA/NEOPLASIA. MICROSCOPIC DESCRIPTION A. STOMACH MICROSCOPIC DESCRIPTION: One H&E stained slide from part A is examined. Present is gastric mucosa. Th ere is a mild mixed inflammatory infiltrate composed predominantly of mononuclear cells but also incl uding occasional neutrophils. Within the submucosa, there is granulation tissue suggesting nearby ulc eration. There is no intestinal metaplasia, confirmed with Alcian blue/PAS stain. Immunoperoxidase st udy for H. pylori does not highlight organisms. There is no dysplasia/neoplasia. B. ESOPHAGUS MICROSCOPIC DESCRIPTION: One H&E stained slide from part B is examined. Present is squamous mucosa wh ich contains a moderate mixed inflammatory infiltrate including mononuclear cells and neutrophils wit h erosive changes There is well-developed intraepithelial neutrophilic inflammation. Rare yeast and h yphal fungal forms are identified with Alcian blue/PAS stain. There is no glandular metaplasia includ ing intestinal metaplasia and no dysplasia/neoplasia. (st) GROSS DESCRIPTION A. STOMACH GROSS DESCRIPTION: Received in a container of formalin labeled with the patients name, number, and "s tomach BX" is a 0.4 x 0.2 x 0.1 cm piece of ceja tissue. The specimen is entirely submitted as A1. Th e time at which the specimen was removed was 164. The time at which the specimen was placed in forma anselmo was 164. B. ESOPHAGUS GROSS DESCRIPTION: Received in a container of formalin labeled with the patient's name, number, and " esophagus BX" is a 0.4 x 0.1 x 0.1 cm piece of barrera-ceja tissue. The specimen is entirely submitted as B1. The time at which the specimen was removed was 164. The time at which the specimen was placed i n formalin was 164. Electronically signed by: Natanael Timmons M.D. 01/24/2025 5:36:00 PM
--- NOTE | 2025-01-24 18:53 | PROGRESS NOTE- Residence ---
Progress Note - Resident Providers to CC Resident Creating Document: THEO DOUGLASS ELLEN, GAIL ~ Antibiotic Timeout Antibiotic Ordered?: Yes Subjective Patient seen and examined at the bedside today. The patient has been successfully weaned off mechanical ventilation and extubated. She has also been weaned off of pressors. Objective Vital Signs Date Time Temp Pulse Resp B/P (MAP) Pulse Ox O2 Delivery O2 Flow Rate FiO2 01/24/25 18:00 100.9 94 17 110/62 (78) 92 Nasal Cannula 4.0 01/24/25 16:06 30 Result Diagram: 01/24/2512901/24/25129 General: Awake, alert. In no acute distress. On 4 L oxygen via nasal cannula. HEENT: Conjunctiva pink, Sclera clear, Mucus Membranes moist. Neck: Supple without masses and tenderness. Resp: Bilateral diffuse rhonchi heard, more on the left lung john. Heart: Regular Rate and rhythm, normal S1 and S2 without murmur, rub or gallop. Abdomen: Soft, mildly distended. Bilateral CHESTER drains present. Extremities: No cyanosis,clubbing or edema. Skin: Warm and Dry. Neurology: Moving all four limbs. Coagulation Studies Laboratory Tests Test 01/13/25 09:32 Prothrombin Time 10.9 SECONDS (9.0-12.0) INR International Normalized Ratio 1.1 INR Coagulation Comments Assessment Assessment 49-year-old female admitted in the hospital for prolapsing loop colostomy. He underwent laparotomy with partial colectomy on the and later had a repeat exploratory laparotomy with the abdominal washout and partial colectomy on the by Dr. Choi. The patient underwent a repeat laparotomy with the abdominal washout and transverse colostomy yesterday. Plan Plan Prolapsing loop colostomy Status post colostomy on 01/02/2025, exploratory laparotomy with partial colectomy 0n 01/13/2025, repeat exploratory laparotomy with abdominal washout and partial colectomy on 01/22/2025 Septic shock secondary to peritonitis Postop respiratory failure not related to the surgery Repeat exploratory laparotomy with abdominal washout and transverse colostomy on 01/23/2025 The patient has been successfully weaned off mechanical ventilation and extubated today. She has been weaned off pressors today. We will continue to monitor in the ICU closely. The patient's perineal wound culture an abdominal wound culture are growing Enterococcus gallinarum both of which are sensitive to penicillin but resistant to vancomycin. We will continue IV metronidazole and IV Zosyn. Continue surgical management as per the surgeon Dr. Choi. Pulmonary embolism Bilateral pleural effusion Acute hypoxemic respiratory failure IMPRESSION: 1. Bibasilar consolidations may reflect pneumonia or aspiration. 2. Moderate to large bilateral pleural effusions. 3. Acute pulmonary emboli involving the right lower lobe segmental / subsegmental pulmonary artery branches. Started the patient on IV heparin drip. She is being treated with IV Zosyn and metronidazole for broad-spectrum IV antibiotic coverage. we did an ultrasound-guided thoracentesis today. We were able to locate large amount of fluid on the left lung field. Drained about 600 cc of straw-colored fluid today. The patient has been successfully weaned off mechanical ventilation and extubated today. Currently on 4 L oxygen via nasal cannula. Strict input and output monitoring. Microcytic hypochromic anemia Most likely iron deficiency anemia. Patient on iron supplementation. Continue to monitor H&H closely. We will plan to transfuse PRBC if the hemoglobin falls below seven. Protein calorie malnutrition Floatman are on board. NPO. Started on TPN. CODE STATUS: Full code DVT prophylaxis: Lovenox GI prophylaxis: IV Protonix Diet: TPN Disposition: Patient is planned to undergo a repeat exploratory laparotomy with abdominal washout surgery today. Management per the surgeon. Theo Douglass MD Internal Medicine Resident, PGY-2 Date of Service: January 24, 2025 Billing Provider: ETIENNE REINOSO MD,THEO HUGHES, RES January 24, 2025 18:53
--- NOTE | 2025-01-24 18:58 | PROCEDURE NOTE- Residance ---
Procedure Note Providers to CC ~ Planned Procedure Ultrasound-guided thoracentesis on the left side Indications Pleural effusion Informed Consent Taken Description A time-out was completed verifying correct patient, procedure, site, positioning, and special equipment if applicable. The patients left side was prepped and draped in a sterile manner after the appropriate infiltration level was confirmed by ultrasound. 1% lidocaine was used anesthetize the surrounding skin. A finder needle was then used to locate fluid and clear yellow fluid was obtained. A 10-blade scalpel used to make the incision. The thoracentesis catheter was then threaded without difficulty. The patient had 600 cc of straw colored fluid removed. Dr. Reinoso was present for the entire procedure. A post- procedure chest x-ray was ordered. Estimated Blood Loss None Complication None X-Ray Findings No appreciable pneumothorax Date of Service: January 24, 2025 Billing Provider: ETIENNE REINOSO MD,RONNIE HUGHES, RES January 24, 2025 18:58
[2025-01-24] MEDS: heparin 10,000 units/1 ML INJ IV PRN (20:01)
[2025-01-25] VITALS (21 sets, daily range): BP systolic 91–134; BP diastolic 50–77; PULSE 85–99; RESP 12–22; TEMP 97.5–97.7; O2SAT 91–100
[2025-01-25 01:11] LABS: EOSINOPHILS % (AUTO) 0.2 % (0-6); HEMOGLOBIN 7.6 g/dl (12.0-16.0); MEAN CORPUSCULAR VOLUME 75.6 FL (78-98); MONOCYTES # (AUTO) 0.8 X10'3 (0-0.9)
[2025-01-25 01:13] LABS: BASOPHILS % (AUTO) 0.1 % (0-1); HEMATOCRIT 23.6 % (35.0-45.0); LYMPHOCYTES % (AUTO) 6.3 % (21-51); MEAN CORPUSCULAR HEMOGLOBIN 24.4 PG (27.0-31.0); MEAN CORPUSCULAR HGB CONC 32.3 g/dL (33.0-36.5); MEAN PLATELET VOLUME 6.7 FL (7.4-10.4); MONOCYTES % (AUTO) 5.2 % (2-12); NEUTROPHILS # (AUTO) 13.6 X10'3 (1.8-7.7); NEUTROPHILS % (AUTO) 88.2 % (42-75); PLATELET COUNT 938 X10'3 (140-440); RED BLOOD COUNT 3.12 X10'6 (4.20-5.60); RED CELL DISTRIBUTION WIDTH 26.1 % (11.5-14.5); WHITE BLOOD COUNT 15.4 X10'3 (4.5-11.0)
[2025-01-25 01:27] LABS: ALANINE AMINOTRANSFERASE 7 U/L (12-78); ALBUMIN 1.1 G/DL (3.4-5.0); ALBUMIN/GLOBULIN RATIO 0.3 (1.1-1.5); ALKALINE PHOSPHATASE 68 IU/L (46-116); ANION GAP 6 (8-16); ASPARTATE AMINO TRANSFERASE 12 U/L (10-37); BILIRUBIN,TOTAL 0.2 MG/DL (0.1-1.0); BLOOD UREA NITROGEN 5 MG/DL (7-18); BUN/CREATININE RATIO 9.6 (10.0-20.0); CALCIUM 6.9 MG/DL (8.5-10.1); CHLORIDE 110 MMOL/L (99-107); CREATININE 0.52 MG/DL (0.40-0.90); GLUCOSE 158 MG/DL (70-104); PHOSPHORUS 2.6 MG/DL (2.3-4.5); POTASSIUM 3.1 MMOL/L (3.5-5.1); SODIUM 146 MMOL/L (135-145); TOTAL PROTEIN 4.4 G/DL (6.4-8.2); eCRCL 109 ML/MIN; eGFR > 90 ML/MIN
[2025-01-25 01:38] LABS: TOTAL CELLS COUNTED 100
[2025-01-25 01:39] LABS: ANISOCYTOSIS 3+; MICROCYTOSIS 1+; PLATELET ESTIMATE INCREASED
[2025-01-25] MEDS: potassium Cl 40MEQ/270ML bag 270 ML IV PRN (02:20)
[2025-01-25] MEDS: potassium Cl 40MEQ/270ML bag 270 ML IV ONE (02:21)
[2025-01-25] MEDS: MESSAGE TO NURSING IV ONE ×2 (09:28→15:46)
--- NOTE | 2025-01-25 13:28 | PROGRESS NOTE ---
Subjective Subjective Patient seen and examined at the bedside today.The patient has been successfully weaned off mechanical ventilation and extubated 0 01/24/2025 She has also been weaned off of pressors. Reason for visit: Pulmonary critical care follow-up Reviewed: Care Plan, H&P, Labs, Radiology Review of Systems Changes from previous H/P or p: No Changes Daily Progress Note Exam Vitals Vital Signs Date Time Temp Pulse Resp B/P (MAP) Pulse Ox O2 Delivery O2 Flow Rate FiO2 01/25/25 12:16 18 01/25/25 12:00 100.8 96 116/71 (86) 95 01/25/25 11:00 Room Air 01/25/25 08:00 21 01/25/25 06:00 4.0 Result Diagram: 01/25/259901/25/2599 Exam General: Awake, alert. In no acute distress. On 4 L oxygen via nasal cannula. HEENT: Conjunctiva pink, Sclera clear, Mucus Membranes moist. Neck: Supple without masses and tenderness. Resp: Bilateral diffuse rhonchi heard, more on the left lung john. Heart: Regular Rate and rhythm, normal S1 and S2 without murmur, rub or gallop. Abdomen: Soft, mildly distended. Bilateral CHESTER drains present. Extremities: No cyanosis,clubbing or edema. Skin: Warm and Dry. Neurology: Moving all four limbs. Results Coagulation Studies Laboratory Tests Test 01/13/25 09:32 01/25/25 07:15 Prothrombin Time 10.9 SECONDS (9.0-12.0) INR International Normalized Ratio 1.1 INR APTT (Heparin Protocol) 39 SECONDS (45-75) L Coagulation Comments VTE VTE Risk Score VTE Risk Score Reference Ranges: Score 0-1 = Low Risk (Aggressive mobilization; early ambulation; no VTE prophylaxis required) Score 2: Moderate Risk (Intermittent/Pneumatic Compression Device OR Lovenox/Heparin/Coumadin) Score 3-4: High Risk (Intermittent/Pneumatic Compression Device AND Lovenox/Heparin/Coumadin) Score > or = 5: Highest Risk (Intermittent/Pneumatic Compression Device AND Lovenox/Heparin/Coumadin) Assessment/Plan Assessment 49-year-old female admitted in the hospital for prolapsing loop colostomy. He underwent laparotomy with partial colectomy on the and later had a repeat exploratory laparotomy with the abdominal washout and partial colectomy on the by Dr. Choi. The patient underwent a repeat laparotomy with the abdominal washout and transverse colostomy yesterday. Plan Prolapsing loop colostomy Status post colostomy on 01/02/2025, exploratory laparotomy with partial colectomy 0n 01/13/2025, repeat exploratory laparotomy with abdominal washout and partial colectomy on 01/22/2025 Septic shock secondary to peritonitis Postop respiratory failure not related to the surgery Repeat exploratory laparotomy with abdominal washout and transverse colostomy on 01/23/2025 Patient successfully weaned off mechanical ventilation and extubated 01/24/2025. She has been weaned off pressors today. We will continue to monitor in the ICU closely. The patient's perineal wound culture an abdominal wound culture are growing Enterococcus gallinarum both of which are sensitive to penicillin but resistant to vancomycin. We will continue IV metronidazole and IV Zosyn. Continue surgical management as per the surgeon Dr. Choi. Pulmonary embolism Bilateral pleural effusion: Status post ultrasound-guided left chest thoracentesis on 01/24/2025 with the evacuation of 600 cc of straw-colored pleural fluid. Acute hypoxemic respiratory failure IMPRESSION: 1. Bibasilar consolidations may reflect pneumonia or aspiration. 2. Moderate to large bilateral pleural effusions. 3. Acute pulmonary emboli involving the right lower lobe segmental / subsegmental pulmonary artery branches. Started the patient on IV heparin drip. She is being treated with IV Zosyn and metronidazole for broad-spectrum IV antibiotic coverage. Currently on 4 L oxygen via nasal cannula. Strict input and output monitoring. Microcytic hypochromic anemia Most likely iron deficiency anemia. Patient on iron supplementation. Continue to monitor H&H closely. We will plan to transfuse PRBC if the hemoglobin falls below seven. Protein calorie malnutrition Floor Cleaner are on board. NPO. Started on TPN. CODE STATUS: Full code DVT prophylaxis: IV heparin GI prophylaxis: IV Protonix Diet: TPN Disposition: Transferred to PCU if okay by surgery. Expected Outcome/Goals Expected Outcomes/Goals: maintain stable wt, PN tolerance, bowel regularity, surgical wound healing ETIENNE REINOSO MD January 25, 2025 13:28
--- NOTE | 2025-01-25 17:40 | PROGRESS NOTE- Residence ---
Progress Note - Resident Providers to CC Resident Creating Document: MARY ANN VIDAL RES ~ Antibiotic Timeout Antibiotic Ordered?: Yes Subjective Patient seen and examined at the bedside today. The patient was successfully weaned off of the ventilator and extubated on January 24, 2025. She is now off of pressors and maintaining adequate perfusion on 4 L of oxygen via nasal cannula. She had bilateral pleural effusion, and left-sided thoracentesis was performed yesterday, yielding 600 mL of straw-colored fluid. She is currently stable, and her respiratory status is being closely monitored Objective Vital Signs Date Time Temp Pulse Resp B/P (MAP) Pulse Ox O2 Delivery O2 Flow Rate FiO2 01/25/25 16:00 99.1 89 16 108/64 (79) 94 Room Air 01/25/25 08:00 21 01/25/25 06:00 4.0 General: Awake, alert. In no acute distress. On 4 L oxygen via nasal cannula. HEENT: Conjunctiva pink, Sclera clear, Mucus Membranes moist. Neck: Supple without masses and tenderness. Resp: Bilateral diffuse rhonchi heard, more on the left lung john. Heart: Regular Rate and rhythm, normal S1 and S2 without murmur, rub or gallop. Abdomen: Soft, mildly distended. Bilateral CHESTER drains present. Extremities: No cyanosis,clubbing or edema. Skin: Warm and Dry. Neurology: Moving all four limbs. Result Diagram: 01/25/25 0100 01/25/25 0100 Coagulation Studies Laboratory Tests Test 01/13/25 09:32 01/25/25 14:30 Prothrombin Time 10.9 SECONDS (9.0-12.0) INR International Normalized Ratio 1.1 INR APTT (Heparin Protocol) 43 SECONDS (45-75) L Coagulation Comments Advance Care Planning Advanced Care plannin - 30 Minutes Assessment Assessment 49-year-old female admitted in the hospital for prolapsing loop colostomy. He underwent laparotomy with partial colectomy on the and later had a repeat exploratory laparotomy with the abdominal washout and partial colectomy on the by Dr. Choi. The patient underwent a repeat laparotomy with the abdominal washout and transverse colostomy yesterday. Plan Plan Parastomal hernia; associated with bulging pain and bleeding S/P colostomy on January 02, 2025 Colostomy revision, January 14, 2025 Acute Peritonitis, s/p exploratory Laparatomy (wash out) on January 21, 2025 Undergone two washouts Downgraded to PCU; January 25, 2025 Septic Shock, 2/2 to above. Sedated, intubated, and mechanically ventilated with a FiO2 30% On dual pressors i.e. norepinephrine and vasopressin N/V; Zofran on board IVF; LR 70 ml/hr Abx; on Zosyn Downgraded to PCU January 24, 2025: Undergone repeat washout/colostomy yesterday. Sedated, on mechanical ventilation; FiO2 40% ABGs; Ph 7.43, pO2 75, pCO2 34 Perineal fluid grows E. Gallinarum and Stenotrophomonas Maltophilia Abdominal wound grows E. Gallinarum resistent to Vanco, sensitive to ampicillin and Gentamicin On Zosyn - Continue January 25, 2025: The patient was successfully weaned off of the ventilator and extubated on January 24, 2025. She is now off of pressors and maintaining adequate perfusion on 4 L of oxygen via nasal cannula. Downgraded to PCU. She had bilateral pleural effusion, and left-sided thoracentesis was performed yesterday, yielding 600 mL of straw-colored fluid. She is currently stable, and her respiratory status is being closely monitored Microcytic hypochromic anemia: More likely KAYLEE Hemoglobin dropped from 8.0 to 7.6 - monitor H&H closely S/P EGD, findings mentioned above. Appreciate recommendations. On Ferrous sulfate Received Ferrlecit 125 mg IV given Severe protein calorie malnutrition: Albumin 1.2, pre albumin pending Ensure ordered Dietitian on board Substance use disorder: Last time Meth. use, three months ago network services project manager consult Substance use navigator to screen for current cravings or risk of relapse Tobacco use disorder: Counseled patient on smoking cessation Nicotine patch Psychiatric issues/anxiety/Depression: Home medications i.e. Abilify and Atarax resumed Chronic pain issues: Gabapentin and tramadol DVT prophylaxis: Lovenox Code status: Full code Disposition: [facility] Resident Date of Service: January 25, 2025 Billing Provider: ANA REA MD Common Visit Codes: [id number] INP/OBS CARE(HIGH) MARY ANN VIDAL, RES January 25, 2025 17:40 ANA REA MD Feb 09, 2025 22:35
[2025-01-25] MEDS: gabapentin 300mg capsule PO SCH (20:00)
[2025-01-25] MEDS: fat emulsion 20% inj. 100 ML IV SCH (20:00)
--- NOTE | 2025-01-25 21:00 | PROGRESS NOTE ---
Progress Note ID Providers to CC ~ Progress Note Progress Note: extubated/vss/abd-stoma viable/labs noted a/p 1. s/p repeat lap-doing well/cont supportive care DELPHINE RAZO MD January 25, 2025 21:00
[2025-01-25] MEDS: LORazepam 2 mg/ml vial IV ONE (23:31)
[2025-01-26] VITALS (12 sets, daily range): BP systolic 120–145; BP diastolic 52–87; PULSE 78–94; RESP 12–26; TEMP 97.1–98.9; O2SAT 91–97
[2025-01-26] MEDS: potassium Cl 40MEQ/270ML bag 270 ML IV ONE (04:14)
[2025-01-26] MEDS: PCA WASTE DOCUMENTATION 1 MG ML MC SCH (04:29)
[2025-01-26 06:12] LABS: BASOPHILS % (AUTO) 0.2 % (0-1); EOSINOPHILS # (AUTO) 0.2 X10'3 (0-0.9); EOSINOPHILS % (AUTO) 1.4 % (0-6); LYMPHOCYTES % (AUTO) 8.2 % (21-51); MEAN CORPUSCULAR HGB CONC 31.5 g/dL (33.0-36.5); MEAN CORPUSCULAR VOLUME 76.2 FL (78-98); MEAN PLATELET VOLUME 6.7 FL (7.4-10.4); MONOCYTES # (AUTO) 0.8 X10'3 (0-0.9); MONOCYTES % (AUTO) 6.1 % (2-12); NEUTROPHILS # (AUTO) 10.6 X10'3 (1.8-7.7); NEUTROPHILS % (AUTO) 84.1 % (42-75); RED BLOOD COUNT 2.76 X10'6 (4.20-5.60); RED CELL DISTRIBUTION WIDTH 26.2 % (11.5-14.5); WHITE BLOOD COUNT 12.5 X10'3 (4.5-11.0)
[2025-01-26 06:17] LABS: HEMATOCRIT 21.1 % (35.0-45.0); HEMOGLOBIN 6.6 g/dl (12.0-16.0)
[2025-01-26 06:18] LABS: PLATELET COUNT 1017 X10'3 (140-440)
[2025-01-26 06:22] LABS: ALANINE AMINOTRANSFERASE 9 U/L (12-78); ALBUMIN 1.1 G/DL (3.4-5.0); ALBUMIN/GLOBULIN RATIO 0.3 (1.1-1.5); ALKALINE PHOSPHATASE 96 IU/L (46-116); ANION GAP 3 (8-16); ASPARTATE AMINO TRANSFERASE 13 U/L (10-37); BILIRUBIN,TOTAL 0.2 MG/DL (0.1-1.0); BLOOD UREA NITROGEN 4 MG/DL (7-18); BUN/CREATININE RATIO 9.3 (10.0-20.0); CALCIUM 7.2 MG/DL (8.5-10.1); CHLORIDE 110 MMOL/L (99-107); CREATININE 0.43 MG/DL (0.40-0.90); GLUCOSE 130 MG/DL (70-104); MAGNESIUM 1.8 MG/DL (1.5-2.4); PHOSPHORUS 2.4 MG/DL (2.3-4.5); PREALBUMIN 8.7 MG/DL (19-36); SODIUM 143 MMOL/L (135-145); TOTAL CARBON DIOXIDE 29.6 MMOL/L (24-32); TOTAL PROTEIN 4.9 G/DL (6.4-8.2); TRIGLYCERIDES 77 MG/DL (20-135); eCRCL 132 ML/MIN; eGFR > 90 ML/MIN
[2025-01-26] MEDS: MESSAGE TO NURSING IV ONE ×3 (07:52→22:01)
[2025-01-26 12:55] LABS: APTT 115 SECONDS (22-32)
--- NOTE | 2025-01-26 15:07 | PROGRESS NOTE- Residence ---
Progress Note - Resident Providers to CC Resident Creating Document: PATRICIA OVALLES RES ~ Antibiotic Timeout Antibiotic Ordered?: Yes Subjective Patient seen and examined at the bedside today. Her hemoglobin was 6.6, currently receiving 1 unit of PRBC. We will repeat H and H again at 1600. Her clinical condition has significantly improved. She does not report any issues or concerns. She is happy about the progress, grateful to her surgeon. WBC trended down. Objective Vital Signs Date Time Temp Pulse Resp B/P (MAP) Pulse Ox O2 Delivery O2 Flow Rate FiO2 01/26/25 13:00 12 01/26/25 12:36 98.2 88 131/82 01/26/25 11:00 95 01/26/25 08:00 Room Air 01/25/25 08:00 21 01/25/25 06:00 4.0 General: Awake, alert. In no acute distress. On 4 L oxygen via nasal cannula. HEENT: Conjunctiva pink, Sclera clear, Mucus Membranes moist. Neck: Supple without masses and tenderness. Resp: Bilateral diffuse rhonchi heard, more on the left lung john. Heart: Regular Rate and rhythm, normal S1 and S2 without murmur, rub or gallop. Abdomen: Soft, mildly distended. Bilateral CHESTER drains present. Extremities: No cyanosis,clubbing or edema. Skin: Warm and Dry. Neurology: Moving all four limbs. Result Diagram: 01/26/25 0550 01/26/25 0550 Coagulation Studies Laboratory Tests Test 01/13/25 09:32 01/26/25 05:50 01/26/25 11:40 Prothrombin Time 10.9 SECONDS (9.0-12.0) INR International Normalized Ratio 1.1 INR APTT (Heparin Protocol) 70 SECONDS (45-75) Activated Partial Thromboplast Time 115 SECONDS (22-32) *H Coagulation Comments Advance Care Planning Advanced Care plannin - 30 Minutes Assessment Assessment 49-year-old female admitted in the hospital for prolapsing loop colostomy. He underwent laparotomy with partial colectomy on the and later had a repeat exploratory laparotomy with the abdominal washout and partial colectomy on the by Dr. Choi. The patient underwent a repeat laparotomy with the abdominal washout and transverse colostomy yesterday. Plan Plan Parastomal hernia; associated with bulging pain and bleeding S/P colostomy on January 02, 2025 Colostomy revision, January 14, 2025 Acute Peritonitis, s/p exploratory Laparatomy (wash out) on January 21, 2025 Undergone two washouts Downgraded to PCU; January 25, 2025 Septic Shock, 2/2 to above. Sedated, intubated, and mechanically ventilated with a FiO2 30% On dual pressors i.e. norepinephrine and vasopressin N/V; Zofran on board IVF; LR 70 ml/hr Abx; on Zosyn Downgraded to PCU January 24, 2025: Undergone repeat washout/colostomy yesterday. Sedated, on mechanical ventilation; FiO2 40% ABGs; Ph 7.43, pO2 75, pCO2 34 Perineal fluid grows E. Gallinarum and Stenotrophomonas Maltophilia Abdominal wound grows E. Gallinarum resistent to Vanco, sensitive to ampicillin and Gentamicin On Zosyn - Continue January 25, 2025: The patient was successfully weaned off of the ventilator and extubated on January 24, 2025. She is now off of pressors and maintaining adequate perfusion on 4 L of oxygen via nasal cannula. Downgraded to PCU. She had bilateral pleural effusion, and left-sided thoracentesis was performed yesterday, yielding 600 mL of straw-colored fluid. She is currently stable, and her respiratory status is being closely monitored January 26, 2025: Hemoglobin 6.6, receiving one PRBC. Closely monitor H&H, and transfuse further if indicated Clinically improved, perfusing well while breathing ambient air Primarily managed by Dr. Choi Microcytic hypochromic anemia: More likely KAYLEE Hemoglobin 6.6. Currently receiving one PRBC transfusion monitor H&H closely S/P EGD, findings mentioned above. Appreciate recommendations. On Ferrous sulfate Received Ferrlecit 125 mg IV given Severe protein calorie malnutrition: Albumin 1.2, pre albumin pending Ensure ordered Dietitian on board Substance use disorder: Last time Meth. use, three months ago patient services coordinator consult Substance use navigator to screen for current cravings or risk of relapse Tobacco use disorder: Counseled patient on smoking cessation Nicotine patch Psychiatric issues/anxiety/Depression: Home medications i.e. Abilify and Atarax resumed Chronic pain issues: Gabapentin and tramadol DVT prophylaxis: Lovenox Code status: Full code Disposition: [facility] Internal Medicine Resident Date of Service: January 26, 2025 Billing Provider: ANA REA MD Common Visit Codes: [id number] INP/OBS CARE(HIGH) PATRICIA OVALLES, RES January 26, 2025 15:07 ANA REA MD Feb 09, 2025 22:35
[2025-01-26 18:08] LABS: HEMOGLOBIN 7.9 g/dl (12.0-16.0)
[2025-01-26 18:10] LABS: HEMATOCRIT 24.2 % (35.0-45.0); MEAN CORPUSCULAR HEMOGLOBIN 25.4 PG (27.0-31.0); MEAN CORPUSCULAR HGB CONC 32.7 g/dL (33.0-36.5); MEAN CORPUSCULAR VOLUME 77.7 FL (78-98); MEAN PLATELET VOLUME 6.9 FL (7.4-10.4); PLATELET COUNT 921 X10'3 (140-440); RED BLOOD COUNT 3.11 X10'6 (4.20-5.60); RED CELL DISTRIBUTION WIDTH 24.8 % (11.5-14.5); WHITE BLOOD COUNT 12.6 X10'3 (4.5-11.0)
[2025-01-26 20:55] LABS: HEMOGLOBIN 8.1 g/dl (12.0-16.0); MEAN PLATELET VOLUME 6.6 FL (7.4-10.4)
[2025-01-26 20:57] LABS: HEMATOCRIT 24.7 % (35.0-45.0); MEAN CORPUSCULAR HEMOGLOBIN 25.2 PG (27.0-31.0); MEAN CORPUSCULAR HGB CONC 32.7 g/dL (33.0-36.5); MEAN CORPUSCULAR VOLUME 76.9 FL (78-98); PLATELET COUNT 944 X10'3 (140-440); RED BLOOD COUNT 3.21 X10'6 (4.20-5.60); RED CELL DISTRIBUTION WIDTH 24.5 % (11.5-14.5); WHITE BLOOD COUNT 12.7 X10'3 (4.5-11.0)
--- NOTE | 2025-01-26 21:39 | PROGRESS NOTE ---
Progress Note ID Providers to CC ~ Progress Note Progress Note: complains of pain/vss/stoma patent/labs noted a/p 1. s/p repeat lap-doing well/clears DELPHINE RAZO MD January 26, 2025 21:38
[2025-01-27] VITALS (7 sets, daily range): BP systolic 89–136; BP diastolic 62–87; PULSE 82–85; RESP 12–23; TEMP 97.1–98.5; O2SAT 25–97
[2025-01-27 04:18] LABS: BASOPHILS % (AUTO) 0.3 % (0-1); EOSINOPHILS # (AUTO) 0.4 X10'3 (0-0.9); EOSINOPHILS % (AUTO) 3.2 % (0-6); HEMATOCRIT 24.3 % (35.0-45.0); LYMPHOCYTES # (AUTO) 1.1 X10'3 (1.1-4.8); MONOCYTES # (AUTO) 0.7 X10'3 (0-0.9); MONOCYTES % (AUTO) 6.1 % (2-12); RED BLOOD COUNT 3.16 X10'6 (4.20-5.60)
[2025-01-27 04:20] LABS: HEMOGLOBIN 7.9 g/dl (12.0-16.0); LYMPHOCYTES % (AUTO) 9.8 % (21-51); MEAN CORPUSCULAR HEMOGLOBIN 25.1 PG (27.0-31.0); MEAN CORPUSCULAR HGB CONC 32.7 g/dL (33.0-36.5); MEAN PLATELET VOLUME 6.6 FL (7.4-10.4); NEUTROPHILS # (AUTO) 9.1 X10'3 (1.8-7.7); NEUTROPHILS % (AUTO) 80.6 % (42-75); PLATELET COUNT 982 X10'3 (140-440); RED CELL DISTRIBUTION WIDTH 25.3 % (11.5-14.5); WHITE BLOOD COUNT 11.3 X10'3 (4.5-11.0)
[2025-01-27 04:31] LABS: ALANINE AMINOTRANSFERASE 13 U/L (12-78); ALBUMIN 1.2 G/DL (3.4-5.0); ALBUMIN/GLOBULIN RATIO 0.3 (1.1-1.5); ALKALINE PHOSPHATASE 79 IU/L (46-116); ANION GAP 4 (8-16); ASPARTATE AMINO TRANSFERASE 17 U/L (10-37); BILIRUBIN,TOTAL 0.3 MG/DL (0.1-1.0); BLOOD UREA NITROGEN 5 MG/DL (7-18); BUN/CREATININE RATIO 12.2 (10.0-20.0); CALCIUM 7.6 MG/DL (8.5-10.1); CHLORIDE 109 MMOL/L (99-107); CREATININE 0.41 MG/DL (0.40-0.90); GLUCOSE 123 MG/DL (70-104); MAGNESIUM 1.8 MG/DL (1.5-2.4); PHOSPHORUS 3.2 MG/DL (2.3-4.5); POTASSIUM 3.4 MMOL/L (3.5-5.1); SODIUM 142 MMOL/L (135-145); TOTAL CARBON DIOXIDE 28.9 MMOL/L (24-32); TOTAL PROTEIN 5.3 G/DL (6.4-8.2); eCRCL 139 ML/MIN; eGFR > 90 ML/MIN
[2025-01-27] MEDS: LORazepam 0.5 MG tablet PO ONE (04:47)
[2025-01-27 05:16] LABS: PLATELET ESTIMATE INCREASED; TOTAL CELLS COUNTED 100
[2025-01-27 05:17] LABS: ANISOCYTOSIS 3+; MICROCYTOSIS 1+
[2025-01-27] MEDS: heparin 25,000 UNIT/250ml bag 250 ML IV PRN (05:56)
[2025-01-27] MEDS ORDERED: SULFAMETHOX IV SCH (12:00)
[2025-01-27] MEDS ORDERED: WATER IV SCH (12:00)
[2025-01-27] MEDS ORDERED: TRIMETHOPRIM IV SCH (12:00)
[2025-01-27] MEDS ORDERED: DEXTROSE IV SCH (12:00)
[2025-01-27] MEDS: potassium Cl 20 mEq SR tablet PO PRN (13:00)
[2025-01-27] MEDS: WATER IV SCH (13:08)
[2025-01-27] MEDS: TRIMETHOPRIM IV SCH (13:08)
[2025-01-27] MEDS: DEXTROSE IV SCH (13:08)
[2025-01-27] MEDS: SULFAMETHOX IV SCH (13:08)
[2025-01-27] MEDS: MESSAGE TO NURSING IV ONE (13:15)
[2025-01-27] MEDS: tPA-cathflo 2mg/2ml IV flush 2 MG/2 ML VIAL IVF ONE (13:36)
--- NOTE | 2025-01-27 15:08 | PROGRESS NOTE ---
Progress Note ID Providers to CC ~ Progress Note Progress Note: doing well/advance diet-wean tpn DELPHINE RAZO MD January 27, 2025 15:08
--- NOTE | 2025-01-27 18:11 | PROGRESS NOTE- Residence ---
Progress Note - Resident Providers to CC Resident Creating Document: PATRICIA VIDAL RES ~ Antibiotic Timeout Antibiotic Ordered?: Yes Subjective Patient seen and examined at the bedside today. She is clinically improved and feeling better. Her hemoglobin has remained stable over the past two days, with a value of 7.9 today. I discussed the case with Dr. Loco regarding appropriate antibiotic coverage for Stenotrophomonas maltophilia; she recommended initiating spectrum today. The patient is already on Zosyn, which is being continued for Enterococcus coverage. Ongoing monitoring is in place. Per Dr. Choi, the plan is to advance the diet and wean her off of TPN. The patient is tolerating current management well and nutrition status we will be closely monitored as diet is advanced. Objective Vital Signs Date Time Temp Pulse Resp B/P (MAP) Pulse Ox O2 Delivery O2 Flow Rate FiO2 01/27/25 15:00 97.7 82 15 134/83 (100) 94 Room Air 01/25/25 08:00 21 01/25/25 06:00 4.0 General: Awake, alert. In no acute distress. On 4 L oxygen via nasal cannula. HEENT: Conjunctiva pink, Sclera clear, Mucus Membranes moist. Neck: Supple without masses and tenderness. Resp: Bilateral diffuse rhonchi heard, more on the left lung john. Heart: Regular Rate and rhythm, normal S1 and S2 without murmur, rub or gallop. Abdomen: Soft, mildly distended. Bilateral CHESTER drains present. Extremities: No cyanosis,clubbing or edema. Skin: Warm and Dry. Result Diagram: 01/27/25 0400 01/27/25 0400 Coagulation Studies Laboratory Tests Test 01/13/25 09:32 01/26/25 11:40 01/27/25 10:44 Prothrombin Time 10.9 SECONDS (9.0-12.0) INR International Normalized Ratio 1.1 INR Activated Partial Thromboplast Time 115 SECONDS (22-32) *H APTT (Heparin Protocol) 99 SECONDS (45-75) H Coagulation Comments Advance Care Planning Advanced Care plannin - 30 Minutes Assessment Assessment 49-year-old female admitted in the hospital for prolapsing loop colostomy. He underwent laparotomy with partial colectomy on the and later had a repeat exploratory laparotomy with the abdominal washout and partial colectomy on the by Dr. Choi. The patient underwent a repeat laparotomy with the abdominal washout and transverse colostomy yesterday. Plan Plan Parastomal hernia; associated with bulging pain and bleeding S/P colostomy on January 02, 2025 Colostomy revision, January 14, 2025 Acute Peritonitis, s/p exploratory Laparatomy (wash out) on January 21, 2025 Septic Shock, 2/2 to above. Undergone two washouts N/V; Zofran on board IVF; LR 70 ml/hr Abx; on Zosyn and spectrum January 24, 2025: Undergone repeat washout/colostomy yesterday. Sedated, on mechanical ventilation; FiO2 40% ABGs; Ph 7.43, pO2 75, pCO2 34 Perineal fluid grows E. Gallinarum and Stenotrophomonas Maltophilia Abdominal wound grows E. Gallinarum resistent to Vanco, sensitive to ampicillin and Gentamicin On Zosyn - Continue January 25, 2025: The patient was successfully weaned off of the ventilator and extubated on January 24, 2025. She is now off of pressors and maintaining adequate perfusion on 4 L of oxygen via nasal cannula. Downgraded to PCU. She had bilateral pleural effusion, and left-sided thoracentesis was performed yesterday, yielding 600 mL of straw-colored fluid. She is currently stable, and her respiratory status is being closely monitored January 26, 2025: Hemoglobin 6.6, receiving one PRBC. Closely monitor H&H, and transfuse further if indicated Clinically improved, perfusing well while breathing ambient air Primarily managed by Dr. Choi January 27, 2025: She is clinically improved and feeling better. Her hemoglobin has remained stable over the past two days, with a value of 7.9 today. I discussed the case with Dr. Loco regarding appropriate antibiotic coverage for Stenotrophomonas maltophilia; she recommended initiating spectrum today. The patient is already on Zosyn, which is being continued for Enterococcus coverage. Ongoing monitoring is in place. Per Dr. Choi, the plan is to advance the diet and wean her off of TPN. The patient is tolerating current management well and nutrition status we will be closely monitored as diet is advanced. Microcytic hypochromic anemia: More likely KAYLEE Hemoglobin 6.6. Currently receiving one PRBC transfusion monitor H&H closely S/P EGD, findings mentioned above. Appreciate recommendations. On Ferrous sulfate Received Ferrlecit 125 mg IV given Severe protein calorie malnutrition: Albumin 1.2, pre albumin pending Ensure ordered Dietitian on board Substance use disorder: Last time Meth. use, three months ago learning services coordinator consult Substance use navigator to screen for current cravings or risk of relapse Tobacco use disorder: Counseled patient on smoking cessation Nicotine patch Psychiatric issues/anxiety/Depression: Home medications i.e. Abilify and Atarax resumed Chronic pain issues: Gabapentin and tramadol DVT prophylaxis: Lovenox Code status: Full code Disposition: Management per Dr. [facility] Resident Date of Service: January 27, 2025 Billing Provider: ANA REA MD Common Visit Codes: [id number] INP/OBS CARE(HIGH) PATRICIA VIDAL, RES January 27, 2025 18:11 ANA REA MD Feb 09, 2025 22:36
[2025-01-27] MEDS: apixaban 5mg tablet PO SCH (19:46)
[2025-01-27] MEDS ORDERED: apixaban 5mg tablet PO SCH (20:00)
[2025-01-28] VITALS (8 sets, daily range): BP systolic 92–106; BP diastolic 52–70; PULSE 77–98; RESP 16–20; TEMP 97.5–98.7; O2SAT 87–97
[2025-01-28 06:49] LABS: EOSINOPHILS # (AUTO) 0.4 X10'3 (0-0.9); HEMATOCRIT 24.7 % (35.0-45.0); HEMOGLOBIN 8.2 g/dl (12.0-16.0); WHITE BLOOD COUNT 10.7 X10'3 (4.5-11.0)
[2025-01-28 06:52] LABS: BASOPHILS % (AUTO) 0.4 % (0-1); EOSINOPHILS % (AUTO) 3.8 % (0-6); LYMPHOCYTES % (AUTO) 9.6 % (21-51); MEAN CORPUSCULAR HEMOGLOBIN 25.5 PG (27.0-31.0); MEAN CORPUSCULAR VOLUME 77.3 FL (78-98); MEAN PLATELET VOLUME 6.8 FL (7.4-10.4); MONOCYTES # (AUTO) 0.7 X10'3 (0-0.9); MONOCYTES % (AUTO) 6.3 % (2-12); NEUTROPHILS # (AUTO) 8.6 X10'3 (1.8-7.7); NEUTROPHILS % (AUTO) 79.9 % (42-75); PLATELET COUNT 934 X10'3 (140-440); RED CELL DISTRIBUTION WIDTH 25.1 % (11.5-14.5)
[2025-01-28 07:09] LABS: ALANINE AMINOTRANSFERASE 23 U/L (12-78); ALBUMIN 1.2 G/DL (3.4-5.0); ALBUMIN/GLOBULIN RATIO 0.3 (1.1-1.5); ALKALINE PHOSPHATASE 69 IU/L (46-116); ANION GAP 8 (8-16); ASPARTATE AMINO TRANSFERASE 37 U/L (10-37); BILIRUBIN,TOTAL 0.2 MG/DL (0.1-1.0); BLOOD UREA NITROGEN 4 MG/DL (7-18); BUN/CREATININE RATIO 8.5 (10.0-20.0); CALCIUM 7.4 MG/DL (8.5-10.1); CHLORIDE 106 MMOL/L (99-107); CREATININE 0.47 MG/DL (0.40-0.90); GLUCOSE 105 MG/DL (70-104); MAGNESIUM 1.7 MG/DL (1.5-2.4); PHOSPHORUS 3.7 MG/DL (2.3-4.5); POTASSIUM 3.6 MMOL/L (3.5-5.1); SODIUM 140 MMOL/L (135-145); TOTAL CARBON DIOXIDE 26.1 MMOL/L (24-32); TOTAL PROTEIN 5.1 G/DL (6.4-8.2); TRIGLYCERIDES 121 MG/DL (20-135); eCRCL 121 ML/MIN; eGFR > 90 ML/MIN
[2025-01-28] MEDS: lactose-reduced food (Ensure Enlive) - 237ml bottle PO SCH (08:00)
--- NOTE | 2025-01-28 11:29 | PROGRESS NOTE ---
Progress Note Dictate Providers to CC CC: ANNALISE RAMIRES MD ~ Progress Note: Subsequent surgical care on a 49-year-old woman who is postoperative day 14, status post colostomy revision with mucous fistula/left colectomy and rectal resection/washout and creation of transverse colostomy Covering for Dr. Giuliano Choi Tolerating a full liquid diet with ostomy output Incision clean, dry, and intact Stoma pink and viable with gas and stool in the appliance Advance to a regular diet No acute surgical issues Antibiotic Ordered?: Yes Objective Vitals Vital Signs Date Time Temp Pulse Resp B/P (MAP) Pulse Ox O2 Delivery O2 Flow Rate FiO2 01/28/25 07:00 16 01/28/25 06:00 98.5 77 106/70 (82) 97 Room Air 01/25/25 08:00 21 01/25/25 06:00 4.0 Lab Results: 01/28/25 0545 01/28/25 0545 Coagulation Studies Laboratory Tests Test 01/13/25 09:32 01/26/25 11:40 01/27/25 10:44 Prothrombin Time 10.9 SECONDS (9.0-12.0) INR International Normalized Ratio 1.1 INR Activated Partial Thromboplast Time 115 SECONDS (22-32) *H APTT (Heparin Protocol) 99 SECONDS (45-75) H Coagulation Comments ANNALISE RAMIRES MD January 28, 2025 11:29
--- NOTE | 2025-01-28 17:21 | PROGRESS NOTE- Residence ---
Progress Note - Resident Providers to CC Resident Creating Document: PATRICIA VIDAL RES ~ Antibiotic Timeout Antibiotic Ordered?: Yes Subjective Patient seen and examined at the bedside today. She is clinically improving. She is tolerating a full liquid diet we will following ostomy surgery. Her surgical incision is clean, dry, and intact. The stoma appears healthy, pink and viable, with formed stool present in the appliance. The surgical team plans to advance her diet to a regular diet as tolerated. Objective Vital Signs Date Time Temp Pulse Resp B/P (MAP) Pulse Ox O2 Delivery O2 Flow Rate FiO2 01/28/25 15:00 16 01/28/25 11:46 98 104/68 (80) 87 01/28/25 10:00 98.3 Room Air 01/25/25 08:00 21 01/25/25 06:00 4.0 General: Awake, alert. In no acute distress. On 4 L oxygen via nasal cannula. HEENT: Conjunctiva pink, Sclera clear, Mucus Membranes moist. Neck: Supple without masses and tenderness. Resp: Bilateral diffuse rhonchi heard, more on the left lung john. Heart: Regular Rate and rhythm, normal S1 and S2 without murmur, rub or gallop. Abdomen: Soft, mildly distended. Bilateral CHESTER drains present. Extremities: No cyanosis,clubbing or edema. Skin: Warm and Dry. Result Diagram: 01/28/25 0545 01/28/25 0545 Coagulation Studies Laboratory Tests Test 01/13/25 09:32 01/26/25 11:40 01/27/25 10:44 Prothrombin Time 10.9 SECONDS (9.0-12.0) INR International Normalized Ratio 1.1 INR Activated Partial Thromboplast Time 115 SECONDS (22-32) *H APTT (Heparin Protocol) 99 SECONDS (45-75) H Coagulation Comments Assessment Assessment 49-year-old female admitted in the hospital for prolapsing loop colostomy. He underwent laparotomy with partial colectomy on the and later had a repeat exploratory laparotomy with the abdominal washout and partial colectomy on the by Dr. Choi. The patient underwent a repeat laparotomy with the abdominal washout and transverse colostomy yesterday. Plan Plan Parastomal hernia; associated with bulging pain and bleeding S/P colostomy on January 02, 2025 Colostomy revision, January 14, 2025 Acute Peritonitis, s/p exploratory Laparatomy (wash out) on January 21, 2025 Septic Shock, 2/2 to above. Undergone two washouts N/V; Zofran on board IVF; LR 70 ml/hr Abx; on Zosyn and spectrum January 24, 2025: Undergone repeat washout/colostomy yesterday. Sedated, on mechanical ventilation; FiO2 40% ABGs; Ph 7.43, pO2 75, pCO2 34 Perineal fluid grows E. Gallinarum and Stenotrophomonas Maltophilia Abdominal wound grows E. Gallinarum resistent to Vanco, sensitive to ampicillin and Gentamicin On Zosyn - Continue January 25, 2025: The patient was successfully weaned off of the ventilator and extubated on January 24, 2025. She is now off of pressors and maintaining adequate perfusion on 4 L of oxygen via nasal cannula. Downgraded to PCU. She had bilateral pleural effusion, and left-sided thoracentesis was performed yesterday, yielding 600 mL of straw-colored fluid. She is currently stable, and her respiratory status is being closely monitored January 26, 2025: Hemoglobin 6.6, receiving one PRBC. Closely monitor H&H, and transfuse further if indicated Clinically improved, perfusing well while breathing ambient air Primarily managed by Dr. Choi January 27, 2025: She is clinically improved and feeling better. Her hemoglobin has remained stable over the past two days, with a value of 7.9 today. I discussed the case with Dr. Loco regarding appropriate antibiotic coverage for Stenotrophomonas maltophilia; she recommended initiating spectrum today. The patient is already on Zosyn, which is being continued for Enterococcus coverage. Ongoing monitoring is in place. Per Dr. Choi, the plan is to advance the diet and wean her off of TPN. The patient is tolerating current management well and nutrition status we will be closely monitored as diet is advanced. January 28, 2025: She is clinically improving. She is tolerating a full liquid diet we will following ostomy surgery. Her surgical incision is clean, dry, and intact. The stoma appears healthy, pink and viable, with formed stool present in the appliance. The surgical team plans to advance her diet to a regular diet as tolerated. Discharge plan per surgical team. Microcytic hypochromic anemia: More likely KAYLEE H&H has remained stable S/P EGD, findings mentioned above. Appreciate recommendations. On Ferrous sulfate Received Ferrlecit 125 mg IV given Severe protein calorie malnutrition: Albumin 1.2, pre albumin pending Ensure ordered Dietitian on board Substance use disorder: Last time Meth. use, three months ago non emergency services ambulance driver consult Substance use navigator to screen for current cravings or risk of relapse Tobacco use disorder: Counseled patient on smoking cessation Nicotine patch Psychiatric issues/anxiety/Depression: Home medications i.e. Abilify and Atarax resumed Chronic pain issues: Gabapentin and tramadol DVT prophylaxis: Lovenox Code status: Full code Disposition: Management per Dr. [facility] Resident Date of Service: January 28, 2025 Billing Provider: ANA REA MD Common Visit Codes: [id number] INP/OBS CARE(HIGH) PATRICIA VIDAL, RES January 28, 2025 17:21 ANA REA MD Feb 09, 2025 22:36
[2025-01-29 06:22] LABS: ALANINE AMINOTRANSFERASE 23 U/L (12-78); ALBUMIN 1.2 G/DL (3.4-5.0); ALBUMIN/GLOBULIN RATIO 0.3 (1.1-1.5); ALKALINE PHOSPHATASE 80 IU/L (46-116); ANION GAP 7 (8-16); ASPARTATE AMINO TRANSFERASE 24 U/L (10-37); BILIRUBIN,TOTAL 0.1 MG/DL (0.1-1.0); BLOOD UREA NITROGEN 5 MG/DL (7-18); BUN/CREATININE RATIO 8.8 (10.0-20.0); CALCIUM 7.7 MG/DL (8.5-10.1); CHLORIDE 106 MMOL/L (99-107); CREATININE 0.57 MG/DL (0.40-0.90); GLUCOSE 75 MG/DL (70-104); MAGNESIUM 1.9 MG/DL (1.5-2.4); SODIUM 140 MMOL/L (135-145); TOTAL CARBON DIOXIDE 26.9 MMOL/L (24-32); TOTAL PROTEIN 5.3 G/DL (6.4-8.2); TRIGLYCERIDES 123 MG/DL (20-135); eCRCL 100 ML/MIN; eGFR > 90 ML/MIN
[2025-01-29 06:23] LABS: BASOPHILS % (AUTO) 0.5 % (0-1); EOSINOPHILS # (AUTO) 0.4 X10'3 (0-0.9); MONOCYTES # (AUTO) 0.7 X10'3 (0-0.9); NEUTROPHILS # (AUTO) 7.2 X10'3 (1.8-7.7)
[2025-01-29 06:25] LABS: EOSINOPHILS % (AUTO) 3.9 % (0-6); HEMATOCRIT 24.3 % (35.0-45.0); LYMPHOCYTES # (AUTO) 1.3 X10'3 (1.1-4.8); LYMPHOCYTES % (AUTO) 13.3 % (21-51); MEAN CORPUSCULAR HEMOGLOBIN 25.4 PG (27.0-31.0); MEAN CORPUSCULAR HGB CONC 32.9 g/dL (33.0-36.5); MEAN CORPUSCULAR VOLUME 77.3 FL (78-98); MONOCYTES % (AUTO) 7.6 % (2-12); NEUTROPHILS % (AUTO) 74.7 % (42-75); PLATELET COUNT 945 X10'3 (140-440); RED BLOOD COUNT 3.14 X10'6 (4.20-5.60); RED CELL DISTRIBUTION WIDTH 25.6 % (11.5-14.5); WHITE BLOOD COUNT 9.7 X10'3 (4.5-11.0)
[2025-01-29 07:00] VITALS: BP 110/63; PULSE 79; RESP 20; TEMP 98; O2SAT 97
[2025-01-29 07:47] LABS: TOTAL CELLS COUNTED 100
[2025-01-29 07:48] LABS: MICROCYTOSIS 1+; PLATELET ESTIMATE INCREASED; POLYCHROMASIA 1+
[2025-01-29 08:30] VITALS: RESP 16
[2025-01-29 10:00] VITALS: BP 92/51; PULSE 90; RESP 17; TEMP 98; O2SAT 96
--- NOTE | 2025-01-29 10:27 | PROGRESS NOTE ---
Progress Note Dictate Providers to CC CC: ANNALISE RAMIRES MD ~ Progress Note: Subsequent surgical care on a 49-year-old woman who is postoperative day 15, status post colostomy revision with mucous fistula/left colectomy and rectal resection/washout and creation of transverse colostomy Covering for Dr. Giuliano Choi Tolerating a full liquid diet with ostomy output Incision clean, dry, and intact Stoma pink and viable with gas and stool in the appliance Advance to a regular diet No acute surgical issues Antibiotic Ordered?: Yes Objective Vitals Vital Signs Date Time Temp Pulse Resp B/P (MAP) Pulse Ox O2 Delivery O2 Flow Rate FiO2 01/29/25 07:00 98.0 79 20 110/63 (79) 97 Room Air 01/25/25 08:00 21 01/25/25 06:00 4.0 Lab Results: 01/29/25 0525 01/29/25 0525 Coagulation Studies Laboratory Tests Test 01/13/25 09:32 01/26/25 11:40 01/27/25 10:44 Prothrombin Time 10.9 SECONDS (9.0-12.0) INR International Normalized Ratio 1.1 INR Activated Partial Thromboplast Time 115 SECONDS (22-32) *H APTT (Heparin Protocol) 99 SECONDS (45-75) H Coagulation Comments ANNALISE RAMIRES MD Jan 29, 2025 10:27
--- NOTE | 2025-01-29 14:28 | PROGRESS NOTE- Residence ---
Progress Note - Resident Providers to CC Resident Creating Document: NEGRITA CHILDERS RES CC: ANA REA MD ~ Antibiotic Timeout Antibiotic Ordered?: No Subjective Patient is examined at bedside today. Patient is passing gas and had bowel movements and is tolerating full liquid diet therefore the surgeon has recommended to advance diet to regular. Incision is clear without erythema hematoma or any discharge. Objective Vital Signs Date Time Temp Pulse Resp B/P (MAP) Pulse Ox O2 Delivery O2 Flow Rate FiO2 01/29/25 12:00 16 01/29/25 07:00 98.0 79 110/63 (79) 97 Room Air 01/25/25 08:00 21 01/25/25 06:00 4.0 Result Diagram: 01/29/2552401/29/25524 General: Alert, awake, oriented, not in acute distress HEENT: PERRLA, no icterus, pallor, lymphadenopathy, carotid bruit Respiratory system: Bilateral vesicular breath sounds heard, no adventitious breath sounds CVS: S1-S2 heard, no murmurs/rubs/gallop GI: Surgical dressing present, bowel sounds present, bilateral CHESTER drains present Neuro: No focal neurological deficits present Extremities: No edema cyanosis clubbing/deformities Skin: Warm and dry Coagulation Studies Laboratory Tests Test 01/13/25 09:32 01/26/25 11:40 01/27/25 10:44 Prothrombin Time 10.9 SECONDS (9.0-12.0) INR International Normalized Ratio 1.1 INR Activated Partial Thromboplast Time 115 SECONDS (22-32) *H APTT (Heparin Protocol) 99 SECONDS (45-75) H Coagulation Comments Assessment Assessment 49-year-old female admitted in the hospital for prolapsing loop colostomy. He underwent laparotomy with partial colectomy on the and later had a repeat exploratory laparotomy with the abdominal washout and partial colectomy on the by Dr. Choi. The patient underwent a repeat laparotomy with the abdominal washout and transverse colostomy yesterday. Plan Plan Parastomal hernia; associated with bulging pain and bleeding S/P colostomy on January 02, 2025 Colostomy revision, January 14, 2025 Acute Peritonitis, s/p exploratory Laparatomy (wash out) on January 21, 2025 Septic Shock, 2/2 to above. Undergone two washouts N/V; Zofran on board IVF; LR 70 ml/hr Abx; on Zosyn and spectrum January 24, 2025: Undergone repeat washout/colostomy yesterday. Sedated, on mechanical ventilation; FiO2 40% ABGs; Ph 7.43, pO2 75, pCO2 34 Perineal fluid grows E. Gallinarum and Stenotrophomonas Maltophilia Abdominal wound grows E. Gallinarum resistent to Vanco, sensitive to ampicillin and Gentamicin On Zosyn - Continue January 25, 2025: The patient was successfully weaned off of the ventilator and extubated on January 24, 2025. She is now off of pressors and maintaining adequate perfusion on 4 L of oxygen via nasal cannula. Downgraded to PCU. She had bilateral pleural effusion, and left-sided thoracentesis was performed yesterday, yielding 600 mL of straw-colored fluid. She is currently stable, and her respiratory status is being closely monitored January 26, 2025: Hemoglobin 6.6, receiving one PRBC. Closely monitor H&H, and transfuse further if indicated Clinically improved, perfusing well while breathing ambient air Primarily managed by Dr. Choi January 27, 2025: She is clinically improved and feeling better. Her hemoglobin has remained stable over the past two days, with a value of 7.9 today. I discussed the case with Dr. Loco regarding appropriate antibiotic coverage for Stenotrophomonas maltophilia; she recommended initiating spectrum today. The patient is already on Zosyn, which is being continued for Enterococcus coverage. Ongoing monitoring is in place. Per Dr. Choi, the plan is to advance the diet and wean her off of TPN. The patient is tolerating current management well and nutrition status we will be closely monitored as diet is advanced. January 28, 2025: She is clinically improving. She is tolerating a full liquid diet we will following ostomy surgery. Her surgical incision is clean, dry, and intact. The stoma appears healthy, pink and viable, with formed stool present in the appliance. The surgical team plans to advance her diet to a regular diet as tolerated. Discharge plan per surgical team. January 29, 2025 Awaiting discharge per surgeon Watch for tolerance to regular diet Microcytic hypochromic anemia: More likely KAYLEE H&H has remained stable S/P EGD, findings mentioned above. Appreciate recommendations. On Ferrous sulfate Received Ferrlecit 125 mg IV given Severe protein calorie malnutrition: Albumin 1.2, pre albumin pending Ensure ordered Dietitian on board Substance use disorder: Last time Meth. use, three months ago accounting advisory services manager consult Substance use navigator to screen for current cravings or risk of relapse Tobacco use disorder: Counseled patient on smoking cessation Nicotine patch Psychiatric issues/anxiety/Depression: Home medications i.e. Abilify and Atarax resumed Chronic pain issues: Gabapentin and tramadol DVT prophylaxis: Lovenox Code status: Full code Disposition: Discharge plan and Management per Dr. Jimbo Childers MD Internal Medicine, PGY 1 Date of Service: Jan 29, 2025 Billing Provider: ANA REA MD Common Visit Codes: [id number] INP/OBS CARE(HIGH) NEGRITA CHILDERS, RES Jan 29, 2025 14:28 ANA REA MD Feb 09, 2025 22:36
[2025-01-29 18:30] VITALS: BP 100/46; PULSE 87; RESP 18; TEMP 97.9; O2SAT 95
[2025-01-29 22:00] VITALS: BP 106/57; PULSE 89; RESP 12; TEMP 97.5; O2SAT 95
[2025-01-30 06:00] VITALS: BP 98/57; PULSE 85; RESP 12; TEMP 96.5; O2SAT 96
[2025-01-30 08:00] VITALS: RESP 14
[2025-01-30] MEDS: pantoprazole 40mg Tablet.DR PO SCH (08:08)
[2025-01-30 11:00] VITALS: BP 108/63; PULSE 96; RESP 16; TEMP 98.1; O2SAT 95
[2025-01-30] MEDS: morphine 2 MG/ML inj. syringe IV STA (12:48)
[2025-01-30] MEDS ORDERED: morphine 2 MG/ML inj. syringe IV PRN (12:50)
[2025-01-30] MEDS: morphine 4 MG/ML inj SYRINge IV PRN (14:27)
--- NOTE | 2025-01-30 17:55 | PROGRESS NOTE ---
Progress Note ID Providers to CC ~ Progress Note Progress Note: doing well/dc planning DELPHINE RAZO MD Jan 30, 2025 17:55
[2025-01-30 18:00] VITALS: BP 104/64; PULSE 82; RESP 16; TEMP 97.1; O2SAT 95
--- NOTE | 2025-01-30 18:21 | PROGRESS NOTE- Residence ---
Progress Note - Resident Providers to CC Resident Creating Document: LUIS ACEVEDO, RES ~ Antibiotic Timeout Antibiotic Ordered?: Yes Subjective The patient was seen and examined at bedside today. She complains of abdominal pain and reported that Percocet is no longer working for her. She is requesting PO tramadol. Ordered IV morphine instead. She is having bowel movements and is tolerating regular diet. Objective Vital Signs Date Time Temp Pulse Resp B/P (MAP) Pulse Ox O2 Delivery O2 Flow Rate FiO2 01/30/25 17:16 14 01/30/25 11:00 98.1 96 108/63 (78) 95 Room Air Result Diagram: 01/29/2552401/29/25 05 General: Alert, awake, oriented, not in acute distress HEENT: PERRLA, no icterus, pallor, lymphadenopathy, carotid bruit Respiratory system: Bilateral vesicular breath sounds heard, no adventitious breath sounds CVS: S1-S2 heard, no murmurs/rubs/gallop GI: Surgical dressing present, bowel sounds present, bilateral CHESTER drains present, diffuse abdominal pain Neuro: No focal neurological deficits present Extremities: No edema cyanosis clubbing/deformities Skin: Warm and dry Coagulation Studies Laboratory Tests Test 01/13/25 09:32 01/26/25 11:40 01/27/25 10:44 Prothrombin Time 10.9 SECONDS (9.0-12.0) INR International Normalized Ratio 1.1 INR Activated Partial Thromboplast Time 115 SECONDS (22-32) *H APTT (Heparin Protocol) 99 SECONDS (45-75) H Coagulation Comments Assessment Assessment A 49-year-old female admitted in the hospital for prolapsing loop colostomy. She is admitted into the hospital for further evaluation and management. Plan Plan Parastomal hernia; associated with bulging pain and bleeding S/P colostomy on January 02, 2025 Colostomy revision, January 14, 2025 Acute Peritonitis, s/p exploratory Laparatomy (wash out) on January 21, 2025 Septic Shock, 2/2 to above. Undergone two washouts N/V; Zofran on board Abx; on Bactrim and Zosyn January 24, 2025: Undergone repeat washout/colostomy yesterday. Sedated, on mechanical ventilation; FiO2 40% ABGs; Ph 7.43, pO2 75, pCO2 34 Perineal fluid grows E. Gallinarum and Stenotrophomonas Maltophilia Abdominal wound grows E. Gallinarum resistent to Vanco, sensitive to ampicillin and Gentamicin On Zosyn - Continue January 25, 2025: The patient was successfully weaned off of the ventilator and extubated on January 24, 2025. She is now off of pressors and maintaining adequate perfusion on 4 L of oxygen via nasal cannula. Downgraded to PCU. She had bilateral pleural effusion, and left-sided thoracentesis was performed yesterday, yielding 600 mL of straw-colored fluid. She is currently stable, and her respiratory status is being closely monitored January 26, 2025: Hemoglobin 6.6, receiving one PRBC. Closely monitor H&H, and transfuse further if indicated Clinically improved, perfusing well while breathing ambient air Primarily managed by Dr. Choi January 27, 2025: She is clinically improved and feeling better. Her hemoglobin has remained stable over the past two days, with a value of 7.9 today. I discussed the case with Dr. Loco regarding appropriate antibiotic coverage for Stenotrophomonas maltophilia; she recommended initiating spectrum today. The patient is already on Zosyn, which is being continued for Enterococcus coverage. Ongoing monitoring is in place. Per Dr. Choi, the plan is to advance the diet and wean her off of TPN. The patient is tolerating current management well and nutrition status we will be closely monitored as diet is advanced. January 28, 2025: She is clinically improving. She is tolerating a full liquid diet we will following ostomy surgery. Her surgical incision is clean, dry, and intact. The stoma appears healthy, pink and viable, with formed stool present in the appliance. The surgical team plans to advance her diet to a regular diet as tolerated. Discharge plan per surgical team. January 29, 2025: Awaiting discharge per surgeon Watch for tolerance to regular diet January 30, 2025: Patient complained of diffuse abdominal pain, developing tolerance to Percocet. Started her on IV morphine 2 mg q.4h PRN. Continue Percocet. Management as per surgeon. Microcytic hypochromic anemia: More likely KAYLEE H&H has remained stable. S/P EGD, findings mentioned above. Appreciate recommendations. Discontinued iron. Received Ferrlecit 125 mg IV. Severe protein calorie malnutrition: Albumin 1.2, pre albumin low 8.7. Ensure ordered. Dietitian on board. Substance use disorder: Last time Meth. use, three months ago director field services consult. Substance use navigator to screen for current cravings or risk of relapse. Tobacco use disorder: Counseled patient on smoking cessation. Nicotine patch. Psychiatric issues/anxiety/Depression: Home medications i.e. Abilify and Atarax resumed. Chronic pain issues: Gabapentin. DVT prophylaxis: Lovenox Code status: Full code Disposition: Discharge plan and Management per Dr. Jimbo Acevedo MD Internal Medicine Resident, PGY-1 Date of Service: Jan 30, 2025 Billing Provider: ANA REA MD Common Visit Codes: [id number] INP/OBS CARE(HIGH) LUIS ACEVEDO, RES Jan 30, 2025 18:21 ANA REA MD Feb 09, 2025 22:37
[2025-01-30 19:21] LABS: BASOPHILS # (AUTO) 0.1 X10'3 (0-0.2); LYMPHOCYTES # (AUTO) 1.1 X10'3 (1.1-4.8); MEAN PLATELET VOLUME 6.8 FL (7.4-10.4); MONOCYTES # (AUTO) 0.6 X10'3 (0-0.9)
[2025-01-30 19:22] LABS: BASOPHILS % (AUTO) 0.5 % (0-1); EOSINOPHILS # (AUTO) 0.4 X10'3 (0-0.9); EOSINOPHILS % (AUTO) 3.8 % (0-6); HEMATOCRIT 23.4 % (35.0-45.0); HEMOGLOBIN 7.7 g/dl (12.0-16.0); LYMPHOCYTES % (AUTO) 11.4 % (21-51); MEAN CORPUSCULAR HEMOGLOBIN 25.3 PG (27.0-31.0); MEAN CORPUSCULAR HGB CONC 32.8 g/dL (33.0-36.5); MEAN CORPUSCULAR VOLUME 77.2 FL (78-98); MONOCYTES % (AUTO) 5.9 % (2-12); NEUTROPHILS # (AUTO) 7.9 X10'3 (1.8-7.7); NEUTROPHILS % (AUTO) 78.4 % (42-75); PLATELET COUNT 893 X10'3 (140-440); RED BLOOD COUNT 3.03 X10'6 (4.20-5.60); RED CELL DISTRIBUTION WIDTH 25.7 % (11.5-14.5)
[2025-01-30 19:57] LABS: ALANINE AMINOTRANSFERASE 19 U/L (12-78); ALBUMIN 1.5 G/DL (3.4-5.0); ALBUMIN/GLOBULIN RATIO 0.3 (1.1-1.5); ALKALINE PHOSPHATASE 99 IU/L (46-116); ANION GAP 9 (8-16); ASPARTATE AMINO TRANSFERASE 15 U/L (10-37); BILIRUBIN,TOTAL 0.1 MG/DL (0.1-1.0); BLOOD UREA NITROGEN 7 MG/DL (7-18); BUN/CREATININE RATIO 9.9 (10.0-20.0); CHLORIDE 103 MMOL/L (99-107); CREATININE 0.71 MG/DL (0.40-0.90); GLUCOSE 98 MG/DL (70-104); PHOSPHORUS 3.9 MG/DL (2.3-4.5); POTASSIUM 3.9 MMOL/L (3.5-5.1); PREALBUMIN 16.1 MG/DL (19-36); SODIUM 137 MMOL/L (135-145); TOTAL CARBON DIOXIDE 25.4 MMOL/L (24-32); TRIGLYCERIDES 141 MG/DL (20-135); eCRCL 80 ML/MIN; eGFR 88 ML/MIN
[2025-01-30 20:00] VITALS: RESP 16; O2SAT 95
[2025-01-30] MEDS: magnesium hydroxide 30ml (MOM) UD suspension PO SCH (21:33)
[2025-01-30 22:00] VITALS: BP 108/67; PULSE 83; RESP 16; TEMP 98.3; O2SAT 96
[2025-01-31 05:06] LABS: BASOPHILS # (AUTO) 0.1 X10'3 (0-0.2); EOSINOPHILS # (AUTO) 0.3 X10'3 (0-0.9); MONOCYTES # (AUTO) 0.6 X10'3 (0-0.9); WHITE BLOOD COUNT 10.8 X10'3 (4.5-11.0)
[2025-01-31 05:09] LABS: BASOPHILS % (AUTO) 0.5 % (0-1); EOSINOPHILS % (AUTO) 3.1 % (0-6); HEMATOCRIT 24.3 % (35.0-45.0); HEMOGLOBIN 8.1 g/dl (12.0-16.0); LYMPHOCYTES % (AUTO) 9.6 % (21-51); MEAN CORPUSCULAR HEMOGLOBIN 25.5 PG (27.0-31.0); MEAN CORPUSCULAR HGB CONC 33.1 g/dL (33.0-36.5); MEAN PLATELET VOLUME 6.9 FL (7.4-10.4); MONOCYTES % (AUTO) 5.1 % (2-12); NEUTROPHILS # (AUTO) 8.8 X10'3 (1.8-7.7); NEUTROPHILS % (AUTO) 81.7 % (42-75); PLATELET COUNT 886 X10'3 (140-440); RED BLOOD COUNT 3.16 X10'6 (4.20-5.60); RED CELL DISTRIBUTION WIDTH 25.6 % (11.5-14.5)
[2025-01-31 05:36] LABS: ALANINE AMINOTRANSFERASE 17 U/L (12-78); ALBUMIN 1.5 G/DL (3.4-5.0); ALBUMIN/GLOBULIN RATIO 0.3 (1.1-1.5); ALKALINE PHOSPHATASE 94 IU/L (46-116); ANION GAP 7 (8-16); ASPARTATE AMINO TRANSFERASE 16 U/L (10-37); BILIRUBIN,TOTAL 0.2 MG/DL (0.1-1.0); BLOOD UREA NITROGEN 5 MG/DL (7-18); CHLORIDE 104 MMOL/L (99-107); CREATININE 0.71 MG/DL (0.40-0.90); GLUCOSE 85 MG/DL (70-104); MAGNESIUM 2.2 MG/DL (1.5-2.4); PHOSPHORUS 4.3 MG/DL (2.3-4.5); POTASSIUM 3.9 MMOL/L (3.5-5.1); SODIUM 138 MMOL/L (135-145); TOTAL CARBON DIOXIDE 26.7 MMOL/L (24-32); TOTAL PROTEIN 6.1 G/DL (6.4-8.2); eCRCL 80 ML/MIN; eGFR 88 ML/MIN
[2025-01-31 06:00] VITALS: BP 105/82; PULSE 89; RESP 14; TEMP 98.8; O2SAT 95
[2025-01-31 08:00] VITALS: RESP 17; O2SAT 96
[2025-01-31 08:47] LABS: PLATELET ESTIMATE INCREASED
[2025-01-31 08:48] LABS: ANISOCYTOSIS 3+; MICROCYTOSIS 1+
[2025-01-31 08:50] LABS: HYPOCHROMASIA 1+
[2025-01-31 10:00] VITALS: BP 106/67; PULSE 90; RESP 16; TEMP 97.8; O2SAT 94
--- NOTE | 2025-01-31 16:53 | PROGRESS NOTE- Residence ---
Progress Note - Resident Providers to CC Resident Creating Document: LUIS ACEVEDO SOHEILA, RES ~ Antibiotic Timeout Antibiotic Ordered?: Yes Subjective The patient was seen and examined at bedside today. She has no new complaints. Surgical drains removed and the patient is passing bowel movements. Objective Vital Signs Date Time Temp Pulse Resp B/P (MAP) Pulse Ox O2 Delivery O2 Flow Rate FiO2 01/31/25 15:09 15 01/31/25 10:00 97.8 90 106/67 (80) 94 Room Air 01/31/25 05:00 0.0 95 Result Diagram: 01/31/2544901/31/25 045 General: Alert, awake, oriented, not in acute distress HEENT: PERRLA, no icterus, pallor, lymphadenopathy, carotid bruit Respiratory system: Bilateral vesicular breath sounds heard, no adventitious breath sounds CVS: S1-S2 heard, no murmurs/rubs/gallop GI: Surgical dressing present, bowel sounds present, diffuse abdominal pain at surgical sites Neuro: No focal neurological deficits present Extremities: No edema cyanosis clubbing/deformities Skin: Warm and dry Coagulation Studies Laboratory Tests Test 01/13/25 09:32 01/26/25 11:40 01/27/25 10:44 Prothrombin Time 10.9 SECONDS (9.0-12.0) INR International Normalized Ratio 1.1 INR Activated Partial Thromboplast Time 115 SECONDS (22-32) *H APTT (Heparin Protocol) 99 SECONDS (45-75) H Coagulation Comments Assessment Assessment A 49-year-old female admitted in the hospital for prolapsing loop colostomy. She is admitted into the hospital for further evaluation and management. Plan Plan Parastomal hernia; associated with bulging pain and bleeding S/P colostomy on January 02, 2025 Colostomy revision, January 14, 2025 Acute Peritonitis, s/p exploratory Laparatomy (wash out) on January 21, 2025 Septic Shock, 2/2 to above. Undergone two washouts N/V; Zofran on board Abx; on Bactrim and Zosyn January 24, 2025: Undergone repeat washout/colostomy yesterday. Sedated, on mechanical ventilation; FiO2 40% ABGs; Ph 7.43, pO2 75, pCO2 34 Perineal fluid grows E. Gallinarum and Stenotrophomonas Maltophilia Abdominal wound grows E. Gallinarum resistent to Vanco, sensitive to ampicillin and Gentamicin On Zosyn - Continue January 25, 2025: The patient was successfully weaned off of the ventilator and extubated on January 24, 2025. She is now off of pressors and maintaining adequate perfusion on 4 L of oxygen via nasal cannula. Downgraded to PCU. She had bilateral pleural effusion, and left-sided thoracentesis was performed yesterday, yielding 600 mL of straw-colored fluid. She is currently stable, and her respiratory status is being closely monitored January 26, 2025: Hemoglobin 6.6, receiving one PRBC. Closely monitor H&H, and transfuse further if indicated Clinically improved, perfusing well while breathing ambient air Primarily managed by Dr. Choi January 27, 2025: She is clinically improved and feeling better. Her hemoglobin has remained stable over the past two days, with a value of 7.9 today. I discussed the case with Dr. Loco regarding appropriate antibiotic coverage for Stenotrophomonas maltophilia; she recommended initiating bactrim today. The patient is already on Zosyn, which is being continued for Enterococcus coverage. Ongoing monitoring is in place. Per Dr. Choi, the plan is to advance the diet and wean her off of TPN. The patient is tolerating current management well and nutrition status we will be closely monitored as diet is advanced. January 28, 2025: She is clinically improving. She is tolerating a full liquid diet we will following ostomy surgery. Her surgical incision is clean, dry, and intact. The stoma appears healthy, pink and viable, with formed stool present in the appliance. The surgical team plans to advance her diet to a regular diet as tolerated. Discharge plan per surgical team. January 29, 2025: Awaiting discharge per surgeon Watch for tolerance to regular diet January 30, 2025: Patient complained of diffuse abdominal pain, developing tolerance to Percocet. Started her on IV morphine 2 mg q.4h PRN. Continue Percocet. Management as per surgeon. January 31, 2025: Awaiting discharge per surgeon. Surgical drains removed yesterday. Microcytic hypochromic anemia: More likely KAYLEE H&H has remained stable. S/P EGD, findings mentioned above. Appreciate recommendations. Discontinued iron. Received Ferrlecit 125 mg IV. Severe protein calorie malnutrition: Albumin 1.2, pre albumin improving. Ensure ordered. Dietitian on board. Substance use disorder: Last time Meth. use, three months ago park services specialist consult. Substance use navigator to screen for current cravings or risk of relapse. Tobacco use disorder: Counseled patient on smoking cessation. Nicotine patch. Psychiatric issues/anxiety/Depression: Home medications i.e. Abilify and Atarax resumed. Chronic pain issues: Gabapentin. DVT prophylaxis: Lovenox Code status: Full code Disposition: Discharge plan and Management per Dr. Jimbo Acevedo MD Internal Medicine Resident, PGY-1 Date of Service: Jan 31, 2025 Billing Provider: ANA REA MD Common Visit Codes: [id number] INP/OBS CARE(HIGH) LUIS ACEVEDO, RES Jan 31, 2025 16:53 ANA REA MD Feb 09, 2025 22:37
[2025-01-31 18:00] VITALS: BP 113/63; PULSE 82; RESP 16; TEMP 98.5; O2SAT 95
--- NOTE | 2025-01-31 19:42 | PROGRESS NOTE ---
Progress Note ID Providers to CC ~ Progress Note Progress Note: doing well/anticipate dc in am DELPHINE RAZO MD Jan 31, 2025 19:42
[2025-01-31 20:00] VITALS: RESP 16; O2SAT 95
[2025-01-31 23:00] VITALS: BP 122/66; PULSE 85; RESP 14; TEMP 98.2; O2SAT 96
[2025-02-01 05:35] LABS: BASOPHILS # (AUTO) 0.1 X10'3 (0-0.2); BASOPHILS % (AUTO) 0.8 % (0-1); EOSINOPHILS # (AUTO) 0.2 X10'3 (0-0.9); HEMOGLOBIN 8.3 g/dl (12.0-16.0); LYMPHOCYTES # (AUTO) 1.3 X10'3 (1.1-4.8); LYMPHOCYTES % (AUTO) 15.5 % (21-51); MEAN PLATELET VOLUME 6.9 FL (7.4-10.4)
[2025-02-01 05:38] LABS: EOSINOPHILS % (AUTO) 2.5 % (0-6); HEMATOCRIT 25.6 % (35.0-45.0); MEAN CORPUSCULAR HEMOGLOBIN 25.3 PG (27.0-31.0); MEAN CORPUSCULAR HGB CONC 32.5 g/dL (33.0-36.5); MEAN CORPUSCULAR VOLUME 77.8 FL (78-98); MONOCYTES # (AUTO) 0.6 X10'3 (0-0.9); MONOCYTES % (AUTO) 7.4 % (2-12); NEUTROPHILS # (AUTO) 6.3 X10'3 (1.8-7.7); NEUTROPHILS % (AUTO) 73.8 % (42-75); PLATELET COUNT 949 X10'3 (140-440); RED BLOOD COUNT 3.28 X10'6 (4.20-5.60); RED CELL DISTRIBUTION WIDTH 25.3 % (11.5-14.5); WHITE BLOOD COUNT 8.6 X10'3 (4.5-11.0)
[2025-02-01 05:39] LABS: ALANINE AMINOTRANSFERASE 20 U/L (12-78); ALBUMIN 1.7 G/DL (3.4-5.0); ALBUMIN/GLOBULIN RATIO 0.4 (1.1-1.5); ALKALINE PHOSPHATASE 99 IU/L (46-116); ANION GAP 9 (8-16); ASPARTATE AMINO TRANSFERASE 10 U/L (10-37); BILIRUBIN,TOTAL 0.2 MG/DL (0.1-1.0); BLOOD UREA NITROGEN 6 MG/DL (7-18); BUN/CREATININE RATIO 8.8 (10.0-20.0); CALCIUM 8.2 MG/DL (8.5-10.1); CHLORIDE 107 MMOL/L (99-107); CREATININE 0.68 MG/DL (0.40-0.90); GLUCOSE 90 MG/DL (70-104); MAGNESIUM 2.1 MG/DL (1.5-2.4); PHOSPHORUS 3.8 MG/DL (2.3-4.5); POTASSIUM 4.4 MMOL/L (3.5-5.1); SODIUM 142 MMOL/L (135-145); TOTAL CARBON DIOXIDE 26.4 MMOL/L (24-32); TOTAL PROTEIN 6.4 G/DL (6.4-8.2); eCRCL 84 ML/MIN; eGFR > 90 ML/MIN
[2025-02-01 06:00] VITALS: BP 110/64; PULSE 78; RESP 14; TEMP 97.6; O2SAT 97
[2025-02-01 08:40] LABS: TOTAL CELLS COUNTED 100
[2025-02-01 08:42] LABS: ANISOCYTOSIS 3+; HYPOCHROMASIA 1+; MICROCYTOSIS 1+; PLATELET ESTIMATE INCREASED
[2025-02-01 11:00] VITALS: BP 111/68; PULSE 85; RESP 18; TEMP 97.9; O2SAT 96
[2025-02-01 11:19] VITALS: RESP 12
[2025-02-01] MEDS ORDERED: PER5325T PO (14:05)
[2025-02-01] MEDS ORDERED: NICO-631 TD (14:05)
[2025-02-01] MEDS ORDERED: AMPI500C65 PO (14:05)
[2025-02-01] MEDS ORDERED: gabapentin capsule PO (14:05)
[2025-02-01] MEDS ORDERED: CIPR-259 PO (14:05)
--- NOTE | 2025-02-01 14:34 | PROGRESS NOTE ---
Progress Note ID Providers to CC ~ Progress Note Progress Note: doing well/ ok for dc DELPHINE RAZO MD Feb 01, 2025 14:34
--- NOTE | 2025-02-01 18:48 | DISCHARGE SUMMARY-Residence ---
Discharge Summary Providers to Resident Creating Document: LUIS ACEVEDO, RES ~ Discharge Summary Admission Diagnosis: s/p lap with partial colectomy Hospital Course DATE OF ADMISSION: 01/13/2025 DATE OF DISCHARGE: 02/01/2025 Imaging: Abdomen/pelvis CT 01/19/2025: 1. Interval postsurgical changes as described above. Correlate with surgical history as portions of the bowel and associated postsurgical changes are difficult to delineate, despite the administration of GI contrast. 2. Surgical drain in place coursing into the posterior pelvis, appears to be partially within a structure containing fluid and gas in the posterior pelvis. The structure appears to be contiguous with the rectum. Correlate with clinical findings and surgical history. 3. Small volume pneumoperitoneum and small amount of free fluid in the abdomen and pelvis, likely at least partially due to recent postsurgical changes. 4. Colostomies in the right and left ventral abdominal sorensen as described above. 5. Prominent locules of gas adjacent to and within the left iliacus muscle, may be sequela of postsurgical changes, new compared to the prior exam. Correlate with clinical findings and surgical history. 6. No small bowel obstruction. Fluid-filled small bowel loops in the central aspect of the abdomen with adjacent surgical anastomosis, likely ileus. 7. Gallbladder wall appears thickened and edematous. May be due to 3rd spacing of fluid. Correlate clinically. If clinically indicated, ultrasound could be obtained to further evaluate. Venous ultrasound 01/20/2025: No right or left lower extremity deep venous thrombosis. X-ray chest 01/21/2025: Lines and Tubes: Tip of the ETT is approximately 5 cm above the kwame. Right IJ central venous catheter noted with its tip projecting over SVC. NG tube extends below the diaphragm with its tip projecting over gastric fundus. Lungs / Pleura: Evidence of mild pulmonary edema. Bibasilar atelectasis/consolidation and small bilateral pleural effusions greater on the left side. Cardiomediastinal contours: Unremarkable. CT chest 01/23/2025: 1. Bibasilar consolidations may reflect pneumonia or aspiration. 2. Moderate to large bilateral pleural effusions. 3. Acute pulmonary emboli involving the right lower lobe segmental / subsegmental pulmonary artery branches. Echocardiogram 01/24/2025: Normal LV size and wall thickness. Overall systolic function is normal. LVEF is 65%. Pt on 0.03mcg/kg/min Levophed and 0.03mcg/kg/min Vasopressin RV is mildly increased in size with low normal function. Elevated right heart pressures with an RVSP of 38 mmHg. The left atrium size is normal. Trileaflet AV appears minimally sclerosed without stenosis or insufficiency. Moderate MV annular calcification without stenosis. Trace regurgitation. TV appears structurally normal with moderate (2+) regurgitation. Normal pericardium. No effusion. Venous ultrasound 01/24/2025: No right or left femoropopliteal venous thrombosis. Discharge Diagnosis\Comment: Parastomal hernia S/P colostomy on January 02, 2025 Colostomy revision, January 14, 2025 Acute Peritonitis, s/p exploratory Laparatomy (wash outs) Septic Shock, 2/2 to above Undergone two washouts Microcytic hypochromic anemia: More likely KAYLEE Severe protein calorie malnutrition Substance use disorder Tobacco use disorder Psychiatric issues/anxiety/Depression Chronic pain issues Operations\Procedures: Dr. Choi on 01/13/2025: Repeat laparotomy/partial colectomy with colostomy of transverse colon/sigmoid colon mucous fistula/small-bowel resection Dr. Choi on 01/21/2025: Repeat laparotomy/left colectomy/rectal resection Dr. Choi on 01/23/2025: Repeat laparotomy/washout/colostomy Dr. Holt on 01/24/2025: Ultrasound guided left thoracentesis - 600 cc of straw-colored fluid removed Consultants: Dr. Choi and Dr. Delgado, general surgeon Dr. Holt and Dr. Mata, quality control director Dr. Hogan, harness inspector Complications: None Condition on DC: Stable New Medications: Ampicillin Trihydrate (Ampicillin Trihydrate) 500 Mg Capsule 1 CAP PO Q8H for 7 Days, #21 CAP Ciprofloxacin HCl (Cipro) 500 Mg Tablet 1 TAB PO Q12H for 7 Days, #14 TAB [gabapentin capsule] () 300 MG CAPSULE 300 MG PO BID for 30 Days, #60 Nicotine 14 MG Patch* (Habitrol 14 MG Patch*) 1 Each Patch.td24 1 PATCH TD DAILY for 30 Days, #30 PATCH Oxycodone Hcl/Acetaminophen 5/325 MG* (Percocet 5/325 MG*) 5 Mg/325 Mg Tablet 1 TAB PO Q8H PRN for moderate or severe pain 4-10 for 7 Days, #20 TAB Continued Medications: Aripiprazole (Aripiprazole) 10 Mg Tablet 1 TAB PO DAILY Hydroxyzine Hcl* (Atarax*) 25 Mg Tablet 1 TAB PO Q8H PRN for ITCHING, TAB Prazosin Hcl (Prazosin Hcl) 1 Mg Capsule 1 CAP PO HS, CAP 0 Refills Discharge Summary: History of present illness by admitting physician: This is a 49 year old female with a history of 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 Choi on January 02. She followed up with his surgeon in clinic yesterday, where she was advised to return today for surgical repair of the colostomy site. She now presents with complaints of increasing bulging, pain, and bleeding at the colostomy site. She denies any fever, chills, nausea, vomiting or diarrhea. She has been tolerating oral intake without any issues. She is currently NPO in preparation for surgery later this afternoon. She has a history of fentanyl and methamphetamine use, last reported three months ago, and is a chronic smoker 2-3 cigarettes daily for many years. She lives with her mother after experiencing homelessness for awhile. PCP is [facility]. I have discussed advance care planning with the patient. The patient has decided on a full code status. Course in the hospital: General surgeon, Dr. Choi was consulted, NG tube was placed. She underwent repeat laparotomy/partial colectomy with colostomy of transverse colon/sigmoid colon mucous fistula/small-bowel resection by Dr. Choi. She was started on empiric antibiotics ceftriaxone and metronidazole. Postoperatively, the patient's hemoglobin dropped to 6.9, 1 unit of PRBC transfused and the patient underwent upper GI endoscopy by Dr. Hogan which showed large duodenal ulcer and scattered gastric ulcers, severe reflux esophagitis and Maria L of esophagus. She was started on p.o. fluconazole 100 mg daily for 14 days. She was also started on IV iron and then transitioned to p.o. iron. The patient also underwent repeat exploratory laparotomy with abdominal washout and partial colectomy on 01/21/2025. Intraoperative findings revealed ischemic rectum with stool leakage in the left colon distended with stool that could not be adequately decompressed. She underwent another abdominal washout the next day. The patient also received treatment in the ICU with mechanical ventilation for respiratory distress. She was also on vasopressin and norepinephrine for septic shock due to peritonitis. She was successfully extubated and discontinued pressors. Infectious diseases was on board and followed blood cultures and the patient was continued on Zosyn. Patient was also on TPN for nutrition. Patient recovered well after downgrade from ICU and was discharged home with home health. Advice at discharge: Wound - Outpatient Wound Care at [facility] - [phone]. First available appointment February 08 at 12:30. Please bring new paperwork with you to appointment. Follow up with Dr. Choi [phone] call for appt. Vital Signs Date Time Temp Pulse Resp B/P (MAP) Pulse Ox O2 Delivery O2 Flow Rate FiO2 02/01/25 14:33 Room Air 02/01/25 11:19 12 02/01/25 11:00 97.9 85 111/68 (82) 96 02/01/25 05:32 95 01/31/25 05:00 0.0 Laboratory Tests Test 02/01/25 05:05 02/01/25 05:07 White Blood Count 8.6 X10'3 Red Blood Count 3.28 X10'6 Hemoglobin 8.3 g/dl Hematocrit 25.6 % Mean Corpuscular Volume 77.8 FL Mean Corpuscular Hemoglobin 25.3 PG Mean Corpuscular Hemoglobin Concent 32.5 g/dL Red Cell Distribution Width 25.3 % Platelet Count 949 X10'3 Mean Platelet Volume 6.9 FL Neutrophils (%) (Auto) 73.8 % Lymphocytes (%) (Auto) 15.5 % Monocytes (%) (Auto) 7.4 % Eosinophils (%) (Auto) 2.5 % Basophils (%) (Auto) 0.8 % Neutrophils # (Auto) 6.3 X10'3 Lymphocytes # (Auto) 1.3 X10'3 Monocytes # (Auto) 0.6 X10'3 Eosinophils # (Auto) 0.2 X10'3 Basophils # (Auto) 0.1 X10'3 CBC Comment Differential Total Cells Counted 100 Neutrophils % (Manual) 76.0 % Band Neutrophils % 1.0 % Lymphocytes % (Manual) 12.0 % Monocytes % (Manual) 8.0 % Basophils % (Manual) 1.0 % Metamyelocytes % 2.0 % Platelet Estimate Increased Red Blood Cell Morphology Perf Hypochromasia 1+ Basophilic Stippling Anisocytosis 3+ Microcytosis 1+ Sodium Level 142 MMOL/L Potassium Level 4.4 MMOL/L Chloride Level 107 MMOL/L Carbon Dioxide Level 26.4 MMOL/L Anion Gap 9 Blood Urea Nitrogen 6 MG/DL Creatinine 0.68 MG/DL Estimated GFR/1.73 m2 > 90 ML/MIN BUN/Creatinine Ratio 8.8 Glucose Level 90 MG/DL Calcium Level 8.2 MG/DL Phosphorus Level 3.8 MG/DL Magnesium Level 2.1 MG/DL Total Bilirubin 0.2 MG/DL Aspartate Amino Transf (AST/SGOT) 10 U/L Alanine Aminotransferase (ALT/SGPT) 20 U/L Alkaline Phosphatase 99 IU/L Total Protein 6.4 G/DL Albumin 1.7 G/DL Globulin 4.7 G/DL Albumin/Globulin Ratio 0.4 Chemistry Comments *Problems/Diagnosis: (1) Peritonitis (2) Protein malnutrition Status: Acute Total Time Spent on D/C: > 30 Minutes Date of Service: Feb 01, 2025 Billing Provider: GABI CREWS MD, SOWMYA MANJARI, RES Feb 01, 2025 18:48
== END 2025-02-01 15:45 | disposition home health service (06) | DRG 230 ==
LOC: ER 08:52 → ED HOLD 10:12 → SUR 3N 11:58 → PACU 22:51 → SUR 3N 23:56 → UNDODISIN 01-17 15:25 → SUR 3N 01-21 05:57 → CICU 2S 01-21 23:40 → PCU 3S 01-25 17:04 → SUR 3N 01-27 22:40
PROVIDERS: ADMIT Family Medicine; ATTEND Family Medicine
PROC: 0DB80ZZ Excision of Small Intestine, Open Approach (ICD-10-PCS; 2025-01-13)
PROC: 0DBL0ZZ Excision of Transverse Colon, Open Approach (ICD-10-PCS; 2025-01-13)
PROC: 0D1L0Z4 Bypass Transverse Colon to Cutaneous, Open Approach (ICD-10-PCS; 2025-01-13)
PROC: 0DN80ZZ Release Small Intestine, Open Approach (ICD-10-PCS; principal; 2025-01-13 18:52)
PROC: 30233N1 Transfusion of Nonautologous Red Blood Cells into Peripheral Vein, Percutaneous Approach (ICD-10-PCS; 2025-01-15)
PROC: 0DB28ZX Excision of Middle Esophagus, Via Natural or Artificial Opening Endoscopic, Diagnostic (ICD-10-PCS; 2025-01-19)
PROC: 0DB18ZX Excision of Upper Esophagus, Via Natural or Artificial Opening Endoscopic, Diagnostic (ICD-10-PCS; 2025-01-19)
PROC: 0DB68ZX Excision of Stomach, Via Natural or Artificial Opening Endoscopic, Diagnostic (ICD-10-PCS; 2025-01-19)
PROC: BW211ZZ Computerized Tomography (CT Scan) of Abdomen and Pelvis using Low Osmolar Contrast (ICD-10-PCS; 2025-01-19)
PROC: 0DN80ZZ Release Small Intestine, Open Approach (ICD-10-PCS; 2025-01-21)
PROC: 0DBP0ZZ Excision of Rectum, Open Approach (ICD-10-PCS; 2025-01-21)
PROC: 0BH17EZ Insertion of Endotracheal Airway into Trachea, Via Natural or Artificial Opening (ICD-10-PCS; 2025-01-22)
PROC: 5A1945Z Respiratory Ventilation, 24-96 Consecutive Hours (ICD-10-PCS; 2025-01-22)
PROC: 0D1L0Z4 Bypass Transverse Colon to Cutaneous, Open Approach (ICD-10-PCS; 2025-01-23)
PROC: 0DQL0ZZ Repair Transverse Colon, Open Approach (ICD-10-PCS; 2025-01-23)
PROC: BW241ZZ Computerized Tomography (CT Scan) of Chest and Abdomen using Low Osmolar Contrast (ICD-10-PCS; 2025-01-23)
PROC: 0W993ZZ Drainage of Right Pleural Cavity, Percutaneous Approach (ICD-10-PCS; 2025-01-24)
PROC: 5A09357 Assistance with Respiratory Ventilation, Less than 24 Consecutive Hours, Continuous Positive Airway Pressure (ICD-10-PCS; 2025-01-24)
PROC: 05HB33Z Insertion of Infusion Device into Right Basilic Vein, Percutaneous Approach (ICD-10-PCS; 2025-01-24)
PROC: B54MZZA Ultrasonography of Right Upper Extremity Veins, Guidance (ICD-10-PCS; 2025-01-24)
DX: K94.09 Other complications of colostomy (principal); R65.21 Severe sepsis with septic shock; J96.01 Acute respiratory failure with hypoxia; A41.9 Sepsis, unspecified organism; E43 Unspecified severe protein-calorie malnutrition; K65.8 Other peritonitis; B37.81 Candidal esophagitis; K26.9 Duodenal ulcer, unspecified as acute or chronic, without hemorrhage or perforation; K62.4 Stenosis of anus and rectum; Y83.8 Other surgical procedures as the cause of abnormal reaction of the patient, or of later complication, without mention of misadventure at the time of the procedure; D50.8 Other iron deficiency anemias; F15.90 Other stimulant use, unspecified, uncomplicated; K43.5 Parastomal hernia without obstruction or gangrene; N73.6 Female pelvic peritoneal adhesions (postinfective); F32.A Depression, unspecified; K44.9 Diaphragmatic hernia without obstruction or gangrene; K66.0 Peritoneal adhesions (postprocedural) (postinfection); K21.00 Gastro-esophageal reflux disease with esophagitis, without bleeding; K25.9 Gastric ulcer, unspecified as acute or chronic, without hemorrhage or perforation; F41.9 Anxiety disorder, unspecified; Z91.012 Allergy to eggs; Y92.89 Other specified places as the place of occurrence of the external cause; Z91.018 Allergy to other foods; Z88.8 Allergy status to other drugs, medicaments and biological substances; Z68.27 Body mass index [BMI] 27.0-27.9, adult
CPT/HCPCS: 32555; 36410; 36415; 36430; 36600; 43239; 71045; 71260; 74177; 76937; 80048; 80053; 82272; 82728; 82803; 82948; 83540; 83550; 83605; 83735; 84100; 84132; 84134; 84145; 84478; 85007; 85008; 85018; 85025; 85027; 85610; 85730; 86140; 86703; 86885; 86900; 86901; 86920; 87070; 87075; 87077; 87081; 87186; 93306; 93970; 94002; 94003; 94760; 94799; 96374; 96375; 97110; 97116; 97161; 97530; 99152; 99285; A4421; A4615; A4618; A4620; A4649; A5200; A6196; A6213; A6253; A6258; A6266; A6402; A6407; A6446; A6449; A7000; A9900; C1751; C1758; G0378; J0131; J0696; J1100; J1171; J1644; J1650; J1885; J2060; J2250; J2270; J2405; J2470; J2543; J2704; J2765; J2916; J2997; J3010; J3475; J3480; J3490; J7030; J7040; J7050; J7060; J7120; P9016; P9045; Q0177; Q9963; Q9967

== ENCOUNTER → 2025-04-17 | Outpatient (CLI) | payer MEDICAID ==
[~2025-04-17] MED LIST changes: -DOCU-171 PO; +HYDR-3686 PO; -HYDR-3717 PO; +NICO-631 TD; -ONDA-243 PO; +PER5325T PO; +gabapentin capsule PO
--- NOTE | 2025-04-18 12:05 | RADIOLOGY REPORT ---
CLINICAL INFORMATION: Pain in left hip. TECHNIQUE: Multisequence multiplanar MRI images of the left hip were obtained without contrast. COMPARISON: Correlation made to prior CT of the abdomen and pelvis exams dated 01/19/2025, 01/05/2025 , and 12/31/2024. FINDINGS: BONES: There is abnormal morphology of the left femoral head, with flattened appearance and areas of cortical erosive changes and sclerosis. There are also prominent erosive changes and areas of sclero sis in the left acetabulum. Moderate amount of fluid in the left hip joint. There is patchy marrow ed judy at the junction of the left acetabulum and superior pubic ramus, may be stress related changes/st ress injury. No other areas of marrow edema in the left acetabulum or left femoral head to suggest ac bisi osteomyelitis. BURSAE: Unremarkable. No significant fluid in the trochanteric or iliopsoas bursae. TENDONS: Mild tendinosis of the distal gluteus medius and minimus tendons. Origins of the rectus femo ris tendon and hamstring tendons are intact. Distal insertion of the iliopsoas tendon is intact. MUSCLES: Moderate fatty atrophy of the gluteus minimus muscles bilaterally. OTHER: Left adnexal cystic structure measuring up to 3.3 cm, most likely ovarian cyst. Small amount o f free fluid in the cul-de-sac and adnexal regions bilaterally. IMPRESSION: 1. Extensive erosive changes in the left femoral head and left acetabulum with moderate fluid in the left hip joint. Findings may be sequela of inflammatory arthropathy. Sequelae of prior septic arthri tis could also be considered. No evidence for acute osteomyelitis at this time. Similar findings are seen on prior CT exams. Correlate with clinical findings. Osteonecrosis would be less likely given the involvement of the acetabulum. 2. Mild marrow edema at the junction of the left acetabulum and superior pubic ramus, may be due to s tress related changes/stress injury with no evidence of stress fracture. Correlate with clinical fin dings. 3. Cystic structure in the left adnexal region, likely ovarian cyst and small to moderate amount of f ree fluid in the cul-de-sac and bilateral adnexa, likely physiologic fluid. Correlate with clinical findings. 4. Additional findings as detailed above.
== END | disposition home or self-care (01) ==
LOC: MRI02 11:30
PROVIDERS: ATTEND Physician Assistant Surgical
DX: M16.12 Unilateral primary osteoarthritis, left hip (principal); M25.552 Pain in left hip; M62.552 Muscle wasting and atrophy, not elsewhere classified, left thigh; M76.02 Gluteal tendinitis, left hip; R60.0 Localized edema; M85.852 Other specified disorders of bone density and structure, left thigh
CPT/HCPCS: 73721

== ENCOUNTER 2025-08-03 10:21 | Outpatient (CLI) | payer MEDICAID ==
--- NOTE | 2025-08-03 12:00 | RADIOLOGY REPORT ---
INDICATION: UNSPECIFIED OVARIAN CYST, RIGHT SIDE TECHNIQUE: Multiple real-time grayscale transabdominal sonographic images along with color and duplex Doppler of the uterus and ovaries were obtained. COMPARISON: CT CT ABDOMEN PELVIS W/ IV ORAL CONTRAST on DOS: 01/19/25, CT CT ABDOMEN PELVIS W/WO IV CONTRAST on DOS: 12/31/24 FINDINGS: The uterus measures 7.5 x 3.7 x 5.6 cm. The endometrial stripe measures 0.4 cm. Right ovary measures 3.7 x 2.5 x 2.5 cm with normal Doppler color flow Left ovary measures 3.5 x 2.2 x 1.7 cm with normal Doppler color flow. Left ovarian cyst measures 1.4 cm. IMPRESSION: 1. Grossly unremarkable pelvic ultrasound.
--- NOTE | 2025-08-03 13:33 | RADIOLOGY REPORT ---
EXAM: MR MRI HEAD INDICATION: MEMORY ISSUES H/O MULTIPLE TBIs TECHNIQUE: Multiplanar, multisequence imaging of the brain without contrast. COMPARISON: None FINDINGS: [PARENCHYMA]: No acute infarct or hemorrhage. No mass effect or herniation. No abnormal susceptibility weighted artifact. [VENTRICLES]: No hydrocephalus. [EXTRA-AXIAL SPACES]: No extra-axial fluid collections. [FLOW VOIDS]: The flow voids are intact. [EXTRA-CRANIAL STRUCTURES]: The bony structures are intact. Visualized portions of the paranasal sinuses and mastoid air cells are essentially clear. IMPRESSION: 1. No MR evidence of an acute intracranial abnormality.
== END 2025-08-03 23:59 | disposition home or self-care (01) ==
LOC: MRI 10:21
PROVIDERS: ATTEND Family Medicine
DX: N83.202 Unspecified ovarian cyst, left side (principal); N83.201 Unspecified ovarian cyst, right side; R41.3 Other amnesia
CPT/HCPCS: 70551; 76856; 93976